=== PATIENT | male | born 1940 | race Caucasian/White ===

== ENCOUNTER 2021-02-26 | Outpatient (REF) | payer MEDICARE, SELFPAY ==
[2021-02-28 14:41] LABS: OBS Int Ctl Valid YES; OBS1 NEGATIVE (NEGATIVE); OBS2 NEGATIVE (NEGATIVE); OBS3 NEGATIVE (NEGATIVE)
== END 2021-02-26 00:01 | disposition home or self-care (01) ==
LOC: HO.LNP
PROVIDERS: Visit Provider Internal Medicine
DX: R19.4 Change in bowel habit (principal)
CPT/HCPCS: 82270

== ENCOUNTER 2022-08-16 12:11 | Outpatient (REF) | payer MEDICARE, SELFPAY ==
[2022-08-16 12:48] LABS: Leukocytes Stool Qualitative NEGATIVE (NEGATIVE)
[2022-08-16 13:18] LABS: CDiff Gene PCR NEGATIVE (Negative)
[2022-08-16 15:18] LABS: Campylobacter Not Detected (Not Detect.); Cryptosporidium Not Detected (Not Detect.); Cyclospora cayetanensis Not Detected (Not Detect.); E. coli EAEC Not Detected (Not Detect.); E. coli EPEC Not Detected (Not Detect.); E. coli ETEC Not Detected (Not Detect.); E. coli STEC Not Detected (Not Detect.); Plesiomonas shigelloides Not Detected (Not Detect.); Salmonella Not Detected (Not Detect.); Shigella sp./EIEC Not Detected (Not Detect.); Vibrio Not Detected (Not Detect.); Vibrio Cholerae Not Detected (Not Detect.); Yersinia enterocolitica Not Detected (Not Detect.)
[2022-08-16 15:19] LABS: Adenovirus F 40/41 Not Detected (Not Detect.); Astrovirus Not Detected (Not Detect.); Entamoeba histolytica Not Detected (Not Detect.); Giardia lamblia Not Detected (Not Detect.); Norovirus GI/GII Not Detected (Not Detect.); Rotavirus A Not Detected (Not Detect.); Sapovirus Not Detected (Not Detect.)
== END 2022-08-16 12:12 | disposition home or self-care (01) ==
LOC: HO.LNP 12:11
PROVIDERS: Visit Provider Internal Medicine
DX: R19.8 Other specified symptoms and signs involving the digestive system and abdomen (principal)
CPT/HCPCS: 87493; 87507; 89055

== ENCOUNTER 2023-12-02 07:50 | Inpatient (IN) | payer MEDICARE, SELFPAY ==
[2023-12-02] VITALS (9 sets, daily range): BP systolic 135–172; BP diastolic 63–104; PULSE 85–116; RESP 15–21; TEMP 36.2–37.1; O2SAT 94–100; BMI 26.2; BMI 24.7
--- NOTE | ~2023-12-02 | XR_ITS ---
EXAMINATION: XR chest 1V CLINICAL INFORMATION: Reason for Exam sob COMPARISON: No priors available TECHNIQUE: Single portable frontal view. Tubes and lines: None Lungs and pleura: There are bilateral patchy opacities projecting over the right and left upper lobe, right and left lower lobes, may represent patchy areas of infiltrates, could be infection versus lung masses. Heart and mediastinum: The mediastinum is within normal limits.. Bones/soft tissue: Skeletal structures included are normal for patient's age. XR/XR chest 1V IMPRESSION: Bilateral patchy opacities projecting over the right and left upper lobe, right and left lower lobes, could represent patchy areas of infiltrate/infection, versus lung masses. Please correlate with patient's clinical presentation, consider follow-up low-dose chest CT. if not performed would recommend follow-up chest x-ray in one month to ensure complete clearance..
--- NOTE | ~2023-12-02 | CT_ITS ---
EXAMINATION: CT CHEST WITHOUT CONTRAST CLINICAL INFORMATION: Cough, shortness of breath, wheezing. COMPARISON: X-ray chest 12/02/2023. TECHNIQUE: Multidetector volumetric CT imaging of the chest was done. Axial MIP volume rendering provided. Sagittal and coronal reformatted images were obtained. This CT examination was performed using dose optimization techniques as appropriate, variously including the following: *Automated exposure control *Adjustment of mA and/or kV according to patient size (this includes techniques or standardized protocols for targeted exams where dose is matched to indication/reason for exam; i.e. extremities or head) *Use of iterative reconstruction technique DLP: 195 mGy-cm FINDINGS: LUNGS: There are multiple foci of airspace opacities in bilateral lungs. This includes a prominent focus of airspace and ground-glass opacities in the left upper lobe, extending to the hilar region. Patchy airspace and ground-glass opacity in the peripheral aspect of the right upper lobe. Airspace and ground-glass opacities in the posterior aspect of bilateral lower lobes. Multiple nodular opacities in the left lower lobe, and in the right middle lobe. MEDIASTINUM: No suspicious findings in the visualized thyroid gland. No pathologically enlarged lymph nodes in the mediastinum or sergey. Normal heart size. No pericardial effusion. Normal caliber aorta. Aortic atherosclerotic vascular calcification. CORONARY ARTERY CALCIFICATION: Coronary artery calcification present. PLEURA: Moderate right pleural effusion. Small-moderate left pleural effusion. AXILLA: No lymphadenopathy. UPPER ABDOMEN: There are simple cysts in the partially visualized bilateral kidneys, for which no follow up is indicated. OSSEOUS STRUCTURES: Multilevel disc degenerative changes in the visualized spine. There are a few foci of subtle lucencies in bilateral ribs. For example lucency in the right 10th rib (5:535), right 8th rib (5:435), left 10th rib (5:473). CT/CT chest wo IV con IMPRESSION: 1. Multifocal airspace, ground-glass opacities and nodular opacities in bilateral lungs, including prominently involving bilateral upper lobes, as detailed above. Differential considerations include infectious, inflammatory etiology. Neoplastic process cannot be excluded. Recommend short-term followup CT posttreatment to ensure complete resolution of the findings, and exclude other possibilities such as neoplastic etiologies. 2. Moderate right pleural effusion. Small-moderate left pleural effusion. 3. There are subtle lucent foci in bilateral ribs, as detailed above. These are of indeterminate etiology. This could reflect bone demineralization. Bony lesions related to sequela of metastatic disease cannot be excluded. Correlate with patient's clinical history and risk factors. Bone scan evaluation may be helpful. Fleischner guidelines were followed.
--- NOTE | 2023-12-02 07:56 | ECG_ITS ---
Test Reason : SOB Blood Pressure : / mmHG Vent. Rate : 079 BPM Atrial Rate : 000 BPM P-R Int : 000 ms QRS Dur : 082 ms QT Int : 366 ms P-R-T Axes : 000 086 062 degrees QTc Int : 419 ms Atrial fibrillation with a competing junctional pacemaker Abnormal ECG When compared with ECG of 28-OCT-2005 00:21, Atrial fibrillation has replaced Sinus rhythm Questionable change in QRS axis Referred By: Umair Patton Electronically Signed By:Carlos Baldwin
--- NOTE | 2023-12-02 08:00 | PC.NURSE ---
a&ox4. vss and up to date. pt presents to the ED w/ sob/wheezing x a few days. pt states that he has had minimal to no relief while using inhaler at home. hx of asthma and he thinks that he has COPD. pt satting on 97% on RA without difficulty. slight sob/wob noted when conversating w/ patient. pt positioned upright to promote airway. ED provider assessing pt at this time. plan of care ongoing.
--- NOTE | 2023-12-02 08:01 | ED_ITS ---
HPI - General Adult General Chief complaint: Dyspnea Stated complaint: SOB SINCE LAST NIGHT Time Seen by Provider: 12/02/23 09:34 Source: patient Mode of arrival: ambulatory Limitations: no limitations History of Present Illness HPI narrative: 82-year-old male history of asthma, afib on eliquis, former smoker presenting to the emergency department for evaluation of shortness of breath ongoing for 3 days progressively worsening at time coughs. Patient reports worsening wheezing and dyspnea on exertion particularly with long distance. Has been taking home inhalers with little to no relief. He denies associated fevers, chills, chest pain, nausea, vomiting, abdominal pain, diarrhea. No recent sick contacts Related Data Allergies Allergy/AdvReac Type Severity Reaction Status Date / Time No Known Allergies Allergy Verified 12/02/23 08:00 Review of Systems 2 Review of Systems: Yes all other systems are reviewed and are negative PMFSH Past Medical History Attestation statement: The following information was validated with the patient. Source: old records reviewed and nursing notes reviewed Social History Social History Smoked in Last 30 Days: No Use of substances other than those prescribed or required for medical reasons: No Advance Directives: No Advance Directives Information Provided: Yes Physical Exam ED Vital Signs: Vital Signs - 24 hr 12/02/23 08:00 12/02/23 08:44 12/02/23 09:02 Temperature 97.8 F Pulse Rate 89 85 91 Respiratory Rate 18 21 H Blood Pressure 172/73 H Pulse Oximetry 99 Oxygen Delivery Method Room Air 12/02/23 10:39 Temperature 98.1 F Pulse Rate 100 Respiratory Rate 18 Blood Pressure 151/63 H Pulse Oximetry 97 Oxygen Delivery Method Room Air BMI result Body Mass Index 26.2 vss Appearance: Alert.? Oriented X3.? No acute distress.? Head: Normocephalic, atraumatic, no step-offs or deformities Eyes: Pupils equal, round and reactive to light.? Neck: Normal inspection.? Neck supple.? CVS: Normal heart rate and rhythm.? Pulses normal.? Respiratory: No respiratory distress.? Breath sounds normal.? Abdomen: Soft and nontender.? Skin: Skin warm and dry.? Normal skin color.? Normal skin turgor.? Extremities: No lower extremity edema.? No calf ttp. 5/5 strength to bilateral upper and lower extremities Neuro: Oriented X 3.? No motor deficit.? No sensory deficit. CN 2-12 intact Course Reevaluation(s) Reevaluation #1: CBC with no acute findings requiring intervention. No leukocytosis. Slight normocytic anemia this is likely patient's baseline no reports of bleeding. Chemistry with no acute findings requiring intervention. Patient's D-dimer 274, age adjusted D-dimer making VTE unlikely. Troponin, BNP, chest x-ray, viral test pending. Time: 08:29 Reevaluation #2: Troponin negative, EKG nonischemic. Chest x-ray showing bilateral patchy opacities projecting over the right and left upper lobe right and left lower lobes that represent patchy areas of infiltrate/infection versus lung masses. BNP and viral testing pending Time: 09:39 Reevaluation #3: BNP 330. No baseline to compare with. Normal lactic acid. CT of the chest showing multifocal airspace ground-glass opacities and nodular opacities in bilateral lungs. Likely infectious in origin as this was not acute onset. Moderate pleural effusion on the right. There also subtle lucencies and bilateral ribs this could be demineralization versus metastasis unclear. No history of malignancy. When patient was ambulated he was saturating 93% became short of breath and heart rate jumped to 150s 160s. Atrial fibrillation. Time: 12:37 Medications Administered Discontinued Medications Generic Name Dose Route Start Last Admin Trade Name Freq PRN Reason Stop Dose Admin Albuterol Sulfate 2.5 mg/ 5 mg 12/02/23 08:58 12/02/23 09:01 Albuterol Sulfate 2.5 mg INHALE 12/02/23 08:59 5 mg ONCE ONE Administration Albuterol Sulfate 2.5 mg/ 0 mg 12/02/23 08:36 12/02/23 08:39 Albuterol/Ipratropium 3 ml INHALE 12/02/23 08:37 5 dose ONCE ONE Administration Magnesium Sulfate 2 gm in 50 mls @ 25 mls/hr 12/02/23 08:03 12/02/23 10:09 Magnesium Sulfate/H2o IV 12/02/23 10:02 Infused ONCE ONE Infusion Ceftriaxone Sodium 1 gm/ 50 mls @ 100 mls/hr 12/02/23 12:32 12/02/23 12:44 Sodium Chloride IV 12/02/23 13:01 100 mls/hr ONCE ONE Administration Methylprednisolone Sodium Succinate 125 mg 12/02/23 08:03 12/02/23 08:09 Methylprednisolone Sod Succ 125 Mg/2 Ml Vial IVPUSH 12/02/23 08:04 125 mg ONCE ONE Administration Medical Decision Making Medical Decision Making [facility] Narrative: 0802 82-year-old male presents with worsening shortness of breath and wheezing for the past 3 days. Home inhalers not helping. Physical exam diminished breath sounds bilaterally with wheezes on expiration and intercostal muscle use for breathing. Moderate respiratory distress. Patient is saturating 95% on room air. History and physical exam concerning for viral illness versus asthma with moderate respiratory distress. Unlikely ACS, pulmonary embolism, dissection. Plan labs, imaging. Differential Diagnosis Differential Diagnoses: The differential diagnosis associated with the presentation includes History and physical exam concerning for viral illness versus asthma with moderate respiratory distress. Unlikely ACS, pulmonary embolism, dissection. Admission/Observation Consideration of admission/observation: Escalation of care including admission/observation considered possible Lab Data [facility] Lab Attestation statement: I reviewed the patient's lab results. 12/02/23 08:06 12/02/23 08:06 Labs: Lab Results 12/02/23 12/02/23 12/02/23 Range/Units 08:06 08:49 10:29 WBC 10.3 (4.8-10.8) X10*3/uL RBC 3.80 L (4.60-5.80) X10*6/uL Hgb 12.0 L (14.0-18.0) g/dl Hct 35.9 L (42.0-52.0) % MCV 94.5 (80.0-98.0) fL MCH 31.6 (27.0-33.0) pg MCHC 33.4 (31.0-36.0) g/dl RDW 13.8 (11.0-16.0) % Plt Count 321 (160-400) X10*3/uL MPV 9.3 L (9.4-12.4) fL Immature Gran % (Auto) 0.7 H (0.0-0.4) % Neut % (Auto) 83.0 H (45-73) % Lymph % (Auto) 5.1 L (20-40) % [place] % (Auto) 9.3 (2-11) % Eos % (Auto) 1.2 (0-4) % Baso % (Auto) 0.7 (0-2) % Lymph # (Auto) 0.5 L (1.2-4.9) X10*3/uL [place] # (Auto) 1.0 (0.1-1.2) X10*3/uL Eos # (Auto) 0.1 (0.0-0.4) X10*3/uL Baso # (Auto) 0.1 (0.0-0.2) X10*3/uL Abs Immat Gran (auto) 0.07 H (0.00-0.03) X10*3/uL Absolute Neuts (auto) 8.5 H (2.0-8.3) x10*3/uL Absolute Nucleated RBC 0.000 (0.0-0.012) X10*3/uL Nucleated RBC % (auto) 0.0 (0.0-0.2) /100WBC PT 15.2 H (11.1-13.3) SEC INR 1.3 H (0.9-1.1) D-Dimer High Sensitivty 274 NG/ML Sodium 141 (135-145) mmol/L Potassium 4.2 (3.3-5.1) mmol/L Chloride 107 (96-108) mmol/L Carbon Dioxide 27 (22-29) mmol/L Anion Gap 11 L (12-20) BUN 18 H (9-16) mg/dL Creatinine 0.99 (0.5-1.4) mg/dL Estim Creat Clear Calc 56.5 Estimated GFR > 60 Random Glucose 141 H (60-115) mg/dL Lactic Acid 1.7 (0.5-2.0) mmol/L Calcium 8.8 (8.4-10.2) mg/dL Magnesium 2.1 (1.6-2.6) mg/dL Total Bilirubin 0.5 (0.0-1.0) mg/dL AST 22 (5-37) U/L ALT 18 (0-40) U/L Alkaline Phosphatase 93 (39-117) U/L Troponin I High Sens 3.6 (<3.5-35.0) ng/L B-Natriuretic Peptide 330 H (<100) pg/mL Total Protein 7.1 (6.5-8.0) g/dL Albumin 3.7 (3.5-5.0) g/dL Urine Color Yellow Urine Appearance Clear Urine pH 6.0 (5.0-9.0) Ur Specific [place] 1.010 (1.005-1.025) Urine Protein 30 (1+) H (Neg-Trace) mg/dL Urine Glucose (UA) Negative (Negative) mg/dL Urine Ketones Negative (Negative) mg/dL Urine Blood Negative (Negative) Urine Nitrite Negative (Negative) Ur Leukocyte Esterase Negative (Negative) Urine RBC 0-2 (0-2) /HPF Urine WBC 0-5 (0-5) /HPF Ur Squamous Epith Cells 0-2 (0-2) /HPF Urine Bacteria None Seen (None Seen) Hyaline Casts 0-2 (0-2) /LPF Influenza Type A (PCR) NEGATIVE (Negative) Influenza Type B (PCR) NEGATIVE (Negative) RSV RNA Qual (PCR) NEGATIVE (Negative) SARS-CoV-2 RNA (RT-PCR) NEGATIVE (Negative) Independent Interpretation I performed an independent interpretation of an: EKG (Atrial fibrillation with a competing junctional pacemaker Abnormal ECG When compared with ECG of 28-OCT-2005 00:21, Atrial fibrillation has replaced Sinus rhythm Questionable change in QRS axis ), Plain X-Ray (XR/XR chest 1V IMPRESSION: Bilateral patchy opacities projecting over the right and left upper lobe, right and left lower lobes, could represent patchy areas of infiltrate/infection, versus lung masses. Please correlate with patient's clinical presentation, consider follow-up low-dose chest CT. ) and CT Scan Radiology Impression Discussion of test interpretation with radiology: I have reviewed the radiologist's reading. Critical Care Time Critical Care Time Critical Care Time: Yes Total Critical Care Time: 45 Attestation: I attest to this time spent taking care of the patient, obtaining history, physical, reviewing labs, imaging. And administering/ordering IV meds Discharge Plan Discharge Clinical Impression: Asthma with exacerbation, Pneumonia, Dyspnea on exertion Patient Disposition: Admitted As Inpatient
[2023-12-02] MEDS: Magnesium Sulfate/H2O 2 GM/50 ML PIGGYBACK IV (08:09)
[2023-12-02] MEDS: methylPREDNISolone Sod Succ 125 MG/2 ML VIAL IVPUSH (08:09)
[2023-12-02 08:10] LABS: MANUAL DIFF FLAG NO
[2023-12-02 08:12] LABS: Basophils Absolute Auto 0.1 X10*3/uL (0.0-0.2); Basophils Percent Auto 0.7 % (0-2); Eosinophils Absolute Auto 0.1 X10*3/uL (0.0-0.4); Eosinophils Percent Auto 1.2 % (0-4); Hematocrit 35.9 % (42.0-52.0); Imm Gran Abs Auto 0.07 X10*3/uL (0.00-0.03); Imm Gran Pct Auto 0.7 % (0.0-0.4); Lymphocytes Absolute Auto 0.5 X10*3/uL (1.2-4.9); Lymphocytes Percent Auto 5.1 % (20-40); Mean Corpuscular HGB Conc 33.4 g/dl (31.0-36.0); Mean Corpuscular Hemoglobin 31.6 pg (27.0-33.0); Mean Corpuscular Volume 94.5 fL (80.0-98.0); Mean Platelet Volume 9.3 fL (9.4-12.4); Monocytes Percent Auto 9.3 % (2-11); Neutrophils Absolute Auto 8.5 x10*3/uL (2.0-8.3); Platelet Count 321 X10*3/uL (160-400); Red Cell Distribution Width 13.8 % (11.0-16.0); White Blood Count 10.3 X10*3/uL (4.8-10.8)
[2023-12-02 08:19] LABS: INTERNATIONAL NORM RATIO 1.3 (0.9-1.1); Prothrombin Time 15.2 SEC (11.1-13.3)
[2023-12-02 08:21] LABS: D Dimer High Sensitivity 274 NG/ML
[2023-12-02 08:27] LABS: Alanine Aminotransferase 18 U/L (0-40); Albumin Level 3.7 g/dL (3.5-5.0); Alkaline Phosphatase 93 U/L (39-117); Anion Gap 11 (12-20); Aspartate Amino Transferase 22 U/L (5-37); Bilirubin Total 0.5 mg/dL (0.0-1.0); Blood Urea Nitrogen 18 mg/dL (9-16); Calcium 8.8 mg/dL (8.4-10.2); Carbon Dioxide 27 mmol/L (22-29); Chloride 107 mmol/L (96-108); Creatinine Clr Calc Pharmacy 56.5; Estimated Glomerular Filt Rate > 60; Glucose Random 141 mg/dL (60-115); Magnesium 2.1 mg/dL (1.6-2.6); Potassium 4.2 mmol/L (3.3-5.1); Sodium 141 mmol/L (135-145); Total Protein 7.1 g/dL (6.5-8.0)
[2023-12-02 08:35] LABS: Troponin-I High Sensitivity 3.6 ng/L (<3.5-35.0)
[2023-12-02] MEDS: Albuterol Sulfate 2.5 MG, Albuterol/Iprat 2.5/0.5MG 3 ML 3 ML INHALE (08:39)
--- NOTE | 2023-12-02 08:39 | PC.NURSE ---
medication administered per provider order.
--- NOTE | 2023-12-02 08:48 | PC.NURSE ---
pt receiving breathing treatment via RT at this time. effectiveness pending.
[2023-12-02] MEDS: Albuterol Sulfate 2.5 MG, Albuterol Sulfate (0.083%) 2.5 MG 5 MG INHALE (09:01)
--- NOTE | 2023-12-02 09:18 | PC.NURSE ---
slight wheezing still noted throughout upon auscultation. pt verbalizing he feels much better post interventions. pt remains sitting upright. pt able to conversate/complete full sentences w/o difficulty. no sob/wob noted. respirations even and unlabored. family bedside. call franco placed within reach.
[2023-12-02 09:46] LABS: Influenza A PCR NEGATIVE (Negative); Influenza B PCR NEGATIVE (Negative); Resp Syncy Virus RNA Qual PCR NEGATIVE (Negative); SARS COV2 PCR INHOUSE NEGATIVE (Negative)
[2023-12-02 10:36] LABS: Appearance Urine Clear; Color Urine Yellow; Glucose Urine UA Negative (Negative); Leukocyte Esterase Urine Negative (Negative); Nitrite Urine Negative (Negative); UMIC TRIGGER UACC YES; Urine Blood Negative (Negative); Urine Ketones Negative (Negative); Urine Protein 30 (1+) mg/dL (Neg-Trace)
[2023-12-02 10:38] LABS: Bacteria Urine None Seen (None Seen); Hyaline Casts Urine 0-2 /LPF (0-2); RBC Urine 0-2 /HPF (0-2); Squamous Epithelial Cell Urine 0-2 /HPF (0-2); WBC Urine 0-5 /HPF (0-5)
[2023-12-02 10:49] LABS: Lactic Acid 1.7 mmol/L (0.5-2.0)
[2023-12-02 11:03] LABS: B Type Natriuretic Peptide 330 pg/mL (<100)
--- NOTE | 2023-12-02 11:06 | PC.NURSE ---
vss and up to date aside from pt being sinus tachy on the groundwater monitoring technician. pt denies pain. pt ambulates to the restroom independently w/ strong/steady gait. no use of assistive devices needed. pt verbalizes increase in sob when ambulating. no sob/wob noted at rest. ED provider notified/aware.
[2023-12-02] MEDS: cefTRIAXone sodium 1 GM in 0.9 % Sodium Chloride 50 ML IV (12:44)
--- NOTE | 2023-12-02 12:46 | PC.NURSE ---
pt did ambulation trial w/ tech. pt ambulates w/ strong steady gait verbalizes feeling sob upon exertion. labored breathing noted throughout trial. pt rested around 95% on RA while ambulating but pt became tachycardic with a HR between 130s-160s. ED provider/notified aware. abx administered per provider order. plan of care ongoing.
[2023-12-02] MEDS: Azithromycin 500 MG in 0.9 % Sodium Chloride 250 ML 125 MG IV (13:14)
--- NOTE | 2023-12-02 13:15 | PC.NURSE ---
vss and up to date aside from sinus tachy on the rotary soil stabilizer. medication administered per provider order. pt speaking w/ hospitalist at this time/aware of plan of care in regards to being admitted. call franco placed within reach.
--- NOTE | 2023-12-02 14:23 | PM.IMHP ---
History of Present Illness Date of Service: 12/02/23 Attending physician on admission: Bryn Pruett Chief Complaint: sob, cough 82-year-old male with history of paroxysmal atrial fibrillation anticoagulated with Eliquis, asthma/COPD overlap, hypertension, BPH, macular degeneration, mitral valve insufficiency, cutaneous squamous cell carcinoma presented to the ED earlier today for evaluation of dyspnea and productive cough ongoing for about 3 days. He reports primarily exertional dyspnea but also experiences some shortness of breath at rest with associated wheezing. Cough has been associated with green sputum production. Denies any fevers or chills. No congestion, abdominal pain, nausea, vomiting, diarrhea, palpitations, lightheadedness, orthopnea, PND, chest pain. No sick contacts. He has a former smoker with 40 pack-year history. Denies any regular alcohol use or illicit drug use. Since arrival has been mildly hypertensive to 159/67 and intermittently tachycardic 100-110 but transiently increasing to 140s with speaking and ambulation. He has not taken his coreg this morning. No leukocytosis. Renal function baseline, electrolyte levels normal. Troponin 3.6. BNP 330. Urinalysis unremarkable. Negative for COVID-19, RSV, influenza. Chest CT shows multifocal airspace, ground-glass opacities and nodular opacities in the bilateral lungs including prominently involving bilateral upper lobes. Neoplastic process can not be excluded. There is also moderate right pleural effusion and small moderate left pleural effusion. In the ED, given 1 g ceftriaxone, 500 mg azithromycin, DuoNeb, IV magnesium, 125 mg IV methylprednisolone. Review of Systems Review of Systems: General: No fevers, malaise, unintentional weight loss HEENT: No blurred vision, diplopia. No sore throat, nasal congestion, rhinorrhea, sinus pain, ear pain Cardiovascular: No chest pain, palpitations, or leg edema Respiratory: +shortness of breath, +cough, +wheezing GI: No abdominal pain, nausea, vomiting, diarrhea, constipation, melena, hematochezia : No dysuria, hematuria, increased urinary frequency, decreased urinary output MSK: No myalgia, back pain Neuro: No headaches, weakness, paresthesias Skin: No rashes or lesions [facility] Medical History (Updated 12/02/23 @ 14:44 by DIAMOND Syed) Asthma Mitral valve insufficiency Macular degeneration Former smoker HFrEF (heart failure with reduced ejection fraction) Atrial fibrillation HTN (hypertension) Social History Patient Tobacco Use Status: Former Tobacco user Smoked in Last 30 Days: No Use of substances other than those prescribed or required for medical reasons: No Advance Directives: No Advance Directives Information Provided: Yes Nutrition Risks: No Nutritional Risk Meds Allergies Allergy/AdvReac Type Severity Reaction Status Date / Time No Known Allergies Allergy Verified 12/02/23 08:00 Active Medications: Current Medications Acetaminophen (Acetaminophen 325 Mg Tablet) 650 mg PO Q6H PRN PRN Reason: Pain, Mild (Pain Scale 1-3) Azithromycin 500 mg/ Sodium (Chloride) 250 mls @ 125 mls/hr IV ONCE ONE Stop: 12/02/23 14:31 Last Admin: 12/02/23 13:14 Dose: 125 mls/hr Ondansetron HCl (Ondansetron Hcl 4 Mg/2 Ml Vial) 4 mg IVPUSH Q8H PRN PRN Reason: Nausea and Vomiting Senna (Sennosides 8.6 Mg Tablet) 17.2 mg PO BEDTIME PRN PRN Reason: Constipation Home Medications Medication Instructions Recorded Confirmed Last Taken Type amlodipine 10 mg tablet 10 mg PO DAILY 12/02/23 12/02/23 Unknown History apixaban 5 mg tablet (Eliquis) 5 mg PO BID 12/02/23 12/02/23 12/02/23 History brimonidine 0.2 % eye drops 1 drp ophthalmic (eye) BID 12/02/23 12/02/23 Unknown History budesonide-formoterol HFA 160 2 puff inhalation BID 12/02/23 12/02/23 Unknown History mcg-4.5 mcg/actuation aerosol inhaler (Symbicort) carvedilol 6.25 mg tablet 6.25 mg PO BID 12/02/23 12/02/23 Unknown History cholecalciferol (vitamin D3) 50 50 mcg PO DAILY 12/02/23 12/02/23 Unknown History mcg (2,000 unit) tablet (Vitamin D3) finasteride 5 mg tablet 5 mg PO DAILY 12/02/23 12/02/23 Unknown History lifitegrast 5 % eye drops in a 1 drp ophthalmic (eye) BID 12/02/23 12/02/23 Unknown History dropperette (Xiidra) losartan 100 mg tablet 100 mg PO DAILY 12/02/23 12/02/23 Unknown History multivitamin 1 tab PO DAILY 12/02/23 12/02/23 Unknown History timolol maleate 0.5 % eye drops 1 drp ophthalmic (eye) BID 12/02/23 12/02/23 Unknown History vit C 250 mg-vit E 90 mg-zinc 40 1 tab PO BID 12/02/23 12/02/23 12/02/23 History mg-copper 1 [id number] capsule (PreserVision AREDS-2) Physical Exam Vital Signs and Narrative: Vital Signs: Last Vital Signs Temp 98.0 F 12/02/23 13:14 Pulse 116 H 12/02/23 13:14 Resp 18 12/02/23 13:14 BP 159/67 H 12/02/23 13:14 Pulse Ox 97 12/02/23 13:14 O2 Del Method Room Air 12/02/23 13:14 BMI result Body Mass Index 26.2 Constitutional - Awake and Alert, No apparent distress Eyes - PERRLA, EOMI Cardiovascular - S1S2, RRR, No edema Respiratory - Normal lung expansion, Normal respiratory effort, No respiratory distress, crackles bilaterally, diminished Gastrointestinal - NT / ND; +BS; No rebound or guarding Extremities - no calf tenderness bilaterally, no swelling Skin - Warm/Dry Neurological - Alert & oriented x3 Psychological - Appropriate affect Results Labs 12/02/23 08:06 12/02/23 08:06 Labs: Laboratory Results - last 24 hr 12/02/23 12/02/23 12/02/23 08:06 08:49 10:29 MCV 94.5 MCH 31.6 MCHC 33.4 RDW 13.8 Plt Count 321 MPV 9.3 L Immature Gran % (Auto) 0.7 H Neut % (Auto) 83.0 H Lymph % (Auto) 5.1 L [place] % (Auto) 9.3 Eos % (Auto) 1.2 Baso % (Auto) 0.7 Lymph # (Auto) 0.5 L [place] # (Auto) 1.0 Eos # (Auto) 0.1 Baso # (Auto) 0.1 Abs Immat Gran (auto) 0.07 H Absolute Neuts (auto) 8.5 H Absolute Nucleated RBC 0.000 Nucleated RBC % (auto) 0.0 PT 15.2 H INR 1.3 H D-Dimer High Sensitivty 274 Anion Gap 11 L Estim Creat Clear Calc 56.5 Estimated GFR > 60 Random Glucose 141 H Lactic Acid 1.7 Calcium 8.8 Magnesium 2.1 Total Bilirubin 0.5 AST 22 ALT 18 Alkaline Phosphatase 93 Troponin I High Sens 3.6 B-Natriuretic Peptide 330 H Total Protein 7.1 Albumin 3.7 Urine Color Yellow Urine Appearance Clear Urine pH 6.0 Ur Specific [place] 1.010 Urine Protein 30 (1+) H Urine Glucose (UA) Negative Urine Ketones Negative Urine Blood Negative Urine Nitrite Negative Ur Leukocyte Esterase Negative Urine RBC 0-2 Urine WBC 0-5 Ur Squamous Epith Cells 0-2 Urine Bacteria None Seen Hyaline Casts 0-2 Influenza Type A (PCR) NEGATIVE Influenza Type B (PCR) NEGATIVE RSV RNA Qual (PCR) NEGATIVE SARS-CoV-2 RNA (RT-PCR) NEGATIVE Imaging Radiologist's Impressions: Impressions Chest X-Ray 12/02/23 08:22 IMPRESSION: Bilateral patchy opacities projecting over the right and left upper lobe, right and left lower lobes, could represent patchy areas of infiltrate/infection, versus lung masses. Please correlate with patient's clinical presentation, consider follow-up low-dose chest CT. if not performed would recommend follow-up chest x-ray in one month to ensure complete clearance.. Chest CT 12/02/23 10:10 IMPRESSION: 1. Multifocal airspace, ground-glass opacities and nodular opacities in bilateral lungs, including prominently involving bilateral upper lobes, as detailed above. Differential considerations include infectious, inflammatory etiology. Neoplastic process cannot be excluded. Recommend short-term followup CT posttreatment to ensure complete resolution of the findings, and exclude other possibilities such as neoplastic etiologies. 2. Moderate right pleural effusion. Small-moderate left pleural effusion. 3. There are subtle lucent foci in bilateral ribs, as detailed above. These are of indeterminate etiology. This could reflect bone demineralization. Bony lesions related to sequela of metastatic disease cannot be excluded. Correlate with patient's clinical history and risk factors. Bone scan evaluation may be helpful. Fleischner guidelines were followed. Assessment and Plan (1) Dyspnea on exertion: Status: Acute (2) Pneumonia: Status: Acute (3) Asthma with exacerbation: Status: Acute (4) Atrial fibrillation with RVR: Status: Acute Plan 82-year-old male with history of paroxysmal atrial fibrillation anticoagulated with Eliquis, asthma/COPD overlap, hypertension, BPH, macular degeneration, mitral valve insufficiency, cutaneous squamous cell carcinoma admitted for further management of pneumonia with asthma exacerbation, afib with rvr and chf exacerbation. #Multifocal pneumonia -Chest CT shows multifocal airspace, ground-glass opacities and nodular opacities in the bilateral lungs including prominently involving bilateral upper lobes. Neoplastic process can not be excluded. There is also moderate right pleural effusion and small moderate left pleural effusion. -IV ceftriaxone and doxy (initiated 12/02) -sputum culture, strep pneumo antigen, Legionella antigen, and MRSA nasal screen pending -symptomatic management -no sepsis. Follow CBC, cultures # acute asthma exacerbation -secondary to above -40 mg IV methylprednisolone b.i.d. -DuoNebs q.4h while awake p.r.n. -albuterol p.r.n. # paroxysmal atrial fibrillation with RVR -missed dose of Coreg this morning. Give single dose Lopressor 5 mg x 1 -resume Coreg 6.25 mg b.i.d. -Eliquis for anticoagulation -cardiac diet -monitor on telemetry -echocardiogram -cardiology consult # acute CHF exacerbation -BNP 330, bilateral pleural effusions, symptomatic with CAVAZOS -40mg IV lasix daily -echo -cardiac diet -strict I&O -daily weights -cardiology consult # hypertension -continue amlodipine, losartan, coreg DVT prophyalxis- eliquis Full code Patient requires inpatient stay for management of atrial fibrillation with RVR and acute CHF exacerbation as well as pneumonia with asthma exacerbation requiring IV diuresis, IV rate control medications, cardiac monitoring and IV antibiotics. Quality Stroke Does the patient have a stroke diagnosis?: No VTE Prior VTE?: No VTE Risk Level:: Medical - moderate - high VTE Device Contraindication: Treatment Not Indicated VTE Drug Contraindication: N/A - Med Ordered
[2023-12-02] MEDS: Doxycycline Hyclate 100 MG in 0.9 % Sodium Chloride 250 ML 166.67 MG IV (14:40)
[2023-12-02] MEDS: Metoprolol Tartrate 5 MG/5 ML VIAL IVPUSH (14:43)
[2023-12-02] MEDS: Furosemide 40 MG/4 ML VIAL IVPUSH (14:55)
[2023-12-02] MEDS: carvediloL 6.25 MG TABLET PO ×2 (14:56→21:57)
--- NOTE | 2023-12-02 14:57 | PC.NURSE ---
20gIV placed in the right forearm - medication administered per provider order. pt remains afib on the conveyor monitor - HR between 90s-110s at this time.
--- NOTE | 2023-12-02 15:01 | PHA.MEDREC ---
Pharmacy Consult ? Medication Reconciliation Pharmacy has completed the medication reconciliation. spoke with patient to confirm medications. Him and his family member report that he also takes fiber and a probiotic. He reports that the brimonidine replaced the latanoprost. He also mentioned that his insurance is no longer covering his symbicort and is going to switch to Breo but he did not start that yet and is finishing his last canister of symbicort. He reports using a spacer with his inhaler as well.
--- NOTE | 2023-12-02 16:10 | PC.NURSE ---
pt remains afib on the moitor between 90s-110s despite medication administration. otherwise vss and up to date. no sob/wob noted at rest. pt still verbalizing feeling sob on exertion. resting comfortably in no apparent distress waiting for admission bed assignment at this time. family bedside. call franco placed within reach.
--- NOTE | 2023-12-02 16:45 | PC.NURSE ---
admission worksheet complete. transport notified at this time.
--- NOTE | 2023-12-02 16:54 | PC.NURSE ---
pt being transported upstairs at this time.
[2023-12-02] MEDS: timoloL maleate 0.5 % Oph Sol 5 ML DRBTL 1 DROP EYE-BOTH (21:57)
[2023-12-02] MEDS: methylPREDNISolone Sod Succ 40 MG/ML VIAL IVPUSH (21:57)
[2023-12-02] MEDS: Apixaban 5 MG TABLET PO (21:57)
[2023-12-02] MEDS: Brimonidine Tartrate 0.2% Oph 5 ML BOTTLE 1 DROP EYE-BOTH (21:57)
[2023-12-03] VITALS (8 sets, daily range): BP systolic 123–155; BP diastolic 61–86; PULSE 65–91; RESP 16–20; TEMP 36.6–36.9; O2SAT 95–98
[2023-12-03] MEDS: Doxycycline Hyclate 100 MG in 0.9 % Sodium Chloride 250 ML 166.67 MG IV ×2 (04:15→14:51)
--- NOTE | 2023-12-03 07:00 | CA_ITS ---
Transthoracic Echocardiogram Patient (Last, First, Middle): Junior Marin R Gender: Male Date of : 1940 Age: 82 Procedure Date: 12/03/2023 Procedure Type: Transthoracic Echocardiogram Location: [facility] [place] Height: 175.26 cm Weight: 75.75 kg BSA: 1.91 m2 Heart Rate: bpm BP: 155 / 86 mmHg Alterations Tailor: SB Referring MD: Mel FIELDS [employer]eral Service Apprentice: Blas Reveles MD Symptoms: chf, afib rvr Study Quality: Adequate ECG Rhythm: Atrial Fibrillation Conclusions: - 1. Normal LV systolic function with LVEF of 60-65% 2. Biatrial enlargement, right greater than left 3. Mild aortic regurgitation 4. Moderately elevated right ventricular systolic pressure mildly elevated right atrial pressures 5. Mildly dilated ascending aorta at 3.7 cm 6. Small pericardial effusion Findings Left Ventricle Normal left ventricular size, thickness, and systolic function. The visually estimated ejection fraction is between 60-65%. Diastolic function is indeterminate on the basis of available data. Right Ventricle Mildly increased right ventricular cavity size. There is normal right ventricular systolic function. Atria The left atrium is moderately dilated. Interatrial shunt cannot be excluded. The right atrium is severely dilated. Aortic Valve The aortic valve structure and function is likely normal. There is no aortic valve stenosis. There is mild aortic valve regurgitation. Mitral Valve There is mild anterior and posterior mitral leaflet thickening. There is mild mitral annular calcification. There is trace mitral valve regurgitation. There is no mitral valve stenosis. Pulmonic Valve The pulmonic valve is likely normal. Tricuspid Valve Normal tricuspid valve structure. There is mild tricuspid valve regurgitation. Mildly elevated right atrial pressure. Moderate pulmonary hypertension is present. Great Vessels The pulmonary artery was not well visualized. There is mild dilatation of the ascending aorta measuring 3.70 cm. Venous The inferior vena cava is moderately dilated and collapses less than 50% with inspiration. Pericardium/Pleural There is a small circumferential pericardial effusion. Prior Study Comparison No prior study available for comparison. Measurements 2D Linear Measurements IVSd: 0.88 0.6-0.9/0.6-1.0 cm LVIDd: 5.24 3.9-5.3/4.2-5.9 cm LVIDd Index: 2.74 2.4-3.2/2.2-3.1 cm/m2 LVIDs: 3.06 2.0-3.6 cm LVPWd: 1.19 0.7-1.1 cm LA Diam: 4.90 2.7-3.8/3.0-4.0 cm LAIDs Index: 2.57 1.5-2.3 cm/m2 LV Mass: 256.44 67-162/88-224 g LV Mass Index: 134.26 43-95/49-115 g/m2 LVOT Diam: 2.20 3.0+(-)1.3 cm 2D Systolic Function EF 4C: 62.10 >55% EF 2C: 66.50 >55% EF BiP: 65.40 >55% Mitral Valve MV Pk E: 1.31 E'Medial: 7.72 E/E' Med: 17.00 Aortic Valve AoV Pk Ty: 0.98 AoV Pk Grad: 4.00 JOSE: 3.72 AI Pk Ty: 3.92 AI [place]: 3.09 LVOT LVOT Pk Ty: 0.96 LVOT Mn Ty: 0.75 LVOT VTI: 0.20 LVOT Pk Grad: 4.00 LVOT Mn Grad: 3.00 LVOT Diam: 2.20 LVOT Area: 3.80 Diastolic Function MV Pk E: 1.31 E'Medial: 7.72 E/E' Med: 17.00 Right Ventricle TAPSE (mm): 21.90 TVS' Ty: 13.20 Tricuspid Valve TR Pk Ty: 3.27 TR Pk Grad: 43.00 RA Press: 8.00 RVSP: 51.00 Great Vessels Aorta Sinus of Valsalva: 3.80 2.0-3.5 cm Ao Asc: 3.70 2.1-3.4 cm Pulmonary Valve PV Pk Ty: 0.95 Peak PV Grad: 4.00 Updated in Other Vendor System with Status of Final Blas Reveles MD electronically signed on 12/03/2023 12:36:35 PM with status of Final
[2023-12-03 07:22] LABS: Hemoglobin 11.9 g/dl (14.0-18.0); Mean Corpuscular Hemoglobin 31.2 pg (27.0-33.0); Mean Corpuscular Volume 91.6 fL (80.0-98.0); Mean Platelet Volume 9.4 fL (9.4-12.4); Platelet Count 359 X10*3/uL (160-400); Red Blood Count 3.82 X10*6/uL (4.60-5.80); Red Cell Distribution Width 13.8 % (11.0-16.0); White Blood Count 12.1 X10*3/uL (4.8-10.8)
[2023-12-03 07:31] LABS: Anion Gap 12 (12-20); Blood Urea Nitrogen 23 mg/dL (9-16); Calcium 9.1 mg/dL (8.4-10.2); Carbon Dioxide 28 mmol/L (22-29); Chloride 106 mmol/L (96-108); Creatinine Clr Calc Pharmacy 60.1; Estimated Glomerular Filt Rate > 60; Glucose Random 142 mg/dL (60-115); Potassium 4.5 mmol/L (3.3-5.1); Sodium 141 mmol/L (135-145)
--- NOTE | 2023-12-03 07:53 | P.PNIM_ITS ---
Subjective Subjective Date of Service: 12/03/23 Interval History: Seen in follow up for pneumonia, COPD, CHF exacberation, Afib rvr Interval history: No complaints. No sob, chest pain. Afebrile, no hypoxia Review of Systems Review of Systems: Yes all other systems are reviewed and are negative Physical Exam 2 Vital Signs: Vital Signs: Last Vital Signs Temp 98.5 F 12/03/23 03:40 Pulse 75 12/03/23 03:40 Resp 20 12/03/23 03:40 BP 155/86 H 12/03/23 03:40 Pulse Ox 97 12/03/23 03:40 O2 Del Method Room Air 12/03/23 03:40 BMI result Body Mass Index 24.7 Constitutional - Awake and Alert, No apparent distress Eyes - PERRLA, EOMI Cardiovascular - S1S2, RRR, No edema Respiratory - Normal lung expansion, Normal respiratory effort, No respiratory distress, CTA bilaterally Extremities - no calf tenderness bilaterally, no swelling Skin - Warm/Dry Neurological - Alert & oriented x3 Psychological - Appropriate affect Objective Data Active Medications Acetaminophen (Acetaminophen 325 Mg Tablet) 650 mg PO Q6H PRN PRN Reason: Pain, Mild (Pain Scale 1-3) Albuterol/Ipratropium (Albuterol/Iprat 2.5/0.5mg 3 Ml Ampul.Neb) 3 ml INHALE RQ4H WHILE AWAKE PRN PRN Reason: shortness of breath/wheezing Amlodipine Besylate (Amlodipine Besylate 10 Mg Tablet) 10 mg PO DAILY [facility]; Protocol Apixaban (Apixaban 5 Mg Tablet) 5 mg PO BID [facility] Last Admin: 12/02/23 21:57 Dose: 5 mg Documented By: LITO Brimonidine Tartrate (Brimonidine Tartrate 0.2% Oph 5 Ml Bottle) 1 drop EYE- BOTH BID [facility] Last Admin: 12/02/23 21:57 Dose: 1 drop Documented By: LITO Carvedilol (Carvedilol 6.25 Mg Tablet) 6.25 mg PO BID [facility]; Protocol Last Admin: 12/02/23 21:57 Dose: 6.25 mg Documented By: LITO Finasteride (Finasteride 5 Mg Tablet) 5 mg PO DAILY [facility] Fluticasone/Vilanterol (Fluticasone/Vilanterol 200/25 Blst.W.Dev) 1 puff INHALE RDAILY [facility] Furosemide (Furosemide 40 Mg/4 Ml Vial) 40 mg IVPUSH DAILY [facility]; Protocol Last Admin: 12/02/23 14:55 Dose: 40 mg Documented By: FRAN Ceftriaxone Sodium 1 gm/ (Sodium Chloride) 50 mls @ 100 mls/hr IV Q24H [facility] Doxycycline Hyclate 100 mg/ (Sodium Chloride) 250 mls @ 166.67 mls/hr IV Q12H [facility] Last Infusion: 12/03/23 05:45 Dose: Infused Documented By: LITO Losartan Potassium (Losartan Potassium 50 Mg Tablet) 100 mg PO DAILY [facility]; Protocol Methylprednisolone Sodium Succinate (Methylprednisolone Sod Succ 40 Mg/Ml Vial) 40 mg IVPUSH Q12H [facility] Last Admin: 12/02/23 21:57 Dose: 40 mg Documented By: LITO Multivitamins/Vitamin C (Multivitamin Tablet) 1 tab PO DAILY [facility] Non-Formulary Medication (Lifitegrast [Xiidra]) 1 drop EYE-BOTH BID [facility] Ondansetron HCl (Ondansetron Hcl 4 Mg/2 Ml Vial) 4 mg IVPUSH Q8H PRN PRN Reason: Nausea and Vomiting Senna (Sennosides 8.6 Mg Tablet) 17.2 mg PO BEDTIME PRN PRN Reason: Constipation Timolol Maleate (Timolol Maleate 0.5 % Oph [place] 5 Ml Drbtl) 1 drop EYE-BOTH BID [facility] Last Admin: 12/02/23 21:57 Dose: 1 drop Documented By: LITO Vitamin D (Cholecalciferol (Vitamin D3) 25 Mcg Tablet) 50 mcg PO DAILY [facility] Labs 12/03/23 06:58 12/03/23 06:58 Labs: Laboratory Results - last 24 hr 12/02/23 12/02/23 12/02/23 08:06 08:49 10:29 MCV 94.5 MCH 31.6 MCHC 33.4 RDW 13.8 Plt Count 321 MPV 9.3 L Immature Gran % (Auto) 0.7 H Neut % (Auto) 83.0 H Lymph % (Auto) 5.1 L [place] % (Auto) 9.3 Eos % (Auto) 1.2 Baso % (Auto) 0.7 Lymph # (Auto) 0.5 L [place] # (Auto) 1.0 Eos # (Auto) 0.1 Baso # (Auto) 0.1 Abs Immat Gran (auto) 0.07 H Absolute Neuts (auto) 8.5 H Absolute Nucleated RBC 0.000 Nucleated RBC % (auto) 0.0 PT 15.2 H INR 1.3 H D-Dimer High Sensitivty 274 Anion Gap 11 L Estim Creat Clear Calc 56.5 Estimated GFR > 60 Random Glucose 141 H Lactic Acid 1.7 Calcium 8.8 Magnesium 2.1 Total Bilirubin 0.5 AST 22 ALT 18 Alkaline Phosphatase 93 Troponin I High Sens 3.6 B-Natriuretic Peptide 330 H Total Protein 7.1 Albumin 3.7 Urine Color Yellow Urine Appearance Clear Urine pH 6.0 Ur Specific [place] 1.010 Urine Protein 30 (1+) H Urine Glucose (UA) Negative Urine Ketones Negative Urine Blood Negative Urine Nitrite Negative Ur Leukocyte Esterase Negative Urine RBC 0-2 Urine WBC 0-5 Ur Squamous Epith Cells 0-2 Urine Bacteria None Seen Hyaline Casts 0-2 Influenza Type A (PCR) NEGATIVE Influenza Type B (PCR) NEGATIVE RSV RNA Qual (PCR) NEGATIVE SARS-CoV-2 RNA (RT-PCR) NEGATIVE 12/03/23 06:58 MCV 91.6 MCH 31.2 MCHC 34.0 RDW 13.8 Plt Count 359 MPV 9.4 Immature Gran % (Auto) Neut % (Auto) Lymph % (Auto) [place] % (Auto) Eos % (Auto) Baso % (Auto) Lymph # (Auto) [place] # (Auto) Eos # (Auto) Baso # (Auto) Abs Immat Gran (auto) Absolute Neuts (auto) Absolute Nucleated RBC 0.000 Nucleated RBC % (auto) 0.0 PT INR D-Dimer High Sensitivty Anion Gap 12 Estim Creat Clear Calc 60.1 Estimated GFR > 60 Random Glucose 142 H Lactic Acid Calcium 9.1 Magnesium Total Bilirubin AST ALT Alkaline Phosphatase Troponin I High Sens B-Natriuretic Peptide Total Protein Albumin Urine Color Urine Appearance Urine pH Ur Specific [place] Urine Protein Urine Glucose (UA) Urine Ketones Urine Blood Urine Nitrite Ur Leukocyte Esterase Urine RBC Urine WBC Ur Squamous Epith Cells Urine Bacteria Hyaline Casts Influenza Type A (PCR) Influenza Type B (PCR) RSV RNA Qual (PCR) SARS-CoV-2 RNA (RT-PCR) Assessment and Plan (1) CHF exacerbation: Status: Acute (2) Atrial fibrillation with RVR: Status: Acute (3) Pneumonia: Status: Acute (4) Asthma with exacerbation: Status: Acute Plan 82-year-old male with history of chronic atrial fibrillation anticoagulated with Eliquis, asthma/COPD overlap, hypertension, BPH, macular degeneration, mitral valve insufficiency, cutaneous squamous cell carcinoma admitted for further management of pneumonia with asthma exacerbation, afib with rvr and chf exacerbation. #Multifocal pneumonia -Chest CT shows multifocal airspace, ground-glass opacities and nodular opacities in the bilateral lungs including prominently involving bilateral upper lobes. Neoplastic process can not be excluded. There is also moderate right pleural effusion and small moderate left pleural effusion. -IV ceftriaxone and doxy (initiated 12/02) -sputum culture, strep pneumo antigen, Legionella antigen, and MRSA nasal screen pending -symptomatic management -no sepsis. Follow CBC, cultures # acute asthma/COPD exacerbation -secondary to above -40 mg IV methylprednisolone b.i.d., consider change to prednisone am if continued improvement -DuoNebs q.4h while awake p.r.n. -albuterol p.r.n. # chronic atrial fibrillation with RVR- rate now controlled -RVR likely due to above -continue Coreg 6.25 mg b.i.d. -Eliquis for anticoagulation -cardiac diet -monitor on telemetry -echocardiogram -cardiology consult # acute CHF exacerbation- due to afib rvr -clinically euvolemic , change to PO lasix 40mg daily -echo shows normal LV systolic function with EF 60-65%, moderately elevated right ventricular systolic pressure with mildly elevated right atrial pressures, mild dilatation of the ascending aorta at 3.7 cm, and mild aortic regurgitation. Diastolic function indeterminate -cardiac diet -strict I&O -daily weights -cardiology input appreciated. outpt follow up with pt's perfumer # hypertension -continue amlodipine, losartan, coreg DVT prophyalxis- eliquis Full code Patient requires ongoing inpt stay due to asthma/copd exacerbation/multifocal pneumonia requiring IV steroids, IV antibiotics Quality Stroke Does the patient have a stroke diagnosis?: No VTE Prior VTE?: No VTE Risk Level:: Medical - moderate - high VTE Device Contraindication: Treatment Not Indicated VTE Drug Contraindication: N/A - Med Ordered
[2023-12-03] MEDS: Fluticasone/Vilanterol 200/25 BLST.W.DEV 1 PUFF INHALE (08:28)
[2023-12-03] MEDS: Multivitamin TABLET 1 TAB PO (09:21)
[2023-12-03] MEDS: methylPREDNISolone Sod Succ 40 MG/ML VIAL IVPUSH ×2 (09:21→20:09)
[2023-12-03] MEDS: Furosemide 40 MG/4 ML VIAL IVPUSH (09:21)
[2023-12-03] MEDS: carvediloL 6.25 MG TABLET PO ×2 (09:22→20:09)
[2023-12-03] MEDS: Losartan Potassium 50 MG TABLET 100 MG PO (09:22)
[2023-12-03] MEDS: Cholecalciferol (Vitamin D3) 25 MCG TABLET 50 MCG PO (09:22)
[2023-12-03] MEDS: Apixaban 5 MG TABLET PO ×2 (09:22→20:09)
[2023-12-03] MEDS: amLODIPine Besylate 10 MG TABLET PO (09:22)
[2023-12-03] MEDS: Brimonidine Tartrate 0.2% Oph 5 ML BOTTLE 1 DROP EYE-BOTH ×2 (09:34→20:10)
[2023-12-03] MEDS: timoloL maleate 0.5 % Oph Sol 5 ML DRBTL 1 DROP EYE-BOTH ×2 (09:34→20:10)
[2023-12-03] MEDS: cefTRIAXone sodium 1 GM in 0.9 % Sodium Chloride 50 ML IV (12:13)
--- NOTE | 2023-12-03 13:57 | P.CONCA_ITS ---
History of Present Illness History of Present Illness Date of Service: 12/03/23 Requesting physician: Mel Goldman Consult reason: atrial fibrillation and congestive heart failure Chief complaint: Afib RVR Pneumonia Narrative: I was consulted to see Junior in cardiology consultation today for atrial fibrillation rapid ventricular response. Patient 82-year-old male with prior history of chronic persistent atrial fibrillation being managed with rate control as well as oral anticoagulation with Eliquis. Also has history of COPD/asthma. Present hospital with progressive shortness of breath with wheezing and phlegm productive of greenish sputum. He also notice that his heart rate was rapid and was having lot of trouble breathing. He came to the hospital was noted to have bilateral multifocal pneumonia along with respiratory failure and with atrial fibrillation rapid ventricular response and congestive heart failure with BNP in the mid 300 range. Patient is noted to be fluid overloaded yesterday by the hospitalist team. Has been diuresed and today feels a lot better. His breathing is improved. His heart rate is better controlled. Denies any cardiac symptoms except for that he is still wheezing a low bit. He is currently receiving treatment for acute COPD/asthma exacerbation and as well as treatment for pneumonia. Review of Systems 2 Constitutional: Constitutional: Denies chills, Denies fever(s) and Reports weakness Eyes: Eyes: Reports no additional eye complaints Cardiovascular: Cardiovascular: Denies chest pain, Reports rapid heart rate, Reports leg edema, Denies lightheadedness, Denies Loss of Consciousness and Reports dyspnea on exertion Respiratory: Respiratory: Reports excessive phlegm production, Reports dyspnea on exertion and Reports wheezing Gastrointestinal: Gastrointestinal: Reports no additional gastrointestinal complaints Musculoskeletal: Musculoskeletal: Reports no additional musculoskeletal complaints Integumentary/Breasts: Skin/Breast: Reports system reviewed and no additional complaints, except as docu Neurologic: Reports system reviewed and no additional complaints, except as documented and Reports weakness Psychiatric: Psychiatric: Reports no additional psychiatric complaints Allergic/Immunologic: Allergic/Immunologic: Reports wheezing PMFSH Past Medical History Medical History Asthma Mitral valve insufficiency Macular degeneration Former smoker HFrEF (heart failure with reduced ejection fraction) Atrial fibrillation HTN (hypertension) Social History Social History Household Members: Spouse Housing: House Do you presently have visiting nurse or other home services: Yes Patient Tobacco Use Status: Former Tobacco user Smoked in Last 30 Days: No Use of substances other than those prescribed or required for medical reasons: No Currently Displaying Signs/Symptoms of Drug Intoxication Withdrawal: No Have you been hit, kicked, punched, or otherwise hurt by someone within the past year? If so, by whom?: No Do you feel safe in your current relationship?: Yes Is there a partner from a previous relationship who is making you feel unsafe now?: No Are you made to feel afraid or neglected: No Advance Directives: No Advance Directives Information Provided: Yes Do you have thoughts of harming others: None Do you have a plan to hurt others: No Plan Recently lost weight without trying: No How much weight loss: Not applicable Eating poorly because of decreased appetite: No Nutrition screen score: 0 Nutrition Risks: No Nutritional Risk Poor oral hygiene: No Meds Allergies Allergy/AdvReac Type Severity Reaction Status Date / Time No Known Allergies Allergy Verified 12/02/23 08:00 Active Medications: Current Medications Acetaminophen (Acetaminophen 325 Mg Tablet) 650 mg PO Q6H PRN PRN Reason: Pain, Mild (Pain Scale 1-3) Albuterol/Ipratropium (Albuterol/Iprat 2.5/0.5mg 3 Ml Ampul.Neb) 3 ml INHALE RQ4H WHILE AWAKE PRN PRN Reason: shortness of breath/wheezing Amlodipine Besylate (Amlodipine Besylate 10 Mg Tablet) 10 mg PO DAILY [facility]; Protocol Last Admin: 12/03/23 09:22 Dose: 10 mg Apixaban (Apixaban 5 Mg Tablet) 5 mg PO BID [facility] Last Admin: 12/03/23 09:22 Dose: 5 mg Brimonidine Tartrate (Brimonidine Tartrate 0.2% Oph 5 Ml Bottle) 1 drop EYE- BOTH BID [facility] Last Admin: 12/03/23 09:34 Dose: 1 drop Carvedilol (Carvedilol 6.25 Mg Tablet) 6.25 mg PO BID [facility]; Protocol Last Admin: 12/03/23 09:22 Dose: 6.25 mg Finasteride (Finasteride 5 Mg Tablet) 5 mg PO BEDTIME [facility] Fluticasone/Vilanterol (Fluticasone/Vilanterol 200/25 Blst.W.Dev) 1 puff INHALE RDAILY [facility] Last Admin: 12/03/23 08:28 Dose: 1 puff Furosemide (Furosemide 40 Mg Tablet) 40 mg PO DAILY [facility]; Protocol Ceftriaxone Sodium 1 gm/ (Sodium Chloride) 50 mls @ 100 mls/hr IV Q24H [facility] Last Infusion: 12/03/23 12:51 Dose: Infused Doxycycline Hyclate 100 mg/ (Sodium Chloride) 250 mls @ 166.67 mls/hr IV Q12H [facility] Last Infusion: 12/03/23 05:45 Dose: Infused Losartan Potassium (Losartan Potassium 50 Mg Tablet) 100 mg PO DAILY [facility]; Protocol Last Admin: 12/03/23 09:22 Dose: 100 mg Methylprednisolone Sodium Succinate (Methylprednisolone Sod Succ 40 Mg/Ml Vial) 40 mg IVPUSH Q12H [facility] Last Admin: 12/03/23 09:21 Dose: 40 mg Multivitamins/Vitamin C (Multivitamin Tablet) 1 tab PO DAILY [facility] Last Admin: 12/03/23 09:21 Dose: 1 tab Non-Formulary Medication ( Lifitegrast [Xiidra] 5 % Dropperette) ( Patient Own Medication) 1 drop EYE-BOTH BID [facility] Ondansetron HCl (Ondansetron Hcl 4 Mg/2 Ml Vial) 4 mg IVPUSH Q8H PRN PRN Reason: Nausea and Vomiting Senna (Sennosides 8.6 Mg Tablet) 17.2 mg PO BEDTIME PRN PRN Reason: Constipation Timolol Maleate (Timolol Maleate 0.5 % Oph Katie 5 Ml Drbtl) 1 drop EYE-BOTH BID [facility] Last Admin: 12/03/23 09:34 Dose: 1 drop Vitamin D (Cholecalciferol (Vitamin D3) 25 Mcg Tablet) 50 mcg PO DAILY [facility] Last Admin: 12/03/23 09:22 Dose: 50 mcg Home Medications Medication Instructions Recorded Confirmed Last Taken Type amlodipine 10 mg tablet 10 mg PO DAILY 12/02/23 12/02/23 Unknown History apixaban 5 mg tablet (Eliquis) 5 mg PO BID 12/02/23 12/02/23 12/02/23 History brimonidine 0.2 % eye drops 1 drp ophthalmic (eye) BID 12/02/23 12/02/23 Unknown History budesonide-formoterol HFA 160 2 puff inhalation BID PRN 12/02/23 12/02/23 Unknown History mcg-4.5 mcg/actuation aerosol Shortness Of Breath Or Wheezing inhaler (Symbicort) carvedilol 6.25 mg tablet 6.25 mg PO BID 12/02/23 12/02/23 Unknown History cholecalciferol (vitamin D3) 50 50 mcg PO DAILY 12/02/23 12/02/23 Unknown History mcg (2,000 unit) tablet (Vitamin D3) finasteride 5 mg tablet 5 mg PO DAILY 12/02/23 12/02/23 Unknown History lifitegrast 5 % eye drops in a 1 drp ophthalmic (eye) BID 12/02/23 12/02/23 Unknown History dropperette (Xiidra) losartan 100 mg tablet 100 mg PO DAILY 12/02/23 12/02/23 Unknown History multivitamin 1 tab PO DAILY 12/02/23 12/02/23 Unknown History timolol maleate 0.5 % eye drops 1 drp ophthalmic (eye) BID 12/02/23 12/02/23 Unknown History vit C 250 mg-vit E 90 mg-zinc 40 1 tab PO BID 12/02/23 12/02/23 12/02/23 History mg-copper 1 [id number] capsule (PreserVision AREDS-2) Physical Exam 2 Vital Signs: Vital Signs: Last Vital Signs Temp 98 F 12/03/23 11:53 Pulse 89 12/03/23 11:53 Resp 20 12/03/23 11:53 BP 123/66 12/03/23 11:53 Pulse Ox 96 12/03/23 08:00 O2 Del Method Room Air 12/03/23 11:53 BMI result Body Mass Index 24.7 Const: General: cooperative, comfortable, no acute distress, well developed, alert, awake and Physically active Nutritional Appearance: well nourished Orientation/consciousness: patient oriented x3 HEENT: Head: Yes normocephalic and Yes atraumatic Neck: Neck: Yes trachea midline, Yes supple and Yes no JVD Resp: Effort & Inspection: normal respiratory effort Auscultation: wheezes and diminished lung sounds Cardio: Jugular venous distension: no JVD Rhythm: abnormal rhythm irregularly irregular Heart sounds: S1 normal heart sound present, S2 normal heart sound present, no click, no gallops, no murmurs and no rubs GI: Auscultation: normal bowel sounds Skin: General skin exam: no rashes or lesions noted Neuro: General: patient oriented x3 and no focal motor deficits Extrem: General: Yes no clubbing, cyanosis or edema Objective Labs and Meds 12/03/23 06:58 12/03/23 06:58 Lab results: Laboratory Results - last 24 hr 12/02/23 12/03/23 Unknown 06:58 WBC 12.1 H RBC 3.82 L Hgb 11.9 L Hct 35.0 L MCV 91.6 MCH 31.2 MCHC 34.0 RDW 13.8 Plt Count 359 MPV 9.4 Absolute Nucleated RBC 0.000 Nucleated RBC % (auto) 0.0 Sodium 141 Potassium 4.5 Chloride 106 Carbon Dioxide 28 Anion Gap 12 BUN 23 H Creatinine 0.93 Estim Creat Clear Calc 60.1 Estimated GFR > 60 Random Glucose 142 H Calcium 9.1 Nasal Screen MRSA (PCR) Cancelled Nasal S. aureus Screen Cancelled Nasal MRSA/S.aureus Interp Cancelled Assessment and Plan (1) Atrial fibrillation with RVR: Status: Acute Atrial fibrillation rapid ventricular response most likely due to acute pulmonary issues and exacerbation. Since treatment of his underlying hypoxemia as well as respiratory distress his AFib rate has been well control at this point time. Continue current rate control with carvedilol. Continue full oral anticoagulation Eliquis. No further change in therapy is recommended. Advised to follow with his primary special needs teacher. (2) CHF exacerbation: Status: Acute CHF exacerbation also cause by atrial fibrillation rapid ventricular response as well as significant COPD exacerbation as well as hypoxemia. Clinically appears to be euvolemic and well compensated. Switch to oral diuretic regimen. Continue aggressive blood pressure control. From cardiac perspective can be discharged when ready from medical perspective. Will sign of the case. Thank you for allowing me to partake in his care Procedures Date of Service Date of Service: 12/03/23
--- NOTE | 2023-12-03 15:13 | MHC.CM.PN ---
Addendum entered by Jayla Butler 12/03/23 15:32: HCP COMPLETED AND SCANNED INTO [facility]AREPORT THREE COPIES GIVEN TO PT , ONE IN CHART Original Note: CM MET WITH PT AND FAMILY AT BEDSIDE PT LIVES WITH HIS AND IS INDEPENDENT WITH CARE HE HAS NO DME AND NO SERVICES HE WILL COMPLETE A HCP TODAY NAMING HIS AND DAUGHTER HIS AGENTS PCP: ADRIA ALCOCER IMM DELIVERED DCP: HOME NO SERVICES VIA PRIVATE TRANSPORT
[2023-12-03] MEDS: Finasteride 5 MG TABLET PO (20:09)
[2023-12-04] MEDS: Doxycycline Hyclate 100 MG in 0.9 % Sodium Chloride 250 ML 166.67 MG IV (02:23)
[2023-12-04 03:37] VITALS: BP 157/76; PULSE 80; RESP 18; TEMP 36.2; O2SAT 96
[2023-12-04 06:58] LABS: Anion Gap 14 (12-20); Blood Urea Nitrogen 37 mg/dL (9-16); Calcium 8.8 mg/dL (8.4-10.2); Carbon Dioxide 25 mmol/L (22-29); Chloride 107 mmol/L (96-108); Creatinine Clr Calc Pharmacy 58.3; Estimated Glomerular Filt Rate > 60; Glucose Random 129 mg/dL (60-115); Potassium 4.3 mmol/L (3.3-5.1); Sodium 142 mmol/L (135-145)
[2023-12-04 07:37] VITALS: BP 158/79; PULSE 86; RESP 20; TEMP 36.6; O2SAT 98
[2023-12-04] MEDS: Fluticasone/Vilanterol 200/25 BLST.W.DEV 1 PUFF INHALE (07:59)
[2023-12-04 08:01] VITALS: PULSE 72; RESP 18; O2SAT 98
[2023-12-04] MEDS: methylPREDNISolone Sod Succ 40 MG/ML VIAL IVPUSH (08:34)
[2023-12-04] MEDS: carvediloL 6.25 MG TABLET PO (08:35)
[2023-12-04] MEDS: Multivitamin TABLET 1 TAB PO (08:35)
[2023-12-04] MEDS: Losartan Potassium 50 MG TABLET 100 MG PO (08:35)
[2023-12-04] MEDS: Apixaban 5 MG TABLET PO (08:35)
[2023-12-04] MEDS: amLODIPine Besylate 10 MG TABLET PO (08:35)
[2023-12-04] MEDS: Cholecalciferol (Vitamin D3) 25 MCG TABLET 50 MCG PO (08:35)
[2023-12-04] MEDS: Furosemide 40 MG TABLET PO (08:36)
[2023-12-04] MEDS: timoloL maleate 0.5 % Oph Sol 5 ML DRBTL 1 DROP EYE-BOTH (08:36)
[2023-12-04] MEDS: Brimonidine Tartrate 0.2% Oph 5 ML BOTTLE 1 DROP EYE-BOTH (08:36)
--- NOTE | 2023-12-04 10:42 | MHC.CM.PN ---
Pt is medically cleared for D/C home self-care, pts family will transport him home.
[2023-12-04] MEDS: cefuroxime axetiL 500 MG TABLET PO (10:59)
[2023-12-04] MEDS: Doxycycline Monohydrate 100 MG CAPSULE PO (10:59)
--- NOTE | 2023-12-04 11:24 | PM.DS ---
DS: Providers Provider Date of Service: 12/04/23 Date of admission: 12/02/23 14:14 Date of discharge: 12/04/23 Primary care physician: Yonis Pierre MD Consults: 12/02/23 14:44 Consult to Cardiology Routine Consulting Provider: [facility] [place] Reason for consultation: afib rvr, chf Attending physician on discharge: Padmini Mcpherson Discharging clinician: Padmini Mcpherson DS: Diagnosis Discharge Diagnosis (1) CHF exacerbation: Status: Acute (2) Atrial fibrillation with RVR: Status: Acute (3) Pneumonia: Status: Acute (4) Asthma with exacerbation: Status: Acute DS: Summary Hospital Course Hospital Course: 82-year-old male with history of paroxysmal atrial fibrillation anticoagulated with Eliquis, asthma/COPD overlap, hypertension, BPH, macular degeneration, mitral valve insufficiency, cutaneous squamous cell carcinoma presented to the ED earlier today for evaluation of dyspnea and productive cough ongoing for about 3 days. He reports primarily exertional dyspnea but also experiences some shortness of breath at rest with associated wheezing. Cough has been associated with green sputum production. Denies any fevers or chills. No congestion, abdominal pain, nausea, vomiting, diarrhea, palpitations, lightheadedness, orthopnea, PND, chest pain. No sick contacts. He has a former smoker with 40 pack-year history. Denies any regular alcohol use or illicit drug use. Since arrival has been mildly hypertensive to 159/67 and intermittently tachycardic 100-110 but transiently increasing to 140s with speaking and ambulation. He has not taken his coreg this morning. No leukocytosis. Renal function baseline, electrolyte levels normal. Troponin 3.6. BNP 330. Urinalysis unremarkable. Negative for COVID-19, RSV, influenza. Chest CT shows multifocal airspace, ground-glass opacities and nodular opacities in the bilateral lungs including prominently involving bilateral upper lobes. Neoplastic process can not be excluded. There is also moderate right pleural effusion and small moderate left pleural effusion. In the ED, given 1 g ceftriaxone, 500 mg azithromycin, DuoNeb, IV magnesium, 125 mg IV methylprednisolone. Hospital course: Patient admitted for possible multifocal pneumonia, asthma/COPD exacerbation, also CHF exacerbation: Patient was treated with IV antibiotics, blood cultures sent, in addition also received diuretics for CHF as well as nebs and steroids for CHF/asthma exacerbation: Patient is subsequently seems to be improved significantly now off oxygen, blood culture negative at 24 hours, fever. Patient will be going home with p.o. cefuroxime 500 mg p.o. b.i.d. as well as doxycycline 100 mg p.o. b.i.d. for 7 days. CHF education given, patient will be going home with Lasix 40 mg daily. In addition patient was advised to use weight daily-if weight gain 2 lb or more in a week may need outpatient adjustment of Lasix. Also given 40 mg prednisone for 4 more days-for asthma and COPD. Continue home medications also. CT chest: Shows possible multifocal pneumonia, pleural effusion,few foci of subtle lucencies in bilateral ribs, This could reflect bone demineralization. Bony lesions related to sequela of metastatic disease cannot be excluded-patient will need repeat chest imaging and possibly also bone scan in 3-4 weeks for further evaluation with pcp.consider outpatient oncology eval as per pcp( d/w oncology Dr Connelly ). Above management discussed with the patient in detail length he understand and in agreement with the above plan, time spent 50min. Time Attestation Discharge coordination time: Greater than 30 minutes Quality: Safe Use of Opioids Does Pt have an Active Cancer Diagnosis on the Problem List?: No Quality: Stroke Does the patient have a stroke diagnosis?: No Physical Exam Vital Signs: Vital Signs: Last Vital Signs Temp 97.9 F 12/04/23 07:37 Pulse 72 12/04/23 08:01 Resp 18 12/04/23 08:01 BP 158/79 H 12/04/23 07:37 Pulse Ox 98 12/04/23 07:37 O2 Del Method Room Air 12/04/23 07:37 BMI result Body Mass Index 24.7 Appearance: Alert.? Oriented X3.? cvs: rrr, [id number] . res: air entry fair ,no rales or wheezing abd: no rebound or guarding ,nt, bs present. ext pulses present , no cyanosis . neuro: axo3 , nonfocal. DS: Data Data Completed and Pending Labs on day of discharge: Laboratory Results - last 24 hr 12/04/23 06:18 Hold Purple Top SEE NOTE Sodium 142 Potassium 4.3 Chloride 107 Carbon Dioxide 25 Anion Gap 14 BUN 37 H Creatinine 0.96 Estim Creat Clear Calc 58.3 Estimated GFR > 60 Random Glucose 129 H Calcium 8.8 Preliminary micro results at discharge 12/02/23 22:15 MRSA Culture - Preliminary Nares Culture in progress. 12/02/23 10:40 Blood Culture - Preliminary Blood - Venous No growth after 24 hours. 12/02/23 10:29 Blood Culture - Preliminary Blood - Venous No growth after 24 hours. Imaging Chest x-ray: Radiologist's impression: ITS Impressions Chest X-Ray 12/02/23 08:22 IMPRESSION: Bilateral patchy opacities projecting over the right and left upper lobe, right and left lower lobes, could represent patchy areas of infiltrate/infection, versus lung masses. Please correlate with patient's clinical presentation, consider follow-up low-dose chest CT. if not performed would recommend follow-up chest x-ray in one month to ensure complete clearance.. Chest CT 12/02/23 10:10 IMPRESSION: 1. Multifocal airspace, ground-glass opacities and nodular opacities in bilateral lungs, including prominently involving bilateral upper lobes, as detailed above. Differential considerations include infectious, inflammatory etiology. Neoplastic process cannot be excluded. Recommend short-term followup CT posttreatment to ensure complete resolution of the findings, and exclude other possibilities such as neoplastic etiologies. 2. Moderate right pleural effusion. Small-moderate left pleural effusion. 3. There are subtle lucent foci in bilateral ribs, as detailed above. These are of indeterminate etiology. This could reflect bone demineralization. Bony lesions related to sequela of metastatic disease cannot be excluded. Correlate with patient's clinical history and risk factors. Bone scan evaluation may be helpful. Fleischner guidelines were followed. Discharge Plan Discharge Anticipated Discharge Date/Time: 12/04/23 11:08 Patient Disposition: Home, Self-Care Discharge Diagnosis: pneumonia , abnormal chest ct . Referrals: Yonis Pierre MD [Primary Care Provider] - 1 Week Discharge Medications: New doxycycline monohydrate 100 mg Capsule 100 mg PO Q12H Qty: 14 0RF sennosides [Senna Lax] 8.6 mg Tablet 17.2 mg PO BEDTIME PRN (Reason: Constipation) Qty: 30 0RF furosemide 40 mg Tablet 40 mg PO DAILY Qty: 30 0RF Protocol: Hold for SBP< HOLD for SBP < : 90 cefuroxime axetil 500 mg Tablet 500 mg PO Q12H Qty: 14 0RF prednisone 20 mg Tablet 40 mg PO DAILY Qty: 8 0RF Proair Digihaler 90 mcg/actuation aero powdr breath act w/sensor 1 inh inhalation Q4-6H PRN (Reason: shortness of breath) Qty: 1 0RF Continued multivitamin Tablet 1 tab PO DAILY carvedilol 6.25 mg tablet 6.25 mg PO BID amlodipine 10 mg tablet 10 mg PO DAILY brimonidine 0.2 % drops 1 drp ophthalmic (eye) BID Rx Instructions: both eyes timolol maleate 0.5 % drops 1 drp ophthalmic (eye) BID Rx Instructions: both eyes losartan 100 mg tablet 100 mg PO DAILY finasteride 5 mg tablet 5 mg PO DAILY budesonide-formoterol [Symbicort] 160-4.5 mcg/actuation HFA aerosol inhaler 2 puff INHALATION BID PRN (Reason: Shortness Of Breath Or Wheezing) cholecalciferol (vitamin D3) [Vitamin D3] 50 mcg (2,000 unit) Tablet 50 mcg PO DAILY Eliquis 5 mg tablet 5 mg PO BID PreserVision AREDS-2 250-90-40-1 mg Capsule 1 tab PO BID Xiidra 5 % dropperette 1 drp ophthalmic (eye) BID Rx Instructions: both eyes Discharge Orders: Discharge Order (Routine); Ordered 12/04/23 Ordered By: Padmini Mcpherson Diet: Advance to usual diet Activity on Discharge: As tolerated Stand Alone Forms: Patient Portal Discharge page Care Plan Goals: Patient admitted for possible multifocal pneumonia, asthma/COPD exacerbation, also CHF exacerbation: Patient was treated with IV antibiotics, blood cultures sent, in addition also received diuretics for CHF as well as nebs and steroids for CHF/asthma exacerbation: Patient is subsequently seems to be improved significantly now off oxygen, blood culture negative at 24 hours, fever. Patient will be going home with p.o. cefuroxime 500 mg p.o. b.i.d. as well as doxycycline 100 mg p.o. b.i.d. for 7 days. CHF education given, patient will be going home with Lasix 40 mg daily. In addition patient was advised to use weight daily-if weight gain 2 lb or more in a week may need outpatient adjustment of Lasix. Also given 40 mg prednisone for 4 more days-for asthma and COPD. Continue home medications also. CT chest: Shows possible multifocal pneumonia, pleural effusion,few foci of subtle lucencies in bilateral ribs, This could reflect bone demineralization. Bony lesions related to sequela of metastatic disease cannot be excluded-patient will need repeat chest imaging and possibly also bone scan in 3-4 weeks for further evaluation with pcp.consider outpatient oncology eval as per pcp. Health Concerns: As above. Plan of Treatment: As above. Assessment: As above.
[2023-12-06 04:49] LABS: Strep Pneumo Ag urine Not Detected (Not Detected)
[2023-12-06 06:09] LABS: Legionella Ag Urine Not Detected (Not Detected)
== END 2023-12-04 12:37 | disposition home or self-care (01) | DRG 193 ==
LOC: HO.ED 13:13 → HO.EDOVER 14:18 → HO.IMC 16:26
PROVIDERS: Physician Assistant; Admitting Provider Physician Assistant; Emergency Provider Emergency Medicine; PCP Internal Medicine; Visit Provider Internal Medicine
DX: J18.9 Pneumonia, unspecified organism (principal); I50.23 Acute on chronic systolic (congestive) heart failure; J45.901 Unspecified asthma with (acute) exacerbation; I11.0 Hypertensive heart disease with heart failure; R93.89 Abnormal findings on diagnostic imaging of other specified body structures; I48.0 Paroxysmal atrial fibrillation; Z20.822 Contact with and (suspected) exposure to COVID-19; Z87.891 Personal history of nicotine dependence; Z79.01 Long term (current) use of anticoagulants; Z79.899 Other long term (current) drug therapy
CPT/HCPCS: 0241U; 36415; 71045; 71250; 80048; 80053; 81001; 83605; 83735; 83880; 84484; 85025; 85027; 85379; 85610; 87040; 87081; 87449; 87640; 87641; 87899; 93005; 93306; 94640; 97161; 99285; J0456; J0696; J1940; J2920; J2930; J3475

== ENCOUNTER → 2023-12-02 07:56 | Outpatient (BNV) | payer MEDICARE, SELFPAY | PROVIDERS: Admitting Provider Physician Assistant; Emergency Provider Emergency Medicine; PCP Internal Medicine; Visit Provider Internal Medicine Cardiovascular Disease | DX: R06.02 Shortness of breath (principal) | CPT/HCPCS: 93010 ==

== ENCOUNTER 2023-12-02 14:14 | Outpatient (BNV) | payer MEDICARE, SELFPAY | END 2023-12-03 07:00 | PROVIDERS: Admitting Provider Physician Assistant; Emergency Provider Emergency Medicine; PCP Internal Medicine; Visit Provider Internal Medicine Cardiovascular Disease | DX: I35.1 Nonrheumatic aortic (valve) insufficiency (principal); I34.81 Nonrheumatic mitral (valve) annulus calcification | CPT/HCPCS: 93306 ==

== ENCOUNTER → 2023-12-02 14:14 | Outpatient (BNV) | payer MEDICARE, SELFPAY | PROVIDERS: Admitting Provider Physician Assistant; Emergency Provider Emergency Medicine; PCP Internal Medicine; Visit Provider Physician Assistant | DX: I50.9 Heart failure, unspecified (principal); I48.91 Unspecified atrial fibrillation; J18.9 Pneumonia, unspecified organism; J45.901 Unspecified asthma with (acute) exacerbation | CPT/HCPCS: 99223; 99232; 99239 ==

== ENCOUNTER → 2023-12-02 14:14 | Outpatient (BNV) | payer MEDICARE, SELFPAY | PROVIDERS: Admitting Provider Physician Assistant; Emergency Provider Emergency Medicine; PCP Internal Medicine; Visit Provider Internal Medicine Cardiovascular Disease | DX: I48.91 Unspecified atrial fibrillation (principal); I50.9 Heart failure, unspecified | CPT/HCPCS: 99222 ==

== ENCOUNTER 2023-12-20 17:10 | Inpatient (IN) | payer MEDICARE, SELFPAY ==
--- NOTE | ~2023-12-20 | XR_ITS ---
EXAMINATION: XR CHEST CLINICAL INFORMATION: Dyspnea, recent pneumonia. COMPARISON: CT chest 12/02/2023. TECHNIQUE: 2 views of the chest were obtained. FINDINGS: The lungs are well-expanded with patchy haziness in both lung bases likely resolving pneumonia and/or atelectasis. No pleural effusion is suspected. Heart size and pulmonary vascularity is normal. There is moderate spondylosis dorsal spine. XR/XR chest 2V IMPRESSION: Patchy haziness in both lung bases likely resolving pneumonia and/or atelectasis The pleural effusion has resolved.
[2023-12-20 17:20] VITALS: BP 166/71; PULSE 117; RESP 24; TEMP 37.2; O2SAT 93; BMI 23.8
--- NOTE | 2023-12-20 17:20 | ED_ITS ---
HPI - General Adult General Chief complaint: Dyspnea Stated complaint: sob,high bp Time Seen by Provider: 12/20/23 19:11 Source: patient, family, RN notes reviewed and old records reviewed Mode of arrival: ambulatory Limitations: no limitations History of Present Illness HPI narrative: 82-year-old male past medical history significant for CHF, AFib on Eliquis, asthma, COPD, mitral valve insufficiency, macular degeneration, hypertension presents for evaluation of shortness of breath and cough Patient was admitted to this facility on 12/02/2023 and diagnosed with pneumonia as well as an asthma exacerbation he was treated with ceftriaxone and azithromycin. He was discharged 2 days later and completed an additional week of doxycycline and cefuroxime He reports he felt better up until about a week ago when he started have a cough again worse at night He reports that last week his primary doctor decreased his Lasix from 40 mg daily to 20 mg daily Today the patient reports significant increase in weakness as well as chills and ?shakes. ? He was re-evaluated in the waiting room and found to have a temperature of a 102.4? the patient was brought back to room 1 Related Data Home Medications Medication Instructions Recorded Confirmed amlodipine 10 mg tablet 10 mg PO DAILY 12/02/23 12/02/23 apixaban 5 mg tablet (Eliquis) 5 mg PO BID 12/02/23 12/02/23 brimonidine 0.2 % eye drops 1 drp ophthalmic (eye) BID 12/02/23 12/02/23 budesonide-formoterol HFA 160 2 puff inhalation BID PRN 12/02/23 12/02/23 mcg-4.5 mcg/actuation aerosol Shortness Of Breath Or Wheezing inhaler (Symbicort) carvedilol 6.25 mg tablet 6.25 mg PO BID 12/02/23 12/02/23 cholecalciferol (vitamin D3) 50 50 mcg PO DAILY 12/02/23 12/02/23 mcg (2,000 unit) tablet (Vitamin D3) finasteride 5 mg tablet 5 mg PO DAILY 12/02/23 12/02/23 lifitegrast 5 % eye drops in a 1 drp ophthalmic (eye) BID 12/02/23 12/02/23 dropperette (Xiidra) losartan 100 mg tablet 100 mg PO DAILY 12/02/23 12/02/23 multivitamin 1 tab PO DAILY 12/02/23 12/02/23 timolol maleate 0.5 % eye drops 1 drp ophthalmic (eye) BID 12/02/23 12/02/23 vit C 250 mg-vit E 90 mg-zinc 40 1 tab PO BID 12/02/23 12/02/23 mg-copper 1 [id number] capsule (PreserVision AREDS-2) fluticasone furoate 100 1 ea inhalation DAILY 12/20/23 mcg-vilanterol 25 mcg/dose inhalation powder (Breo Ellipta) latanoprost 0.005 % eye drops 1 drp ophthalmic (eye) BEDTIME 12/20/23 Previous Rx's Medication Instructions Recorded albuterol sulfate 90 mcg/actuation 1 inh inhalation Q4-6H PRN 12/04/23 breath activated powder shortness of breath #1 ea inhaler,sensor (Proair Digihaler) cefuroxime axetil 500 mg tablet 500 mg PO Q12H #14 tabs 12/04/23 doxycycline monohydrate 100 mg 100 mg PO Q12H #14 caps 12/04/23 capsule furosemide 40 mg tablet 40 mg PO DAILY #30 tabs 12/04/23 prednisone 20 mg tablet 40 mg (2 x 20 mg) PO DAILY #8 tabs 12/04/23 sennosides 8.6 mg tablet (Senna 17.2 mg (2 x 8.6 mg) PO BEDTIME 12/04/23 Lax) PRN Constipation #30 tabs Allergies Allergy/AdvReac Type Severity Reaction Status Date / Time latex Allergy Unknown Verified 12/20/23 17:24 Review of Systems 2 Constitutional: Constitutional: Reports body ache(s), Reports chills, Reports fever(s), Reports malaise and Reports weakness Eyes: Eyes: Denies blurry vision ENT: Denies sore throat Cardiovascular: Cardiovascular: Denies chest pain, Reports leg edema and Reports dyspnea Respiratory: Respiratory: Reports cough and Reports dyspnea Gastrointestinal: Gastrointestinal: Denies abdominal pain Musculoskeletal: Musculoskeletal: Denies back pain Integumentary/Breasts: Skin/Breast: Denies rash Neurologic: Reports weakness PMFSH Past Medical History Medical History Asthma Mitral valve insufficiency Macular degeneration Former smoker HFrEF (heart failure with reduced ejection fraction) Atrial fibrillation HTN (hypertension) Social History Social History Household Members: Spouse Housing: House Do you presently have visiting nurse or other home services: Yes Patient Tobacco Use Status: Former Tobacco user Advance Directives: Yes Advance Directives on File: Yes Advance Directives Date on File: 12/05/23 service: Yes Physical Exam ED Vital Signs: Vital Signs - 24 hr 12/20/23 17:20 12/20/23 19:06 12/20/23 20:20 Temperature 99.0 F 102.4 F H 98.5 F Pulse Rate 117 H 117 H 111 H Respiratory Rate 24 H 18 12 Blood Pressure 166/71 H 159/58 H Pulse Oximetry 93 92 96 Oxygen Delivery Method Room Air Room Air Nasal Cannula BMI result Body Mass Index 23.8 Const General: healthy appearing, comfortable, no acute distress, alert and awake Nutritional Appearance: well nourished Orientation/consciousness: patient oriented x3 HENMT Head: Yes normocephalic and Yes atraumatic Eyes Eyelids: Yes eyelids normal Conjunctivae: conjunctivae normal Sclerae: sclerae normal Corneas: corneas normal Pupils: Equal, round and reactive pupils present EOM: EOMs intact bilaterally Neck Neck: Yes full ROM Resp Other: Diffuse mild rhonchi with coarse crackles heard best in the bases Effort & Inspection: normal respiratory effort, able to speak in complete sentences and not labored Cardio Other: 1+ bilateral lower extremity pitting edema Rate: tachycardic GI Inspection: No distended Palpation (GI): Soft to palpation, not firm, nontender, no guarding and not rigid Skin General skin exam: elasticity normal Neuro General: patient oriented x3 Cranial nerves: Yes Equal, round and reactive pupils present and Yes Bilaterally intact EOM present Cognition (Neuro): normal cognition Extrem Other: Moving all extremities well without any obvious deformities Course Course Course Narrative: This is a rapid medical exam: Additional HPI, ROS, PE not included below will be deferred to primary provider. Patient is an 82-year-old male presenting to the ED with complaint of ongoing dyspnea, elevated BP readings. Was recently admitted for pneumonia, was told he may be developing CHF, referred back to the ED. Denies recent fevers. Denies weight gain. Denies chest pain. Tachycardic in triage, oxygen applied. Plan: EKG, labs, CXR Medications Administered Discontinued Medications Generic Name Dose Route Start Last Admin Trade Name Kofi PRN Reason Stop Dose Admin Acetaminophen 650 mg 12/20/23 19:02 12/20/23 19:04 Acetaminophen 325 Mg Tablet PO 12/20/23 19:03 650 mg ONCE ONE Administration Furosemide 40 mg 12/20/23 19:28 12/20/23 19:39 Furosemide 40 Mg/4 Ml Vial IVPUSH 12/20/23 19:29 40 mg STAT STA Administration Protocol Sodium Chloride 500 mls @ 500 mls/hr 12/20/23 19:30 12/20/23 20:08 Ns IV 12/20/23 20:29 500 mls/hr .Q1H REX Administration Piperacillin Sod/Tazobactam 50 mls @ 100 mls/hr 12/20/23 19:28 12/20/23 20:22 Sod 3.375 gm/ Sodium Chloride IV 12/20/23 19:57 Infused ONCE ONE Infusion Vancomycin HCl 1,500 mg/ 500 mls @ 333.333 mls/hr 12/20/23 19:28 12/20/23 19:55 Sodium Chloride IV 12/20/23 20:57 333.33 mls/hr ONCE ONE Administration Medical Decision Making Medical Decision Making MDM Narrative: 82-year-old male with medical history as documented above presents for evaluation of cough, shortness of breath, he was found to be febrile, not tachypneic, tachycardic with a white count 18.6 K. He already had an x-ray ordered in triage which shows recurrence/persistence of his right lower lobe infiltrate. Given that he was recently admitted and treated with ceftriaxone and azithromycin while inpatient as well as doxycycline and cefuroxime as an outpatient we will treat with vancomycin and Zosyn. A sepsis alert was called. As the patient meets SIRS criteria with a documented source of infection. He will only be given 500 cc of IV fluids as he also appears to be in mild fluid overload with an elevated BNP and 1+ pitting edema to lower extremities. His lactate is normal in his blood pressures are adequate, there is no evidence of severe sepsis. Differential Diagnosis Differential Diagnoses: The differential diagnosis associated with the presentation includes Pneumonia Sepsis CHF Influenza COVID-19 Admission/Observation Consideration of admission/observation: Escalation of care including admission/observation considered Patient will require admission for persistent pneumonia as well as sepsis Consult Healthcare Provider Management of the patient was discussed with: Hospitalist (Dr Alvarez) Lab Data MDM Lab Attestation statement: I reviewed the patient's lab results. Leukocytosis to 18.6 K with a left shift. The patient has a mild anemia with a hemoglobin of 12.9 hematocrit 38.4. This is consistent with his baseline. Normal platelet count. No significant electrolyte abnormalities. Patient's BNP is elevated to 463 which is slightly worse than his BNP from last week which was 330. 12/20/23 17:54 12/20/23 17:54 Labs: Lab Results 12/20/23 Range/Units 17:54 WBC 18.6 H (4.8-10.8) X10*3/uL RBC 4.07 L (4.60-5.80) X10*6/uL Hgb 12.9 L (14.0-18.0) g/dl Hct 38.4 L (42.0-52.0) % MCV 94.3 (80.0-98.0) fL MCH 31.7 (27.0-33.0) pg MCHC 33.6 (31.0-36.0) g/dl RDW 14.2 (11.0-16.0) % Plt Count 261 D (160-400) X10*3/uL MPV 10.1 (9.4-12.4) fL Immature Gran % (Auto) 0.5 H (0.0-0.4) % Neut % (Auto) 89.5 H (45-73) % Lymph % (Auto) 2.8 L (20-40) % [place] % (Auto) 6.4 (2-11) % Eos % (Auto) 0.4 (0-4) % Baso % (Auto) 0.4 (0-2) % Lymph # (Auto) 0.5 L (1.2-4.9) X10*3/uL [place] # (Auto) 1.2 (0.1-1.2) X10*3/uL Eos # (Auto) 0.1 (0.0-0.4) X10*3/uL Baso # (Auto) 0.1 (0.0-0.2) X10*3/uL Abs Immat Gran (auto) 0.10 H (0.00-0.03) X10*3/uL Absolute Neuts (auto) 16.6 H (2.0-8.3) x10*3/uL Absolute Nucleated RBC 0.000 (0.0-0.012) X10*3/uL Nucleated RBC % (auto) 0.0 (0.0-0.2) /100WBC PT 15.4 H (11.1-13.3) SEC INR 1.3 H (0.9-1.1) Sodium 142 (135-145) mmol/L Potassium 4.2 (3.3-5.1) mmol/L Chloride 105 (96-108) mmol/L Carbon Dioxide 26 (22-29) mmol/L Anion Gap 15 (12-20) BUN 38 H (9-16) mg/dL Creatinine 1.16 (0.5-1.4) mg/dL Estim Creat Clear Calc 48.2 Estimated GFR > 60 Random Glucose 145 H (60-115) mg/dL Lactic Acid 1.8 (0.5-2.0) mmol/L Calcium 9.4 D (8.4-10.2) mg/dL Total Bilirubin 0.5 (0.0-1.0) mg/dL AST 25 (5-37) U/L ALT 31 (0-40) U/L Alkaline Phosphatase 100 (39-117) U/L Troponin I High Sens 5.2 (<3.5-35.0) ng/L B-Natriuretic Peptide 463 H (<100) pg/mL Total Protein 8.0 (6.5-8.0) g/dL Albumin 4.2 (3.5-5.0) g/dL Influenza Type A (PCR) NEGATIVE (Negative) Influenza Type B (PCR) NEGATIVE (Negative) RSV RNA Qual (PCR) NEGATIVE (Negative) SARS-CoV-2 RNA (RT-PCR) NEGATIVE (Negative) Independent Interpretation I performed an independent interpretation of an: Plain X-Ray (Right lower lung field infiltrate ) Radiology Impression Discussion of test interpretation with radiology: I have reviewed the radiologist's reading. (Patchy haziness in both lung bases likely resolving pneumonia and/or atelectasis. The pleural effusions have resolved) Discharge Plan Discharge Clinical Impression: Pneumonia, Sepsis Patient Disposition: Admitted As Inpatient
--- NOTE | 2023-12-20 17:22 | ECG_ITS ---
Test Reason : SOB Blood Pressure : / mmHG Vent. Rate : 111 BPM Atrial Rate : 000 BPM P-R Int : 000 ms QRS Dur : 072 ms QT Int : 292 ms P-R-T Axes : 000 089 075 degrees QTc Int : 397 ms Atrial fibrillation with rapid ventricular response Nonspecific ST abnormality Abnormal ECG When compared with ECG of 02-DEC-2023 08:41, No significant change was found Referred By: Kim Shin Electronically Signed By:Carlos Baldwin
[2023-12-20 18:01] LABS: MANUAL DIFF FLAG NO
[2023-12-20 18:03] LABS: Basophils Absolute Auto 0.1 X10*3/uL (0.0-0.2); Basophils Percent Auto 0.4 % (0-2); Eosinophils Absolute Auto 0.1 X10*3/uL (0.0-0.4); Eosinophils Percent Auto 0.4 % (0-4); Hematocrit 38.4 % (42.0-52.0); Hemoglobin 12.9 g/dl (14.0-18.0); Imm Gran Pct Auto 0.5 % (0.0-0.4); Lymphocytes Absolute Auto 0.5 X10*3/uL (1.2-4.9); Lymphocytes Percent Auto 2.8 % (20-40); Mean Corpuscular HGB Conc 33.6 g/dl (31.0-36.0); Mean Corpuscular Hemoglobin 31.7 pg (27.0-33.0); Mean Corpuscular Volume 94.3 fL (80.0-98.0); Mean Platelet Volume 10.1 fL (9.4-12.4); Monocytes Absolute Auto 1.2 X10*3/uL (0.1-1.2); Monocytes Percent Auto 6.4 % (2-11); Neutrophils Absolute Auto 16.6 x10*3/uL (2.0-8.3); Neutrophils Percent Auto 89.5 % (45-73); Platelet Count 261 X10*3/uL (160-400); Red Blood Count 4.07 X10*6/uL (4.60-5.80); Red Cell Distribution Width 14.2 % (11.0-16.0); White Blood Count 18.6 X10*3/uL (4.8-10.8)
[2023-12-20 18:08] LABS: INTERNATIONAL NORM RATIO 1.3 (0.9-1.1); Prothrombin Time 15.4 SEC (11.1-13.3)
[2023-12-20 18:14] LABS: Lactic Acid 1.8 mmol/L (0.5-2.0)
[2023-12-20 18:18] LABS: Alanine Aminotransferase 31 U/L (0-40); Albumin Level 4.2 g/dL (3.5-5.0); Alkaline Phosphatase 100 U/L (39-117); Anion Gap 15 (12-20); Aspartate Amino Transferase 25 U/L (5-37); Bilirubin Total 0.5 mg/dL (0.0-1.0); Blood Urea Nitrogen 38 mg/dL (9-16); Calcium 9.4 mg/dL (8.4-10.2); Carbon Dioxide 26 mmol/L (22-29); Chloride 105 mmol/L (96-108); Creatinine Clr Calc Pharmacy 48.2; Estimated Glomerular Filt Rate > 60; Glucose Random 145 mg/dL (60-115); Potassium 4.2 mmol/L (3.3-5.1); Sodium 142 mmol/L (135-145)
[2023-12-20 18:23] LABS: B Type Natriuretic Peptide 463 pg/mL (<100)
[2023-12-20 18:25] LABS: Troponin-I High Sensitivity 5.2 ng/L (<3.5-35.0)
[2023-12-20 18:44] LABS: Influenza A PCR NEGATIVE (Negative); Influenza B PCR NEGATIVE (Negative); Resp Syncy Virus RNA Qual PCR NEGATIVE (Negative); SARS COV2 PCR INHOUSE NEGATIVE (Negative)
[2023-12-20] MEDS: Acetaminophen 325 MG TABLET 650 MG PO (19:04)
[2023-12-20 19:06] VITALS: PULSE 117; RESP 18; TEMP 39.1; O2SAT 92
[2023-12-20] MEDS: Furosemide 40 MG/4 ML VIAL IVPUSH (19:39)
--- NOTE | 2023-12-20 19:51 | PC.NURSE ---
2nd set of cultures drawn and sent.
[2023-12-20] MEDS: Piperacillin Sodium/Tazobactam 3.375 GM in 0.9 % Sodium Chloride 50 ML IV (19:53)
[2023-12-20] MEDS: vancomycin HCL 1,500 MG in 0.9 % Sodium Chloride 500 ML 333.33 MG IV (19:55)
[2023-12-20] MEDS: 0.9 % Sodium Chloride 500 ML IV (20:08)
[2023-12-20 20:20] VITALS: BP 159/58; PULSE 111; RESP 12; TEMP 36.9; O2SAT 96
[2023-12-20 20:56] LABS: Appearance Urine Clear; Color Urine Yellow; Glucose Urine UA Negative (Negative); Leukocyte Esterase Urine Negative (Negative); Nitrite Urine Negative (Negative); UMIC TRIGGER UACC YES; Urine Blood Negative (Negative); Urine Ketones Negative (Negative); Urine Protein 100 (2+) mg/dL (Neg-Trace)
--- NOTE | 2023-12-20 21:00 | PHA.MEDREC ---
Pharmacy Consult ? Medication Reconciliation Pharmacy has completed the medication reconciliation. Patient and confirmed medications. Report Lasix dose was decreased to 40 mg to 20 mg. Patient's will bring in Ziidra eye drops. Debbie Pretty, PharmD
[2023-12-20 21:01] LABS: Bacteria Urine None Seen (None Seen); Hyaline Casts Urine 0-2 /LPF (0-2); RBC Urine 0-2 /HPF (0-2); Squamous Epithelial Cell Urine 0-2 /HPF (0-2); WBC Urine 0-5 /HPF (0-5)
[2023-12-20 21:40] VITALS: BP 105/55; PULSE 101; RESP 16; TEMP 36.9; O2SAT 99
--- NOTE | 2023-12-20 21:41 | PHA.PROG ---
Admission Date/Time: December 20, 2023 21:04 Indication: Resp Infection Weight in k.028 kg Adjusted body weight in K kg [place] body weight in K.7 kg Obesity Dosing Indication % IBW: 103% Serum Creatinine - Last 168 Hours 12/20/23 17:54 Creatinine 1.16 Estimated CrCl and GFR - Last 168 Hours 12/20/23 17:54 Estim Creat Clear Calc 48.2 Estimated GFR > 60 Vancomycin Loading Dose: 1500 mg (20 mg/kg) Current Vancomycin Dosing Regimen: 125 mg Q12H Date and Time for next Vancomycin Level to be drawn: 12/22 @ 1800 Pharmacist Comments on Vancomycin Plan: Patient received load dose vancomycin 1500 mg in the ER 12/19 @ 1954 Maintenance dose vancomycin 1250 mg Q24H is scheduled to start 12/20 @ 1999. Predicted AUC 552 with a trough of 17 Level is scheduled from prior to the 4th dose Pharmacy will monitor renal function daily Debbie Pretty, Scotty Vancomycin dosing will take advantage of [employer] as a clinical decision support tool that uses Bayesian modeling to calculate individual patient's pharmacokinetic parameters and forecast the patient's drug concentration time course with the target goal AUC 24 range of 400 - 600 mg/L/hr.
[2023-12-20 22:02] VITALS: BP 119/50; PULSE 93; RESP 20; O2SAT 93
--- NOTE | 2023-12-20 22:15 | PM.IMHP ---
History of Present Illness Date of Service: 12/20/23 Attending physician on admission: Mathew Kraft Chief Complaint: SOB, F/C Pt is an 82-year-old male with a PMH significant for?paroxysmal AFib on Eliquis, asthma/COPD overlap syndrome, HFpEF, HTN, BPH, cutaneous squamous cell carcinoma, mitral valve insufficiency, and macular degeneration who presents to the ED with?increasing shortness of breath, productive cough, and dyspnea on exertion. Patient was recently admitted to the hospital here on 12/02-12/04 and treated for multifocal pneumonia, asthma/COPD exacerbation, and CHF exacerbation. Patient was discharged on cefuroxime 500 mg p.o. b.i.d. and doxycycline 100 mg p.o. b.i.d. x7 days, which he states he completed. Her CHF was discharged on Lasix 40 mg daily. Last week on patient saw PCP who reduced Lasix from 40 mg to 20 mg daily. Patient reports overall he felt much better after discharge, until earlier today when he returned from taking the dog out for a walk and suddenly became short of breath to the point that he could not breathe and had sit down. Also began feeling feverish and ?shaking?. Reports has had increased productive cough for the past week or so. Denies orthopnea. Reports possible increase in lower leg edema, though has been taking daily weights with only minor fluctuation of a few ounces. In the ED pt was febrile up to 102.4, tachycardic up to 117, tachypneic up to 24, hypertensive up to 166/71, and desatting as low as 88% on RA. Labs were significant for leukocytosis of 18.6, H&H 12.9/38.4, and BNP 463. UA negative for UTI. Tested negative for influenza type a and B, RSV, COVID. CXR showed patchy haziness in both lung bases likely resolving pneumonia and/or atelectasis. Also noted pleural effusion has resolved. EKG demonstrated AFib with RVR of [address] elevations or depressions, similar to previous. Pt was treated with furosemide 40 mg IV, vanc and Zosyn, IVF, and acetaminophen. Pt will be admitted to the hospital for treatment and further evaluation of acute hypoxic respiratory failure in the setting of multifocal pneumonia with sepsis. Review of Systems Review of Systems: Increasing SOB, CAVAZOS Fever, chills/rigors Productive cough Denies recent weight gain No chest pain/pressure, palpitations [facility] Medical History (Updated 12/20/23 @ 22:40 by DIAMOND Og) (HFpEF) heart failure with preserved ejection fraction Asthma Mitral valve insufficiency Macular degeneration Former smoker Atrial fibrillation HTN (hypertension) Social History Household Members: Spouse Housing: House Do you presently have visiting nurse or other home services: Yes Patient Tobacco Use Status: Former Tobacco user Smoked in Last 30 Days: No Use of substances other than those prescribed or required for medical reasons: No Advance Directives: Yes Advance Directives on File: Yes Advance Directives Date on File: 12/05/23 service: Yes Meds Allergies Allergy/AdvReac Type Severity Reaction Status Date / Time latex Allergy Unknown Verified 12/20/23 17:24 Active Medications: Current Medications Acetaminophen (Acetaminophen 325 Mg Tablet) 650 mg PO Q6H PRN PRN Reason: Pain, Mild (Pain Scale 1-3) Albuterol/Ipratropium (Albuterol/Iprat 2.5/0.5mg 3 Ml Ampul.Neb) 3 ml INHALE RQ4H WHILE AWAKE PRN PRN Reason: Shortness of Breath/Wheezing Amlodipine Besylate (Amlodipine Besylate 10 Mg Tablet) 10 mg PO DAILY REX; Protocol Apixaban (Apixaban 5 Mg Tablet) 5 mg PO BID REX Brimonidine Tartrate (Brimonidine Tartrate 0.2% Oph 5 Ml Bottle) 1 drop EYE-BOTH BID REX Carvedilol (Carvedilol 6.25 Mg Tablet) 6.25 mg PO BID REX; Protocol Finasteride (Finasteride 5 Mg Tablet) 5 mg PO DAILY REX Fluticasone/Vilanterol (Fluticasone/Vilanterol 100/25 Blst.W.Dev) 1 puff INHALE RDAILY [facility] Furosemide (Furosemide 20 Mg Tablet) 20 mg PO DAILY REX; Protocol Piperacillin Sod/Tazobactam (Sod 3.375 gm/ Sodium Chloride) 50 mls @ 100 mls/hr IV Q6H REX Vancomycin HCl 1,250 mg/ (Sodium Chloride) 250 mls @ 166.667 mls/hr IV Q24H REX Losartan Potassium (Losartan Potassium 50 Mg Tablet) 100 mg PO DAILY [facility]; Protocol Multivitamins/Vitamin C (Multivitamin Tablet) 1 tab PO DAILY [facility] Non-Formulary Medication (Lifitegrast [Xiidra]) 1 drop EYE-BOTH BID [facility] Pharmacy Consult (Consult Rx Vancomycin Dosing) 1 each MISCELLANE DAILY PRN PRN Reason: Consult order Senna (Sennosides 8.6 Mg Tablet) 17.2 mg PO BEDTIME PRN PRN Reason: Constipation Sodium Chloride (0.9 % Sodium Chloride Flush 3 Ml Syringe) 3 ml IVFLUSH QSHIFT [facility] Timolol Maleate (Timolol Maleate 0.5 % Oph Katie 5 Ml Drbtl) 1 drop EYE-BOTH BID [facility] Home Medications Medication Instructions Recorded Confirmed Last Taken Type amlodipine 10 mg tablet 10 mg PO DAILY 12/02/23 12/20/23 12/20/23 09:00 History apixaban 5 mg tablet (Eliquis) 5 mg PO BID 12/02/23 12/20/23 12/20/23 09:00 History brimonidine 0.2 % eye drops 1 drp ophthalmic (eye) BID 12/02/23 12/20/23 12/20/23 09:00 History carvedilol 6.25 mg tablet 6.25 mg PO BID 12/02/23 12/20/23 12/20/23 09:00 History finasteride 5 mg tablet 5 mg PO DAILY 12/02/23 12/20/23 12/20/23 09:00 History lifitegrast 5 % eye drops in a 1 drp ophthalmic (eye) BID 12/02/23 12/20/23 12/20/23 09:00 History dropperette (Xiidra) losartan 100 mg tablet 100 mg PO DAILY 12/02/23 12/20/23 12/20/23 09:00 History timolol maleate 0.5 % eye drops 1 drp ophthalmic (eye) BID 12/02/23 12/20/23 12/20/23 09:00 History vit C 250 mg-vit E 90 mg-zinc 40 1 tab PO BID 12/02/23 12/20/23 12/20/23 09:00 History mg-copper 1 ke-ndpxgp-oxveel capsule (PreserVision AREDS-2) fluticasone furoate 100 1 ea inhalation DAILY 12/20/23 12/20/23 12/20/23 09:00 History mcg-vilanterol 25 mcg/dose inhalation powder (Breo Ellipta) furosemide 20 mg tablet 20 mg PO DAILY 12/20/23 12/20/23 12/20/23 09:00 History Physical Exam Vital Signs and Narrative: Vital Signs: Last Vital Signs Temp 98.4 F 12/20/23 21:40 Pulse 93 12/20/23 22:02 Resp 20 12/20/23 22:02 BP 119/50 L 12/20/23 22:02 Pulse Ox 93 12/20/23 22:02 O2 Del Method Nasal Cannula 12/20/23 22:02 BMI result Body Mass Index 23.8 Constitutional: Alert, in no acute distress. Mental Status: Oriented to person, place and time. Eyes: Pupils are equal, round, and reactive to light. Ear, Nose, and Throat: Oropharynx clear, mucous membranes moist. Ears and nose without deformities. Trachea midline. Respiratory: Diminished bilaterally. Diffuse rhonchi. Cardiovascular: Irregularly irregular rhythm. Gastrointestinal: Abdomen soft, non-tender, non-distended. Normal bowel sounds. Neurologic: Cranial nerves II-XII are grossly intact bilaterally. No focal neurological deficits. Moves all extremities spontaneously. Skin: Warm, dry. Musculoskeletal: No cyanosis or clubbing. Extremities: No edema. Psychiatric: Normal mood and affect. Results Labs 12/20/23 17:54 12/20/23 17:54 Labs: Laboratory Results - last 24 hr 12/20/23 12/20/23 17:54 20:50 MCV 94.3 MCH 31.7 MCHC 33.6 RDW 14.2 Plt Count 261 D MPV 10.1 Immature Gran % (Auto) 0.5 H Neut % (Auto) 89.5 H Lymph % (Auto) 2.8 L [place] % (Auto) 6.4 Eos % (Auto) 0.4 Baso % (Auto) 0.4 Lymph # (Auto) 0.5 L [place] # (Auto) 1.2 Eos # (Auto) 0.1 Baso # (Auto) 0.1 Abs Immat Gran (auto) 0.10 H Absolute Neuts (auto) 16.6 H Absolute Nucleated RBC 0.000 Nucleated RBC % (auto) 0.0 PT 15.4 H INR 1.3 H Anion Gap 15 Estim Creat Clear Calc 48.2 Estimated GFR > 60 Random Glucose 145 H Lactic Acid 1.8 Calcium 9.4 D Total Bilirubin 0.5 AST 25 ALT 31 Alkaline Phosphatase 100 Troponin I High Sens 5.2 B-Natriuretic Peptide 463 H Total Protein 8.0 Albumin 4.2 Urine Color Yellow Urine Appearance Clear Urine pH 5.0 Ur Specific [place] 1.020 Urine Protein 100 (2+) H Urine Glucose (UA) Negative Urine Ketones Negative Urine Blood Negative Urine Nitrite Negative Ur Leukocyte Esterase Negative Urine RBC 0-2 Urine WBC 0-5 Ur Squamous Epith Cells 0-2 Urine Bacteria None Seen Hyaline Casts 0-2 Influenza Type A (PCR) NEGATIVE Influenza Type B (PCR) NEGATIVE RSV RNA Qual (PCR) NEGATIVE SARS-CoV-2 RNA (RT-PCR) NEGATIVE Imaging Radiologist's Impressions: Impressions Chest X-Ray 12/20/23 18:21 IMPRESSION: Patchy haziness in both lung bases likely resolving pneumonia and/or atelectasis The pleural effusion has resolved. Assessment and Plan (1) Pneumonia: Status: Acute Plan Pt is an 82-year-old male with a PMH significant for?paroxysmal AFib on Eliquis, asthma/COPD overlap syndrome, HFpEF, HTN, BPH, cutaneous squamous cell carcinoma, mitral valve insufficiency, and macular degeneration who presents to the ED with?increasing shortness of breath, productive cough, and dyspnea on exertion. Pt will be admitted to the hospital for treatment and further evaluation of acute hypoxic respiratory failure in the setting of multifocal pneumonia with sepsis. Acute hypoxic respiratory failure in setting of multifocal pneumonia with sepsis In the setting of failed outpatient therapy Initially admitted to hospital on 12/02-12/04, treated with IV ceftriaxone and azithromycin, discharged on cefuroxime and doxy x7 days Has been experiencing increased SOB, CAVAZOS, fever, chills, productive cough, desatting as low at 88% during exam; CXR with patchy haziness in both lung bases Patient meets sepsis criteria: Tachycardia, tachypnea, fever, leukocytosis; lactic acid WNL at 1.8 Patient treated with IVF and started on broad-spectrum antibiotics in the ED Treat with vanc and Zosyn for now, started 12/20/2023 Guaifenesin for cough Titrate supplemental O2 >92, wean as tolerated Acute asthma/COPD exacerbation In the setting of above DuoNebs, Solu-Medrol 40 mg IV daily Continue home inhalers HFrEF Does not appear clinically fluid overloaded BNP elevated, but no lower leg edema, CXR negative for pleural effusions Was given Lasix 40mg IV in ED Home Lasix recently decreased to 20mg daily Will increase home Lasix back to 40mg daily Monitor volume status Paroxysmal AFib Continue carvedilol, Eliquis HTN Continue amlodipine, carvedilol, losartan Full Code Attending:?Dr. Alvarez DVT Prophylaxis: On Eliquis Pt will require a hospitalization of at least two nights for treatment of?acute hypoxic respiratory failure in setting of multifocal pneumonia with sepsis and acute COPD exacerbation. Given that patient failed outpatient therapy, will require hospitalization for administration of IV antibiotics, breathing treatments, IV steroids, oxygen supplementation, and close monitoring of respiratory status. Quality Stroke Does the patient have a stroke diagnosis?: No VTE Prior VTE?: No VTE Risk Level:: Medical - moderate - high VTE Device Contraindication: Treatment Not Indicated VTE Drug Contraindication: N/A - Med Ordered
[2023-12-20] MEDS: Apixaban 5 MG TABLET PO (22:31)
[2023-12-20] MEDS: carvediloL 6.25 MG TABLET PO (22:31)
[2023-12-20] MEDS: methylPREDNISolone Sod Succ 40 MG/ML VIAL IVPUSH (23:53)
[2023-12-20] MEDS: 0.9 % Sodium Chloride Flush 3 ML SYRINGE IVFLUSH (23:55)
[2023-12-21] VITALS (8 sets, daily range): BP systolic 124–156; BP diastolic 55–71; PULSE 78–96; RESP 16–19; TEMP 35.9–36.7; O2SAT 94–97; BMI 23.8
[2023-12-21] MEDS: Piperacillin Sodium/Tazobactam 3.375 GM in 0.9 % Sodium Chloride 50 ML IV ×4 (02:54→20:24)
--- NOTE | 2023-12-21 04:35 | PC.NURSE ---
PT slept on and off throughout evening. Currently on 3 lpm, sat's are in the high 90's, remains on site monitor. Offers no complaints at this time. Plan of care ongoing.
[2023-12-21 05:55] LABS: Hematocrit 32.4 % (42.0-52.0); Mean Corpuscular Hemoglobin 31.6 pg (27.0-33.0); Mean Corpuscular Volume 93.1 fL (80.0-98.0); Mean Platelet Volume 10.6 fL (9.4-12.4); Platelet Count 208 X10*3/uL (160-400); Red Blood Count 3.48 X10*6/uL (4.60-5.80); Red Cell Distribution Width 14.2 % (11.0-16.0); White Blood Count 20.7 X10*3/uL (4.8-10.8)
[2023-12-21 06:26] LABS: Alanine Aminotransferase 23 U/L (0-40); Albumin Level 3.4 g/dL (3.5-5.0); Alkaline Phosphatase 71 U/L (39-117); Anion Gap 14 (12-20); Aspartate Amino Transferase 20 U/L (5-37); Bilirubin Total 0.7 mg/dL (0.0-1.0); Blood Urea Nitrogen 38 mg/dL (9-16); Calcium 8.6 mg/dL (8.4-10.2); Carbon Dioxide 23 mmol/L (22-29); Chloride 109 mmol/L (96-108); Creatinine Clr Calc Pharmacy 50.4; Estimated Glomerular Filt Rate > 60; Glucose Random 181 mg/dL (60-115); Potassium 3.9 mmol/L (3.3-5.1); Sodium 142 mmol/L (135-145); Total Protein 6.4 g/dL (6.5-8.0)
[2023-12-21 06:28] LABS: Band Neutrophils Percent 21 % (3-5); Neutrophils Absolute Manual 20.7 X10*3/uL (2.0-8.3); Neutrophils Percent Manual 79 % (45-73)
[2023-12-21 06:30] LABS: Acanthocytes 1+ (0-2) /OIF; Ovalocytes 1+ (5-14) /OIF; Platelet Estimate NORMAL (NORMAL); Platelet Morphology Comment NORMAL; RBC Morphology NOTED; Schistocytes 1+ (0-2) /OIF; Toxic Vacuolation PRESENT
[2023-12-21] MEDS: carvediloL 6.25 MG TABLET PO ×2 (07:37→20:22)
[2023-12-21] MEDS: Losartan Potassium 50 MG TABLET 100 MG PO (07:38)
[2023-12-21] MEDS: Multivitamin TABLET 1 TAB PO (07:40)
[2023-12-21] MEDS: amLODIPine Besylate 10 MG TABLET PO (07:40)
[2023-12-21] MEDS: Apixaban 5 MG TABLET PO ×2 (07:40→20:22)
--- NOTE | 2023-12-21 07:49 | PC.NURSE ---
pt is awake and eating breakfast . he states he is feeling better. medicated as charted , urinary out put at the bedside is 300ml he has a 20g lac
[2023-12-21] MEDS: Fluticasone/Vilanterol 100/25 BLST.W.DEV 1 PUFF INHALE (07:58)
[2023-12-21] MEDS: Furosemide 40 MG/4 ML VIAL IVPUSH (10:29)
[2023-12-21] MEDS: Finasteride 5 MG TABLET PO (10:29)
--- NOTE | 2023-12-21 10:57 | MHC.CM.PN ---
IMM 12/20. Pt self-care, lives at home with his who will transport. HCP on file and verified. PCP: Dr. Yonis Pierre
--- NOTE | 2023-12-21 11:35 | P.PNIM_ITS ---
Subjective Subjective Date of Service: 12/21/23 Interval History: Seen and evaluated this morning Feels better already weaning down O2 Review of Systems Review of Systems: Yes all other systems are reviewed and are negative Physical Exam 2 Vital Signs: Vital Signs: Last Vital Signs Temp 96.6 F L 12/21/23 09:45 Pulse 87 12/21/23 09:45 Resp 16 12/21/23 08:00 BP 156/71 H 12/21/23 09:45 Pulse Ox 96 12/21/23 09:45 O2 Del Method Room Air 12/21/23 09:45 O2 Flow Rate 2 12/21/23 07:47 BMI result Body Mass Index 23.8 Const: Other: Constitutional : Awake, interactive, not in distress Neck : Normal inspection, Supple Cardiovascular : RRR, no JVP, no lower extremity edema Respiratory : fair bilateral air entry, basal fine crackles, no wheezes Gastrointestinal: soft, lax, Normal bowel sounds, Non tender Skin : Warm, Dry Neurological : Alert & oriented x3, No focal deficit Objective Data Active Medications Acetaminophen (Acetaminophen 325 Mg Tablet) 650 mg PO Q6H PRN PRN Reason: Pain, Mild (Pain Scale 1-3) Albuterol/Ipratropium (Albuterol/Iprat 2.5/0.5mg 3 Ml Ampul.Neb) 3 ml INHALE RQ4H WHILE AWAKE PRN PRN Reason: Shortness of Breath/Wheezing Amlodipine Besylate (Amlodipine Besylate 10 Mg Tablet) 10 mg PO DAILY [facility]; Protocol Last Admin: 12/21/23 07:40 Dose: 10 mg Documented By: KATHLEEN Apixaban (Apixaban 5 Mg Tablet) 5 mg PO BID [facility] Last Admin: 12/21/23 07:40 Dose: 5 mg Documented By: KATHLEEN Brimonidine Tartrate (Brimonidine Tartrate 0.2% Oph 5 Ml Bottle) 1 drop EYE- BOTH BID [facility] Carvedilol (Carvedilol 6.25 Mg Tablet) 6.25 mg PO BID [facility]; Protocol Last Admin: 12/21/23 07:37 Dose: 6.25 mg Documented By: KATHLEEN Finasteride (Finasteride 5 Mg Tablet) 5 mg PO DAILY [facility] Last Admin: 12/21/23 10:29 Dose: 5 mg Documented By: GENETEKAngela Fluticasone/Vilanterol (Fluticasone/Vilanterol 100/25 Blst.W.Dev) 1 puff INHALE RDAILY [facility] Last Admin: 12/21/23 07:58 Dose: 1 puff Documented By: SWAPNA Furosemide (Furosemide 40 Mg/4 Ml Vial) 40 mg IVPUSH DAILY [facility]; Protocol Last Admin: 12/21/23 10:29 Dose: 40 mg Documented By: GENETEKAngela Guaifenesin/Dextromethorphan (Guaifenesin Dm 200/20/10 Ml 10 Ml Syrup) 10 ml PO Q4H PRN PRN Reason: Cough Piperacillin Sod/Tazobactam (Sod 3.375 gm/ Sodium Chloride) 50 mls @ 100 mls/hr IV Q6H [facility] Last Infusion: 12/21/23 08:05 Dose: Infused Documented By: KATHLEEN Vancomycin HCl 1,250 mg/ (Sodium Chloride) 250 mls @ 166.667 mls/hr IV Q24H [facility] Losartan Potassium (Losartan Potassium 50 Mg Tablet) 100 mg PO DAILY [facility]; Protocol Last Admin: 12/21/23 07:38 Dose: 100 mg Documented By: KATHLEEN Methylprednisolone Sodium Succinate (Methylprednisolone Sod Succ 40 Mg/Ml Vial) 40 mg IVPUSH Q24H [facility] Last Admin: 12/20/23 23:53 Dose: 40 mg Documented By: LUISA Multivitamins/Vitamin C (Multivitamin Tablet) 1 tab PO DAILY [facility] Last Admin: 12/21/23 07:40 Dose: 1 tab Documented By: KATHLEEN Non-Formulary Medication (Lifitegrast [Xiidra]) 1 drop EYE-BOTH BID [facility] Pharmacy Consult (Consult Rx Vancomycin Dosing) 1 each MISCELLANE DAILY PRN PRN Reason: Consult order Senna (Sennosides 8.6 Mg Tablet) 17.2 mg PO BEDTIME PRN PRN Reason: Constipation Sodium Chloride (0.9 % Sodium Chloride Flush 3 Ml Syringe) 3 ml IVFLUSH QSHIFT [facility] Last Admin: 12/21/23 08:49 Dose: Not Given Documented By: KATHLEEN Non-Admin Reason: IV Running Timolol Maleate (Timolol Maleate 0.5 % Oph Ktaie 5 Ml Drbtl) 1 drop EYE-BOTH BID [facility] Labs 12/21/23 04:56 12/21/23 04:56 Labs: Laboratory Results - last 24 hr 12/20/23 12/20/23 12/21/23 17:54 20:50 04:56 MCV 94.3 93.1 MCH 31.7 31.6 MCHC 33.6 34.0 RDW 14.2 14.2 Plt Count 261 D 208 MPV 10.1 10.6 Immature Gran % (Auto) 0.5 H Cancelled Neut % (Auto) 89.5 H Cancelled Lymph % (Auto) 2.8 L Cancelled [place] % (Auto) 6.4 Cancelled Eos % (Auto) 0.4 Cancelled Baso % (Auto) 0.4 Cancelled Lymph # (Auto) 0.5 L Cancelled [place] # (Auto) 1.2 Cancelled Eos # (Auto) 0.1 Cancelled Baso # (Auto) 0.1 Cancelled Abs Immat Gran (auto) 0.10 H Cancelled Absolute Neuts (auto) 16.6 H Cancelled Absolute Nucleated RBC 0.000 0.000 Nucleated RBC % (auto) 0.0 0.0 Neutrophils % (Manual) 79 H Band Neutrophils % 21 H Abs Neuts (Manual) 20.7 H Toxic Vacuolation PRESENT Platelet Estimate NORMAL Plt Morphology Comment NORMAL RBC Morphology NOTED Ovalocytes 1+ (5-14) Acanthocytes (Spur) 1+ (0-2) Schistocytes 1+ (0-2) PT 15.4 H INR 1.3 H Anion Gap 15 14 Estim Creat Clear Calc 48.2 50.4 Estimated GFR > 60 > 60 Random Glucose 145 H 181 H Lactic Acid 1.8 Calcium 9.4 D 8.6 D Total Bilirubin 0.5 0.7 AST 25 20 ALT 31 23 Alkaline Phosphatase 100 71 Troponin I High Sens 5.2 B-Natriuretic Peptide 463 H Total Protein 8.0 6.4 L Albumin 4.2 3.4 L Urine Color Yellow Urine Appearance Clear Urine pH 5.0 Ur Specific [place] 1.020 Urine Protein 100 (2+) H Urine Glucose (UA) Negative Urine Ketones Negative Urine Blood Negative Urine Nitrite Negative Ur Leukocyte Esterase Negative Urine RBC 0-2 Urine WBC 0-5 Ur Squamous Epith Cells 0-2 Urine Bacteria None Seen Hyaline Casts 0-2 Influenza Type A (PCR) NEGATIVE Influenza Type B (PCR) NEGATIVE RSV RNA Qual (PCR) NEGATIVE SARS-CoV-2 RNA (RT-PCR) NEGATIVE Assessment and Plan (1) Sepsis: Status: Acute (2) Pneumonia: Status: Acute (3) Acute respiratory failure with hypoxia: Status: Acute Plan Pt is an 82-year-old male with a PMH significant for?paroxysmal AFib on Eliquis, asthma/COPD overlap syndrome, HFpEF, HTN, BPH, cutaneous squamous cell carcinoma, mitral valve insufficiency, and macular degeneration who presents to the ED with?increasing shortness of breath, productive cough, and dyspnea on exertion. Pt will be admitted to the hospital for treatment and further evaluation of acute hypoxic respiratory failure in the setting of multifocal pneumonia with sepsis. Acute hypoxic respiratory failure in setting of multifocal pneumonia with sepsis failed outpatient therapy CXR with patchy haziness in both lung bases pending cultures Continue vanc and Zosyn for now, started 12/20/2023 Guaifenesin for cough Titrate supplemental O2 >92, wean as tolerated Acute asthma/COPD exacerbation DuoNebs, Solu-Medrol 40 mg IV daily Continue home inhalers HFrEF Does not appear clinically fluid overloaded increase home Lasix back to 40mg daily Monitor volume status Paroxysmal AFib Continue carvedilol, Eliquis HTN Continue amlodipine, carvedilol, losartan Full Code DVT Prophylaxis: On Eliquis Pt will require a hospitalization overnight for treatment of?acute hypoxic respiratory failure in setting of multifocal pneumonia with sepsis and acute COPD exacerbation. Given that patient failed outpatient therapy, will require hospitalization for administration of IV antibiotics, breathing treatments, IV steroids, oxygen supplementation, and close monitoring of respiratory status. Quality Stroke Does the patient have a stroke diagnosis?: No VTE Prior VTE?: No VTE Risk Level:: Medical - moderate - high VTE Device Contraindication: Treatment Not Indicated VTE Drug Contraindication: N/A - Med Ordered
[2023-12-21] MEDS: 0.9 % Sodium Chloride Flush 3 ML SYRINGE IVFLUSH (20:24)
[2023-12-21] MEDS: LIFITEGRAST 5% 1 EACH EYE-BOTH (20:25)
[2023-12-21] MEDS: vancomycin HCL 1,250 MG in 0.9 % Sodium Chloride 250 ML 166.67 MG IV (21:01)
[2023-12-21] MEDS: methylPREDNISolone Sod Succ 40 MG/ML VIAL IVPUSH (22:39)
[2023-12-21] MEDS: Melatonin 3 MG TABLET 6 MG PO (23:34)
[2023-12-22] VITALS (8 sets, daily range): BP systolic 96–157; BP diastolic 50–80; PULSE 76–93; RESP 16–18; TEMP 36.2–37; O2SAT 95–98
[2023-12-22] MEDS: Piperacillin Sodium/Tazobactam 3.375 GM in 0.9 % Sodium Chloride 50 ML IV ×2 (01:23→08:31)
[2023-12-22 06:41] LABS: Anion Gap 11 (12-20); Blood Urea Nitrogen 36 mg/dL (9-16); Calcium 8.9 mg/dL (8.4-10.2); Carbon Dioxide 27 mmol/L (22-29); Chloride 109 mmol/L (96-108); Creatinine Clr Calc Pharmacy 47.8; Creatinine Clr Calc Pharmacy 48.2; Estimated Glomerular Filt Rate 60; Estimated Glomerular Filt Rate > 60; Glucose Random 146 mg/dL (60-115); Potassium 4.3 mmol/L (3.3-5.1); Sodium 143 mmol/L (135-145)
[2023-12-22 06:47] LABS: Hematocrit 32.4 % (42.0-52.0); Hemoglobin 11.1 g/dl (14.0-18.0); Mean Corpuscular HGB Conc 34.3 g/dl (31.0-36.0); Mean Corpuscular Hemoglobin 31.8 pg (27.0-33.0); Mean Corpuscular Volume 92.8 fL (80.0-98.0); Mean Platelet Volume 10.7 fL (9.4-12.4); Platelet Count 194 X10*3/uL (160-400); Red Blood Count 3.49 X10*6/uL (4.60-5.80); Red Cell Distribution Width 14.4 % (11.0-16.0); White Blood Count 16.2 X10*3/uL (4.8-10.8)
[2023-12-22] MEDS: Apixaban 5 MG TABLET PO (08:29)
[2023-12-22] MEDS: amLODIPine Besylate 10 MG TABLET PO (08:29)
[2023-12-22] MEDS: Multivitamin TABLET 1 TAB PO (08:29)
[2023-12-22] MEDS: carvediloL 6.25 MG TABLET PO (08:31)
[2023-12-22] MEDS: Losartan Potassium 50 MG TABLET 100 MG PO (08:31)
[2023-12-22] MEDS: Furosemide 40 MG/4 ML VIAL IVPUSH (08:31)
[2023-12-22] MEDS: Finasteride 5 MG TABLET PO (08:31)
[2023-12-22] MEDS: LIFITEGRAST 5% 1 EACH EYE-BOTH (08:35)
[2023-12-22] MEDS: Fluticasone/Vilanterol 100/25 BLST.W.DEV 1 PUFF INHALE (09:10)
--- NOTE | 2023-12-22 10:10 | MHC.CM.PN ---
REFERRAL PLACED TO [facility] PER P.T. RECOMMENDATIONS
[2023-12-22] MEDS: Brimonidine Tartrate 0.2% Oph 5 ML BOTTLE 1 DROP EYE-BOTH (10:41)
[2023-12-22] MEDS: timoloL maleate 0.5 % Oph Sol 5 ML DRBTL 1 DROP EYE-BOTH (10:41)
--- NOTE | 2023-12-22 11:10 | MHC.CM.PN ---
Addendum entered by Marla Huynh RN 12/22/23 11:20: RN AND UNIT AWARE OF DC TODAY TO TRANSPORT PATIENT HOME MOEMariana THOMAS START OF CARE Sunday12/24/23. Original Note: [facility] IS WILLING TO OFFER SERVICES. MD AND PATIENT AWARE. PLAN IS FOR DC TODAY
--- NOTE | 2023-12-22 11:13 | P.F2F_ITS ---
Service Date Service Date: 12/22/23 Encounter Date of encounter: 12/22/23 Reasons for Services Signs and symptoms assessed: Physical deconditioning Reason for physical therapy: home safety and mobility and therapeutic exercises Homebound: Leaving the home is medically contraindicated at this time without the asist of a device and/or another person due th the listed conditions above and below. Reason homebound: unsteady gait / fall risk Certification: Based on the above findings, I certify that this patient is confined to the home and needs intermittent [facility] care, physical therapy and/or speech therapy, or continues to need occupational therapy. The patient is under my care, and I have initiated the establishment of the plan of care. The patient will be followed by a physician who will periodically review the plan of care. Time Spent With Patient Time: Total time managing care of this patient today ____ minutes.
--- NOTE | 2023-12-22 11:15 | PM.DS ---
DS: Providers Provider Date of Service: 12/22/23 Date of admission: 12/20/23 21:04 Primary care physician: Yonis Pierre MD DS: Diagnosis Discharge Diagnosis (1) Sepsis: Status: Acute (2) Pneumonia: Status: Acute (3) Acute respiratory failure with hypoxia: Status: Acute (4) Physical deconditioning: Status: Acute DS: Summary Hospital Course Hospital Course: Admission note HPI Pt is an 82-year-old male with a PMH significant for?paroxysmal AFib on Eliquis, asthma/COPD overlap syndrome, HFpEF, HTN, BPH, cutaneous squamous cell carcinoma, mitral valve insufficiency, and macular degeneration who presents to the ED with?increasing shortness of breath, productive cough, and dyspnea on exertion. Patient was recently admitted to the hospital here on 12/02-12/04 and treated for multifocal pneumonia, asthma/COPD exacerbation, and CHF exacerbation. Patient was discharged on cefuroxime 500 mg p.o. b.i.d. and doxycycline 100 mg p.o. b.i.d. x7 days, which he states he completed. Her CHF was discharged on Lasix 40 mg daily. Last week on patient saw PCP who reduced Lasix from 40 mg to 20 mg daily. Patient reports overall he felt much better after discharge, until earlier today when he returned from taking the dog out for a walk and suddenly became short of breath to the point that he could not breathe and had sit down. Also began feeling feverish and ?shaking?. Reports has had increased productive cough for the past week or so. Denies orthopnea. Reports possible increase in lower leg edema, though has been taking daily weights with only minor fluctuation of a few ounces. In the ED pt was febrile up to 102.4, tachycardic up to 117, tachypneic up to 24, hypertensive up to 166/71, and desatting as low as 88% on RA. Labs were significant for leukocytosis of 18.6, H&H 12.9/38.4, and BNP 463. UA negative for UTI. Tested negative for influenza type a and B, RSV, COVID. CXR showed patchy haziness in both lung bases likely resolving pneumonia and/or atelectasis. Also noted pleural effusion has resolved. EKG demonstrated AFib with RVR of [address] elevations or depressions, similar to previous. Pt was treated with furosemide 40 mg IV, vanc and Zosyn, IVF, and acetaminophen. Pt will be admitted to the hospital for treatment and further evaluation of acute hypoxic respiratory failure in the setting of multifocal pneumonia with sepsis. Hospital course The patient was admitted for tretnet of acute hypoxic respiratory failure in setting of multifocal pneumonia with sepsis as he failed outpatient therapy and CXR showed patchy haziness in both lung bases. blood cultures remains negative at time of discharge. He was treated with vancomycin and Zosyn for now with good response as he was weaned off O2 supplement and became able to ambulate on room air. He was evaluated by physical therapist who recommended home PT and usage of Walker with ambulation. a script was sent to his pharmacy. Continue Doxycycline and Ceftin as prescribed Incentive spirometry Physical therapy at home Use Walker with ambulation Time Attestation Discharge Coordination Time (in mins): 45 Quality: Safe Use of Opioids Does Pt have an Active Cancer Diagnosis on the Problem List?: No Quality: Stroke Does the patient have a stroke diagnosis?: No Physical Exam Vital Signs: Vital Signs: Last Vital Signs Temp 98.6 F 12/22/23 10:25 Pulse 76 12/22/23 10:25 Resp 16 12/22/23 10:25 BP 157/80 H 12/22/23 10:25 Pulse Ox 98 12/22/23 10:25 O2 Del Method Room Air 12/22/23 10:25 O2 Flow Rate 2 12/21/23 07:47 BMI result Body Mass Index 23.8 Const: Other: Constitutional : Awake, interactive, not in distress Neck : Normal inspection, Supple Cardiovascular : RRR, no JVP, no lower extremity edema Respiratory : fair bilateral air entry, basal fine crackles more on left, no wheezes Gastrointestinal: soft, lax, Normal bowel sounds, Non tender Skin : Warm, Dry Neurological : Alert & oriented x3, No focal deficit DS: Data Data Completed and Pending Labs on day of discharge: Laboratory Results - last 24 hr 12/22/23 12/22/23 12/22/23 06:00 06:00 06:00 WBC 16.2 H RBC 3.49 L Hgb 11.1 L Hct 32.4 L MCV 92.8 MCH 31.8 MCHC 34.3 RDW 14.4 Plt Count 194 MPV 10.7 Absolute Nucleated RBC 0.000 Nucleated RBC % (auto) 0.0 Sodium 143 Potassium 4.3 Chloride 109 H Carbon Dioxide 27 Anion Gap 11 L BUN 36 H Creatinine 1.16 1.17 Estim Creat Clear Calc 48.2 47.8 Estimated GFR > 60 Random Glucose Calcium 12/22/23 06:00 WBC RBC Hgb Hct MCV MCH MCHC RDW Plt Count MPV Absolute Nucleated RBC Nucleated RBC % (auto) Sodium Potassium Chloride Carbon Dioxide Anion Gap BUN Creatinine Estim Creat Clear Calc Estimated GFR 60 Random Glucose 146 H Calcium 8.9 Preliminary micro results at discharge 12/20/23 19:52 Blood Culture - Preliminary Blood - Venous No growth after 24 hours. 12/20/23 17:54 Blood Culture - Preliminary Blood - Venous No growth after 24 hours. Imaging Chest x-ray: Radiologist's impression: ITS Impressions Chest X-Ray 12/20/23 18:21 IMPRESSION: Patchy haziness in both lung bases likely resolving pneumonia and/or atelectasis The pleural effusion has resolved. Discharge Plan Discharge Anticipated Discharge Date/Time: 12/22/23 10:51 Patient Disposition: Home Health Service Discharge Diagnosis: Pneumonia Referrals: [facility] [Outside] - 1 Week Yonis Pierre MD [Primary Care Provider] - 1 Week Discharge Medications: New dextromethorphan-guaifenesin 10-100 mg/5 mL Syrup 10 ml PO Q4H PRN (Reason: Cough) Qty: 237 1RF doxycycline monohydrate 100 mg capsule 100 mg PO BID Qty: 10 0RF cefuroxime axetil 500 mg tablet 500 mg PO BID Qty: 10 0RF (DME) Ultra-Light Rollator Misc See Rx Instructions .Route Qty: 1 0RF Rx Instructions: As directed Continued carvedilol 6.25 mg tablet 6.25 mg PO BID amlodipine 10 mg tablet 10 mg PO DAILY brimonidine 0.2 % drops 1 drp ophthalmic (eye) BID Rx Instructions: both eyes timolol maleate 0.5 % drops 1 drp ophthalmic (eye) BID Rx Instructions: both eyes losartan 100 mg tablet 100 mg PO DAILY finasteride 5 mg tablet 5 mg PO DAILY Eliquis 5 mg tablet 5 mg PO BID PreserVision AREDS-2 250-90-40-1 mg Capsule 1 tab PO BID Xiidra 5 % dropperette 1 drp ophthalmic (eye) BID Rx Instructions: both eyes sennosides [Senna Lax] 8.6 mg Tablet 17.2 mg PO BEDTIME PRN (Reason: Constipation) Qty: 30 0RF fluticasone furoate-vilanterol [Breo Ellipta] 100-25 mcg/dose blister with device 1 ea INHALATION DAILY furosemide 20 mg tablet 20 mg PO DAILY Discharge Orders: Discharge Order (Routine); Ordered 12/22/23 Ordered By: Heather Branham Diet: Advance to usual diet Activity on Discharge: As tolerated Stand Alone Forms: Patient Portal Discharge page Care Plan Goals: Read below Health Concerns: Read below Plan of Treatment: Read below Assessment: You were treated for pneumonia with IV antibiotics with good response over the course of hospital stay. Continue Doxycycline and Ceftin as prescribed Incentive spirometry Physical therapy at home Discharge Date/Time: 12/22/23 15:23
--- NOTE | 2023-12-22 13:38 | MHC.CM.PN ---
PATIENT BECAME HYPOTENSIVE. PLAN IS TO REASSESS VITALS AND DETERMINE IF HE WILL REMAIN THE NIGHT AND DC TOMORROW, OR DC TODAY
== END 2023-12-22 15:23 | disposition home or self-care (01) | DRG 871 ==
LOC: HO.ED 20:33 → HO.EDOVER 21:10 → HO.IMC 12-21 07:54
PROVIDERS: Registered Nurse Emergency; Admitting Provider Internal Medicine; Emergency Provider Emergency Medicine; PCP Internal Medicine; Visit Provider Student in an Organized Health Care Education/Training Program
DX: A41.9 Sepsis, unspecified organism (principal); J18.9 Pneumonia, unspecified organism; J96.01 Acute respiratory failure with hypoxia; J44.0 Chronic obstructive pulmonary disease with (acute) lower respiratory infection; J44.1 Chronic obstructive pulmonary disease with (acute) exacerbation; I50.22 Chronic systolic (congestive) heart failure; J45.901 Unspecified asthma with (acute) exacerbation; I48.0 Paroxysmal atrial fibrillation; Z87.891 Personal history of nicotine dependence; Z20.822 Contact with and (suspected) exposure to COVID-19; Z91.040 Latex allergy status; Z79.01 Long term (current) use of anticoagulants; Z79.51 Long term (current) use of inhaled steroids; Z79.899 Other long term (current) drug therapy
CPT/HCPCS: 0241U; 36415; 71046; 80048; 80053; 81001; 82565; 83605; 83880; 84484; 85007; 85025; 85027; 85610; 87040; 93005; 94640; 94664; 97161; 99285; J1940; J2543; J2920; J3371

== ENCOUNTER → 2023-12-20 17:22 | Outpatient (BNV) | payer MEDICARE, SELFPAY | PROVIDERS: Admitting Provider Internal Medicine; Emergency Provider Emergency Medicine; PCP Internal Medicine; Visit Provider Internal Medicine Cardiovascular Disease | DX: R06.02 Shortness of breath (principal) | CPT/HCPCS: 93010 ==

== ENCOUNTER → 2023-12-20 21:04 | Outpatient (BNV) | payer MEDICARE, SELFPAY | PROVIDERS: Admitting Provider Internal Medicine; Emergency Provider Emergency Medicine; PCP Internal Medicine; Visit Provider Student in an Organized Health Care Education/Training Program | DX: A41.9 Sepsis, unspecified organism (principal); J96.01 Acute respiratory failure with hypoxia; J18.9 Pneumonia, unspecified organism; R53.81 Other malaise | CPT/HCPCS: 99223; 99233; 99239; G0180 ==

== ENCOUNTER 2024-01-11 08:16 | Outpatient (AMB) | payer MEDICARE, SELFPAY ==
[2024-01-11 08:31] VITALS: BP 130/76; PULSE 81; BMI 25.1
--- NOTE | 2024-01-11 08:31 | MHC.OFFVIS ---
Intake Vital Signs 01/11/24 08:31 Height 5 ft 9 in Weight 169 lb 12.095 oz BMI 25.1 BP 130/76 Blood Pressure Location Lt brachial Position Sitting Pulse 81 Intake Visit Reasons: [facility]/2-18/Afib RVR Pneumonia Intake Note: [facility] [place] [employer] Required: No Accompanied by: Spouse Allergies latex Allergy (Verified 01/11/24 08:31) Unknown Medication List - Last Reconciled 01/11/24 by Blas Reveles MD amlodipine 10 mg PO DAILY apixaban (Eliquis) 5 mg PO BID brimonidine 0.2% 1 drp ophthalmic (eye) BID carvedilol 6.25 mg PO BID dextromethorphan-guaifenesin 10-100 mg/5 mL 10 mL PO Q4H PRN doxycycline monohydrate 100 mg PO BID finasteride 5 mg PO DAILY fluticasone furoate-vilanterol 100-25 mcg/dose (Breo Ellipta) 1 ea inhalation DAILY furosemide 20 mg PO DAILY lifitegrast 5% (Xiidra) 1 drp ophthalmic (eye) BID losartan 100 mg PO DAILY sennosides (Senna Lax) 17.2 mg (2 x 8.6 mg) PO BEDTIME PRN timolol maleate 0.5% 1 drp ophthalmic (eye) BID vit C,F-De-zklnk-lutein-zeaxan 250-90-40-1 mg (PreserVision AREDS-2) 1 tab PO BID walker (Ultra-Light Rollator misc) As directed HPI HPI Comments History of Present Illness Details Junior comes for follow-up. He was recently hospitalized twice to [facility] with acute respiratory failure with hypoxemia related to multifocal pneumonia accompanied by acute heart failure exacerbation. He said finally now he is recuperating. He had lot of muscle weakness and fatigue and tiredness after the hospitalization. Now has improving and over the last week he said he finding his strength back. He has no worsening symptoms of shortness of breath, orthopnea, PND, leg edema. Her weight has remained stable. He still has some cough and is slowly clearing it. No palpitations lightheadedness. Reviewed the old notes and it seems like he had permanent atrial fibrillation in the past. He has been on oral anticoagulation therapy. [facility] Medical History Chronic atrial fibrillation Acute respiratory failure with hypoxia CHF exacerbation Atrial fibrillation with RVR (HFpEF) heart failure with preserved ejection fraction Asthma Mitral valve insufficiency Macular degeneration Former smoker HTN (hypertension) Social History Household Members: Spouse Housing: House Do you presently have visiting nurse or other home services: Yes Patient Tobacco Use Status: Former Tobacco user Advance Directives Date on File: 12/05/23 service: No Review of Systems Const Denies weakness ENT Denies dizziness Card Denies chest pain, Denies chest pain with activity, Denies syncope, Denies rapid heart rate, Denies pedal edema, Denies edema, Denies leg edema, Denies lightheadedness, Denies palpitations, Denies dyspnea, Denies dyspnea on exertion and Denies orthopnea Resp Denies cough, Denies dyspnea and Denies dyspnea on exertion GI Denies hematochezia and Denies change in stool character Musc Denies abnormal gait, Denies muscle cramps, Denies muscle weakness, Denies numbness, Denies radiating pain into limb and Denies tingling Neuro Denies abnormal gait, Denies dizziness, Denies syncope, Denies numbness, Denies tingling and Denies weakness Endo Denies palpitations Physical Exam Vital Signs: Last Vital Signs Pulse 81 01/11/24 08:31 BP 130/76 01/11/24 08:31 BMI result Body Mass Index 25.1 Const General: cooperative, comfortable, no acute distress, alert and awake Nutritional Appearance: thin Orientation/consciousness: patient oriented x3 Neck Neck: Yes trachea midline, Yes supple and Yes no JVD Resp Effort & Inspection: normal respiratory effort Auscultation: no rales, no wheezes and diminished lung sounds Cardio Jugular venous distension: no JVD Rate: regular rate Rhythm: abnormal rhythm irregularly irregular Heart sounds: S1 normal heart sound present, S2 normal heart sound present, no click, no gallops, no murmurs and no rubs GI Auscultation: normal bowel sounds Skin General skin exam: no rashes or lesions noted Neuro General: patient oriented x3 and no focal motor deficits Extrem General: Yes no clubbing, cyanosis or edema Office Procedures EKG Details: EKG shows atrial fibrillation with PVCs 85121-[id number], Complete Assessment & Plan Assessment & Plan (1) Chronic atrial fibrillation: Code(s): I48.20 - Chronic atrial fibrillation, unspecified Plan: Seems like from prior history patient was managed with rate control and has been in permanent/chronic atrial fibrillation for the last few years. Given his echo findings of significant left atrial enlargement and given lack of symptoms at current time of progressive heart failure syndrome will continue pursue rate control. We discussed rhythm control would be difficult given his [place] of atrial fibrillation biatrial enlargement. He understands agrees. Continue current rate control with carvedilol which she is tolerating well. Continue full oral anticoagulation with Eliquis. Quarterly renal function test should be pursued. Management of atrial fibrillation was discussed in details. (2) (HFpEF) heart failure with preserved ejection fraction: Code(s): I50.30 - Unspecified diastolic (congestive) heart failure Plan: Prior history of heart failure with preserved ejection fraction, currently on low-dose furosemide and clinically appears to be euvolemic and well compensated. His weight is remained stable. He had exacerbation in the setting of acute medical illness with respiratory failure with hypoxemia along with rapid atrial fibrillation. Since hospital discharge he is doing well. We discussed management of heart failure. Will reduce Lasix to 20 mg every other day and follow-up for 2 weeks. If he has no worsening signs or symptoms of heart failure of fluid overload will use Lasix as need be. This was discussed with him clearly. Continue aggressive rate control. Continue aggressive blood pressure control which is currently well optimized advised to monitor weight on a daily basis avoidance of salt loading was discussed he understands management well. Will follow up in the clinic in 1 year's time after an echocardiogram. Thank you for allowing me to partake in his care Medications: Changed From doxycycline monohydrate 100 mg PO BID 10 caps 0RF To doxycycline monohydrate 100 mg PO BID From furosemide 20 mg PO DAILY To furosemide 20 mg PO Q OTHER DAY Coding Level of Care Code Est Pt Level 4 (98572) Diagnoses Chronic atrial fibrillation I48.20 (HFpEF) heart failure with preserved ejection fraction I50.30 CPT Codes EKG - CPT: 84302-[id number], Complete ([id number])
== END 2024-01-11 08:54 | disposition home or self-care (01) ==
PROVIDERS: PCP Internal Medicine; Visit Provider Internal Medicine Cardiovascular Disease
DX: I48.20 Chronic atrial fibrillation, unspecified (principal); I50.30 Unspecified diastolic (congestive) heart failure
CPT/HCPCS: 93010; 99214

== ENCOUNTER → 2024-01-11 08:16 | Outpatient (BNVA) | payer MEDICARE, SELFPAY | PROVIDERS: PCP Internal Medicine; Visit Provider Internal Medicine Cardiovascular Disease | DX: I48.20 Chronic atrial fibrillation, unspecified (principal); I50.30 Unspecified diastolic (congestive) heart failure; Z79.01 Long term (current) use of anticoagulants | CPT/HCPCS: 93005; 99212 ==

== ENCOUNTER 2024-03-04 13:33 | Outpatient (AMB) | payer MEDICARE, SELFPAY ==
[2024-03-04 13:42] VITALS: BP 142/77; PULSE 81; O2SAT 99; BMI 25.0
--- NOTE | 2024-03-04 13:42 | A.OFFVIS_ITS ---
Vital Signs 03/04/24 13:42 Height 5 ft 9 in Weight 169 lb BMI 25.0 BP 142/77 H Blood Pressure Location Lt brachial Position Sitting Pulse 81 Pulse Source Doppler Pulse Oximetry (%) 99 Oxygen Delivery Method Room Air Intake Visit Reasons: acute hypoxic respiratory failure Allergies latex Allergy (Verified 03/04/24 13:45) Unknown HPI HPI acute hypoxic respiratory failure: Details: 83-year-old gentleman, former 40 pack-year smoker, quit over 20 years prior with underlying AFib on anticoagulation and rate control, with recent admissions to [facility] for decompensated heart failure and 2nd 1 for pneumonia referred for pulmonary evaluation. Patient had repeat chest imaging appr oximately 1 months after his hospitalization for pneumonia that showed evolving pulmonary infiltrates, and then another more recent chest x-ray that only showed left-sided infiltrate. Patient denies any pulmonary related concerns or complaints at this time. He does have mild lower extremity edema. He is weighing himself every day and his weight has been stable. He is followed by Cardiology service. Patient does complain of multiple environmental allergies. He denies having recent pulmonary function testing. Patient states that he has been using previously Symbicort, and more recently Breo to control his underlying asthma. 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 He does have history of COPD in his sister. Patient does have a dog as a pet. [facility] Medical History (Updated 03/04/24 @ 16:10 by Garry Hernández MD) Chronic atrial fibrillation Acute respiratory failure with hypoxia CHF exacerbation Atrial fibrillation with RVR (HFpEF) heart failure with preserved ejection fraction Asthma Mitral valve insufficiency Macular degeneration Former smoker HTN (hypertension) Social History Household Members: Spouse Housing: House Do you presently have visiting nurse or other home services: Yes Patient Tobacco Use Status: Former Tobacco user Advance Directives Date on File: 12/05/23 service: No Review of Systems Const Denies daytime sleepiness, Denies excessive sweating, Denies fatigue, Denies fever(s), Denies lethargy, Denies malaise, Denies night sweats, Denies snoring and Denies weight loss Eyes Denies blurry vision and Denies itchy eyes ENT Denies nasal congestion, Denies post nasal drip, Denies sinus pain, Denies sinus pressure and Denies other ( Thrush) Card Denies chest pain, Denies pedal edema, Denies dyspnea, Denies orthopnea and Denies paroxysmal nocturnal dyspnea Resp Denies cough, Denies hemoptysis, Denies excessive phlegm production, Denies dyspnea, Denies snoring and Denies wheezing GI Denies abdominal pain and Denies heartburn Musc Denies myalgias, Denies arthralgias and Denies joint swelling Skin/Breast Denies rash Neuro Denies memory loss and Denies seizure-like activity Psych Denies abnormal sleep pattern, Denies anxiety and Denies memory loss Endo Denies excessive sweating, Denies fatigue and Denies heat intolerance Salvatore/Lymph Denies easy bruising Aller/Immun Denies itchy eyes, Denies seasonal rhinorrhea and Denies wheezing Physical Exam Vital Signs: Last Vital Signs Pulse 81 03/04/24 13:42 BP 142/77 H 03/04/24 13:42 Pulse Ox 99 03/04/24 13:42 Oxygen Delivery Method Room Air 03/04/24 13:42 BMI result Body Mass Index 25.0 Const General: no acute distress and alert Nutritional Appearance: not obese Orientation/consciousness: Other orientation findings ( oriented) HEENT Head: Yes atraumatic Eyes General: appearance normal, both eyes and all related structures Sclerae: sclerae normal EOM: EOMs intact bilaterally Neck Neck: Yes supple Lymphatic: no lymphadenopathy noted Resp Effort & Inspection: normal respiratory effort and no use of accessory muscles Auscultation: clear to auscultation bilaterally Cardio Rate: regular rate Rhythm: regular rhythm Heart sounds: no gallops, no murmurs and no rubs Skin General skin exam: other ( warm) Extrem General: No clubbing, No cyanosis and No edema Assessment & Plan Assessment & Plan (1) Asthma: Code(s): J45.909 - Unspecified asthma, uncomplicated Category: Medical Plan: Underlying asthma of unclear severity, at least moderate persistent, now appears to be reasonably controlled on Breo. Will obtain full PFT. (2) Abnormal chest x-ray: Code(s): R93.89 - Abnormal findings on diagnostic imaging of other specified body structures Category: Medical Plan: Results of chest imaging reviewed, appears to be evolving infiltrates after hospitalization for pneumonia in December of 2023, will repeat CT chest in March of 2024. (3) Environmental allergies: Code(s): Z91.09 - Other allergy status, other than to drugs and biological substances Category: Medical Plan: Will obtain IgE level and RAST panel for further evaluation. Orders: Orders Resp Allergy Profile Region I Today J45.901 - Unspecified asthma with (acute) exacerbation PFT pulmonary function test Today J45.901 - Unspecified asthma with (acute) exacerbation CT chest wo IV con 04/08/24 R06.09 - Other forms of dyspnea, R93.89 - Abnormal findings on diagnostic imaging of other specified body structures Coding Level of Care Code New Pt Level 4 (18997) Diagnoses Asthma J45.909 Abnormal chest x-ray R93.89 Environmental allergies Z91.09
== END 2024-03-04 14:31 | disposition home or self-care (01) ==
PROVIDERS: PCP Internal Medicine; Visit Provider Internal Medicine Pulmonary Disease
DX: J45.909 Unspecified asthma, uncomplicated (principal); R93.89 Abnormal findings on diagnostic imaging of other specified body structures; Z91.09 Other allergy status, other than to drugs and biological substances
CPT/HCPCS: 99204

== ENCOUNTER 2024-03-04 13:33 | Outpatient (REF) | payer MEDICARE, SELFPAY ==
[2024-03-07 08:18] LABS: Class Alternaria alternata 0; Class Aspergillus fumigatus 0; Class Bermuda Grass 0; Class Birch 0; Class Cat Dander 0; Class Cladosporium herbarum 0; Class Cockroach 0; Class Common Ragweed 0; Class Cottonwood 0; Class Derm. pterony 0; Class Dermatophagoides farinae 0; Class Dog Dander 0; Class Elm 0; Class Maple Box Elder 0/1; Class Mountain Cedar 0; Class Mouse Urine Protein 0; Class Mugwort 0; Class Oak 0; Class Penicillium crysogenum 0; Class Rough Pigweed 0; Class Sheep Sorrel 0; Class Sycamore 0; Class Timothy Grass 0; Class Walnut Tree 0; Class White Ash 0; Class White Mulberry 0; D001 IgE D pteronyssinus <0.10 kU/L; D002 - IgE D farinae <0.10 kU/L; E001 - IgE Cat Dander <0.10 kU/L; E005 - IgE Dog Dander <0.10 kU/L; E072-IgE Mouse Urine <0.10 kU/L; G002 IgE Bermuda Grass <0.10 kU/L; G006 - IgE Timothy Grass <0.10 kU/L; I006-IgE Cockroach, German <0.10 kU/L; Immunoglobulin E 349 kU/L (<OR=114); M001 IgE Penicillium chrysogen <0.10 kU/L; M002 - IgE Cladosporium herbar <0.10 kU/L; M003 - IgE Aspergillus fumigat <0.10 kU/L; M006 - IgE Alternaria alternat <0.10 kU/L; T001 IgE Maple/Box Elder 0.12 kU/L; T003 IgE Common Silver Birch <0.10 kU/L; T006 - IgE Cedar, Mountain <0.10 kU/L; T007 - IgE Oak, White <0.10 kU/L; T008 IgE Elm, American <0.10 kU/L; T010 - IgE Walnut <0.10 kU/L; T011 - IgE Maple Leaf Sycamore <0.10 kU/L; T014 - IgE Cottonwood <0.10 kU/L; T015 - IgE Ash, White <0.10 kU/L; T070 - IgE White Mulberry <0.10 kU/L; W001 - IgE Ragweed, Short <0.10 kU/L; W006 - IgE Mugwort <0.10 kU/L; W014 IgE Pigweed, Common <0.10 kU/L; W018 IgE Sheep Sorrel <0.10 kU/L
== END 2024-03-04 13:34 | disposition home or self-care (01) ==
LOC: HO.LAB 13:33
PROVIDERS: PCP Internal Medicine; Visit Provider Internal Medicine Pulmonary Disease
DX: J45.901 Unspecified asthma with (acute) exacerbation (principal); J96.01 Acute respiratory failure with hypoxia; R93.89 Abnormal findings on diagnostic imaging of other specified body structures; Z91.09 Other allergy status, other than to drugs and biological substances; Z87.891 Personal history of nicotine dependence
CPT/HCPCS: 36415; 82785; 86003; 99202

== ENCOUNTER 2024-03-21 09:44 | Outpatient (REF) | payer MEDICARE, SELFPAY ==
[2024-03-21 09:59] LABS: MANUAL DIFF FLAG NO
[2024-03-21 11:17] LABS: Basophils Absolute Auto 0.1 X10*3/uL (0.0-0.2); Basophils Percent Auto 1.4 % (0-2); Eosinophils Absolute Auto 0.2 X10*3/uL (0.0-0.4); Eosinophils Percent Auto 2.3 % (0-4); Hematocrit 38.1 % (42.0-52.0); Hemoglobin 12.8 g/dl (14.0-18.0); Imm Gran Abs Auto 0.02 X10*3/uL (0.00-0.03); Imm Gran Pct Auto 0.3 % (0.0-0.4); Lymphocytes Absolute Auto 0.7 X10*3/uL (1.2-4.9); Mean Corpuscular HGB Conc 33.6 g/dl (31.0-36.0); Mean Corpuscular Hemoglobin 31.8 pg (27.0-33.0); Mean Corpuscular Volume 94.8 fL (80.0-98.0); Mean Platelet Volume 10.1 fL (9.4-12.4); Monocytes Absolute Auto 0.6 X10*3/uL (0.1-1.2); Monocytes Percent Auto 8.7 % (2-11); Neutrophils Percent Auto 76.3 % (45-73); Platelet Count 287 X10*3/uL (160-400); Red Blood Count 4.02 X10*6/uL (4.60-5.80); Red Cell Distribution Width 14.5 % (11.0-16.0); White Blood Count 6.5 X10*3/uL (4.8-10.8)
== END 2024-03-21 09:45 | disposition home or self-care (01) ==
LOC: HO.LAB 09:44
PROVIDERS: PCP Internal Medicine; Visit Provider Internal Medicine
DX: R19.4 Change in bowel habit (principal)
CPT/HCPCS: 36415; 85025

== ENCOUNTER 2024-03-23 13:25 | Outpatient (REF) | payer MEDICARE, SELFPAY ==
[2024-03-24 13:53] LABS: OBS Int Ctl Valid YES; OBS Lot 50422; OBS1 NEGATIVE (NEGATIVE); OBS2 NEGATIVE (NEGATIVE); OBS3 NEGATIVE (NEGATIVE)
== END 2024-03-23 13:26 | disposition home or self-care (01) ==
LOC: HO.LNP 13:25
PROVIDERS: Visit Provider Internal Medicine
DX: R19.4 Change in bowel habit (principal)
CPT/HCPCS: 82270

== ENCOUNTER 2024-04-11 13:10 | Outpatient (REF) | payer MEDICARE, SELFPAY ==
--- NOTE | ~2024-04-11 | CT_ITS ---
EXAMINATION: CT CHEST WITHOUT CONTRAST CLINICAL INFORMATION: Dyspnea on exertion COMPARISON: CT scan of chest on 12/02/2023 TECHNIQUE: Multidetector volumetric CT imaging of the chest was done. Axial MIP volume rendering provided. Sagittal and coronal reformatted images were obtained. This CT examination was performed using dose optimization techniques as appropriate, variously including the following: *Automated exposure control *Adjustment of mA and/or kV according to patient size (this includes techniques or standardized protocols for targeted exams where dose is matched to indication/reason for exam; i.e. extremities or head) *Use of iterative reconstruction technique DLP: 146 mGy-cm FINDINGS: LUNGS: Branching reticular densities are seen in bilateral lower lobes, more extensive along the lateral and posterior border of left lower lobe. -Nodule #1 (Series 5, image 305): 3.3 mm solid nodule, right upper lobe anterior segment, previously 3 mm. -Nodule #2 (Series 5, image 327): 2.7 mm solid nodule, right upper lobe anterior segment, previously 2.5 mm. -Nodule #3 (Series 5, image 329): 1.2 mm solid nodule, right upper lobe anterior segment, previously 1 mm. Additional similar micronodules less than 2 mm in size are seen in right middle lobe and left lingular lobe. -Nodule #4 (Series 5, image 446): 4.8 mm solid nodule, right middle lobe lateral segment, previously 4.9 mm. PLEURA: Bilateral small pleural effusions are present, larger in the right lung. No pneumothorax is seen. PERICARDIUM: There is mild mostly left side and posterior pericardial effusion measuring up to 1.4 cm in AP thickness, mean attenuation of 13 Hounsfield units. MEDIASTINUM AND INÉS: No abnormally enlarged mediastinal or hilar lymph nodes are seen. TRACHEOBRONCHIAL TREE: Trachea and bilateral mainstem bronchi are patent. THORACIC AORTA: Ascending thoracic aortic fusiform ectasia is seen measuring 3.7 cm in AP and transverse diameter. CORONARY ARTERY CALCIFICATIONS: Present PULMONARY ARTERIES: The main pulmonary arteries show normal enhancement. CHEST WALL AND LOWER NECK: The subcutaneous and muscular chest wall are intact with no focal lesion. No abnormal mass lesion could be seen in the visualized lower neck. BONES: Multilevel contiguous sharp anterior and lateral syndesmophytes are present, producing flow ossification, compatible with diffuse idiopathic skeletal hyperostosis. No fracture or dislocation. No focal bone lesion diagnostic of metastatic disease could be seen in the thorax. VISUALIZED UPPER ABDOMEN: Bilateral adrenal glands are not enlarged. CT/CT chest wo IV con IMPRESSION: 1. Interval resolution of bilateral upper lobes, marked resolution of bilateral lower lobe airspace disease, significant decrease in bilateral pleural effusions, compatible with resolving pneumonia. 2. Unchanged Mild pericardial effusion. 3. Branching reticular densities remaining in bilateral lower lobes, more extensive along the lateral and posterior border of left lower lobe. 4. Multiple stable bilateral pulmonary nodules, largest in the right middle lobe lateral segment measuring 4.8 mm in size. 5. Unchanged Ascending thoracic aortic fusiform ectasia measuring 3.7 cm in AP and transverse diameter. 6. Unchanged Diffuse idiopathic skeletal hyperostosis. According to the UPDATED 2017 Fleischner Society recommendations, the advised follow-up imaging for solid nodules <6 mm in the middle/lower lobes is no routine follow up. Fleischner guidelines were followed.
== END 2024-04-11 13:11 | disposition home or self-care (01) ==
LOC: HO.CT 13:10
PROVIDERS: PCP Internal Medicine; Visit Provider Internal Medicine Pulmonary Disease
DX: R93.89 Abnormal findings on diagnostic imaging of other specified body structures (principal); R06.09 Other forms of dyspnea
CPT/HCPCS: 71250

== ENCOUNTER 2024-04-18 09:30 | Outpatient (REF) | payer MEDICARE, SELFPAY ==
[2024-04-18 08:07] VITALS: PULSE 67; RESP 16; O2SAT 100
--- NOTE | 2024-04-18 10:00 | PFT_ITS ---
Flows: FEV1: 64 % of predicted at 1.70 L FVC: 84 % of predicted at 3.05 L FEV1/FVC: 56 % Bronchodilator response: Absent Volumes: Total lung capacity: 89 % of predicted at 6.07 L Residual volume: 116 % of predicted at 3.14 L Slow vital capacity: 76 % of predicted at 2.94 L Expiratory reserve volume: 82 % of predicted at 0.96 L Diffusion capacity: Mildly decreased Impression: Moderate obstructive ventilatory defect with no bronchodilator response. Decreased diffusion capacity suggests emphysema. MTDD
== END 2024-04-18 09:31 | disposition home or self-care (01) ==
LOC: HO.RESP 09:30
PROVIDERS: PCP Internal Medicine; Visit Provider Internal Medicine Pulmonary Disease
DX: J45.901 Unspecified asthma with (acute) exacerbation (principal)
CPT/HCPCS: 94010; 94640; 94727; 94729

== ENCOUNTER 2024-04-22 13:16 | Outpatient (AMB) | payer MEDICARE, SELFPAY ==
--- NOTE | 2024-04-22 13:18 | A.OFFVIS_ITS ---
Vital Signs 04/22/24 13:19 Height 5 ft 9 in Weight 167 lb BMI 24.7 BP 124/62 Blood Pressure Location Rt brachial Position Sitting Pulse 82 Pulse Source Doppler Pulse Oximetry (%) 98 Oxygen Delivery Method Room Air Intake Visit Reasons: Asthma/PFT Follow Up Allergies latex Allergy (Verified 04/22/24 13:24) Unknown HPI HPI Asthma/PFT Follow Up: Details: 83-year-old gentleman, former 40 pack-year smoker, quit over 20 years prior with underlying AFib on anticoagulation and rate control, with recent admissions to [facility] for decompensated heart failure and 2nd 1 for pneumonia referred for pulmonary evaluation. Patient had repeat chest imaging approximately 1 months after his hospitalization for pneumonia that showed evolving pulmonary infiltrates, and then another more recent chest x-ray that only showed left-sided infiltrate. Patient denies any pulmonary related concer ns or complaints at this time. He does have mild lower extremity edema. He is weighing himself every day and his weight has been stable. He is followed by Cardiology service. Patient does complain of multiple environmental allergies. He denies having recent pulmonary function testing. Patient states that he has been using previously Symbicort, and more recently Breo to control his underlying asthma. 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 He does have history of COPD in his sister. Patient does have a dog as a pet. After the last office visit patient has completed his pulmonary function test that shows underlying moderate asthma/COPD overlap syndrome, now well controlled on Breo and albuterol MDI. His follow-up CT chest showed resolution of previously noted infiltrates in multiple bilateral 5 mm and under pulmonary nodules. His immunologic workup is positive for allergies to alexander. [facility] Medical History (Updated 04/22/24 @ 13:33 by Garry Hernández MD) Chronic atrial fibrillation Acute respiratory failure with hypoxia CHF exacerbation Atrial fibrillation with RVR (HFpEF) heart failure with preserved ejection fraction Asthma Mitral valve insufficiency Macular degeneration Former smoker HTN (hypertension) Social History Household Members: Spouse Housing: House Do you presently have visiting nurse or other home services: Yes Patient Tobacco Use Status: Former Tobacco user Advance Directives Date on File: 12/05/23 service: No Review of Systems Const Denies daytime sleepiness, Denies excessive sweating, Denies fatigue, Denies fever(s), Denies lethargy, Denies malaise, Denies night sweats, Denies snoring and Denies weight loss Eyes Denies blurry vision and Denies itchy eyes ENT Denies nasal congestion, Denies post nasal drip, Denies sinus pain, Denies sinus pressure and Denies other ( Thrush) Card Denies chest pain, Denies pedal edema, Denies dyspnea, Denies orthopnea and Denies paroxysmal nocturnal dyspnea Resp Denies cough, Denies hemoptysis, Denies excessive phlegm production, Denies dyspnea, Denies snoring and Denies wheezing GI Denies abdominal pain and Denies heartburn Musc Denies myalgias, Denies arthralgias and Denies joint swelling Skin/Breast Denies rash Neuro Denies memory loss and Denies seizure-like activity Psych Denies abnormal sleep pattern, Denies anxiety and Denies memory loss Endo Denies excessive sweating, Denies fatigue and Denies heat intolerance Salvatore/Lymph Denies easy bruising Aller/Immun Denies itchy eyes, Denies seasonal rhinorrhea and Denies wheezing Physical Exam Vital Signs: Last Vital Signs Pulse 82 04/22/24 13:19 BP 124/62 04/22/24 13:19 Pulse Ox 98 04/22/24 13:19 Oxygen Delivery Method Room Air 04/22/24 13:19 BMI result Body Mass Index 24.7 Const General: no acute distress and alert Nutritional Appearance: not obese Orientation/consciousness: Other orientation findings ( oriented) HEENT Head: Yes atraumatic Eyes General: appearance normal, both eyes and all related structures Sclerae: sclerae normal EOM: EOMs intact bilaterally Neck Neck: Yes supple Lymphatic: no lymphadenopathy noted Resp Effort & Inspection: normal respiratory effort and no use of accessory muscles Auscultation: clear to auscultation bilaterally Cardio Rate: regular rate Rhythm: regular rhythm Heart sounds: no gallops, no murmurs and no rubs Skin General skin exam: other ( warm) Extrem General: No clubbing, No cyanosis and No edema Assessment & Plan Assessment & Plan (1) Asthma-COPD overlap syndrome: Code(s): J44.89 - Other specified chronic obstructive pulmonary disease Category: Medical Plan: Results of pulmonary function test reviewed, underlying moderate asthma/COPD overlap syndrome now well controlled on Breo and albuterol MDI. Continue current regimen. (2) Pulmonary nodules: Code(s): R91.8 - Other nonspecific abnormal finding of lung field Category: Medical Plan: Results of CT chest reviewed, improvement in bilateral infiltrates noted. Underlying multiple bilateral 5 mm and under pulmonary nodules. Will repeat CT chest in 12 months. (3) Environmental allergies: Code(s): Z91.09 - Other allergy status, other than to drugs and biological substances Category: Medical Plan: Results of RAST testing reviewed, underlying music leader to maple trees. At this time well controlled on inhaled corticosteroid. Orders: Orders CT chest wo IV con 10/12/24 R91.8 - Other nonspecific abnormal finding of lung field Coding Level of Care Code Est Pt Level 4 (84216) Diagnoses Asthma-COPD overlap syndrome J44.89 Pulmonary nodules R91.8 Environmental allergies Z91.09
[2024-04-22 13:19] VITALS: BP 124/62; PULSE 82; O2SAT 98; BMI 24.7
== END 2024-04-22 13:34 | disposition home or self-care (01) ==
PROVIDERS: PCP Internal Medicine; Visit Provider Internal Medicine Pulmonary Disease
DX: J44.89 Other specified chronic obstructive pulmonary disease (principal); R91.8 Other nonspecific abnormal finding of lung field; Z91.09 Other allergy status, other than to drugs and biological substances
CPT/HCPCS: 99214

== ENCOUNTER → 2024-04-22 13:16 | Outpatient (BNVA) | payer MEDICARE, SELFPAY | PROVIDERS: PCP Internal Medicine; Visit Provider Internal Medicine Pulmonary Disease | DX: J44.89 Other specified chronic obstructive pulmonary disease (principal); R91.8 Other nonspecific abnormal finding of lung field; Z91.09 Other allergy status, other than to drugs and biological substances | CPT/HCPCS: 99212 ==

== ENCOUNTER 2024-09-15 12:45 | Outpatient (AMB) | payer MEDICARE, SELFPAY ==
--- NOTE | 2024-09-15 12:49 | MHC.OFFVIS ---
Vital Signs 09/15/24 13:02 Height 5 ft 9 in Weight 173 lb 1.006 oz BMI 25.6 BP 130/72 Blood Pressure Location Rt brachial Position Sitting Pulse 89 Pulse Source Pulse Oximeter Pulse Oximetry (%) 99 Oxygen Delivery Method Room Air Intake Visit Reasons: Congested cough, wheezing >1 week Allergies latex Allergy (Verified 09/15/24 13:05) Unknown maple Allergy (Mild, Uncoded 09/15/24 13:06) Unknown HPI HPI Congested cough, wheezing >1 week: Details: Junior is a pleasant 83-year-old male, former 40 pack-year smoker, quit over 20 years prior with underlying asthma COPD overlap syndrome, AFib on anticoagulation and rate control, HTN and h/o acute respiratory failure. At baseline, he has been well controlled on Breo and albuterol MDI. He is under the care of Dr. Hernández and presents today for an acute visit. He reports symptoms of productive cough with whitish green sputum, wheezing, dyspnea and chest congestion that started 3-4 weeks ago. He was treated by PCP with azithromycin and amoxicillin, completing today, and symptoms are minimally changed. CXR revealed trace bilateral effusions as well as bibasilar atelectasis. He denies fevers or chills. He denies symptoms suggestive of fluid overload, has been weighing self daily and denies orthopnea/BLE edema. He was previously taking lasix however discontinued and has a follow up with cardiology in December. [facility] Medical History (Updated 04/22/24 @ 13:33 by Garyr Hernández MD) Chronic atrial fibrillation Acute respiratory failure with hypoxia CHF exacerbation Atrial fibrillation with RVR (HFpEF) heart failure with preserved ejection fraction Asthma Mitral valve insufficiency Macular degeneration Former smoker HTN (hypertension) Social History Household Members: Spouse Housing: House Do you presently have visiting nurse or other home services: Yes Patient Tobacco Use Status: Former Tobacco user Advance Directives Date on File: 12/05/23 service: No Review of Systems Const Denies chills, Denies excessive sweating, Denies fever(s), Denies headache(s) and Denies night sweats Eyes Denies dry eyes, Denies irritation and Denies itchy eyes ENT Reports Normal hearing present, Denies headache(s), Denies nasal congestion, Denies nasal discharge, Denies post nasal drip and Denies sore throat Card Denies chest pain, Denies chest pain at rest, Denies chest pain with activity, Denies claudication, Denies leg edema, Denies orthopnea and Denies paroxysmal nocturnal dyspnea Resp Denies excessive phlegm production, Denies pain on inspiration, Denies pain with cough and Denies stridor Musc Denies myalgias Neuro Reports Normal hearing present and Denies headache(s) Endo Denies excessive sweating Salvatore/Lymph Denies lymphadenopathy Aller/Immun Denies itchy eyes and Denies seasonal rhinorrhea Physical Exam Vital Signs: Last Vital Signs Pulse 89 09/15/24 13:02 BP 130/72 09/15/24 13:02 Pulse Ox 99 09/15/24 13:02 Oxygen Delivery Method Room Air 09/15/24 13:02 BMI result Body Mass Index 25.6 Const General: cooperative, healthy appearing, comfortable, no acute distress, well developed and alert Orientation/consciousness: patient oriented x3 Limitations: no limitations HEENT Head: Yes normal to inspection, Yes normocephalic and Yes atraumatic Ears: hearing grossly normal bilaterally and external ears normal Eyes General: appearance normal, both eyes and all related structures Eyelids: Yes eyelids normal Sclerae: sclerae normal EOM: EOMs intact bilaterally Neck Neck: Yes normal visual inspection and Yes no lymphadenopathy Lymphatic: no lymphadenopathy noted Chest Chest palpation & inspection: normal inspection of the chest Resp Effort & Inspection: normal respiratory effort, able to speak in complete sentences, no audible wheezes, no cough, no stridor, not tachypneic, no tripod positioning and no use of accessory muscles Auscultation: diminished lung sounds Cardio Jugular venous distension: no JVD Rate: regular rate Rhythm: regular rhythm Skin Other: warm, dry General skin exam: no rashes or lesions noted Neuro General: patient oriented x3 Cranial nerves: Yes Normal hearing present Cognition (Neuro): normal cognition Gait exam (Neuro): Normal gait present Extrem Other: 1+ pitting edema Psych Appearance: grossly normal and well kempt Speech and movement: Normal speech and movement present and Clear speech present Affect: normal affect Attitude: cooperative Thought process: Normal thought process present Thought content: Normal thought content present Insight: Good insight present (Psych) Judgement: Good judgement present (Psych) Assessment & Plan Assessment & Plan (1) Asthma-COPD overlap syndrome: Code(s): J44.89 - Other specified chronic obstructive pulmonary disease Category: Medical (2) Environmental allergies: Code(s): Z91.09 - Other allergy status, other than to drugs and biological substances Category: Medical Plan Will treat bronchitic symptoms with Vantin as suboptimal effect with amoxicillin and zpak. He is aware to call if symptoms do not improve and will send for CXR as well as sputum cx. Dyspnea may be multifactorial as he did have 1+ pitting edema BLE. If minimal improvement in dyspnea with abx, advised to reach out to cardiology. All questions were answered and patient is in agreement of plan. Will follow up for regularly scheduled appointment with Dr. Hernández or sooner if needed. Medications: New fluticasone furoate-vilanterol 100-25 mcg/dose (Breo Ellipta) 1 ea inhalation DAILY 60 ea 6RF cefpodoxime must administer with a meal/food 200 mg PO BID 20 tabs 0RF albuterol sulfate 90 mcg/actuation 2 puffs inhalation Q4-6H PRN 1 ea 0RF shortness of breath or wheezing Coding Level of Care Code Est Pt Level 4 (36548) Diagnoses Asthma-COPD overlap syndrome J44.89 Environmental allergies Z91.09
[2024-09-15 13:02] VITALS: BP 130/72; PULSE 89; O2SAT 99; BMI 25.6
== END 2024-09-15 13:48 | disposition home or self-care (01) ==
PROVIDERS: PCP Internal Medicine; Visit Provider Nurse Practitioner Family
DX: J44.89 Other specified chronic obstructive pulmonary disease (principal); Z91.09 Other allergy status, other than to drugs and biological substances
CPT/HCPCS: 99214

== ENCOUNTER → 2024-09-15 12:45 | Outpatient (BNVA) | payer MEDICARE, SELFPAY | PROVIDERS: PCP Internal Medicine; Visit Provider Nurse Practitioner Family | DX: J44.89 Other specified chronic obstructive pulmonary disease (principal); J96.01 Acute respiratory failure with hypoxia; Z91.09 Other allergy status, other than to drugs and biological substances; Z87.891 Personal history of nicotine dependence | CPT/HCPCS: 99212 ==

== ENCOUNTER 2024-09-29 11:15 | Outpatient (REF) | payer MEDICARE, SELFPAY ==
--- OUTSIDE RECORDS SUMMARY | 2024-09-29 11:17 | XMS_ITS ---
[facility] [place] Address [address] [place] [address] Care Team Providers Care Cigarette Tipper Name Role Phone Yonis Pierre Primary Care Provider UnavailBhanu Falkmie Unavailable [phone] Allergies Allergen (clinical drug ingredient) Drug/Non Drug Allergy documented on EMR Reaction Allergy Type Onset Date Status Latex Latex Unknown Allergy Active REASON FOR VISIT Painful nail(s) aggrevated by shoes and causing difficulty standing/walking., Painful Toe(s) Medications Medication SIG (Take, Route, Frequency, Duration) Notes Start Date End Date Status Ciclopirox Olamine 0.77 % 1 application to affected area Externally Twice a day for 30 days 09/03/2017 Not-Taki ng Ciclopirox Olamine 0.77% external Apply to effected areas twice a day for 30 days 07/20/2016 Not-Taking Ciclopirox Olamine 0.77% external apply to feet twice a day for 30 days 07/08/2014 Not-Taki ng Vigraplex as directed Orally N ot-Taking Ciclopirox Olamine 0.77 % 1 application to affected area Externally Twice a day for 30 days 01/01/2012 Not-Taki ng Losartan Potassium A ctive Loprox Active Eliquis 5 MG as directed Orally T wice a day Active cloNIDine HCl Active Timolol Hemihydrate 0.25 % 1 drop into affected eye Ophthalmic Once a day Active Carvedilol Active amLODIPine Besylate Active Finasteride Active Social History Tobacco Use: Social History Observation Description Date Details (start date - stop date) Former Smoker NA - NA Tobacco Use/Smoking Question Answer Notes Are you a: former smoker Additional Findings: Tobacco Non-User Current no n-smoker Tobacco use other than smoking: Question Answer Notes Are you an other tobacco user? No Problems Problem Type SNOMED Code ICD Code Onset Dates Problem Status W/U Status Risk Notes Problem Acquired hammer toe of left foot (3829866710345773) Other hammer toe(s) (acquired), left foot (M20.42) Active confirmed Chronic problem, Worse (4) Problem Localized, primary osteoarthritis of the ankle and/or foot ([id number]) Arthritis of joint of lesser toe, left (M19.072) Active confirmed Vital Signs Height 5 ft 9 in in 05/19/2024 Weight 162 lbs 05/19/2024 BMI 23.92 kg/m2 05/19/2024 Blood pressure systolic 135 mm Hg 05/19/20 24 Blood pressure diastolic 77 mm Hg 024 Heart Rate 85 /min 05/19/2024 Procedures Procedure Date Ordered Date Performed Result Body Sit e 54731-SMJZCFN NAIL, 6 OR MORE 05/19/2024 N/A Encounters Encounter Location Date Provider Diagnosis [facility] [address] [address] 05/19/2024 Jennifer Black Pain in left toe(s) M79.675 ; Other hammer toe(s) (acquired), left foot M20.42 ; Tinea unguium B35.1 ; Pain in right toe(s) M79.674 ; Pain in left toe(s) M79.675 and Arthritis of joint of lesser toe, left M19.072 Assessments Encounter Date Diagnosis (ICD Code) Assessment Notes Treatment Notes Treatment Clinical Notes Section Notes 05/19/2024 Pain in left toe(s) (ICD-10 - M79.675) 05/19/2024 Other hammer toe(s) (acquired), left foot (ICD-10 - M20.42) Chronic problem, Worse (4) 05/19/2024 Tinea unguium (ICD-10 - B35.1) 05/19/2024 Pain in right toe(s) (ICD-10 - M79.674) 05/19/2024 Pain in left toe(s) (ICD-10 - M79.675) 05/19/2024 Arthritis of joint of lesser toe, left (ICD-10 - M19.072) Plan Of Treatment Pending Test Test Name Order Date [id number] NAIL, 6 OR MORE 05/19/2024 Next Appt Details Follow Up: prn, Reason: Provider Name:Jennifer Marks , 12/08/2024 03:30:00 PM, [address] [facility], [place], [address], Procedure Notes * Category Sub-Category Detail Notes Debride Nail 6-10 Nail debridement Nail debridem ent performed extensively to reduce/remove overall nail length and girth, subungual debris, and necrotic tissue, by manual and electrical means with use of a nail nipper and/or dremel, to more viable healthy nail plate or bed tissue 6-10. Silver nitrate used for any petechial bleeding as necessary. Patient chooses, no pharmaceutical tx (23697) Progress Notes * Junior MARIN RDOB:[birth year] (83 yo M)Acc No.[id number]:05/19/2024 Progress Note Patient:?Tania Junior Miller Provider:?Jennifer Marks DPM :1940???Age:83 Y???Sex:Male Jonathan e:05/19/2024 Address: [address] [place], [id number] Pcp:Yonis Pierre Subjective: * Chief Complaints: * ??? Painful nail(s) aggrevat ed by shoes and causing difficulty standing/walking.Painful Toe(s) * HPI: ???Painful Nails:?Pt States Last PCP Visit:?Date:?03/05/2024 ?Treatments:?Topical Antifungal.?Toe pain:?Nature:?tenderness.?Location:?Left foot.?Duration:?several weeks.?Course:?worse.?Aggravated by:?any pressure, shoes.?Treatments:?rest/alter normal daily activity,.? * ROS:?General/Constitutional:?Nausea?denies.?Vomiting?denies.?Hunger Thirst?denies.?Loss appetite?denies.?Chills?denies.?Fatigue?denies.?Fever?denies.?Night Sweats?denies.?Unexplained weight loss?denies.?Unexplained weight gain?denies.?HEENTM:?Dentures?denies.?Dizziness?denies.?Glasses/contacts?admits.?Retinopathy?de nies.?Blurred/double vision?denies.?TMJ?denies.?Discharge/drainage?denies.?Implants?denies.?Sore throat?denies.?Dental implants?denies.?Hard of hearing ?denies.?Difficulty chewing/swallowing/speaking?denies.?Nose bleeds?denies.?Sore mouth?denies.?Respiratory:?On Oxygen?denies.?Pneumonia/pleurisy?denies.?Bronchitis?denies.?Emphysema?denies.?C oughing?denies.?Cough blood?denies.?Shortness of breath?denies.?Wheezing?denies.?Cardiovascular:?Pacemaker?denies.?MVP?denies.?WPW?denies.?CHF?denies.?Heart attack?denies.?Septal defect?denies.?Rapid beat?denies.?Chest pain ?denies.?Atrial Fib.?denies.?Murmur/Palpitations?denies.?Gastrointestinal:?Hemorrhoids?denies.?Stomach/Abdominal pain?denies.?Dark blood stool?denies.?Irritable bowel ?denies.?Constipation?denies.?Diarrhea?denies.?Hematology:?Swelling?denies.?Clots?denies.?Varicose Veins?denies.?Bruising?denies.?Bleeding problem?denies.?Genitourinary:?Blood urine?denies.?Frequent/Painfu/urination/bladder control?denies.?Kidney stones?denies.?Infection (UTI)?denies.?Nephropathy?denies.?sex trans dis (STD)?denies.?Prostate?denies.?Musculoskeletal:?Hammertoes?admits.?Bunions?denies.?Back Pain?denies.?Muscle Cramps/ Resting?denies.?Muscle cramps / walking?denies.?Generalized aches and pains?denies.?Weakness?denies.?Integ.:?Shipman?denies.?Scars?denies.?Corns/calluses?admits.?Ingrown nails?denies.?Painful nails?admits.?Open Sores?denies.?Rashes?denies.?Neurologic:?Difficulty sleeping?denies.?Brain disorder?denies.?Numbness?denies.?Balance trouble?denies.?Confusion?denies.?Fainting/blackouts?denies.?Tingling?denies.?Tr emors?denies.? * Medical History:? 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 .? * Social History:?Tobacco Use:?Tobacco Use/Smoking?Are you a:?former smoker ?Additional Findings: Tobacco Non-User?Current non-smoker ?Tobacco use other than smoking?Are you an other tobacco user??No ???Miscellaneous:?no Caffeine, 3 cups decaff per day. ?Children: yes, 3. ?Exercise: yes, golf, bowling. ?Marital status: . ?Occupation: retired teacher. * Medications:?TakingFinasteri de amLODIPine Besylate Carvedilol cloNIDine HCl Eliquis 5 MG Tablet as directed Orally Twice a dayLoprox Losartan Potassium Timolol Hemihydrate 0.25 % Solution 1 drop into affected eye Ophthalmic Once a dayTaking Finasteride Taking amLODIPine Besylate Taking Carvedilol Taking cloNIDine HCl Taking Eliquis 5 MG Tablet as directed Orally Twice a dayTaking Loprox Taking Losartan Potassium Taking Timolol Hemihydrate 0.25 % Solution 1 drop into affected eye Ophthalmic Once a dayNot-Taking/PRNCiclopirox Olamine 0.77 % Cream 1 application to affected area Externally Twice a dayVigraplex Tablet as directed Orally Ciclopirox Olamine 0.77% Cream external apply to feet twice a dayCiclopirox Olamine 0.77% Cream external Apply to effected areas twice a dayCiclopirox Olamine 0.77 % Cream 1 application to affected area Externally Twice a dayMedication List reviewed and reconciled with the patientNot-Taking/PRN Ciclopirox Olamine 0.77 % Cream 1 application to affected area Externally Twice a dayNot-Taking/PRN Vigraplex Tablet as directed Orally Not-Taking/PRN Ciclopirox Olamine 0.77% Cream external apply to feet twice a dayNot-Taking/PRN Ciclopirox Olamine 0.77% Cream external Apply to effected areas twice a dayNot-Taking/PRN Ciclopirox Olamine 0.77 % Cream 1 application to affected area Externally Twice a dayMedication List reviewed and reconciled with the patient * Allergies:?Latexyes[Allergie s Verified] Objective: * Vitals:?Ht: 5 ft 9 in, Wt: 1 62, BMI: 23.92, Shoe size: 9.5, BP: 135/77 mm Hg, HR: 85 /min, Wt-k.48 kg. * Examination: ???General Examination: ?GENERAL APPEARANCE:?Reveals a pleasant, alert, well nourished, well- developed, well hydrated individual, who demonstrates proper attention to hygiene/body habitus, and is in no acute distress, Pt serves as own historian for office visit today , Reveals a pleasant, alert, well nourished, well-developed, well hydrated individual, who demonstrates proper attention to hygiene/body habitus, and is in no acute distress.?ORIENTED:?person, place, and time , person, place, and time.?Nails: ?NAILS are:?elongated,overgrown,dystrophic,greater than 3mm thick,discolored and friable with crumbly malodorous subungual debris, with pain on palpation , 1-5 B/L.?Orthopedic: ?DIGITAL DEFORMITIES:?Digital contracture, PIPJ, 2-5 B/L, incompl-reducible with WB, or to push-up test, no over, nor underlapping , Reveals pain/swelling/redness/enlargement of DIPJ T4, , Reveals pain/swelling/redness/enlargement of PIPJ , T3.?FOOTWEAR:? shoe gear properties exacerbate patients foot/toe deformity.?Neurological: ?TINEL'S COMPRESSION:? Negative tarsal tunnel, alyson pedis, and medial calcaneal nerves.?Dermatologic: ?SKIN FINDINGS:?Skin exam reveals Keratotic lesion(s) located at , Medial , DIPJ , T4 , Lateral , T3.? Assessment: * Assessment: 1.?Pain in left toe(s) - M79 .675?2.?Other hammer toe(s) (acquired), left foot - M20.42 (Primary), Chronic problem, Worse (4)?3.?Tinea unguium - B35.1?4.?Pain in right toe(s) - M79.674?5.?Pain in left toe(s) - M79.675?6.?Arthritis of joint of lesser toe, left - M19.072? Plan: * Treatment: * Procedures:?Debride Nail 6-10:?Nail debridement?Nail debridement performed extensively to reduce/remove overall nail length and girth, subungual debris, and necrotic tissue, by manual and electrical means with use of a nail nipper and/or dremel, to more viable healthy nail plate or bed tissue 6-10. Silver nitrate used for any petechial bleeding as necessary. Patient chooses, no pharmaceutical tx (14704).? * Procedure Codes:?32539 DEBRI DE NAIL, 6 OR MORE * Preventive Medicine:? ??Counseling:?Discussion:?-14: Office or other outpatient visit for the evaluation and management of an established patient, which required a medically appropriate history and/or examination and MODERATE level of DECISION MAKING for: 1 OR MORE CHRONIC PROBLEM(S) THATS WORSENING, 2 STABLE CHRONIC PROBLEMS, A NEWLY DIAGNOSED PROBLEM WITH UNCERTAIN PROGNOSIS, AN ACUTE COMPLICATED INJURY WITH MULTIPLE TREATMENT OPTIONS, OR AN ACUTE PROBLEM WITH ACCOMPANYING SYSTEMIC SYMPTOMS, THAT POSE(S) A MODERATE RISK OF MORBIDITY. THIS CONDITION MAY ALSO INCLUDE RX DRUG MANAGEMENT, OR A DECISON FOR MINOR SURGERY. The visit on the day of the encounter encompassed interpreting the data and educating the patient as to the nature of their condition, treatment options available according to their individual PMH, meds, allergies, and overall health/living conditions, as well as any potential risks or complications that may occur from a failure to adhere to, and participate in, the recommended course of therapy. The discussion included a complete verbal, and/or written explanation of the examination results, any x-rays taken, the proposed diagnosis, and outline of the treatment plan. A schedule for future care needs was also explained. The patient verbalized an understanding of the instructions at this time and agreed to be an active participant in their treatment. If the patient should think of any questions or concerns after the visit, I have encouraged the patient to call the office.?Digital Surgery:?Digital surgery was discussed with the patient, including the risks of surgery(below), vs not having surgery (persistent pain, deformity, risk for skin ulceration/infection, loss of toe), the potential surg complications, the anesthesia, and the usual post-op course. No guarentees were given. We discussed the potential procedure complications including, but not limited to: pain, swelling, bleeding, scarring, numbness, infection, delayed/non healing, floppy/unstable/shorthened toe, recurrence, failure of the procedure, overcorrection leading to plantarflexed/downward positioned toe, recurrence, need for further surgery, as well as the possibility for loss of the toe itself. We discussed the use of local anesthesia, and the usual post-op course for healing. No guarentees were given. The patient verbally indicated a full understanding of the above conversation, and any other of their questions were answered to their satisfaction. Alternatives to the procedure were also discussed, including conservative care. I also discussed the usual post-operative course and gave no guarantees regarding outcome, I discussed surgery for a hammertoe by digital arthroplasty, The patient will consider surgical treatment.?Digital Treatment:?HT- I explained to the patient the possible etiologies of Hammertoes, including genetics/foot type/shoegear/activity level/exercise routine and the risks/benefits of all the different treatment options for their pain including: No treatment at all, Rest, Ice, New/supportive/wider/deeper Shoegear, Digital Padding/Strapping/Taping/Bracing/Gel protective sleeves, Foot/Ankle AFO Bracing, Stretching exercises, Deep Tissue Massage, Arch support/shoe inserts with splay metatarsal padding, and Custom orthoses. I insisted that any digital devices be removed daily and not worn overnight for safety. The patient is to carefully examine the toes daily for any skin irritation while using any splinting or padding device. The advantages and disadvantages of each option were discussed and the patients questions re: shoegear, padding, custom vs prefabricated inserts, activity level, and consistency in home treatment regimens for optimal success were answered to their verbally confirmed satisfaction, Recomm, rest, ice, proper shoegear, padding, orthotics, anti-inflammatories or tylenol as tolerated, topical analgesics, cortisone injections.?Shoe Gear Counseling:?The patient and I reviewed the types of shoes they should be wearing. My recommendation included obtaining a well-fitted shoe with a good supportive, non-foldable nor twistable sole, plenty of toe/room for the forefoot, and proper arch support. Based on todays examination, I recommended the patient look for new shoes, by having their feet professionally measured. We discussed that generally the best time of the day for a shoe fitting is the afternoon. Different shoes types and brands to best match the patients occupation and vocation were discussed. Specific brand selection will be up to the patient, their individual foot condition/deformities, and fit. The patient and I reviewed the standard new shoe break in period by wearing them for a few hours a day while checking for redness or sores as wear time is increased. The patient verbally confirmed to understanding the information discussed.? * Follow Up:?prn * Images: * Sign off status: Completed true * Provider:?Jennifer Marks DPM Date:?2023 Generated for Viraj stone/Arthur/Jeannine on:?09/29/2024 11:17 AM EST History and Physical Notes * HPI (History of Present Illness) Category Sub-Category Detail Notes Category Not es Toe pain Nature: tenderness Location: Left foot Duration: several weeks Course: worse Aggravated by: any pressure, shoes Treatments: rest/alter normal da ahmet activity, Painful Nails Treatments: Topical Antifungal Pt States Last PCP Visit: Date:: 03/05/2024 Examination Category Sub-Category Detail Notes Category Not es Neurological TINEL'S COMPRESSION: Negative ta rsal tunnel, alyson pedis, and medial calcaneal nerves Dermatologic SKIN FINDINGS: Skin exam reveal s Keratotic lesion(s) located at , Medial , DIPJ , T4 , Lateral , T3 Orthopedic FOOTWEAR: shoe gear proper ties exacerbate patients foot/toe deformity DIGITAL DEFORMITIES: Digital contracture , PIPJ, 2-5 B/L, incompl-reducible with WB, or to push-up test, no over, nor underlapping , Reveals pain/swelling/redness/enlargement of DIPJ T4, , Reveals pain/swelling/redness/enlargement of PIPJ , T3 General Examination GENERAL APPEARANCE: Reveals a pleasant, alert, well nourished, well-developed, well hydrated individual, who demonstrates proper attention to hygiene/body habitus, and is in no acute distress, Pt serves as own historian for office visit today , Reveals a pleasant, alert, well nourished, well-developed, well hydrated individual, who demonstrates proper attention to hygiene/body habitus, and is in no acute distress ORIENTED: person, place, and t bo , person, place, and time Nails NAILS are: elongated,overgr own,dystrophic,greater than 3mm thick,discolored and friable with crumbly malodorous subungual debris, with pain on palpation , 1-5 B/L
--- OUTSIDE RECORDS SUMMARY | 2024-09-29 11:17 | XMS_ITS ---
[facility] [place] Address [address] [place] [address] Care Team Providers Care Production Line Mechanic Name Role Phone Yonis Pierre Primary Care Provider UnavailJennifer Falk Unavailable [phone] Allergies Allergen (clinical drug ingredient) Drug/Non Drug Allergy documented on EMR Reaction Allergy Type Onset Date Status Latex Latex Unknown Allergy Active REASON FOR VISIT Painful nail(s) aggrevated by shoes and causing difficulty standing/walking., Ingrown Nail Medications Medication SIG (Take, Route, Frequency, Duration) Notes Start Date End Date Status Ciclopirox Olamine 0.77 % 1 application to affected area Externally Twice a day for 30 days 01/01/2012 Not-Taki ng Vigraplex as directed Orally N ot-Taking Ciclopirox Olamine 0.77% external apply to feet twice a day for 30 days 07/08/2014 Not-Taki ng Ciclopirox Olamine 0.77% external Apply to effected areas twice a day for 30 days 07/20/2016 Not-Taking Ciclopirox Olamine 0.77 % 1 application to affected area Externally Twice a day for 30 days 09/03/2017 Not-Taki ng cloNIDine HCl Active Eliquis 5 MG as directed Orally T wice a day Active Loprox Active Losartan Potassium A ctive Timolol Hemihydrate 0.25 % 1 drop into affected eye Ophthalmic Once a day Active Finasteride Active amLODIPine Besylate Active Carvedilol Active Social History Tobacco Use: Social History Observation Description Date Details (start date - stop date) Former Smoker NA - NA Tobacco use other than smoking: Question Answer Notes Are you an other tobacco user? No Tobacco Control (Standard) Question Answer Notes Tobacco use: Former smoker Additional Findings: Tobacco non-user Ex-cigaret te smoker AUDIT-C (Standard) Question Answer Notes Did you have a drink containing alcohol in the p ast year? No Points 0 Interpretation Negative Vital Signs Height 5 ft 9 in in 09/04/2024 Weight 165 lbs 09/04/2024 BMI 24.36 kg/m2 09/04/2024 Blood pressure systolic 137 mm Hg 09/04/20 24 Blood pressure diastolic 70 mm Hg 024 Heart Rate 65 /min 09/04/2024 Procedures Procedure Date Ordered Date Performed Result Body Sit e 52912-PECLBVH NAIL, 6 OR MORE 09/04/2024 N/A 07891-Oncpeshp Plate 09/04/2024 N/A Encounters Encounter Location Date Provider Diagnosis [facility] [address] [address] 09/04/2024 Jennifer Marks Tinea unguium B35.1 ; Ingrown nail L60.0 ; Pain in right toe(s) M79.674 and Pain in left toe(s) M79.675 Assessments Encounter Date Diagnosis (ICD Code) Assessment Notes Treatment Notes Treatment Clinical Notes Section Notes 09/04/2024 Tinea unguium (ICD-10 - B35.1) 09/04/2024 Ingrown nail (ICD-10 - L60.0) 09/04/2024 Pain in right toe(s) (ICD-10 - M79.674) 09/04/2024 Pain in left toe(s) (ICD-10 - M79.675) Plan Of Treatment Pending Test Test Name Order Date 33078-KNVAAON NAIL, 6 OR MORE 09/04/2024 77314-Omupihgh Plate 09/04/2024 Next Appt Details Follow Up: 2 Weeks, Reason: Provider Name:Jennifer Villeda Kendrick , 12/08/2024 03:30:00 PM, [address] [place] [address], [id number], Procedure Notes * Category Sub-Category Detail Notes Nail Avulsion Procedure A fine sterile e levator was placed between the eponychium, nail fold, and nail plate to separate the structures. A sterile nail splitter, and/or sterile 316 blade, was then used to longitudinally section the nail along its entire length through the eponychium to the area under the nail fold. The offending portion of nail was from the nail bed with a rolling action and then removed with a hemostat. No underlying bone was identified. There was minimal bleeding as hemostasis was achieved through the temporary use of either a digital tourniquet or the aforementioned local with epinephrine. A bacitracin sterile dressing was applied. Local wound aftercare instructions were discussed and dispensed. The patient was informed of both conservative and future surgical procedures to prevent recurrence. Tylenol or Motrin was recommended for pain or discomfort (40291), Pt DEFERS matricectomy Anesthesia , was accomplished T OPICALLY with Lidocaine Hydrochloride Jelly 2 percent Location , Lateral nail borde r, TA Debride Nail 6-10 Nail debridement Performance o f this nail treatment by a nonprofessional would put this patients foot and overall health at risk. Therefore, debridement to affected nail(s), as described in exam, was performed extensively to reduce/remove overall nail length, girth, thickness, subungual debris, and necrotic tissue, by manual and/or electrical means through the use of a nail nipper and/or dremel-type glass grinder, to a more viable healthy nail plate or bed tissue 6-10. Silver nitrate used for any petechial bleeding as necessary. Definitive antifungal treatment options have been reviewed and discussed with the patient. The patient chooses, no pharmaceutical tx - 96792 Progress Notes * Junior MARIN RDOB:[birth year] (83 yo M)Acc No.[id number]:09/04/2024 Progress Note Patient:?Junior MARIN Angela Provider:?Jennifer Marks DPM :1940???Age:83 Y???Sex:Male Jonathan e:09/04/2024 Address:[address] [id number] Pcp:Yonis Pierre Subjective: * Chief Complaints: * ??? Painful nail(s) aggrevat ed by shoes and causing difficulty standing/walking.Ingrown Nail * HPI: ???Painful Nails:?Pt States Last PCP Visit:?Date:?05/01/2024 ?Treatments:?Topical Antifungal.? * ROS:?General/Constitutional:?Nausea?denies.?Vomiting?denies.?Hunger Thirst?denies.?Loss appetite?denies.?Chills?denies.?Fatigue?denies.?Fever?denies.?Night Sweats?denies.?Unexplained weight loss?denies.?Unexplained [...] daughter(s) . .? * Social History:?Tobacco Use:?Tobacco use other than smoking?Are you an other tobacco user??No ?Tobacco Control (Standard)?Tobacco use:?Former smoker ?Additional Findings: Tobacco non-user?Ex-cigarette smoker ???Drugs/Alcohol:?Drugs?Have you used drugs other than those for medical reasons in the past 12 months??No ???Miscellaneous:?Caffeine: no, 3 cups decaff per day. ?Children: yes, 3. ?Exercise: no, golf, bowling. ?Marital status: . ?Occupation: retired teacher. ???Drug/Alcohol:?AUDIT-C (Standard)?Did you have a drink containing alcohol in the past year??No ?Points?0 ?Interpretation?Negative * Medications:?TakingFinasteri de amLODIPine Besylate Carvedilol cloNIDine HCl Eliquis 5 MG Tablet as directed Orally Twice a day Loprox Losartan Potassium Timolol Hemihydrate 0.25 % Solution 1 drop into affected eye Ophthalmic Once a day Taking Finasteride Taking amLODIPine Besylate Taking Carvedilol Taking cloNIDine HCl Taking Eliquis 5 MG Tablet as directed Orally Twice a day Taking Loprox Taking Losartan Potassium Taking Timolol Hemihydrate 0.25 % Solution 1 drop into affected eye Ophthalmic Once a day Not-Taking/PRNCiclopirox Olamine 0.77 % Cream 1 application to affected area Externally Twice a day Vigraplex Tablet as directed Orally Ciclopirox Olamine 0.77% Cream external apply to feet twice a day Ciclopirox Olamine 0.77% Cream external Apply to effected areas twice a day Ciclopirox Olamine 0.77 % Cream 1 application to affected area Externally Twice a day Medication List reviewed and reconciled with the patientNot-Taking/PRN Ciclopirox Olamine 0.77 % Cream 1 application to affected area Externally Twice a day Not-Taking/PRN Vigraplex Tablet as directed Orally Not-Taking/PRN Ciclopirox Olamine 0.77% Cream external apply to feet twice a day Not-Taking/PRN Ciclopirox Olamine 0.77% Cream external Apply to effected areas twice a day Not-Taking/PRN Ciclopirox Olamine 0.77 % Cream 1 application to affected area Externally Twice a day Medication List reviewed and reconciled with the patient * Allergies:?Latexyes[Allergie s Verified] Objective: * Vitals:?Ht: 5 ft 9 in, Wt: 1 65, BMI: 24.36, Shoe size: 9.5, BP: 137/70 mm Hg, HR: 65 /min, Wt-k.84 kg. * Examination: ???General Examination: ?GENERAL APPEARANCE:?Reveals a pleasant, alert, well nourished, well- developed, well hydrated individual, who demonstrates proper attention to hygiene/body habitus, and is in no acute distress, Pt serves as own historian for office visit today , Reveals a pleasant, alert, well nourished, well-developed, well hydrated individual, who demonstrates proper attention to hygiene/body habitus, and is in no acute distress.?Nails: ?NAILS are:?elongated,overgrown,dystrophic,greater than 3mm thick,discolored and friable with crumbly malodorous subungual debris, with pain on palpation ,, 2-5 Left foot, 1-5 Right foot.?Neurological: ?SENSORY:?Neurological exam reveals intact sensorium, pain sensation normal, vibration sensation intact, pinprick sensation is normal in the lower extremities, Pt denies, anesthesia, burning, paresthesia, tingling, B/L.?Dermatologic: ?SKIN FINDINGS:?Skin exam reveals Keratotic lesion(s) located at , Medial , DIPJ , T4 , Lateral , T3.?Ingrown Nail: ?INSPECTION:?Reveals nail incurvation, pain on palpation, groove hypertrophy, groove ischemia, Lateral nail border, TA.? Assessment: * Assessment: 1.?Tinea unguium - B35.1???2 .?Ingrown nail - L60.0 (Primary)???3.?Pain in right toe(s) - M79.674???4.?Pain in left toe(s) - M79.675??? Plan: * Treatment: 2.?Tinea unguium?Procedure: 15926-BQJULYR NAIL, 6 OR MORE * Procedures:?Debride Nail 6-10:?Nail debridement?Performance of this nail treatment by a nonprofessional would put this patients foot and overall health at risk. Therefore, debridement to affected nail(s), as described in exam, was performed extensively to reduce/remove overall nail length, girth, thickness, subungual debris, and necrotic tissue, by manual and/or electrical means through the use of a nail nipper and/or dremel-type glass grinder, to a more viable healthy nail plate or bed tissue 6-10. Silver nitrate used for any petechial bleeding as necessary. Definitive antifungal treatment options have been reviewed and discussed with the patient. The patient chooses, no pharmaceutical tx - 63184.?Nail Avulsion:?Location?, Lateral nail border, TA.?Anesthesia?, was accomplished TOPICALLY with Lidocaine Hydrochloride Jelly 2 percent.?Procedure?A fine sterile elevator was placed between the eponychium, nail fold, and nail plate to separate the structures. A sterile nail splitter, and/or sterile 316 blade, was then used to longitudinally section the nail along its entire length through the eponychium to the area under the nail fold. The offending portion of nail was from the nail bed with a rolling action and then removed with a hemostat. No underlying bone was identified. There was minimal bleeding as hemostasis was achieved through the temporary use of either a digital tourniquet or the aforementioned local with epinephrine. A bacitracin sterile dressing was applied. Local wound aftercare instructions were discussed and dispensed. The patient was informed of both conservative and future surgical procedures to prevent recurrence. Tylenol or Motrin was recommended for pain or discomfort (57650), Pt DEFERS matricectomy.? * Procedure Codes:?66382 DEBRI DE NAIL, 6 OR MORE, Modifiers: XS 37027 Avulsion Plate, Modifiers: TA * Follow Up:?2 Weeks * Images: * Sign off status: Completed true * Provider:?Jennifer Marks DPM Date:?2023 Generated for Viraj stone/Arthur/Jeannine on:?09/29/2024 11:17 AM EST History and Physical Notes * HPI (History of Present Illness) Category Sub-Category Detail Notes Category Not es Painful Nails Treatments: Topical Antifungal Pt States Last PCP Visit: Date:: 05/01/2024 Examination Category Sub-Category Detail Notes Category Not es Ingrown Nail INSPECTION: Reveals nail inc urvation, pain on palpation, groove hypertrophy, groove ischemia, Lateral nail border, TA Neurological SENSORY: Neurological exa m reveals intact sensorium, pain sensation normal, vibration sensation intact, pinprick sensation is normal in the lower extremities, Pt denies, anesthesia, burning, paresthesia, tingling, B/L Dermatologic SKIN FINDINGS: Skin exam reveal s Keratotic lesion(s) located at , Medial , DIPJ , T4 , Lateral , T3 General Examination GENERAL APPEARANCE: Reveals a pleasant, alert, well nourished, well-developed, well hydrated individual, who demonstrates proper attention to hygiene/body habitus, and is in no acute distress, Pt serves as own historian for office visit today , Reveals a pleasant, alert, well nourished, well-developed, well hydrated individual, who demonstrates proper attention to hygiene/body habitus, and is in no acute distress ORIENTED: Nails NAILS are: elongated,overgr own,dystrophic,greater than 3mm thick,discolored and friable with crumbly malodorous subungual debris, with pain on palpation ,, 2-5 Left foot, 1-5 Right foot
--- OUTSIDE RECORDS SUMMARY | 2024-09-29 11:17 | XMS_ITS | Continuity of Care Document ---
Author Organization [facility] [place] Address [address] [facility] [place] [address]- Care Team Providers Care Insurance Claims Specialist Name Role Phone Yonis Pierre MD Primary Care Physician [phone] Encounter 09/08/24 - 09/15/24 [facility] [address], [address] [place] [address]- Attending Physician: Yonis Pierre MD Admitting Physician: Yonis Pierre MD Referring Physician: Yonis Pierre MD Encounter Type: OutPatient One Time Allergies, Adverse Reactions, Alerts Substance Criticality Severity Reaction Reaction Severity Status tamsulosin 1 Active angiotensin converting enzym e inhibitors cough Active Adhesive Bandage Act eric Latex Active Ragweed Active 1dizzy Immunizations Given and Recorded Vaccine Date Status Refusal Reason RSV vaccine, preF A-preF B, recombinant 08/13/24 R ecorded influenza virus vaccine, inactivated 07/07/24 Xavier rded influenza virus vaccine, inactivated 07/12/23 Xavier rded influenza virus vaccine, inactivated 07/11/22 Xavier rded influenza virus vaccine, inactivated 1 07/04/18 Re corded influenza virus vaccine, inactivated 2 07/03/17 Re corded influenza virus vaccine, inactivated 3 07/20/16 Re corded influenza virus vaccine, inactivated 06/28/15 Xavier rded influenza virus vaccine, inactivated 07/23/14 Xavier rded influenza virus vaccine, inactivated 4 08/21/13 Gi patrick influenza virus vaccine, inactivated 08/17/13 Xavier rded influenza virus vaccine, inactivated 08/12/12 Give n influenza virus vaccine, inactivated 5 07/18/11 Gi patrick SARS-CoV-2(COVID-19)mRNA-LNP vac([id number]) 07/07/24 Recorded SARS-CoV-2(COVID-19)mRNA-LNP vac([id number]) 07/12/23 Recorded pneumococcal 20-valent conjugate vaccine 12/13/23 Given [id number] 12y+ bivalent booster vax 07/11/22 Recorded tetanus/diphtheria/pertussis, acel(Tdap) 02/16/22 Given SARS-CoV-2 mRNA ([id number]-[id number]-myvic) vax 01/12/22 Recorded SARS-CoV-2 (COVID-19) mRNA BNT-162b2 vac 08/10/21 Recorded SARS-CoV-2 (COVID-19) mRNA BNT-162b2 vac 12/15/20 Given SARS-CoV-2 (COVID-19) mRNA BNT-162b2 vac 11/24/20 Given Influenza Virus Vaccine (oldterm) 07/11/21 Recorde d Influenza Virus Vaccine (oldterm) 06/15/20 Recorde d Influenza Virus Vaccine (oldterm) 07/08/19 Recorde d Influenza Virus Vaccine (oldterm) 6 07/20/09 Given Influenza Virus Vaccine (oldterm) 08/05/08 Given zoster vaccine, inactivated 12/29/18 Recorded zoster vaccine, inactivated 7 08/08/18 Recorded pneumococcal 13-valent vaccine 12/14/14 Given Zoster Vaccine Live 05/20/13 Recorded Zoster Vaccine Live 05/20/13 Recorded tetanus-diphtheria toxoids (Td) 01/25/12 Given tetanus-diphtheria toxoids (Td) 8 11/05/01 Given FluLaval (oldterm) 07/20/10 Given influ virus vac, H1N1, inactive(oldterm) 9 07/20/09 Given Pneumococcal Vaccine (oldterm) 10/23/07 Given Influenza Inactive (IM) (oldterm) 08/16/07 Given 1Location History: [facility] 2Result Comment: [08/09/2017] [facility] 3Result Comment: [07/24/2016] RECEIVED AT [facility] HIGH DOSE 4Admin Note: given at [facility] on 08/17/13 5Admin Note: [facility] 6Admin Note: per pt rcvd eklsewhere 7Location History: [facility] 8Admin Note: PER CHART HISTORICAL 9Admin Note: per pt rcvd elsewhere Medications Aerochamber See Instructions, # 1 units, Maintenance, use w/ albuterol MDI, 12/13/15 5:06:18 PM EST, Compound Start Date: 12/13/15 Status: Ordered Quantity: 1.0 Unit: Units Repeat number: 1 amLODIPine 10 mg oral tablet 1 tablet, By Mouth, Daily, # 90 tablet, 1 Refills, Maintenance, 03/25/24 12:26:00 AM EDT, [facility]/pharmacy #[id number], 172.1, cm, 01/30/24 11:24:00 EDT, Height Start Date: 03/25/24 Status: Ordered Quantity: 90.0 Unit: tablet Repeat number: 2 Azithromycin 5 Day Dose Pack 250 mg oral tablet 1 pack/packet, By Mouth, Once, # 6 tablet, 0 Refills, Soft Stop, 09/08/24 6:12:00 PM EST, Tablet, [facility]/pharmacy #[id number], Partial fill upon patient request if the prescription is for a schedule II opioiddrug., 172.1, cm, 09/08/24 14:54:00 EST, Height Start Date: 09/08/24 Status: Ordered Quantity: 6.0 Unit: tablet Repeat number: 1 Breo Ellipta 100 mcg-25 mcg/inh inhalation powder 1 puffs, Inhalation, Daily, # 1 each, 11 Refills, Maintenance, 11/06/23 1:34:00 PM EST, [facility]/pharmacy#[id number], Partial fill upon patient request if the prescription is for a schedule II opioid drug., 1 puffs Inhalation Daily, 172.1, cm, 10/11/23 9:07:00 EST, Height Start Date: 11/06/23 Status: Ordered Quantity: 1.0 Unit: each Repeat number: 12 carvedilol 6.25 mg oral tablet 1, tablet, By Mouth, 2 times a day, # 180 tablet, Refills 3, Maintenance, 12/24/23 12:23:00 PM EDT, Route to Pharmacy Electronically, [id number], 172.1, cm, 12/13/23 10:21:00 EST, Height Start Date: 12/24/23 Status: Ordered Quantity: 180.0 Unit: tablet Repeat number: 1 Eliquis 5 mg oral tablet 1 tablet, By Mouth, 2 times a day, # 180 tablet, 3 Refills, Maintenance, 09/28/23 5:42:00 PM EST, [facility]/pharmacy #[id number], 172.1, cm, 04/06/23 10:47:00 EDT, Height Start Date: 09/28/23 Status: Ordered Quantity: 180.0 Unit: tablet Repeat number: 4 finasteride 5 mg oral tablet 1 tablet = 5 mg, By Mouth, Daily, # 30 tablet, 0 Refills, Maintenance, 10/11/23 9:15:00 AM EST, Tablet, Partial fill upon patient request if the prescription is for a schedule II opioid drug. Start Date: 10/11/23 Status: Ordered Quantity: 30.0 Unit: tablet Repeat number: 1 latanoprost 0.005% ophthalmic solution 1 drops, Eyes, Both, Daily at bedtime, # 3 mL, 0 Refills, Maintenance, 10/11/23 9:15:00 AM EST, Ophth Solution, Partial fill upon patient request if the prescription is for a schedule II opioid drug. Start Date: 10/11/23 Status: Ordered Quantity: 3.0 Unit: mL Repeat number: 1 losartan 100 mg oral tablet 1 tablet, By Mouth, Daily, # 90 tablet, 3 Refills, Maintenance, 12/24/23 12:23:00 PM EDT, [facility] [id number], 172.1, cm, 12/13/23 10:21:00 EST, Height Start Date: 12/24/23 Status: Ordered Quantity: 90.0 Unit: tablet Repeat number: 1 Metamucil 3.4 gm/5.2 gm oral powder for reconstitution = 3.4 Gm, By Mouth, Daily, 0 Refills, Maintenance, 04/06/23 11:05:00 AM EDT, Partial fill upon patient request if the prescription is for a schedule II opioid drug. Start Date: 04/06/23 Status: Ordered Repeat number: 1 MiraLax oral powder for reconstitution = 17 Gm, By Mouth, Daily, dissolve in water before taking, # 255 Gm, 0 Refills, Maintenance, 04/06/23 11:05:00 AM EDT, REC Powder, Partial fill upon patient request if the prescription is for a schedule II opioid drug. Start Date: 04/06/23 Status: Ordered Quantity: 255.0 Unit: g Repeat number: 1 PreserVision AREDS 2 2 times a day, 0 Refills, Maintenance, 04/06/23 11:06:00 AM EDT, Partial fill upon patient request if the prescription is for a schedule II opioid drug. Start Date: 04/06/23 Status: Ordered Repeat number: 1 Probiotic Formula By Mouth, Daily, 0 Refills, Maintenance, 10/11/23 9:16:00 AM EST, Partial fill upon patient requestif the prescription is for a schedule II opioid drug. Start Date: 10/11/23 Status: Ordered Repeat number: 1 Timolol 0.5% Ophth 2 times a day, Refills 0, Maintenance, 10/11/23 9:15:00 AM EST, Partial fill upon patient request if the prescription is for a schedule II opioid drug. Start Date: 10/11/23 Status: Ordered Repeat number: 1 Vitamin D 85286 iu oral capsule 50,000 International_Units, By Mouth, Daily, Refills 0, Maintenance, 10/11/23 9:16:00 AM EST, Partial fill upon patient request if the prescription is for a schedule II opioid drug. Start Date: 10/11/23 Status: Ordered Repeat number: 1 Wixela Inhub 100 mcg-50 mcg inhalation powder 1 inhalation, Inhalation, 2 times a day, rinse mouth and throat after use, # 1 each, 5 Refills, Maintenance, 10/11/23 9:23:00 AM EST, Powder, [facility]/pharmacy #[id number], Partial fill upon patient request if the prescription is for a schedule II opioid drug., 1 inhalation Inhalation 2 times a day,Instr:rinse mouth and throat after use, 172.1, cm, 10/11/23 9:07:00 EST, Height Start Date: 10/11/23 Status: Ordered Quantity: 1.0 Unit: each Repeat number: 6 Problem List Condition Confirmation Course Effective Dates Status H ealth Status Informant Adenomatous polyp of colon colonoscopy [address] yang no f/u 1 Confirmed Active Back pain 2 Confirmed Active Benign Essential Hypertension Confirmed Active BPH without urinary obstruction aua score 16 Confirmed 3/20/20 Active Cataract, bilateral Confirmed Active Cataract of right eye Confirmed Active Cervical disc Confirmed Active Macular degeneration, left eye Confirmed Active Macular degeneration, bilateral Confirmed Active Foot pain Confirmed Active Left hip pain Confirmed Active History of skin cancer bcc/scc ;dermatology Confirmed Active History of COVID-01 February 2020 Confirmed Active Impaired fasting glucose 3 Confirmed Active Impotence of Organic Origin Confirmed Active Anticoagulant long-term use Confirmed Active Low back strain Confirmed Active Microscopic hematuria 4 Confirmed Active Asthma, mild persistent Confirmed Active Mitral insufficiency Confirmed Active Actinic keratoses Confirmed Active Pulmonary nodule Confirmed Active Macular degeneration, dry Confirmed Active AF (paroxysmal atrial fibrillation) [id number] 3 Confirmed 07/05/20 Active Peripheral sensory neuropathy 5 Confirmed Active SCC (squamous cell carcinoma) Confirmed Active 1tubularv adenoma 01-20-1915 2multilevel DJD 3advised pre diabetic 4refer 5normal B12, A1c spep Results Radiology Reports * Exam Date Time Procedure Performing Provider Status 09/08/24 3:26 PM Chest 2 Views Frontal and Lat Lian Mendez; Auth (Verified) Notes: (Chest 2 Views Frontal and Lat) Reason For Exam: Cough RESULT: Chest 2 Views Frontal and Lat Examination: Chest performed on 09/08/24. History: Cough. Findings: Frontal and lateral views of the chest are compared to a prior study dated 02/20/2024. The cardiac silhouette is at the upper limits of normal for size. Trace pleural effusions and bibasilar atelectasis are seen. Osteophyte formation within the thoracic spine is noted. IMPRESSION: Bibasilar atelectasis and trace pleural effusions. WSN: [id number] Ordering Physician: Yonis Pierre Dictated By: Suly Mercado MD Dictated Date/Time: 09/08/24 4:37 pm Reviewed By: Suly Mercado MD Signed By: Suly Mercado MD Signed Date/Time: 09/08/24 4:37 pm Transcribed By: LYRIC Transcribed Date/Time: 09/08/24 4:37 pm Social History Social History Type Response Smoking Status Former smoker; Type: Cigarettes; Number of years: 51; Total pack years: 51; Started at age: 12; Stopped at age: 63; entered on: 02/11/14 Sex Sex Representation Male (finding) Patient Care team information Care Team Personnel Name: Mary Villavicencio NP Position: [facility] PCO Associate Professional Member Role: [employer] Consult[employer] Provider Address: [address] [place] [id number]- Telecom: Name: Yonis Pierre MD Position: [facility] Physician - Primary Care Member Role: PCP Address: [address] [place] [address]- Telecom: Care Team Related Persons Name: JADE NIEVES Name: LANEY NIEVES Insurance Providers Guarantor name: SHERLY NIEVES Health Plan Information #: 2 Payer: MEDEX Member Number: [id number] Policy Number: NA Group Number: NA Health Plan Information #: 1 Payer: MEDICARE PART B OUTPT Member Number: [id number] Policy Number: NA Group Number: NA
--- OUTSIDE RECORDS SUMMARY | 2024-09-29 11:17 | XMS_ITS | Continuity of Care Document ---
Author Organization [facility] Aza[facility] lt Address [address] [place] [address]- Care Team Providers Care Rubber Washer Name Role Phone Yonis Pierre MD Primary Care Physician [phone] Encounter [facility] Date(s): 09/08/24 - 09/15/24 [facility] Jorge Guzm[facility]ley Adult [address] [place] [address]- Encounter Diagnosis SOB (shortness of breath)(Discharge Diagnosis) - 09/08/24 Attending Physician: Yonis Pierre MD Encounter Type: Office Visit Allergies, Adverse Reactions, Alerts Substance Criticality Severity Reaction Reaction Severity Status tamsulosin 1 Active angiotensin converting enzym e inhibitors cough Active Ragweed Active Adhesive Bandage Act eric Latex Active 1dizzy Immunizations Given and Recorded Vaccine [...] Re corded influenza virus vaccine, inactivated 06/28/15 Xavire rded influenza virus vaccine, inactivated 07/23/14 Xavier rded influenza virus vaccine, inactivated 4 08/21/13 Gi patrick influenza virus vaccine, inactivated 08/17/13 Xavier rded influenza virus vaccine, inactivated 08/12/12 Give n influenza virus vaccine, inactivated 5 07/18/11 Gi patrick SARS-CoV-2(COVID-19)mRNA-LNP vac([id number]) 07/07/24 Recorded SARS-CoV-2(COVID-19)mRNA-LNP vac([id number]) 07/12/23 Recorded pneumococcal 20-valent conjugate vaccine 12/13/23 Given [id number] 12y+ bivalent booster vax 07/11/22 Recorded tetanus/diphtheria/pertussis, acel(Tdap) 02/16/22 Given SARS-CoV-2 mRNA ([id number]) vax 01/12/22 Recorded SARS-CoV-2 (COVID-19) mRNA BNT-162b2 [...] Inactive (IM) (oldterm) 08/16/07 Given 1Location History: [facility] 2Result Comment: [08/09/2017] [facility] 3Result Comment: [07/24/2016] RECEIVED AT [facility] HIGH DOSE 4[facility] 5[facility]: [facility] 6Admin Note: per pt rcvd eklsewhere 7Location History: [facility] 8Admin Note: PER CHART HISTORICAL 9Admin Note: per pt rcvd elsewhere Medications Aerochamber See Instructions, # 1 units, Maintenance, use w/ albuterol MDI, 12/13/15 5:06:18 PM EST, Compound Start Date: 12/13/15 Status: Ordered Quantity: 1.0 Unit: Units Repeat number: 1 amLODIPine 10 mg oral tablet 1 tablet, By Mouth, Daily, # 90 tablet, 1 Refills, Maintenance, 03/25/24 12:26:00 AM EDT, [facility]/pharmacy #[id number], 172.1, cm, 01/30/24 11:24:00 EDT, Height Start Date: 03/25/24 Status: Ordered Quantity: 90.0 Unit: tablet Repeat number: 2 Azithromycin 5 Day Dose Pack 250 mg oral tablet 1 pack/packet, By Mouth, Once, # 6 tablet, 0 Refills, Soft Stop, 09/08/24 6:12:00 PM EST, Tablet, [facility]/pharmacy #[id number], Partial fill upon patient request if the prescription is for a schedule II opioiddrug., 172.1, cm, 09/08/24 14:54:00 EST, Height Start Date: 09/08/24 Status: Ordered Quantity: 6.0 Unit: tablet Repeat number: 1 Breo Ellipta 100 mcg-25 mcg/inh inhalation powder 1 puffs, Inhalation, Daily, # 1 each, 11 Refills, Maintenance, 11/06/23 1:34:00 PM EST, [facility]/pharmacy#[id number], Partial fill upon patient request if the [...] 12:23:00 PM EDT, Route to Pharmacy Electronically, [id number], 172.1, cm, 12/13/23 10:21:00 EST, Height Start Date: 12/24/23 Status: Ordered Quantity: 180.0 Unit: tablet Repeat number: 1 Eliquis 5 mg oral tablet 1 tablet, By Mouth, 2 times a day, # 180 tablet, 3 Refills, Maintenance, 09/28/23 5:42:00 PM EST, [facility]/pharmacy #[id number], 172.1, cm, 04/06/23 10:47:00 EDT, Height [...] 3 Refills, Maintenance, 12/24/23 12:23:00 PM EDT, [facility] 6[facility], 172.1, cm, 12/13/23 10:21:00 EST, Height Start [...] Status: Ordered Repeat number: 1 Vitamin D 55533 iu oral capsule 50,000 International_Units, By Mouth, [...] Refills, Maintenance, 10/11/23 9:23:00 AM EST, Powder, [facility]/pharmacy [facility][id number], Partial fill upon patient request if [...] dry Confirmed Active AF (paroxysmal atrial fibrillation) [id number] 3 Confirmed 07/05/20 Active Peripheral sensory neuropathy 5 Confirmed Active SCC (squamous cell carcinoma) Confirmed Active 1tubularv adenoma 01-20-1915 2multilevel DJD 3advised pre diabetic 4refer 5normal B12, A1c spep Diagnosis Diagnosis Type Effective Dates Health Status Cl inical Service Informant SOB (shortness of breath) Discharge Diagnosis 09/08/24 Vital Signs Most recent to oldest [Reference Range]: 1 Height 172.1 cm (09/08/24 2:54 PM) Weight 78.8 kg (09/08/24 2:54 PM) Oxygen Saturation [94-100 %] 100 % (09/08/24 2:54 PM) Pulse Rate [55-90 bpm] 68 bpm (09/08/24 2:54 PM) Body Mass Index [18.5-24.99 kg/m2] 26.61 kg/m2 *H* (09/08/24 2:54 PM) Blood Pressure [90-138/55-84 mm Hg] 127/ 58mm Hg (09/08/24 2:54 PM) Temperature [96.8-100.4 DegF] 98.1 DegF (09/08/24 2:54 PM) Blood pressure sites Arm, right (09/08/24 2:54 PM) Temperature Route Oral (09/08/24 2:54 PM) Weight Obtained Via Standing scale (09/08/24 2:54 PM) Social History Social History Type Response Smoking Status Former smoker; Type: Cigarettes; Number of years: 51; Total pack years: 51; Started at age: 12; Stopped at age: 63; entered on: 02/11/14 Sex Sex Representation Male (finding) Patient Care team information Care Team Personnel Name: Mary Villavicencio NP Position: [facility] PCO Associate Professional Member Role: [employer] Consult[employer] Provider Address: [address] [place] [address]- Telecom: Name: Yonis Pierre MD Position: [facility] Physician - Primary Care Member Role: PCP Address: [address] [place] [address]- Telecom: Care Team Related Persons Name: AJDE NIEVES Name: LANEY NIEVES Insurance Providers Guarantor name: SHERLY NIEVES Health Plan Information #: 1 Payer: MEDICARE PART B OUTPT Member Number: [id number] Policy Number: NA Group Number: NA Health Plan Information #: 2 Payer: MEDEX Member Number: [id number] Policy Number: NA Group Number: NA
--- OUTSIDE RECORDS SUMMARY | 2024-09-29 11:18 | XMS_ITS | Patient Health Record ---
Author Organization [facility] Address [address] [place] [address] Care Team Providers Care Inside Sales Assistant Name Role Phone Yonis Pierre Primary Care Provider Jennifer Thurman Unavailable [phone] Allergies Allergen (clinical drug ingredient) Drug/Non Drug Allergy documented on EMR Reaction Allergy Type Onset Date Status Latex Latex Unknown Allergy Active Reason For Referral No Information Medications Medication SIG (Take, Route, Frequency, Duration) Notes Start Date End Date Status Ciclopirox Olamine 0.77 % 1 application to affected area Externally Twice a day for 30 days 01/01/2012 Not-Taki ng Vigraplex as directed Orally N ot-Taking Ciclopirox Olamine 0.77% external apply to feet twice a day for 30 days 07/08/2014 Not-Taki ng Finasteride Active Ciclopirox Olamine 0.77% external Apply to effected areas twice a day for 30 days 07/20/2016 Not-Taking amLODIPine Besylate Active Ciclopirox Olamine 0.77 % 1 application to affected area Externally Twice a day for 30 days 09/03/2017 Not-Taki ng Carvedilol Active cloNIDine HCl Active Eliquis 5 MG as directed Orally T wice a day Active Loprox Active Losartan Potassium A ctive Timolol Hemihydrate 0.25 % 1 drop into affected eye Ophthalmic Once a day Active Immunizations Vaccine Route Administration Date Status Comme nts Influenza Unknown 10/18/2015 Administered Influenza Unknown 11/02/2015 Administered Influenza Unknown 07/22/2021 Administered Pneumococcal Unknown 10/18/2015 Administered Social History Tobacco Use: Social History Observation [...] ast year? No Points 0 Interpretation Negative Problems Problem Type SNOMED Code ICD Code Onset Dates Problem Status W/U Status Risk Notes Problem Acquired hammer toe of right foot (2077231565541992 ) Other hammer toe(s) (acquired), right foot (M20.41) Active confirmed Problem Acquired hammer toe of left foot (9285370165117134 ) Other hammer toe(s) (acquired), left foot (M20.42) Active confirmed Problem Non-pressure ulcer lower limb (918357562) Non-pressure chronic ulcer of other part of right foot limited to breakdown of skin (L97.511) Active confirmed Problem Acquired hammer toe of left foot (9876382301365294 ) Other hammer toe(s) (acquired), left foot (M20.42) Active confirmed Chronic problem, Worse (4) Problem Acquired hammer toe of right foot (8671864295210277 ) Other hammer toe(s) (acquired), right foot (M20.41) Active confirmed Problem Acquired hammer toe of left foot (2877855363377791 ) Other hammer toe(s) (acquired), left foot (M20.42) Active confirmed Problem 12278577 Gout (M10.9) Active confirmed Problem 105644821 Hammer toe of left foot (M20.42) Active confirmed Problem 744018601 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 Problem Localized, primary osteoarthritis of the ankle and/or foot (295950239) Arthritis of joint of lesser toe, left (M19.072) Active confirmed Vital Signs Heart Rate 65 /min 09/04/2024 Blood pressure diastolic 70 mm Hg 09/04/2024 Height 5 ft 9 in in 09/04/2024 Blood pressure systolic 137 mm Hg 09/04/2024 Weight 165 lbs 09/04/2024 BMI 24.36 kg/m2 09/04/2024 Procedures Procedure Date Ordered Date Performed Result Body Sit e 46982-OATRWTC NAIL, 6 OR MORE 11/01/2023 N/A 09710-PGAXYDV NAIL, 6 OR MORE 01/31/2024 N/A 99408-XOMANQD NAIL, 6 OR MORE 05/19/2024 N/A 94171-UWEVEBZ NAIL, 6 OR MORE 09/04/2024 N/A 39925-Asgqmqjn Plate 09/04/2024 N/A Encounters Encounter Location Date Provider Diagnosis [address] [address] 11/01/2023 Jennifer Black Tinea unguium B35.1 ; Pain in right toe(s) M79.674 and Pain in left toe(s) M79.[address] [address] 01/31/2024 Jennifer Black Tinea unguium B35.1 ; Pain in right toe(s) M79.674 and Pain in left toe(s) M79.[address] [address] 05/19/2024 Jennifer Black Pain in left toe(s) M79.675 ; Other hammer toe(s) (acquired), left foot M20.42 ; Tinea unguium B35.1 ; Pain in right toe(s) M79.674 ; Pain in left toe(s) M79.675 and Arthritis of joint of lesser toe, left M19.[address] [address] 09/04/2024 Jennifer Black Tinea unguium B35.1 ; Ingrown nail L60.0 ; Pain in right toe(s) M79.674 and Pain in left toe(s) M79.[address] [address] 05/19/2024 Jennifer Black Assessments Encounter Date Diagnosis (ICD Code) Assessment Notes Treatment Notes Treatment Clinical Notes Section Notes 11/01/2023 Tinea unguium (ICD-10 - B35.1) 11/01/2023 Pain in right toe(s) (ICD-10 - M79.674) 01/31/2024 Tinea unguium (ICD-10 - B35.1) 01/31/2024 Pain in right toe(s) (ICD-10 - M79.674) 05/19/2024 Pain in left toe(s) (ICD-10 - M79.675) 05/19/2024 Other hammer toe(s) (acquired), left foot (ICD-10 - M20.42) Chronic problem, Worse (4) 09/04/2024 Tinea unguium (ICD-10 - B35.1) 09/04/2024 Ingrown nail (ICD-10 - L60.0) 09/04/2024 Pain in right toe(s) (ICD-10 - M79.674) 01/31/2024 Pain in left toe(s) (ICD-10 - M79.675) 05/19/2024 Tinea unguium (ICD-10 - B35.1) 11/01/2023 Pain in left toe(s) (ICD-10 - M79.675) 05/19/2024 Pain in right toe(s) (ICD-10 - M79.674) 09/04/2024 Pain in left toe(s) (ICD-10 - M79.675) 05/19/2024 Pain in left toe(s) (ICD-10 - M79.675) 05/19/2024 Arthritis of joint of lesser toe, left (ICD-10 - M19.072) Plan Of Treatment Pending Test Test Name Order Date 51950-IADGDUG NAIL, 6 OR MORE 09/13/2011 89264-VLKWLRJ NAIL, 6 OR MORE 01/01/2012 24671-LUNUPRL NAIL, 6 OR MORE 04/03/2012 54853-WSDPAPU NAIL, 6 OR MORE 07/11/2012 86364-BOIRKEG NAIL, 6 OR MORE 10/21/2012 48283-MEMQFUC NAIL, 6 OR MORE 03/27/2013 83605-BRIGIEA NAIL, 6 OR MORE 09/22/2013 02429-HJAGZDE NAIL, 6 OR MORE 07/08/2014 80173-DQKWYKX NAIL, 6 OR MORE 01/13/2015 26079-DTTQRJL NAIL, 6 OR MORE 01/26/2016 87333-MIZDBDG NAIL, 6 OR MORE 07/20/2016 66805-MOCFVMG NAIL, 6 OR MORE 01/18/2017 84590-WZXIUBE NAIL, 6 OR MORE 09/03/2017 40127-NWGJWBY NAIL, 6 OR MORE 12/13/2017 34958-WURIRPY NAIL, 6 OR MORE 03/14/2018 04784-DJECIRA NAIL, 6 OR MORE 05/23/2018 40382-NBAZNSP NAIL, 6 OR MORE 09/19/2018 62448-KMJXSFM NAIL, 6 OR MORE 01/16/2019 84539-DPWRKRK NAIL, 6 OR MORE 04/24/2019 76063-GVSDBRJ NAIL, 6 OR MORE 07/24/2019 01569-CFHAJZN NAIL, 6 OR MORE 10/23/2019 18659-JESYTIC NAIL, 6 OR MORE 03/04/2020 30360-BLDKVNV NAIL, 6 OR MORE 06/10/2020 81936-WNUWAVZ NAIL, 6 OR MORE 09/16/2020 98608-ZCRORCY NAIL, 6 OR MORE 01/13/2021 64263-UAOJHOE NAIL, 6 OR MORE 04/28/2021 70706-QXXLMIM NAIL, 6 OR MORE 08/11/2021 70493-YMNBQBI NAIL, 6 OR MORE 11/21/2021 65830-CTAGJXO NAIL, 6 OR MORE 02/23/2022 91561-THQPIMG NAIL, 6 OR MORE 06/01/2022 80715-GWMBADL NAIL, 6 OR MORE 09/11/2022 11897-POXEGIM NAIL, 6 OR MORE 12/11/2022 98840-XHQZYKQ NAIL, 6 OR MORE 04/12/2023 92530-UGIXJQC NAIL, 6 OR MORE 07/16/2023 65203-PGPCYCH NAIL, 6 OR MORE 11/01/2023 81439-HANQEQF NAIL, 6 OR MORE 01/31/2024 27053-YUGLJLX NAIL, 6 OR MORE 05/19/2024 14271-SMIEYWD NAIL, 6 OR MORE 09/04/2024 43700-RADCGVB NAIL, 1-5 07/21/2015 82752-Cagbwjxr Plate 09/20/2021 33538-Hyhmxwhc Plate 08/11/2021 94879-Mbbvinvy Plate 03/04/2020 11900-Kozkgcic Plate 02/01/2018 59631-Hptbjora Plate 01/13/2015 24832-Ryakedlz Plate 09/04/2024 36385- Debride <25 sq cm 06/19/2019 52482- Debride <25 sq cm 09/20/2021 31796- Debride <25 sq cm 02/23/2022 70976- Debride <25 sq cm 09/11/2022 63175- Debride <25 sq cm 06/01/2022 Next Appt Details Provider Name:Jennifer Marks , 12/08/2024 03:30:00 PM, [address] [place], [address], Insurance Providers Payer Name Payer Address Payer Phone Subscriber Number Group Number Insured Name Patient Relationship to Insured Coverage Start Date Coverage End Date Medicare National Govt [facility] [address] [place] [address] [id number] Junior Marin Self - patient is the insured [employer] [address] [place] [address] [id number] Junior Marin Self - patient is the insured Medical (General) History Medical History History ICD Code measles hypertension asthma Surgical History Surgery Date(Month/Year) eye surgery 2010 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
--- OUTSIDE RECORDS SUMMARY | 2024-09-29 11:18 | XMS_ITS | Patient Health Record ---
Author Organization [facility] Address [address] [place] [address] Care Team Providers Care Co Founder And Ceo Name Role Phone Yonis Pierre MD Primary Care Provider UnavailChris Coffman Unavailable [phone] ALLERGIES No Known Allergies RESULTS Component Value Reference Range Notes Complete Blood Count Auto Di ff Reviewed date:03/24/2024 11:38:35 PM Interpretation: Performing Lab:[facility], [address] [place] [phone] Notes/Report: White Blood Count 6.5 4.8-10.8 X10*3/uL Red Blood Count 4.02 4.60-5.80 X10*6/uL Hemoglobin 12.8 14.0-18.0 g/dl Hematocrit 38.1 42.0-52.0 % Mean Corpuscular Volume 94.8 80.0-98.0 fL Mean Corpuscular Hemoglobin 31.8 27.0-33.0 pg Mean Corpuscular HGB Conc 33.6 31.0-36.0 g/dl Red Cell Distribution Width 14.5 11.0-16.0 % Platelet Count 287 160-400 X10*3/uL Mean Platelet Volume 10.1 9.4-12.4 fL Neutrophils Percent Auto 76.3 45-73 % Imm Gran Pct Auto 0.3 0.0-0.4 % Lymphocytes Percent Auto 11.0 20-40 % Monocytes Percent Auto 8.7 2-11 % Eosinophils Percent Auto 2.3 0-4 % Basophils Percent Auto 1.4 0-2 % NRBC Pct Auto 0.0 0.0-0.2 /100WBC Neutrophils Absolute Auto 5.0 2.0-8.3 x10*3/u L Imm Gran Abs Auto 0.02 0.00-0.03 X10*3/uL Lymphocytes Absolute Auto 0.7 1.2-4.9 X10*3/u L Monocytes Absolute Auto 0.6 0.1-1.2 X10*3/uL Eosinophils Absolute Auto 0.2 0.0-0.4 X10*3/u L Basophils Absolute Auto 0.1 0.0-0.2 X10*3/uL NRBC Abs Auto 0.000 0.0-0.012 X10*3/uL OBSX3 (Not yet reviewed by [facility]) Interpretation: Performing Lab:[facility], [address] [place] [phone] Notes/Report: OBS1 NEGATIVE NEGATIVE OBS Date 1 03/21/24 OBS2 NEGATIVE NEGATIVE OBS Date 2 03/22/24 OBS3 NEGATIVE NEGATIVE OBS Date 3 03/23/24 REASON FOR REFERRAL No Information MEDICATIONS Medication SIG (Take, Route, Frequency, Duration) Notes Start Date End Date Status Finasteride 5 MG TAKE 1 TABLET BY FERNANDO TH EVERY DAY Oral for 90 Active Probiotic Active Apixaban 5 MG Orally Active Losartan Potassium 100 MG TAKE 1 TABLET EVERY DAY Oral for 90 Active Brimonidine Tartrate 0.2 % INSTILL 1 JENI P INTO BOTH EYES TWICE A DAY Ophthalmic for 25 Active Carvedilol 6.25 MG TAKE 1 TABLET BY FERNANDO TH TWICE A DAY Orally Active Xiidra 5 % Ophthalmic for 90 A ctive Albuterol Sulfate HFA 108 (90 Base) MCG/ACT Inhalation Active Tylenol PRN Active Budesonide-Formoterol Fumarate 160-4.5 MCG/ACT Inhalation Act eric MiraLax 17 GM Orally PRN Active amLODIPine Besylate 10 MG TAKE 1 TABLET BY MOUTH EVERY DAY Oral for 90 Active Eliquis 5 MG TAKE 1 TABLET BY FERNANDO TH TWICE A DAY Oral for 90 Active Fiber Choice 1.5 GM as directed Orally t wice a day Active Breo Ellipta 100-25 MCG/ACT Inhalation for 30 Active IMMUNIZATIONS Vaccine Route Administration Date Status Comme nts Influenza Unknown 08/04/2020 Administered SOCIAL HISTORY Sex Assigned At : Social History Observation Description Sex Assigned At Unknown PROBLEMS Problem Type ICD Code Onset Dates Problem Status W/U Status Risk SNOMED Code Notes Problem History of adenomatous polyp of colon (Z86.010) Active confirmed 289168632 Problem Change in bowel habits (R19.4) Active confirmed 909746311 Problem Rectal discharge (R19.8) Active confirmed Rectal discharge (220584453) VITAL SIGNS Blood pressure diastolic 00 mm Hg 04/29/2024 Height 68 in 04/29/2024 Blood pressure systolic 00 mm Hg 04/29/2024 Weight 168 lbs 04/29/2024 BMI 25.54 kg/m2 04/29/2024 Encounters Encounter Location Date Provider Diagnosis [facility] [address] [place] [address] 04/29/2024 Chris Tomlin Change in bowel habits R19.4 [facility] [address] [place] [address] 03/17/2024 Chris Tomlin Change in bowel habits R19.4 ASSESSMENTS Encounter Date Diagnosis Assessment Notes Treatment Notes Treatment Clinical Notes 04/29/2024 Change in bowel habits (ICD-10 - R19.4) Continue the fiber pills, stool softeners, and probiotics. Call me if things worsen with the BM's 03/17/2024 Change in bowel habits (ICD-10 - R19.4) PLAN OF TREATMENT Pending Test Test Name Order Date Hemoccult Cards (Non-Screening) 02/16/20 21 Hemoccult Cards (Non-Screening) 03/17/20 24 CBC w DIFF 03/17/2024 STOOL WBC 08/11/2022 C DIFFICILE RFLX PCR 08/11/2022 OBSX3 03/23/2024 Future Test Test Name Order Date COLONOSCOPY 11/19/2014 Insurance Providers Payer Name Payer Address Payer Phone Subscriber Number Group Number Insured Name Patient Relationship to Insured Coverage Start Date Coverage End Date MEDICARE OF [place] [address] [place] [address] [id number] SHERLY MARIN Self - patient is the insured [employer] CLAIMS [address] [place] [address] [id number] SHERLY MARIN Self - patient is the insured MEDICAL (GENERAL) HISTORY Medical History History ICD Code Screening Colonoscopy 04-30-2009--1 small tubular adenoma removed Reports neg. CT and MRI of abdomen in Hypertension Denies NE,DM,CVA,renal disease Peripheral neuropathy in feet Atrial fibrillation Asthma Colonoscopy in 01/2015-2 small tubular ad enomas removed 11/2023 and 12/2023 with hospitalizations for CHF--Dr. Reveles Some emphysema/asthma-Dr. Hernández Surgical History Surgery Date(Month/Year) Eye lid surgery Cataract-lens implants-left
--- OUTSIDE RECORDS SUMMARY | 2024-09-29 11:18 | XMS_ITS ---
Author Organization [facility] Address [address] [place] [address] Care Team Providers Care Glass Maker Name Role Phone Ignacio LOZOYA, Yonis Primary Care Provider Chris French Unavailable [phone] ALLERGIES No Known Allergies REASON FOR VISIT patient presents today for change in bowels MEDICATIONS Medication SIG (Take, Route, Frequency, Duration) Notes Start Date End Date Status Tylenol PRN Active Eliquis 5 MG TAKE 1 TABLET BY FERNANDO TH TWICE A DAY Oral for 90 Active Breo Ellipta 100-25 MCG/ACT Inhalation for 30 Active Finasteride 5 MG TAKE 1 TABLET BY FERNANDO TH EVERY DAY Oral for 90 Active Brimonidine Tartrate 0.2 % INSTILL 1 JENI P INTO BOTH EYES TWICE A DAY Ophthalmic for 25 Active Albuterol Sulfate HFA 108 (90 Base) MCG/ACT Inhalation Active Budesonide-Formoterol Fumarate 160-4.5 MCG/ACT Inhalation Act eric MiraLax 17 GM Orally PRN Active Probiotic Active Apixaban 5 MG Orally Active amLODIPine Besylate 10 MG TAKE 1 TABLET BY MOUTH EVERY DAY Oral for 90 Active Fiber Choice 1.5 GM as directed Orally t wice a day Active Losartan Potassium 100 MG TAKE 1 TABLET EVERY DAY Oral for 90 Active Carvedilol 6.25 MG TAKE 1 TABLET BY FERNANDO TH TWICE A DAY Orally Active Xiidra 5 % Ophthalmic for 90 A ctive VITAL SIGNS BMI 25.54 kg/m2 04/29/2024 Blood pressure systolic 00 mm Hg 04/29/20 24 Blood pressure diastolic 00 mm Hg 024 Height 68 in 04/29/2024 Weight 168 lbs 04/29/2024 Encounters Encounter Location Date Provider Diagnosis [facility] [address] [place] [address] 04/29/2024 Chris Tomlin Change in bowel habits R19.4 ASSESSMENTS Encounter Date Diagnosis Assessment Notes Treatment Notes Treatment Clinical Notes 04/29/2024 Change in bowel habits (ICD-10 - R19.4) Continue the fiber pills, stool softeners, and probiotics. Call me if things worsen with the BM's PLAN OF TREATMENT Treatment Notes Assessment Notes Change in bowel habits Continue the fibe r pills, stool softeners, and probiotics. Call me if things worsen with the BM's Next Appt Details Follow Up: prn, Reason: Progress Notes * Examination Category Sub-Category Detail Notes General Examination GENERAL APPEARANCE: pleasant , well nourished, well developed, in no acute distress HEAD: EYES: sclera non-icteric EARS: NOSE: THROAT: NECK/THYROID: no cervical lymphade nopathy, neck supple HEART: S1, S2 normal CHEST: LUNGS: clear to auscultatio n bilaterally ABDOMEN: normal bowel sounds, no guarding or rigidity, no guarding or rigidity, no masses palpable, soft, nontender, nondistended NEUROLOGIC: alert and oriented SKIN: nonjaundiced, no spi ambika angiomata EXTREMITIES: no edema PERIPHERAL PULSES: BACK: BREASTS: MUSCULOSKELETAL: MALE GENITOURINARY: LYMPH NODES: RECTAL EXAM: FEMALE GENITOURINARY: ORAL CAVITY: mucosa moist
--- OUTSIDE RECORDS SUMMARY | 2024-09-29 11:18 | XMS_ITS ---
Author Organization [facility] Address [address] [place] [address] Care Team Providers Care Animal Husbandman Name Role Phone Yonis Pierre MD Primary Care Provider Unavailab Chris Paris [phone] REASON FOR VISIT change in bowels Encounters Encounter Location Date Provider Diagnosis [facility] [address] [place] [address] 03/17/2024 Chris Tomlin Change in bowel habits R19.4 ASSESSMENTS Encounter Date Diagnosis Assessment Notes Treatment Notes Treatment Clinical Notes 03/17/2024 Change in bowel habits (ICD-10 - R19.4) PLAN OF TREATMENT Pending Test Test Name Order Date Hemoccult Cards (Non-Screening) 03/17/20 24 CBC w DIFF 03/17/2024
--- OUTSIDE RECORDS SUMMARY | 2024-09-29 11:18 | XMS_ITS ---
Author Organization [facility] Address [address] [facility] [place] [address] Care Team Providers Care Public Health Technician Name Role Phone Yonis Pierre Primary Care Provider Jennifer Thurman [phone] REASON FOR VISIT Purchased Riverside Pad 1/4 size Encounters Encounter Location Date Provider Diagnosis [facility] [address] [place] [address] 05/19/2024 Jennifer Marks Plan Of Treatment Next Appt Details Provider Name:Jennifer Marks , 12/08/2024 03:30:00 PM, [address] [place], [address], Progress Notes * Junior MARIN RDOB:[birth year] (83 yo M)Acc No.[id number]:05/19/2024 Patient:?Junior Marin :1940???Age:83 Y???Sex:Male Address:[address] [place] [address] * true * Date:? Generated for Printi ng/Arthur/eTransmitting on:?09/29/2024 11:17 AM EST
== END 2024-09-29 11:16 | disposition home or self-care (01) ==
LOC: HO.CT 11:15
PROVIDERS: PCP Internal Medicine; Visit Provider Internal Medicine Pulmonary Disease
DX: R91.8 Other nonspecific abnormal finding of lung field (principal)
CPT/HCPCS: 71250

== ENCOUNTER 2024-11-12 13:42 | Outpatient (AMB) | payer MEDICARE, SELFPAY ==
--- NOTE | 2024-11-12 13:43 | A.OFFVIS_ITS ---
Vital Signs 11/12/24 13:45 Height 5 ft 9 in Weight 174 lb BMI 25.7 BP 150/72 H Blood Pressure Location Lt brachial Position Sitting Respiration 16 Pulse 78 Pulse Source Pulse Oximeter Pulse Oximetry (%) 97 Oxygen Delivery Method Room Air Intake Visit Reasons: Asthma Tender Coordinator Required: No Allergies latex Allergy (Verified 11/12/24 13:47) Unknown maple Allergy (Mild, Uncoded 11/12/24 13:47) Unknown Medication List - Last Reconciled 11/12/24 by Sylvie Taylor LPN albuterol sulfate 90 mcg/actuation 2 puffs inhalation Q4-6H PRN amlodipine 10 mg PO DAILY apixaban (Eliquis) 5 mg PO BID carvedilol 6.25 mg PO BID finasteride 5 mg PO DAILY fluticasone furoate-vilanterol 100-25 mcg/dose (Breo Ellipta) 1 ea inhalation DAILY lifitegrast 5% (Xiidra) 1 drp ophthalmic (eye) BID losartan 100 mg PO DAILY timolol maleate 0.5% 1 drp ophthalmic (eye) BID vit C,P-Yb-bhdja-lutein-zeaxan 250-90-40-1 mg (PreserVision AREDS-2) 1 tab PO BID walker (Ultra-Light Rollator misc) As directed HPI HPI Asthma: Details: 83-year-old gentleman, former 40 pack-year smoker, quit over 20 years prior with underlying AFib on anticoagulation and rate control followed for moderate asthma/COPD overlap syndrome. Patient has been using Breo and albuterol MDI with reasonable control of his symptoms. He does complain today of slowly worsening cough productive of greenish sputum. Patient is also complain of worsening lower extremity edema in his CT chest demonstrated slowly worsening bilateral pleural effusions right greater than left. [facility] Medical History (Updated 04/22/24 @ 13:33 by Garry Hernández MD) Chronic atrial fibrillation Acute respiratory failure with hypoxia CHF exacerbation Atrial fibrillation with RVR (HFpEF) heart failure with preserved ejection fraction Asthma Mitral valve insufficiency Macular degeneration Former smoker HTN (hypertension) Social History Household Members: Spouse Housing: House Do you presently have visiting nurse or other home services: Yes Patient Tobacco Use Status: Former Tobacco user Advance Directives Date on File: 12/05/23 service: No Review of Systems Const Denies daytime sleepiness, Denies excessive sweating, Denies fatigue, Denies fever(s), Denies lethargy, Denies malaise, Denies night sweats, Denies snoring and Denies weight loss Eyes Denies blurry vision and Denies itchy eyes ENT Denies nasal congestion, Denies post nasal drip, Denies sinus pain, Denies sinus pressure and Denies other ( Thrush) Card Denies chest pain, Reports pedal edema, Denies dyspnea, Denies orthopnea and Denies paroxysmal nocturnal dyspnea Resp Reports cough, Denies hemoptysis, Reports excessive phlegm production, Denies dyspnea, Denies snoring and Denies wheezing GI Denies abdominal pain and Denies heartburn Musc Denies myalgias, Denies arthralgias and Denies joint swelling Skin/Breast Denies rash Neuro Denies memory loss and Denies seizure-like activity Psych Denies abnormal sleep pattern, Denies anxiety and Denies memory loss Endo Denies excessive sweating, Denies fatigue and Denies heat intolerance Salvatore/Lymph Denies easy bruising Aller/Immun Denies itchy eyes, Denies seasonal rhinorrhea and Denies wheezing Physical Exam Vital Signs: Last Vital Signs Pulse 78 11/12/24 13:45 Resp 16 11/12/24 13:45 BP 150/72 H 11/12/24 13:45 Pulse Ox 97 11/12/24 13:45 Oxygen Delivery Method Room Air 11/12/24 13:45 BMI result Body Mass Index 25.7 Const General: no acute distress and alert Nutritional Appearance: not obese Orientation/consciousness: Other orientation findings ( oriented) HEENT Head: Yes atraumatic Eyes General: appearance normal, both eyes and all related structures Sclerae: sclerae normal EOM: EOMs intact bilaterally Neck Neck: Yes supple Lymphatic: no lymphadenopathy noted Resp Effort & Inspection: normal respiratory effort and no use of accessory muscles Auscultation: clear to auscultation bilaterally Cardio Rate: regular rate Rhythm: regular rhythm Heart sounds: no gallops, no murmurs and no rubs Skin General skin exam: other ( warm) Extrem General: No clubbing, No cyanosis and No edema Assessment & Plan Assessment & Plan (1) Asthma-COPD overlap syndrome: Code(s): J44.89 - Other specified chronic obstructive pulmonary disease Category: Medical Plan: Baseline controlled on Breo and albuterol MDI. Now with slowly worsening productive cough, will treat with a course of Levaquin. (2) Pulmonary nodules: Code(s): R91.8 - Other nonspecific abnormal finding of lung field Category: Medical Plan: Results of follow-up CT chest not available for this visit, on my review slowly worsening bilateral pulmonary effusions with no significant changes in underlying nodules. Medications: New levofloxacin 500 mg PO DAILY 7 tabs 0RF Coding Level of Care Code Est Pt Level 4 (74324) Diagnoses Asthma-COPD overlap syndrome J44.89 Pulmonary nodules R91.8
[2024-11-12 13:45] VITALS: BP 150/72; PULSE 78; RESP 16; O2SAT 97; BMI 25.7
--- OUTSIDE RECORDS SUMMARY | 2024-11-12 15:56 | XMS_ITS | Continuity of Care Document ---
Author Organization [facility] Address [address] [place] [address]- Care Team Providers Care Nurse Outreach Case Manager Name Role Phone Yonis Pierre MD Primary Care Physician Encounter 10/13/24 - 10/20/24 [facility] [address], [address] [place] [address]- Attending Physician: Yonis Pierre MD Admitting Physician: Yonis Pierre MD Referring Physician: Yonis Pierre MD Encounter Type: OutPatient One Time Allergies, Adverse Reactions, Alerts Substance Criticality Severity Reaction Reaction Severity Status tamsulosin 1 Active angiotensin converting enzym e inhibitors cough Active Ragweed Active Latex Active Adhesive Bandage Act eric 1dizzy Immunizations Given and Recorded Vaccine Date Status Refusal Reason RSV vaccine, preF A-preF B, recombinant 08/13/24 R ecorded influenza virus vaccine, inactivated 07/07/24 Xavier rded influenza virus vaccine, inactivated 07/12/23 Xavier rded influenza virus vaccine, inactivated 07/11/22 Xvaier rded influenza virus vaccine, inactivated 1 07/04/18 [...] vaccine, inactivated 5 07/18/11 Gi patrick SARS-CoV-2(COVID-19)mRNA-LNP vac([id number]) 07/07/24 Recorded SARS-CoV-2(COVID-19)mRNA-LNP vac([id number]) 07/12/23 Recorded pneumococcal 20-valent conjugate vaccine 12/13/23 Given [id number] 12y+ bivalent booster vax 07/11/22 Recorded tetanus/diphtheria/pertussis, acel(Tdap) 02/16/22 Given SARS-CoV-2 mRNA (memrnge-xdim-wmuqg) vax 01/12/22 Recorded SARS-CoV-2 (COVID-19) mRNA BNT-162b2 [...] Inactive (IM) (oldterm) 08/16/07 Given 1Location History: [facility] 2Result Comment: [08/09/2017] [facility] 3Result Comment: [07/24/2016] RECEIVED AT [facility] HIGH DOSE 4Admin Note: given at [facility] on 08/17/13 5Admin Note: [facility] 6Admin Note: per pt rcvd eklsewhere 7Location History: [facility] 8Admin Note: PER CHART HISTORICAL 9Admin Note: per pt rcvd elsewhere Medications Aerochamber See Instructions, # 1 units, Maintenance, use w/ albuterol MDI, 12/13/15 5:06:18 PM EST, Compound Start Date: 12/13/15 Status: Ordered Quantity: 1.0 Unit: Units Repeat number: 1 amLODIPine 10 mg oral tablet 1 tablet, By Mouth, Daily, # 90 tablet, 1 Refills, Maintenance, 09/28/24 8:58:00 AM EST, [facility], 172.1, cm, 09/08/24 14:54:00 EST, Height Start Date: 09/28/24 Status: Ordered Quantity: 90.0 Unit: tablet Repeat number: 1 Azithromycin 5 Day Dose Pack 250 mg oral tablet 1 pack/packet, By Mouth, Once, # 6 tablet, 0 Refills, Soft Stop, 09/08/24 6:12:00 PM EST, Tablet, [facility]/pharmacy #[id number], Partial fill upon patient request if the prescription is for a schedule II opioiddrug., 172.1, cm, 09/08/24 14:54:00 EST, Height Start Date: 09/08/24 Status: Ordered Quantity: 6.0 Unit: tablet Repeat number: 1 Breo Ellipta 100 mcg-25 mcg/inh inhalation powder 1 puffs, Inhalation, Daily, # 1 each, 11 Refills, Maintenance, 11/06/23 1:34:00 PM EST, [id number], Partial fill upon patient request if the [...] 12:23:00 PM EDT, Route to Pharmacy Electronically, [facility], 172.1, cm, 12/13/23 10:21:00 EST, Height Start Date: 12/24/23 Status: Ordered Quantity: 180.0 Unit: tablet Repeat number: 1 Eliquis 5 mg oral tablet 1 tablet, By Mouth, 2 times a day, # 180 tablet, 3 Refills, Maintenance, 10/01/24 5:05:00 PM EST, [facility] 33996, 172.1, cm, 09/08/24 14:54:00 EST, Height Start Date: 10/01/24 Status: Ordered Quantity: 180.0 Unit: tablet Repeat number: 1 finasteride 5 mg oral tablet 1 tablet [...] 3 Refills, Maintenance, 12/24/23 12:23:00 PM EDT, [facility] 47557, 172.1, cm, 12/13/23 10:21:00 EST, Height Start [...] Status: Ordered Repeat number: 1 Vitamin D 46803 iu oral capsule 50,000 International_Units, By Mouth, [...] without urinary obstruction aua score 16 Confirmed 01/02/20 Active Cataract, bilateral Confirmed Active Cataract of [...] dry Confirmed Active AF (paroxysmal atrial fibrillation) [id number] 3 Confirmed 07/05/20 Active Peripheral sensory neuropathy 5 Confirmed Active SCC (squamous cell carcinoma) Confirmed Active 1tubularv adenoma 01-20-1915 2multilevel DJD 3advised pre diabetic 4refer 5normal B12, A1c spep Results Radiology Reports * Exam Date Time Procedure Performing Provider Status 10/13/24 11:37 AM Chest 2 Views Frontal and Lat Bryda , Светлана; Auth (Verified) Notes: (Chest 2 Views Frontal and Lat) Reason For Exam: Cough RESULT: Chest 2 Views Frontal and Lat Chest 2 Views Frontal and Lat Reason: Cough COMPARISON: 09/08/2024 FINDINGS: LINES AND TUBES: None. LUNGS AND PLEURA: Clear lungs. Normal pulmonary vascularity. Trace to small volume pleural effusions, right greater than left, with small subpulmonic component on the right persists. No pneumothorax. HEART, MEDIASTINUM AND INÉS: Similar mild cardiomegaly. Aortic atherosclerosis. BONES AND SOFT TISSUES: No acute abnormality. IMPRESSION: No radiographic change compared to 09/08/2024. Trace to small pleural effusions. WSN: [id number] Ordering Physician: Yonis Pierre Dictated By: Deanna Wick MD Dictated Date/Time: 10/13/24 12:47 p Reviewed By: Deanna Wick MD Signed By: Deanna Wick MD Signed Date/Time: 10/13/24 12:47 pm Transcribed By: LYRIC Transcribed Date/Time: 10/13/24 12:46 pm Social History Social History Type Response Smoking Status Former smoker; Type: Cigarettes; Number of years: 51; Total pack years: 51; Started at age: 12; Stopped at age: 63; entered on: 02/11/14 Sex Sex Representation Male (finding) Patient Care team information Care Team Personnel Name: Mary Villavicencio NP Position: [facility] Associate Professional Member Role: Lifetime Consulting Provider Address: [address] [place] [address]- Telecom: Name: Yonis Pierre MD Position: [facility] Physician - Primary Care Member Role: PCP Address: [address] [place] [address]- Telecom: Care Team Related Persons Name: JADE NIEVES Name: LANEY NIEVES Insurance Providers Guarantor name: SHERLY NIEVES Health Plan Information #: 1 Payer: MEDICARE PART B OUTPT Member Number: [id number] Policy Number: NA Group Number: NA Health Plan Information #: 2 Payer: MEDEX Member Number: [id number] Policy Number: NA Group Number: NA
--- OUTSIDE RECORDS SUMMARY | 2024-11-12 15:56 | XMS_ITS | Continuity of Care Document ---
Author Organization [facility] Jorge Shook Azael lt Address [address] [place] [address]- Care Team Providers Care General Superintendent Name Role Phone Yonis Pierre MD Primary Care Physician [phone] Encounter [facility] Date(s): 10/28/24 - 11/04/24 [facility] Jorge Shook Adult [address] [place] [address]- Attending Physician: Yonis Pierre MD Encounter Type: Office Visit Allergies, Adverse Reactions, Alerts Substance Criticality Severity Reaction Reaction Severity Status tamsulosin 1 Active angiotensin converting enzym e inhibitors cough Active Adhesive Bandage Act eric Ragweed Active Latex Active 1dizzy Immunizations Given and Recorded [...] vaccine, inactivated 5 07/18/11 Gi patrick SARS-CoV-2(COVID-19)mRNA-LNP vac(lkw305) 07/07/24 Recorded SARS-CoV-2(COVID-19)mRNA-LNP vac(qwl827) 07/12/23 Recorded pneumococcal 20-valent conjugate vaccine 12/13/23 Given YOHZ-ArS-0zZCM 12y+ bivalent booster vax 07/11/22 Recorded tetanus/diphtheria/pertussis, acel(Tdap) 02/16/22 Given SARS-CoV-2 mRNA (tertpfr-xbnx-xwaxb) vax 01/12/22 Recorded SARS-CoV-2 (COVID-19) mRNA BNT-162b2 [...] Inactive (IM) (oldterm) 08/16/07 Given 1Location History: [facility] 2Result Comment: [08/09/2017] [facility] 3Result Comment: [07/24/2016] RECEIVED AT [facility] 4Admin Note: given at [facility] on 08/17/13 5Admin Note: [facility] 6Admin Note: per pt rcvd eklsewhere 7Location History: [facility] 8Admin Note: PER CHART HISTORICAL 9Admin Note: per pt rcvd elsewhere Medications Aerochamber See Instructions, # 1 units, Maintenance, use w/ albuterol MDI, 2/29/16 5:06:18 PM EST, Compound Start Date: 12/13/15 Status: Ordered Quantity: 1.0 Unit: Units Repeat number: 1 amLODIPine 10 mg oral tablet 1 tablet, By Mouth, Daily, # 90 tablet, 1 Refills, Maintenance, 09/28/24 8:58:00 AM EST, [facility], 172.1, cm, 09/08/24 14:54:00 EST, Height Start Date: 09/28/24 Status: Ordered Quantity: 90.0 Unit: tablet Repeat number: 1 Breo Ellipta 100 mcg-25 mcg/inh inhalation powder 1 puffs, Inhalation, Daily, # 1 each, 11 Refills, Maintenance, 11/06/23 1:34:00 PM EST, [facility]#[id number], Partial fill upon patient request if the [...] 12:23:00 PM EDT, Route to Pharmacy Electronically, [facility] 55430, 172.1, cm, 12/13/23 10:21:00 EST, Height Start Date: 12/24/23 Status: Ordered Quantity: 180.0 Unit: tablet Repeat number: 1 Eliquis 5 mg oral tablet 1 tablet, By Mouth, 2 times a day, # 180 tablet, 3 Refills, Maintenance, 10/01/24 5:05:00 PM EST, [facility] 06207, 172.1, cm, 09/08/24 14:54:00 EST, Height Start [...] 12/24/23 12:23:00 PM EDT, [facility] 8[facility]60, 172.1, cm, 12/13/23 10:21:00 EST, Height Start [...] Status: Ordered Repeat number: 1 Vitamin D 77015 iu oral capsule 50,000 International_Units, By Mouth, [...] dry Confirmed Active AF (paroxysmal atrial fibrillation) [id number] 3 Confirmed 07/05/20 Active Peripheral sensory neuropathy 5 Confirmed Active SCC (squamous cell carcinoma) Confirmed Active 1tubularv adenoma 01-20-1915 2multilevel DJD 3advised pre diabetic 4refer 5normal B12, A1c spep Vital Signs Most recent to oldest [Reference Range]: 1 Height 172.1 cm (10/28/24 2:39 PM) Weight 78.2 kg (10/28/24 2:39 PM) Oxygen Saturation [94-100 %] 100 % (10/28/24 2:39 PM) Pulse Rate [55-90 bpm] 70 bpm (10/28/24 2:39 PM) Body Mass Index [18.5-24.99 kg/m2] 26.4 kg/m2 *H* (10/28/24 2:39 PM) Blood Pressure [90-138/55-84 mm Hg] 119/ 58mm Hg (10/28/24 2:39 PM) Temperature [96.8-100.4 DegF] 98.0 DegF (10/28/24 2:39 PM) Blood pressure sites Arm, left (10/28/24 2:39 PM) Temperature Route Oral (10/28/24 2:39 PM) Weight Obtained Via Standing scale (10/28/24 2:39 PM) Social History Social History Type Response Smoking Status Former smoker; Type: Cigarettes; Number of years: 51; Total pack years: 51; Started at age: 12; Stopped at age: 63; entered on: 02/11/14 Sex Sex Representation Male (finding) Patient Care team information Care Team Personnel Name: Saud PROGRAM PROJECT ANALYST, Mary Vázquez Position: [facility] Associate Professional Member Role: Lifetime Consulting Provider Address: [address] [place] [id number] Telecom: Name: Yonis Pierre MD Position: [facility] Physician - Primary Care Member Role: PCP Address: [address] [place] [id number] Telecom: Care Team Related Persons Name: JADE NIEVES Name: LANEY NIEVES Insurance Providers Guarantor name: SHERLY NIEVES Health Plan Information #: 1 Payer: MEDICARE PART B OUTPT Member Number: [id number] Policy Number: NA Group Number: NA Health Plan Information #: 2 Payer: MEDEX Member Number: [id number] Policy Number: NA Group Number: NA
--- OUTSIDE RECORDS SUMMARY | 2024-11-12 15:56 | XMS_ITS | Continuity of Care Document ---
Author Organization [facility] Azael lt Address [address] [place] [address]- Care Team Providers Care Jewelry Dipper Name Role Phone Ignacio LOZOYA, Yonis Crews Primary Care Physician Encounter [facility] Date(s): 09/12/24 - 10/12/24 [facility] Jorge Shook Adult [address] [place] [address]- Encounter Type: Triage Allergies, Adverse Reactions, Alerts Substance Criticality Severity [...] vaccine, inactivated 5 07/18/11 Gi patrick SARS-CoV-2(COVID-19)mRNA-LNP vac(ods454) 07/07/24 Recorded SARS-CoV-2(COVID-19)mRNA-LNP vac(gtb832) 07/12/23 Recorded pneumococcal 20-valent conjugate vaccine 12/13/23 Given RPFS-TyO-3bDZN 12y+ bivalent booster vax 07/11/22 Recorded tetanus/diphtheria/pertussis, acel(Tdap) 02/16/22 Given SARS-CoV-2 mRNA (vhykwzu-jjun-nudut) vax 01/12/22 Recorded SARS-CoV-2 (COVID-19) mRNA BNT-162b2 [...] [facility] 2Result Comment: [08/09/2017] [facility] 3Result Comment: [07/24/2016] RECEIVED AT [facility] HIGH DOSE 4Admin Note: given at [facility] on 08/17/13 5Admin Note: [facility] 6Admin Note: per pt rcvd eklsewhere 7Location History: [facility] 8Admin Note: PER CHART HISTORICAL 9Admin Note: per pt rcvd elsewhere Medications Aerochamber See Instructions, # 1 units, Maintenance, use w/ albuterol MDI, 12/13/15 5:06:18 PM EST, Compound Start Date: 12/13/15 Status: Ordered Quantity: 1.0 Unit: Units Repeat number: 1 amLODIPine 10 mg oral tablet 1 tablet, By Mouth, Daily, # 90 tablet, 1 Refills, Maintenance, 09/28/24 8:58:00 AM EST, [facility], 172.1, cm, 09/08/24 14:54:00 EST, Height Start Date: 09/28/24 Status: Ordered Quantity: 90.0 Unit: tablet Repeat number: 1 Azithromycin 5 Day Dose Pack 250 mg oral tablet 1 pack/packet, By Mouth, Once, # 6 tablet, 0 Refills, Soft Stop, 09/08/24 6:12:00 PM EST, Tablet, [facility]/pharmacy #[id number], Partial fill upon patient request [...] 12:23:00 PM EDT, Route to Pharmacy Electronically, [facility] 32715, 172.1, cm, 12/13/23 10:21:00 EST, Height Start Date: 12/24/23 Status: Ordered Quantity: 180.0 Unit: tablet Repeat number: 1 Eliquis 5 mg oral tablet 1 tablet, By Mouth, 2 times a day, # 180 tablet, 3 Refills, Maintenance, 10/01/24 5:05:00 PM EST, [facility], 172.1, cm, 09/08/24 14:54:00 EST, Height Start [...] 3 Refills, Maintenance, 12/24/23 12:23:00 PM EDT, [facility] 93536, 172.1, cm, 12/13/23 10:21:00 EST, Height Start [...] Status: Ordered Repeat number: 1 Vitamin D 84650 iu oral capsule 50,000 International_Units, By Mouth, [...] without urinary obstruction aua score 16 Confirmed 320/20 Active Cataract, bilateral Confirmed Active Cataract of [...] dry Confirmed Active AF (paroxysmal atrial fibrillation) [id number] 3 Confirmed 07/05/20 Active Peripheral sensory neuropathy 5 Confirmed Active SCC (squamous cell carcinoma) Confirmed Active 1tubularv adenoma 01-20-1915 2multilevel DJD 3advised pre diabetic 4refer 5normal B12, A1c spep Social History Social History Type Response Smoking Status Former smoker; Type: Cigarettes; Number of years: 51; Total pack years: 51; Started at age: 12; Stopped at age: 63; entered on: 02/11/14 Sex Sex Representation Male (finding) Patient Care team information Care Team Personnel Name: Saud CONTINUOUS IMPROVEMENT COACH, Mary Vázquez Position: [facility] Associate Professional Member Role: Lifetime Consulting Provider Address: [address] [place] [id number] Telecom: Name: Yonis Pierre MD Position: [facility] Physician - Primary Care Member Role: PCP Address: [address] [place] [id number] Telecom: Care Team Related Persons Name: JADE NIEVES Name: LANEY NIEVES Insurance Providers Guarantor name: SHERLY NIEVES Health Plan Information #: 1 Payer: MEDICARE PART B OUTPT Member Number: NA Policy Number: NA Group Number: NA Health Plan Information #: 2 Payer: MEDEX Member Number: NA Policy Number: NA Group Number: NA
--- OUTSIDE RECORDS SUMMARY | 2024-11-12 15:56 | XMS_ITS | Continuity of Care Document ---
Author Organization [facility] Jorge Shook Azael lt Address [address] [place] [address]- Care Team Providers Care Nut Blanker Operator Name Role Phone Ignacio LOZOYA, Yonis Crews Primary Care Physician [phone] Encounter [facility] Date(s): 09/15/24 - 10/15/24 [facility] Jorge Shook Adult [address] [place] [address]- Encounter Type: Triage Allergies, Adverse Reactions, Alerts [...] vaccine, inactivated 5 07/18/11 Gi patrick SARS-CoV-2(COVID-19)mRNA-LNP vac(xes277) 07/07/24 Recorded SARS-CoV-2(COVID-19)mRNA-LNP vac(gyv064) 07/12/23 Recorded pneumococcal 20-valent conjugate vaccine 12/13/23 Given [id number]-7yUSI 12y+ bivalent booster vax 07/11/22 Recorded tetanus/diphtheria/pertussis, acel(Tdap) 02/16/22 Given SARS-CoV-2 mRNA (noyviby-jwrj-bzqfb) vax 01/12/22 Recorded SARS-CoV-2 (COVID-19) mRNA BNT-162b2 [...] Inactive (IM) (oldterm) 08/16/07 Given 1Location History: [facility] 2Result Comment: [08/09/2017] [facility] 3Result Comment: [07/24/2016] RECEIVED AT [facility] HIGH DOSE 4Admin Note: given at [facility] on 08/17/13 5Admin Note: [facility] 6Admin Note: per pt rcvd eklsewhere 7Location History: [facility] 8Admin Note: PER CHART HISTORICAL 9Admin Note: per pt rcvd elsewhere Medications Aerochamber See Instructions, # 1 units, Maintenance, use w/ albuterol MDI, 12/13/15 5:06:18 PM EST, Compound Start Date: 12/13/15 Status: Ordered Quantity: 1.0 Unit: Units Repeat number: 1 amLODIPine 10 mg oral tablet 1 tablet, By Mouth, Daily, # 90 tablet, 1 Refills, Maintenance, 09/28/24 8:58:00 AM EST, [facility], 172.1, cm, 09/08/24 14:54:00 EST, Height Start Date: 09/28/24 Status: Ordered Quantity: 90.0 Unit: tablet Repeat number: 1 Azithromycin 5 Day Dose Pack 250 mg oral tablet 1 pack/packet, By Mouth, Once, # 6 tablet, 0 Refills, Soft Stop, 09/08/24 6:12:00 PM EST, Tablet, [facility]/pharmacy #[id number], Partial fill upon patient request [...] 12:23:00 PM EDT, Route to Pharmacy Electronically, [facility]1824, 172.1, cm, 12/13/23 10:21:00 EST, Height Start Date: 12/24/23 Status: Ordered Quantity: 180.0 Unit: tablet Repeat number: 1 Eliquis 5 mg oral tablet 1 tablet, By Mouth, 2 times a day, # 180 tablet, 3 Refills, Maintenance, 10/01/24 5:05:00 PM EST, [facility] 92292, 172.1, cm, 09/08/24 14:54:00 EST, Height Start [...] 3 Refills, Maintenance, 12/24/23 12:23:00 PM EDT, [facility] 80906, 172.1, cm, 12/13/23 10:21:00 EST, Height Start [...] Status: Ordered Repeat number: 1 Vitamin D 25745 iu oral capsule 50,000 International_Units, By Mouth, [...] dry Confirmed Active AF (paroxysmal atrial fibrillation) [id number] 3 Confirmed 07/05/20 Active Peripheral sensory neuropathy [...] team information Care Team Personnel Name: Saud MANPOWER DEVELOPMENT MANAGER, Mary Vázquez Position: [facility] Associate Professional Member Role: Lifetime Consulting Provider Address: [address] [place] [id number] Telecom: Name: Yonis Pierre MD Position: [facility] Physician - Primary Care Member Role: PCP Address: [address] [place] [id number] Telecom: Care Team Related Persons Name: JADE NIEVES Name: LANEY NIEVES Insurance Providers Guarantor name: SHERLY NIEVES Health Plan Information #: 1 Payer: MEDICARE PART B OUTPT Member Number: NA Policy Number: NA Group Number: NA Health Plan Information #: 2 Payer: MEDEX Member Number: NA Policy Number: NA Group Number: NA
== END 2024-11-12 14:08 | disposition home or self-care (01) ==
PROVIDERS: PCP Internal Medicine; Visit Provider Internal Medicine Pulmonary Disease
DX: J44.89 Other specified chronic obstructive pulmonary disease (principal); R91.8 Other nonspecific abnormal finding of lung field
CPT/HCPCS: 99214

== ENCOUNTER → 2024-11-12 13:42 | Outpatient (BNVA) | payer MEDICARE, SELFPAY | PROVIDERS: PCP Internal Medicine; Visit Provider Internal Medicine Pulmonary Disease | DX: J44.89 Other specified chronic obstructive pulmonary disease (principal); R91.8 Other nonspecific abnormal finding of lung field; I48.91 Unspecified atrial fibrillation; Z79.01 Long term (current) use of anticoagulants; Z87.891 Personal history of nicotine dependence | CPT/HCPCS: 99212 ==

== ENCOUNTER 2024-11-15 14:13 | Emergency (ER) | payer MEDICARE, SELFPAY ==
--- NOTE | ~2024-11-15 | XR_ITS ---
CLINICAL HISTORY: sob, hx chf 1 view chest x-ray Comparison: CR/SR - XR CHEST 2V - 12/20/23 18:22 EST Findings: Moderate right and mild left bibasilar patchy airspace opacity. Normal size heart. No acute fracture. IMPRESSION: Htpth-zvodlxz-ywhw-left bibasilar pneumonia. Continued plain film follow-up is recommended to ensure resolution, and to exclude underlying neoplasm. This document has been electronically signed by: Devon Cho MD on 11/15/2024 16:20:30
[2024-11-15 14:24] VITALS: BP 187/78; PULSE 80; O2SAT 97
[2024-11-15 14:28] VITALS: BP 165/77; PULSE 85; RESP 14; TEMP 37.1; O2SAT 96; BMI 25.2
[2024-11-15 14:45] LABS: MANUAL DIFF FLAG NO
[2024-11-15 14:47] LABS: Basophils Absolute Auto 0.1 X10*3/uL (0.0-0.2); Basophils Percent Auto 0.7 % (0-2); Eosinophils Absolute Auto 0.1 X10*3/uL (0.0-0.4); Eosinophils Percent Auto 1.1 % (0-4); Hematocrit 37.5 % (42.0-52.0); Hemoglobin 12.7 g/dl (14.0-18.0); Imm Gran Abs Auto 0.04 X10*3/uL (0.00-0.03); Imm Gran Pct Auto 0.5 % (0.0-0.4); Lymphocytes Absolute Auto 0.7 X10*3/uL (1.2-4.9); Lymphocytes Percent Auto 8.3 % (20-40); Mean Corpuscular HGB Conc 33.9 g/dl (31.0-36.0); Mean Corpuscular Hemoglobin 31.7 pg (27.0-33.0); Mean Corpuscular Volume 93.5 fL (80.0-98.0); Mean Platelet Volume 9.5 fL (9.4-12.4); Monocytes Absolute Auto 0.8 X10*3/uL (0.1-1.2); Monocytes Percent Auto 9.1 % (2-11); Neutrophils Absolute Auto 6.7 x10*3/uL (2.0-8.3); Neutrophils Percent Auto 80.3 % (45-73); Platelet Count 264 X10*3/uL (160-400); Red Blood Count 4.01 X10*6/uL (4.60-5.80); Red Cell Distribution Width 14.6 % (11.0-16.0); White Blood Count 8.3 X10*3/uL (4.8-10.8)
[2024-11-15 14:48] LABS: Appearance Urine Clear; Color Urine Yellow; Glucose Urine UA Negative (Negative); Leukocyte Esterase Urine Negative (Negative); Nitrite Urine Negative (Negative); PH 7.5 (5.0-9.0); UMIC TRIGGER UACC YES; Urine Blood Negative (Negative); Urine Ketones Negative (Negative); Urine Protein 30 (1+) mg/dL (Neg-Trace)
[2024-11-15 14:53] LABS: Bacteria Urine None Seen (None Seen); Hyaline Casts Urine 0-2 /LPF (0-2); RBC Urine 0-2 /HPF (0-2); Squamous Epithelial Cell Urine 0-2 /HPF (0-2); WBC Urine 0-5 /HPF (0-5)
[2024-11-15 15:01] LABS: Alanine Aminotransferase 24 U/L (0-40); Albumin Level 4.1 g/dL (3.5-5.0); Alkaline Phosphatase 106 U/L (39-117); Anion Gap 13 (12-20); Aspartate Amino Transferase 28 U/L (5-37); Bilirubin Total 0.6 mg/dL (0.0-1.0); Blood Urea Nitrogen 29 mg/dL (9-16); Calcium 9.1 mg/dL (8.4-10.2); Carbon Dioxide 23 mmol/L (22-29); Chloride 112 mmol/L (96-108); Creatinine Clr Calc Pharmacy 56.6; Estimated Glomerular Filt Rate > 60; Glucose Random 100 mg/dL (60-115); Potassium 5.3 mmol/L (3.3-5.1); Sodium 143 mmol/L (135-145); Total Protein 7.8 g/dL (6.5-8.0)
[2024-11-15 15:07] LABS: B Type Natriuretic Peptide 425 pg/mL (<100)
[2024-11-15 15:08] LABS: Troponin-I High Sensitivity 2.8 ng/L (<3.5-35.0)
[2024-11-15 15:27] LABS: Influenza A PCR NEGATIVE (Negative); Influenza B PCR NEGATIVE (Negative); Resp Syncy Virus RNA Qual PCR NEGATIVE (Negative); SARS COV2 PCR INHOUSE NEGATIVE (Negative)
--- NOTE | 2024-11-15 16:06 | ED_ITS ---
HPI - SOB/Dyspnea General Chief Complaint: Dyspnea Stated Complaint: SOB Time Seen by Provider: 11/15/24 16:05 Source: patient Mode of arrival: ambulatory Limitations: no limitations History of Present Illness ED Provider: Donis Reyes DO HPI Narrative: 83-year-old male with past medical history of asthma and COPD, heart failure with preserved ejection fraction, mitral valve insufficiency, hypertension, chronic atrial fibrillation on apixaban presents to the ED for progressively worsening shortness of breath. Pulmonology office visit from 11/12/2024 reviewed. Patient was not on diuretic therapy at that time. At that time he was noted to be on a controller inhaler of Breo and albuterol MDI with a productive cough treated with a 7 day course of levofloxacin. Patient has had 3 days of this antibiotic and has had no cough, fevers or chills. He does note that he had a 2 lb increase in weight today and was significantly short of breath shortly after waking when he stood and ambulated. This improved with rest. He has had no chest discomfort otherwise and denies nausea, vomiting or diarrhea. He does note some increased swelling in the bilateral lower extremities. He states in discussion with his hydroelectric plant mechanical engineer, he was advised to start on a diuretic therapy if his symptoms only worsened despite the levofloxacin. Patient and state they were quite concerned due to his severe illness last year with sepsis and wanted to be evaluated before his symptoms worsened. Patient also reports some urinary frequency compared to baseline today but otherwise denies dysuria, urgency, hematuria or low volume voids. Related Data Home Medications ?Medication ?Instructions ?Recorded ?Confirmed amlodipine 10 mg tablet 10 mg PO DAILY 12/02/23 11/12/24 apixaban 5 mg tablet (Eliquis) 5 mg PO BID 12/02/23 11/12/24 carvedilol 6.25 mg tablet 6.25 mg PO BID 12/02/23 11/12/24 finasteride 5 mg tablet 5 mg PO DAILY 12/02/23 11/12/24 lifitegrast 5 % eye drops in a 1 drp ophthalmic (eye) BID 12/02/23 11/12/24 dropperette (Xiidra) losartan 100 mg tablet 100 mg PO DAILY 12/02/23 11/12/24 timolol maleate 0.5 % eye drops 1 drp ophthalmic (eye) BID 12/02/23 11/12/24 vit C 250 mg-vit E 90 mg-zinc 40 1 tab PO BID 12/02/23 11/12/24 mg-copper 1 zg-btjggz-nvtisy capsule (PreserVision AREDS-2) Previous Rx's ?Medication ?Instructions ?Recorded walker (Ultra-Light Rollator misc) #1 ea 12/22/23 fluticasone furoate 100 1 ea inhalation DAILY #60 ea 09/15/24 mcg-vilanterol 25 mcg/dose inhalation powder (Breo Ellipta) albuterol sulfate 90 mcg/actuation 2 puff inhalation Q4-6H PRN for 10/01/24 aerosol inhaler wheezing #18 ea levofloxacin 500 mg tablet 500 mg PO DAILY #7 tabs 11/12/24 furosemide 20 mg tablet (Lasix) 20 mg PO DAILY 30 days #30 tabs 11/15/24 Allergies Allergy/AdvReac Type Severity Reaction Status Date / Time latex Allergy Unknown Verified 11/15/24 14:34 maple Allergy Mild Unknown Uncoded 11/12/24 13:47 Review of Systems 2 Review of Systems: Yes all other systems are reviewed and are negative [facility] Past Medical History Medical History (Updated 11/15/24 @ 18:50 by Donis Reyes DO) Chronic atrial fibrillation Acute respiratory failure with hypoxia CHF exacerbation Atrial fibrillation with RVR (HFpEF) heart failure with preserved ejection fraction Asthma Mitral valve insufficiency Macular degeneration Former smoker HTN (hypertension) Social History Social History Household Members: Spouse Housing: House Do you presently have visiting nurse or other home services: Yes Patient Tobacco Use Status: Former Tobacco user Advance Directives: Yes Advance Directives on File: Yes Advance Directives Date on File: 12/05/23 Do you have a plan to hurt others: No Plan service: No Physical Exam 2 Vital Signs: Vital Signs: Last Vital Signs Temp 97.4 F 11/15/24 18:29 Pulse 85 11/15/24 18:29 Resp 13 11/15/24 18:29 BP 133/59 L 11/15/24 18:29 Pulse Ox 98 11/15/24 18:29 O2 Del Method Room Air 11/15/24 18:29 BMI result Body Mass Index 25.2 Constitutional: ?Alert, oriented, speaking in full sentences HEENT: ?Normocephalic, atraumatic. ?Moist mucous membranes Eyes: ?PERRL, EOMI Neck: ?Supple, nontender, JVD noted Chest: ?No chest wall tenderness Respiratory: ?Faint bibasilar inspiratory crackles, no increased work of breathing Cardio: ?Regular rate and rhythm, no murmur, 2+ radial and DP pulses symmetrically, 1+ pitting edema of the bilateral lower extremities below the knees GI: ?Soft, nondistended, nontender Back: ?Normal range of motion, nontender Skin: ?No rash, no lesions Neuro: ?Alert and oriented to person, place and time, moves all 4 extremities, no focal deficits Extremities: ?No erythema or tenderness, full range of motion Psych: ?Calm, alert and cooperative, appropriate behavior Medications Administered Discontinued Medications Generic Name Dose Route Start Last Admin Trade Name Freq PRN Reason Stop Dose Admin Furosemide 20 mg 11/15/24 16:40 11/15/24 16:48 Furosemide 20 Mg/2 Ml Vial IVPUSH 11/15/24 16:41 20 mg ONCE ONE Administration Protocol Medical Decision Making Medical Decision Making [facility] Narrative: Patient presents with worsening dyspnea and lower extremity edema. There is no unilateral edema concerning for DVT or PE. Patient's vitals are stable with the exception of mild hypertension. Urinalysis is unremarkable for cystitis. Given his physical exam and bedside ultrasound showing bilateral pleural effusions and greater than 3 B lines it in the lower monahan, the patient will be treated with 20 mg IV furosemide. We will monitor for improvement to determine disposition with inpatient versus outpatient follow-up. Chest x-ray per Radiology interpretation shows bilateral pneumonia. The patient should complete his course of levofloxacin. Patient had significant urine output over 1 L after furosemide administration. He has had no recurrent dyspnea on exertion. At this time the working diagnosis is mild CHF exacerbation and the patient will be continued on 20 mg of furosemide at home starting tomorrow and follow up with his hydroelectric plant mechanical engineer and wood mechanist for further management. Patient has no further concerns and agrees with plan. Admission/Observation Consideration of admission/observation: Escalation of care including admission/observation considered Lab Data [facility] Lab Attestation statement: I reviewed the patient's lab results. Labs show baseline mild anemia, no leukocytosis, no thrombocytopenia, mild hyperkalemia at 5.3, hyperchloremia at 112, no renal impairment, unremarkable troponin at 2.8, elevated BNP 2 425, unremarkable urinalysis and negative respiratory swab. 11/15/24 14:41 11/15/24 14:41 Labs: Lab Results 11/15/24 Range/Units 14:41 WBC 8.3 (4.8-10.8) X10*3/uL RBC 4.01 L (4.60-5.80) X10*6/uL Hgb 12.7 L (14.0-18.0) g/dl Hct 37.5 L (42.0-52.0) % MCV 93.5 (80.0-98.0) fL MCH 31.7 (27.0-33.0) pg MCHC 33.9 (31.0-36.0) g/dl RDW 14.6 (11.0-16.0) % Plt Count 264 (160-400) X10*3/uL MPV 9.5 (9.4-12.4) fL Immature Gran % (Auto) 0.5 H (0.0-0.4) % Neut % (Auto) 80.3 H (45-73) % Lymph % (Auto) 8.3 L (20-40) % [place] % (Auto) 9.1 (2-11) % Eos % (Auto) 1.1 (0-4) % Baso % (Auto) 0.7 (0-2) % Lymph # (Auto) 0.7 L (1.2-4.9) X10*3/uL [place] # (Auto) 0.8 (0.1-1.2) X10*3/uL Eos # (Auto) 0.1 (0.0-0.4) X10*3/uL Baso # (Auto) 0.1 (0.0-0.2) X10*3/uL Abs Immat Gran (auto) 0.04 H (0.00-0.03) X10*3/uL Absolute Neuts (auto) 6.7 (2.0-8.3) x10*3/uL Absolute Nucleated RBC 0.000 (0.0-0.012) X10*3/uL Nucleated RBC % (auto) 0.0 (0.0-0.2) /100WBC Sodium 143 (135-145) mmol/L Potassium 5.3 H D (3.3-5.1) mmol/L Chloride 112 H (96-108) mmol/L Carbon Dioxide 23 (22-29) mmol/L Anion Gap 13 (12-20) BUN 29 H (9-16) mg/dL Creatinine 0.97 (0.5-1.4) mg/dL Estim Creat Clear Calc 56.6 Estimated GFR > 60 Random Glucose 100 (60-115) mg/dL Calcium 9.1 (8.4-10.2) mg/dL Total Bilirubin 0.6 (0.0-1.0) mg/dL AST 28 (5-37) U/L ALT 24 (0-40) U/L Alkaline Phosphatase 106 (39-117) U/L Troponin I High Sens 2.8 (<3.5-35.0) ng/L B-Natriuretic Peptide 425 H (<100) pg/mL Total Protein 7.8 (6.5-8.0) g/dL Albumin 4.1 (3.5-5.0) g/dL Urine Color Yellow Urine Appearance Clear Urine pH 7.5 (5.0-9.0) Ur Specific [place] 1.010 (1.005-1.025) Urine Protein 30 (1+) H (Neg-Trace) mg/dL Urine Glucose (UA) Negative (Negative) mg/dL Urine Ketones Negative (Negative) mg/dL Urine Blood Negative (Negative) Urine Nitrite Negative (Negative) Ur Leukocyte Esterase Negative (Negative) Urine RBC 0-2 (0-2) /HPF Urine WBC 0-5 (0-5) /HPF Ur Squamous Epith Cells 0-2 (0-2) /HPF Urine Bacteria None Seen (None Seen) Hyaline Casts 0-2 (0-2) /LPF Influenza Type A (PCR) NEGATIVE (Negative) Influenza Type B (PCR) NEGATIVE (Negative) RSV RNA Qual (PCR) NEGATIVE (Negative) SARS-CoV-2 RNA (RT-PCR) NEGATIVE (Negative) Independent Interpretation I performed an independent interpretation of an: EKG and Plain X-Ray (Chest x- ray per my independent interpretation shows diffuse pulmonary edema without pleural effusions.) Interpretation: Normal sinus rhythm at 97 beats per minute, right axis deviation, unremarkable intervals, no diagnostic ST or T-wave abnormalities, compared to prior dated 12/20/2023 there are no significant changes. Discharge Plan Discharge Clinical Impression: CHF exacerbation Patient Disposition: Still a Patient Instructions: Heart Healthy Diet (ED), Heart Failure (ED) Additional Instructions: You were evaluated for difficulty breathing. We found fluid in your lungs and around your lungs on our ultrasound. We also found your jugular vein to be distended as well as pitting edema in her legs. Your BNP was elevated over 400. These are all signs and symptoms of congestive heart failure exacerbation. You improved significantly after 20 mg of IV Lasix (furosemide). We started a prescription to take every morning, 20 mg (1 tablet). Please follow-up with your hydroelectric plant mechanical engineer and wood mechanist for further management of this and return with any worsening shortness of breath or any other acute concerns. Prescriptions: New furosemide [Lasix] 20 mg tablet 20 mg PO DAILY 30 Days Qty: 30 0RF No Action albuterol sulfate 90 mcg/actuation HFA aerosol inhaler 2 puff inhalation Q4-6H PRN (Reason: for wheezing) Qty: 18 0RF carvedilol 6.25 mg tablet 6.25 mg PO BID amlodipine 10 mg tablet 10 mg PO DAILY timolol maleate 0.5 % drops 1 drp ophthalmic (eye) BID Rx Instructions: both eyes losartan 100 mg tablet 100 mg PO DAILY finasteride 5 mg tablet 5 mg PO DAILY Eliquis 5 mg tablet 5 mg PO BID PreserVision AREDS-2 250-90-40-1 mg Capsule 1 tab PO BID Xiidra 5 % dropperette 1 drp ophthalmic (eye) BID Rx Instructions: both eyes (DME) Ultra-Light Rollator Misc See Rx Instructions .Route Qty: 1 0RF Rx Instructions: As directed fluticasone furoate-vilanterol [Breo Ellipta] 100-25 mcg/dose blister with device 1 ea INHALATION DAILY Qty: 60 6RF levofloxacin 500 mg tablet 500 mg PO DAILY Qty: 7 0RF Print Language: Cape Verdean
[2024-11-15 16:31] VITALS: BP 165/77; PULSE 93; RESP 12; O2SAT 97
[2024-11-15 16:34] VITALS: TEMP 36.4
[2024-11-15] MEDS: Furosemide 20 MG/2 ML VIAL IVPUSH (16:48)
--- NOTE | 2024-11-15 16:51 | ECG_ITS ---
Test Reason : sob Blood Pressure : */* mmHG Vent. Rate : 97 BPM Atrial Rate : * BPM P-R Int : * ms QRS Dur : 80 ms QT Int : 354 ms P-R-T Axes : * 93 82 degrees QTcB Int : 449 ms Atrial fibrillation Rightward axis Abnormal ECG When compared with ECG of 20-Dec-2023 17:40, No significant changes seen Referred By: Donis Reyes Electronically Signed By: DARREN CORREA
[2024-11-15 18:29] VITALS: BP 133/59; PULSE 85; RESP 13; TEMP 36.3; O2SAT 98
[2024-11-15 19:01] VITALS: BP 133/59; PULSE 85; RESP 13; TEMP 36.3; O2SAT 98
== END 2024-11-15 19:02 | disposition home or self-care (01) ==
PROVIDERS: Emergency Provider Emergency Medicine; PCP Internal Medicine
DX: I11.0 Hypertensive heart disease with heart failure (principal); I50.9 Heart failure, unspecified; R60.0 Localized edema; R06.02 Shortness of breath; R63.5 Abnormal weight gain; Z68.25 Body mass index [BMI] 25.0-25.9, adult; J45.909 Unspecified asthma, uncomplicated; I48.20 Chronic atrial fibrillation, unspecified; Z87.891 Personal history of nicotine dependence; Z03.818 Encounter for observation for suspected exposure to other biological agents ruled out; Z79.01 Long term (current) use of anticoagulants; Z79.899 Other long term (current) drug therapy
CPT/HCPCS: 0241U; 71045; 80053; 81001; 83880; 84484; 85025; 93005; 96374; 99284; 99285; J1940

== ENCOUNTER → 2024-11-15 14:53 | Outpatient (BNV) | payer MEDICARE, SELFPAY | PROVIDERS: Emergency Provider Emergency Medicine; PCP Internal Medicine; Visit Provider Radiology Diagnostic Radiology | DX: R06.02 Shortness of breath (principal) | CPT/HCPCS: 71045 ==

== ENCOUNTER → 2024-11-15 16:51 | Outpatient (BNV) | payer MEDICARE, SELFPAY | PROVIDERS: Emergency Provider Emergency Medicine; PCP Internal Medicine; Visit Provider Internal Medicine | DX: I48.91 Unspecified atrial fibrillation (principal) | CPT/HCPCS: 93010 ==

== ENCOUNTER 2024-11-28 12:33 | Outpatient (AMB) | payer MEDICARE, SELFPAY ==
--- OUTSIDE RECORDS SUMMARY | 2024-11-28 12:58 | XMS_ITS | Patient Health Record ---
Author Organization [facility] Address [address] [place] [address] Care Team Providers Care Corrections Cadet Name Role Phone Yonis Pierre MD Primary Care Provider UnavailChris Coffman Unavailable [phone] ALLERGIES No Known Allergies RESULTS Component Value Reference Range Notes Complete Blood Count Auto Di ff Reviewed date:03/24/2024 11:38:35 PM Interpretation: Performing Lab:[facility], [address] [place] [id number] Notes/Report: White Blood Count 6.5 4.8-10.8 X10*3/uL [...] yet reviewed by nacho urban) Interpretation: Performing Lab:[facility], [address] [place] [id number] Notes/Report: OBS1 NEGATIVE NEGATIVE OBS Date 1 [...] adenomatous polyp of colon (Z86.010) Active confirmed 131602178 Problem Change in bowel habits (R19.4) Active confirmed 487367171 Problem Rectal discharge (R19.8) Active confirmed Rectal discharge (540581808) VITAL SIGNS Blood pressure diastolic 00 mm Hg 04/29/2024 Height 68 in 04/29/2024 Blood pressure systolic 00 mm Hg 04/29/2024 Weight 168 lbs 04/29/2024 BMI 25.54 kg/m2 04/29/2024 Encounters Encounter Location Date Provider Diagnosis [facility] [address] [place] [address] 04/29/2024 Chris Tomlin Change in bowel habits R19.4 [facility] [address] [place] [address] 03/17/2024 Chris Tomlin Change in bowel habits [...] Order Date Hemoccult Cards (Non-Screening) 03/17/20 24 Hemoccult Cards (Non-Screening) 02/16/20 21 CBC w DIFF 03/17/2024 STOOL WBC 08/11/2022 C DIFFICILE RFLX PCR 08/11/2022 OBSX3 03/23/2024 Future Test Test Name Order Date COLONOSCOPY 11/19/2014 Insurance Providers Payer Name Payer Address Payer Phone Subscriber Number Group Number Insured Name Patient Relationship to Insured Coverage Start Date Coverage End Date MEDICARE OF [place] [address] [facility] [address] [id number] SHERLY MARIN Self - patient is the insured MED[employer] ATTN CLAIMS [address] [place] [address] [id number] SHERLY MARIN Self - patient is the insured MEDICAL (GENERAL) HISTORY Medical History History ICD Code Screening Colonoscopy 04-30-2009--1 small tubular adenoma removed Reports neg. CT and MRI of abdomen in Hypertension Denies DE,DM,CVA,renal disease Peripheral neuropathy in feet Atrial fibrillation Asthma Colonoscopy in 01/2015-2 small tubular ad enomas removed 11/2023 and 12/2023 with hospitalizations for CHF--Dr. Reveles Some emphysema/asthma-Dr. Hernández Surgical History Surgery Date(Month/Year) Eye lid surgery Cataract-lens implants-left
--- OUTSIDE RECORDS SUMMARY | 2024-11-28 12:58 | XMS_ITS | Continuity of Care Document ---
Author Organization [facility] Jorge Shook Azael lt Address [address] [place] [address]- Care Team Providers Care Claim Investigator Name Role Phone Ignacio LOZOYA, Yonis Crews Primary Care Physician Encounter [facility] Date(s): 10/28/24 - 11/27/24 [facility] Jorge Guzmánley Adult [address] [place] [address]- Encounter Type: Triage Allergies, Adverse Reactions, Alerts [...] vaccine, inactivated 5 07/18/11 Gi patrick SARS-CoV-2(COVID-19)mRNA-LNP vac(vjg218) 07/07/24 Recorded SARS-CoV-2(COVID-19)mRNA-LNP vac(hxv587) 07/12/23 Recorded pneumococcal 20-valent conjugate vaccine 12/13/23 Given GJSZ-IjW-5lGII 12y+ bivalent booster vax 07/11/22 Recorded tetanus/diphtheria/pertussis, acel(Tdap) 02/16/22 Given SARS-CoV-2 mRNA (palhwve-asdw-sourw) vax 01/12/22 Recorded SARS-CoV-2 (COVID-19) mRNA BNT-162b2 [...] Inactive (IM) (oldterm) 08/16/07 Given 1Location History: [facility] 2Result Comment: [08/09/2017] [facility] 3Result Comment: [07/24/2016] RECEIVED AT [facility] HIGH DOSE 4Admin Note: given at [facility] on 08/17/13 5Admin Note: [facility] 6Admin Note: per pt rcvd eklsewhere 7Location History: [facility] 8Admin Note: PER CHART HISTORICAL 9Admin Note: per pt rcvd elsewhere Medications Aerochamber See Instructions, # 1 units, Maintenance, use w/ albuterol MDI, 12/13/15 5:06:18 PM EST, Compound Start Date: 12/13/15 Status: Ordered Quantity: 1.0 Unit: Units Repeat number: 1 amLODIPine 10 mg oral tablet 1 tablet, By Mouth, Daily, # 90 tablet, 1 Refills, Maintenance, 09/28/24 8:58:00 AM EST, [facility], 172.1, cm, 09/08/24 14:54:00 EST, Height Start Date: 09/28/24 Status: Ordered Quantity: 90.0 Unit: tablet Repeat number: 1 Breo Ellipta 100 mcg-25 mcg/inh inhalation powder 1 puffs, Inhalation, Daily, # 1 each, 11 Refills, Maintenance, 11/06/23 1:34:00 PM EST, [id number], Partial fill upon patient request if [...] 12:23:00 PM EDT, Route to Pharmacy Electronically, [facility], 172.1, cm, 12/13/23 10:21:00 EST, Height Start Date: 12/24/23 Status: Ordered Quantity: 180.0 Unit: tablet Repeat number: 1 Eliquis 5 mg oral tablet 1 tablet, By Mouth, 2 times a day, # 180 tablet, 3 Refills, Maintenance, 10/01/24 5:05:00 PM EST, [facility], 172.1, cm, 09/08/24 14:54:00 EST, Height Start [...] 3 Refills, Maintenance, 12/24/23 12:23:00 PM EDT, [facility], 172.1, cm, 12/13/23 10:21:00 EST, Height Start Date: 12/24/23 Status: Ordered Quantity: 90.0 Unit: tablet Repeat number: 1 Metamucil 3.4 gm/5.2 gm oral powder for reconstitution = 3.4 Gm, By Mouth, Daily, 0 Refills, Maintenance, 04/06/23 11:05:00 AM EDT, Partial fill upon patient request if the prescription is for a schedule II opioid drug. Start Date: 04/06/23 Status: Ordered Repeat number: 1 PreserVision AREDS 2 2 [...] Status: Ordered Repeat number: 1 Vitamin D 68739 iu oral capsule 50,000 International_Units, By Mouth, [...] Maintenance, 10/11/23 9:23:00 AM EST, Powder, [id number], Partial fill upon patient request if the [...] dry Confirmed Active AF (paroxysmal atrial fibrillation) [id number] Confirmed 07/05/20 Active Peripheral sensory neuropathy [...] Team Personnel Name: Mary Villavicencio NP Position: [facility] PCO Associate Professional Member Role: [employer] Provider Address: [address] [place] [phone]- Telecom: Name: Yonis Pierre MD Position: [facility] Physician - Primary Care Member Role: PCP Address: [address] [place] [phone]- Telecom: Care Team Related Persons Name: JADE NIEVES Name: LANEY NIEVES Insurance Providers Guarantor name: SHERLY LIZBETH Health Plan Information #: 1 Payer: MEDICARE PART B OUTPT Member Number: NA Policy Number: NA Group Number: NA Health Plan Information #: 2 Payer: MEDEX Member Number: NA Policy Number: NA Group Number: NA
--- OUTSIDE RECORDS SUMMARY | 2024-11-28 12:58 | XMS_ITS ---
Author Organization [facility] Address [address] [place] [address] Care Team Providers Care Lard Bleacher Name Role Phone Yonis Pierre MD Primary Care Provider Unavailab Chris Paris [phone] REASON FOR VISIT change in bowels Encounters Encounter Location Date Provider Diagnosis [facility] [address] [place] [address] 03/17/2024 Chris Tomlin Change in bowel habits R19.4 ASSESSMENTS Encounter Date Diagnosis Assessment Notes Treatment Notes Treatment Clinical Notes 03/17/2024 Change in bowel habits (ICD-10 - R19.4) PLAN OF TREATMENT Pending Test Test Name Order Date Hemoccult Cards (Non-Screening) 03/17/20 24 CBC w DIFF 03/17/2024
--- OUTSIDE RECORDS SUMMARY | 2024-11-28 12:58 | XMS_ITS ---
[facility] [place] Address [address] [place] [address] Care Team Providers Care Worsted Winder Name Role Phone Yonis Pierre Primary Care Provider UnavailJennifer Falk Unavailable [phone] Allergies Allergen (clinical drug ingredient) Drug/Non Drug [...] Ordered Date Performed Result Body Sit e 05397-THVYEVW NAIL, 6 OR MORE 09/04/2024 N/A 03914-Sniyszwh Plate 09/04/2024 N/A Encounters Encounter Location Date Provider Diagnosis [facility] [address] [address] 09/04/2024 Jennifer Marks Tinea unguium B35.1 ; [...] Treatment Pending Test Test Name Order Date 43691-KRIXQYV NAIL, 6 OR MORE 09/04/2024 44547-Tzszimxz Plate 09/04/2024 Next Appt Details Follow Up: 2 Weeks, Reason: Provider Name:Jennifer Villeda Kendrick , 12/08/2024 03:30:00 PM, [address] [place] [address], [phone], Procedure Notes * Category Sub-Category Detail Notes [...] Motrin was recommended for pain or discomfort (09682), Pt DEFERS matricectomy Anesthesia , was accomplished [...] use of a nail nipper and/or dremel-type outer diameter grinder, to a more viable healthy nail plate or bed tissue 6-10. Silver nitrate used for any petechial bleeding as necessary. Definitive antifungal treatment options have been reviewed and discussed with the patient. The patient chooses, no pharmaceutical tx - 20835 Progress Notes * Junior MARIN RDOB:[birth year] (83 yo M)Acc No.[id number]:09/04/2024 Progress Note Patient:?Junior MARIN Angela Provider:?Jennifer Marks DPM :1940???Age:83 Y???Sex:Male Jonathan e:09/04/2024 Address:[address] [phone] Pcp:Yonis Pierre Subjective: * Chief Complaints: * [...] - M79.675??? Plan: * Treatment: 2.?Tinea unguium?Procedure: 03405-AROVGYJ NAIL, 6 OR MORE * Procedures:?Debride Nail [...] use of a nail nipper and/or dremel-type outer diameter grinder, to a more viable healthy nail plate or bed tissue 6-10. Silver nitrate used for any petechial bleeding as necessary. Definitive antifungal treatment options have been reviewed and discussed with the patient. The patient chooses, no pharmaceutical tx - 07736.?Nail Avulsion:?Location?, Lateral nail border, TA.?Anesthesia?, was accomplished [...] Motrin was recommended for pain or discomfort (56618), Pt DEFERS matricectomy.? * Procedure Codes:?10099 DEBRI DE NAIL, 6 OR MORE, Modifiers: XS 87381 Avulsion Plate, Modifiers: TA * Follow Up:?2 Weeks * Images: * Sign off status: Completed true * Provider:Laura Marks DPM Date:?2023 Generated for Viraj stone/Arthur/Jeannine on:?11/28/2024 12:58 PM EST History and Physical Notes * HPI [...]
--- OUTSIDE RECORDS SUMMARY | 2024-11-28 12:58 | XMS_ITS ---
Author Organization [facility] Address [address] [place] [address] Care Team Providers Care Talent Acquisition Coordinator Name Role Phone Yonis Pierre Primary Care Provider Jennifer Thurman [phone] REASON FOR VISIT Purchased [place] Pad 1/4 size Encounters Encounter Location Date Provider Diagnosis [facility] [address] [place] [address] 05/19/2024 Jennifer Marks Plan Of Treatment Next Appt Details Provider Name:Jennifer Marks , 12/08/2024 03:30:00 PM, [address] [place], [address], Progress Notes * Junior MARIN RDOB:[birth year] (83 yo M)Acc No.[id number]:05/19/2024 Patient:?Junior Marin :1940???Age:83 Y???Sex:Male Address:[address] [facility] [place] [address] * true * Date:? Generated for Printi ng/Fasergeyg/eTransmitting on:?11/28/2024 12:58 PM EST
--- OUTSIDE RECORDS SUMMARY | 2024-11-28 12:58 | XMS_ITS | Patient Health Record ---
Author Organization [facility] Address [address] [place] [address] Care Team Providers Care Gas Operations Analyst Name Role Phone Yonis Pierre Primary Care Provider Jennifer Thurman Unavailable [phone] Allergies Allergen (clinical drug ingredient) Drug/Non Drug [...] Problem Acquired hammer toe of right foot (3582242763441360 ) Other hammer toe(s) (acquired), right foot (M20.41) Active confirmed Problem Acquired hammer toe of left foot (5012789407352918 ) Other hammer toe(s) (acquired), left foot (M20.42) Active confirmed Problem Non-pressure ulcer lower limb (111461167) Non-pressure chronic ulcer of other part of right foot limited to breakdown of skin (L97.511) Active confirmed Problem Acquired hammer toe of left foot (7783385206262820 ) Other hammer toe(s) (acquired), left foot (M20.42) Active confirmed Chronic problem, Worse (4) Problem Acquired hammer toe of right foot (5685296806468127 ) Other hammer toe(s) (acquired), right foot (M20.41) Active confirmed Problem Acquired hammer toe of left foot (1053567661831662 ) Other hammer toe(s) (acquired), left foot (M20.42) Active confirmed Problem 51973763 Gout (M10.9) Active confirmed Problem 784890450 Hammer toe of left foot (M20.42) Active confirmed Problem 205254578 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 Problem Localized, primary osteoarthritis of the ankle and/or foot (980741653) Arthritis of joint of lesser toe, left (M19.072) Active confirmed Vital Signs Heart Rate 65 /min 09/04/2024 Blood pressure diastolic 70 mm Hg 09/04/2024 Height 5 ft 9 in in 09/04/2024 Blood pressure systolic 137 mm Hg 09/04/2024 Weight 165 lbs 09/04/2024 BMI 24.36 kg/m2 09/04/2024 Procedures Procedure Date Ordered Date Performed Result Body Sit e 15863-BRCJGLO NAIL, 6 OR MORE 01/31/2024 N/A 65079-PZLQIRE NAIL, 6 OR MORE 05/19/2024 N/A 13185-DCYQRGR NAIL, 6 OR MORE 09/04/2024 N/A 30306-Bkbuewby Plate 09/04/2024 N/A Encounters Encounter Location Date Provider Diagnosis [address] [address] 01/31/2024 Jennifer Black Tinea unguium B35.1 ; Pain in right toe(s) M79.674 and Pain in left toe(s) M79.[address] [address] 05/19/2024 Jennifer Black Pain in left toe(s) M79.675 ; Other hammer toe(s) (acquired), left foot M20.42 ; Tinea unguium B35.1 ; Pain in right toe(s) M79.674 ; Pain in left toe(s) M79.675 and Arthritis of joint of lesser toe, left M19.[address] [address] 09/04/2024 Jennifer Black Tinea unguium B35.1 ; Ingrown nail L60.0 ; Pain in right toe(s) M79.674 and Pain in left toe(s) M79.[address] [address] 05/19/2024 Jennifer Black Assessments Encounter Date Diagnosis (ICD Code) Assessment Notes Treatment Notes Treatment Clinical Notes Section Notes 01/31/2024 Tinea unguium (ICD-10 - B35.1) 01/31/2024 [...] M79.675) 05/19/2024 Tinea unguium (ICD-10 - B35.1) 05/19/2024 Pain in right toe(s) (ICD-10 - M79.674) 09/04/2024 Pain in left toe(s) (ICD-10 - M79.675) 05/19/2024 Pain in left toe(s) (ICD-10 - M79.675) 05/19/2024 Arthritis of joint of lesser toe, left (ICD-10 - M19.072) Plan Of Treatment Pending Test Test Name Order Date 62513-WDLVWZH NAIL, 6 OR MORE 09/13/2011 03061-YJHGGBW NAIL, 6 OR MORE 01/01/2012 13949-EGCPKIP NAIL, 6 OR MORE 04/03/2012 04819-BXTSFEY NAIL, 6 OR MORE 07/11/2012 35327-TBTLJXJ NAIL, 6 OR MORE 10/21/2012 32017-EFWJGTR NAIL, 6 OR MORE 03/27/2013 19589-NBMSKQH NAIL, 6 OR MORE 09/22/2013 67758-YZEGEBC NAIL, 6 OR MORE 07/08/2014 70736-AGOFOJD NAIL, 6 OR MORE 01/13/2015 89260-CCAHWHD NAIL, 6 OR MORE 01/26/2016 19698-PYZUZQT NAIL, 6 OR MORE 07/20/2016 63502-PPUFETR NAIL, 6 OR MORE 01/18/2017 88745-MQCIOVL NAIL, 6 OR MORE 09/03/2017 16706-FBMFBOM NAIL, 6 OR MORE 12/13/2017 53771-RRFOPSY NAIL, 6 OR MORE 03/14/2018 77645-XASRRPF NAIL, 6 OR MORE 05/23/2018 31166-YGLZGWY NAIL, 6 OR MORE 09/19/2018 51167-OHGFPGX NAIL, 6 OR MORE 01/16/2019 50951-ZQTGVCJ NAIL, 6 OR MORE 04/24/2019 53051-CQVYSPE NAIL, 6 OR MORE 07/24/2019 10201-AFMSWWD NAIL, 6 OR MORE 10/23/2019 05338-JROECHQ NAIL, 6 OR MORE 03/04/2020 51544-HFZAQUA NAIL, 6 OR MORE 06/10/2020 22179-UMQHATZ NAIL, 6 OR MORE 09/16/2020 89320-AUNLCDB NAIL, 6 OR MORE 01/13/2021 85651-XOJPKNP NAIL, 6 OR MORE 04/28/2021 53959-AETLDCK NAIL, 6 OR MORE 08/11/2021 26961-PNPJAVJ NAIL, 6 OR MORE 11/21/2021 53616-SSZKNNT NAIL, 6 OR MORE 02/23/2022 80277-IJGIMKJ NAIL, 6 OR MORE 06/01/2022 08354-IATSEEL NAIL, 6 OR MORE 09/11/2022 10418-KNLRWAT NAIL, 6 OR MORE 12/11/2022 72735-HNQZYEX NAIL, 6 OR MORE 04/12/2023 25446-ZPCTWJD NAIL, 6 OR MORE 07/16/2023 40762-JPWPDEC NAIL, 6 OR MORE 11/01/2023 61211-FQIFZOS NAIL, 6 OR MORE 01/31/2024 93599-OHGUUVE NAIL, 6 OR MORE 05/19/2024 77233-PDACQVP NAIL, 6 OR MORE 09/04/2024 97588-VLBAANA NAIL, 1-5 07/21/2015 49923-Hnbtfsxd Plate 09/20/2021 52824-Bdaucmrj Plate 08/11/2021 48557-Ksqkweee Plate 03/04/2020 61616-Ouyrbimn Plate 02/01/2018 12967-Uieajdmp Plate 01/13/2015 59094-Isajouhq Plate 09/04/2024 68201- Debride <25 sq cm 06/19/2019 41468- Debride <25 sq cm 09/20/2021 08995- Debride <25 sq cm 02/23/2022 75307- Debride <25 sq cm 09/11/2022 46156- Debride <25 sq cm 06/01/2022 Next Appt Details Provider Name:Jennifer Marks , 12/08/2024 03:30:00 PM, [address] [place], [address], Insurance Providers Payer Name Payer Address Payer Phone Subscriber Number Group Number Insured Name Patient Relationship to Insured Coverage Start Date Coverage End Date Medicare National Govt Sv[employer] [address] [place] [address] [id number] Junior Marin Self - patient is the insured Med[employer] Blue Shield [address] [place] [address] [phone] [id number] Junior Marin Self - patient is the insured Medical (General) History Medical History History ICD Code measles hypertension asthma Surgical History Surgery Date(Month/Year) 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
--- OUTSIDE RECORDS SUMMARY | 2024-11-28 12:58 | XMS_ITS ---
Author Organization [facility] [place] Address [address] [place] [address] Care Team Providers Care Steel Division Supervisor Name Role Phone Yonis Pierre Primary Care Provider UnavailJennifer Falk Unavailable [phone] Allergies Allergen (clinical drug ingredient) Drug/Non Drug [...] Problem Acquired hammer toe of left foot (6703522547925859) Other hammer toe(s) (acquired), left foot (M20.42) Active confirmed Chronic problem, Worse (4) Problem Localized, primary osteoarthritis of the ankle and/or foot (083965053) Arthritis of joint of lesser toe, left (M19.072) Active confirmed Vital Signs Height 5 ft 9 in in 05/19/2024 Weight 162 lbs 05/19/2024 BMI 23.92 kg/m2 05/19/2024 Blood pressure systolic 135 mm Hg 05/19/20 24 Blood pressure diastolic 77 mm Hg 024 Heart Rate 85 /min 05/19/2024 Procedures Procedure Date Ordered Date Performed Result Body Sit e 36104-JYKHVAD NAIL, 6 OR MORE 05/19/2024 N/A Encounters Encounter Location Date Provider Diagnosis [facility] [address] [address] 05/19/2024 Jennifer Black Pain in left toe(s) [...] Treatment Pending Test Test Name Order Date 54054-VLLLUCC NAIL, 6 OR MORE 05/19/2024 Next Appt Details Follow Up: prn, Reason: Provider Name:Jennifer Marks , 12/08/2024 03:30:00 PM, [address] [facility], [place], [address], Procedure Notes * Category Sub-Category Detail Notes [...] as necessary. Patient chooses, no pharmaceutical tx (32559) Progress Notes * Junior MARIN RDOB:[birth year] (83 yo M)Acc No.[id number]:05/19/2024 Progress Note Patient:?Tania Junior Miller Provider:?Jennifer Marks DPM :1940???Age:83 Y???Sex:Male Jonathan e:05/19/2024 Address: [address] [place], [place]-[address] Pcp:Yonis Pierre Subjective: * Chief Complaints: [...] as necessary. Patient chooses, no pharmaceutical tx (61970).? * Procedure Codes:?59860 DEBRI DE NAIL, 6 OR MORE * [...] DPM Date:?2023 Generated for Viraj stone/Arthur/Jeannine on:?11/28/2024 12:57 PM EST History and Physical Notes * [...]
--- OUTSIDE RECORDS SUMMARY | 2024-11-28 12:58 | XMS_ITS ---
Author Organization [facility] Address [address] [place] [address] Care Team Providers Care Boat Canvas Installer Name Role Phone Ignacio LOZOYA, Yonis Primary Care Provider Chris French Unavailable [phone] ALLERGIES No Known Allergies REASON FOR VISIT [...] 04/29/2024 Encounters Encounter Location Date Provider Diagnosis [facility] [address] [place] [address] 04/29/2024 Chris Tomlin Change in bowel habits [...]
[2024-11-28 13:05] VITALS: BP 140/58; PULSE 67; BMI 24.9
--- NOTE | 2024-11-28 13:05 | MHC.OFFVIS ---
Vital Signs 11/28/24 13:05 Height 5 ft 9 in Weight 168 lb 6.931 oz BMI 24.9 BP 140/58 H Blood Pressure Location Lt brachial Position Sitting Pulse 67 Pulse Source Pulse Oximeter Intake Visit Reasons: f/u [facility] CHF Accounts Receivable Specialist Required: No Accompanied by: Spouse Allergies latex Allergy (Verified 11/15/24 14:34) Unknown maple Allergy (Mild, Uncoded 11/12/24 13:47) Unknown Medication List - Last Reconciled 11/28/24 by Uziel Matute NP albuterol sulfate 90 mcg/actuation 2 puffs inhalation Q4-6H PRN amlodipine 10 mg PO DAILY apixaban (Eliquis) 5 mg PO BID carvedilol 6.25 mg PO BID finasteride 5 mg PO DAILY fluticasone furoate-vilanterol 100-25 mcg/dose (Breo Ellipta) 1 ea inhalation DAILY furosemide (Lasix) 20 mg PO DAILY 30 days lifitegrast 5% (Xiidra) 1 drp ophthalmic (eye) BID losartan 100 mg PO DAILY timolol maleate 0.5% 1 drp ophthalmic (eye) BID vit C,E-Ca-tlqdg-lutein-zeaxan 250-90-40-1 mg (PreserVision AREDS-2) 1 tab PO BID walker (Ultra-Light Rollator misc) As directed HPI Comments Details: This is an 83-year-old male patient with a history of chronic AFib, heart failure with preserved ejection fraction, hypertension, and mitral valve insufficiency, presenting for hospital discharge follow-up. The patient was recently evaluated in the ER for worsening shortness of breath, which had become progressively worse. He had a pulmonology visit in late October for a productive cough and was treated with a 7 day course of Levaquin. Since that time, the patient had noticed gradual weight gain as well as the increased shortness of breath with exertion. In the ER his BNP was elevated greater than 400, and was treated with IV Lasix during his visit. He was subsequently discharged on oral Lasix daily. Today, the patient denies any exertional chest pain, palpitations, shortness or breath, dizziness, orthopnea, PND, presyncope, or syncope. Patient does note that his leg swelling is improving, however his who accompanies him to the appointment today notes that he had an increase in weight with 2 lb this morning. [facility] Medical History (Updated 11/28/24 @ 14:05 by Uziel Matute NP) Chronic atrial fibrillation Acute respiratory failure with hypoxia CHF exacerbation Atrial fibrillation with RVR (HFpEF) heart failure with preserved ejection fraction Asthma Mitral valve insufficiency Macular degeneration Former smoker HTN (hypertension) Social History Household Members: Spouse Housing: House Do you presently have visiting nurse or other home services: Yes Alcohol intake: current Alcohol intake frequency: holidays/special occasions only Patient Tobacco Use Status: Former Tobacco user Advance Directives Date on File: 12/05/23 service: No Review of Systems Const Denies chills, Denies fatigue, Denies fever(s), Denies weight gain and Denies weight loss ENT Denies dizziness Card Denies chest pain, Denies leg edema, Denies lightheadedness, Denies palpitations, Denies dyspnea on exertion, Denies orthopnea and Denies other Resp Denies cough and Denies dyspnea on exertion GI Denies hematochezia and Denies change in stool character Musc Denies abnormal gait, Denies muscle weakness, Denies numbness, Denies radiating pain into limb and Denies tingling Neuro Denies abnormal gait, Denies dizziness, Denies numbness and Denies tingling Endo Denies fatigue and Denies palpitations Physical Exam Vital Signs: Last Vital Signs Pulse 67 11/28/24 13:05 BP 140/58 H 11/28/24 13:05 BMI result Body Mass Index 24.9 Const General: cooperative, healthy appearing, comfortable and no acute distress Orientation/consciousness: patient oriented x3 HEENT Head: Yes normal to inspection Neck Neck: Yes normal visual inspection, Yes trachea midline and Yes supple Chest Chest palpation & inspection: normal inspection of the chest Resp Effort & Inspection: normal respiratory effort Auscultation: clear to auscultation bilaterally, no crackles, no rales, no rhonchi and no wheezes Cardio Jugular venous distension: no JVD Palpation: normal PMI Rate: regular rate Rhythm: abnormal rhythm irregularly irregular Heart sounds: S1 normal heart sound present, S2 normal heart sound present, no click, no gallops, no murmurs and no rubs Peripheral pulses: Peripheral pulses 2+ throughout GI Inspection: Yes normal to inspection Palpation (GI): Soft to palpation Auscultation: normal bowel sounds Skin General skin exam: no rashes or lesions noted Neuro General: patient oriented x3 Extrem General: Yes normal to inspection, No calf tenderness and Yes edema (2+ to the RLE, trace to LLE) Psych Appearance: grossly normal Mental Status: mental status grossly normal Speech and movement: Normal speech and movement present Assessment & Plan Assessment & Plan (1) (HFpEF) heart failure with preserved ejection fraction: Code(s): I50.30 - Unspecified diastolic (congestive) heart failure Category: Medical (2) Chronic atrial fibrillation: Code(s): I48.20 - Chronic atrial fibrillation, unspecified Category: Medical (3) HTN (hypertension): Code(s): I10 - Essential (primary) hypertension Category: Medical (4) Hospital discharge follow-up: Code(s): Z09 - Encounter for follow-up examination after completed treatment for conditions other than malignant neoplasm Plan 11/1923- echo showed normal EF of 60-65%, biatrial enlargement right greater than left, mild aortic regurgitation, moderately elevated right ventricular systolic pressur, mild elevated right atrial pressure, mild dilated ascending aorta at 3.7 cm. Patient has a repeat echocardiogram in the near future. Patient continues to have some pitting edema in his legs, though he reports improvement since discharge. Increase Lasix to 40 mg daily for the next 3-4 days to help manage fluid retention. Today's blood pressure elevated at 140/58. Patient reports home readings also in the 140s to low 150s systolically. States he has been compliant with medications. Hopefully blood pressures should improve with increasing the Lasix. Cautious about increasing carvedilol due to patient's pulmonary issues. Ideally blood pressure less than 130/84. Patient's potassium was 5.3 during hospital discharge. We will recheck both kidney function and potassium in 1 week. Continue Eliquis for full anticoagulation therapy and carvedilol for rate control approach. Advised patient to follow a strict low-salt diet, wear compression stockings, and elevate legs when sitting to help with the edema. We will bring the patient back in a week with the nurse for blood pressure check. Advised patient to monitor his blood pressures at home and keep a log. Advised him to bring the log and his blood pressure machine during his nurse visit. Patient has a follow-up in a month with Dr. Jones. In the interim, patient will call with any questions or concerns. This note was generated using voice recognition software. While every effort has been made to ensure accuracy and proper hide and skin colerer, there may be occasional errors that could affect the content or meaning of the described symptoms. Orders: Orders Basic Metabolic Panel 1 Week I50.30 - Unspecified diastolic (congestive) heart failure Medications: Changed From furosemide (Lasix) 20 mg PO DAILY 30 days 30 tabs 0RF To furosemide (Lasix) 20 mg PO DAILY 90 tabs 2RF Coding Level of Care Code Est Pt Level 4 (37495) Diagnoses (HFpEF) heart failure with preserved ejection fraction I50.30 Chronic atrial fibrillation I48.20 HTN (hypertension) I10 Hospital discharge follow-up Z09 Time Spent (min) 33 Comment Time spent in reviewing the chart, test results, assessment, counseling and documentation.
== END 2024-11-28 13:53 | disposition home or self-care (01) ==
PROVIDERS: PCP Internal Medicine
DX: I50.30 Unspecified diastolic (congestive) heart failure (principal); I48.20 Chronic atrial fibrillation, unspecified; I10 Essential (primary) hypertension; Z09 Encounter for follow-up examination after completed treatment for conditions other than malignant neoplasm
CPT/HCPCS: 99214

== ENCOUNTER → 2024-11-28 12:33 | Outpatient (BNVA) | payer MEDICARE, SELFPAY | PROVIDERS: PCP Internal Medicine | DX: I11.0 Hypertensive heart disease with heart failure (principal); I50.30 Unspecified diastolic (congestive) heart failure; I48.20 Chronic atrial fibrillation, unspecified; I34.0 Nonrheumatic mitral (valve) insufficiency; Z09 Encounter for follow-up examination after completed treatment for conditions other than malignant neoplasm | CPT/HCPCS: 99212 ==

== ENCOUNTER → 2024-12-24 13:38 | Outpatient (REF) | payer MEDICARE, SELFPAY ==
--- OUTSIDE RECORDS SUMMARY | 2024-12-24 16:06 | XMS_ITS | Patient Health Record ---
Author Organization [facility] Address [address] [place] [address] Care Team Providers Care Port Patrol Officer Name Role Phone Yonis Pierre Primary Care Provider Jennifer Thurman Unavailable [phone] Allergies Allergen (clinical drug ingredient) Drug/Non Drug Allergy documented on EMR Reaction Allergy Type Onset Date Status Latex Latex Unknown Allergy Active Reason For Referral No Information Medications Medication SIG (Take, Route, Frequency, Duration) Notes Start Date End Date Status amLODIPine Besylate Active Ciclopirox Olamine 0.77 % 1 application to affected area Externally Twice a day for 30 days 09/03/2017 Not-Taki ng Finasteride Active Ciclopirox Olamine 0.77% external Apply to effected areas twice a day for 30 days 07/20/2016 Not-Taking Carvedilol Active Eliquis 5 MG as directed Orally T wice a day Active cloNIDine HCl Active Losartan Potassium A ctive Loprox Active Ciclopirox Olamine 0.77 % 1 application to affected area Externally Twice a day for 30 days 01/01/2012 Not-Taki ng Timolol Hemihydrate 0.25 % 1 drop into affected eye Ophthalmic Once a day Active Ciclopirox Olamine 0.77% external apply to feet twice a day for 30 days 07/08/2014 Not-Brooke ng Vigraplex as directed Orally N ot-Taking Immunizations Vaccine Route Administration Date Status Comme [...] Problem Acquired hammer toe of left foot (3667928001546415) Other hammer toe(s) (acquired), left foot (M20.42) Active confirmed Problem Acquired hammer toe of right foot (4979124269281497) Other hammer toe(s) (acquired), right foot (M20.41) Active confirmed Problem Gout (84474318) Gout (M10.9) Active confirmed Problem Chronic tophaceous gout of right foot (0124094250019483) 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 Problem Localized, primary osteoarthritis of the ankle and/or foot (707890220) Arthritis of joint of lesser toe, left (M19.072) Active confirmed Vital Signs Heart Rate 65 /min 09/04/2024 Blood pressure diastolic 80 mm Hg 12/08/2024 Height 5 ft 9 in in 12/08/2024 Blood pressure systolic 120 mm Hg 12/08/2024 Weight 165 lbs 12/08/2024 BMI 24.36 kg/m2 12/08/2024 Procedures Procedure Date Ordered Date Performed Result Body Sit e 15460-QMOATZC NAIL, 6 OR MORE 01/31/2024 N/A 07686-XRTSIPP NAIL, 6 OR MORE 05/19/2024 N/A 38301-VDHFUDZ NAIL, 6 OR MORE 09/04/2024 N/A 32219-Fwehnieg Plate 09/04/2024 N/A 12482-GRJPJND NAIL, 6 OR MORE 12/08/2024 N/A 67219- Debride <25 sq cm 12/08/2024 N/A Encounters Encounter Location Date Provider Diagnosis [facility] [place] [address] [place] [address] 01/31/2024 Jennifer Black Tinea unguium B35.1 ; Pain in right toe(s) M79.674 and Pain in left toe(s) M79.[address] [address] 05/19/2024 Jennifer Black Pain in left toe(s) M79.675 ; Other hammer toe(s) (acquired), left foot M20.42 ; Tinea unguium B35.1 ; Pain in right toe(s) M79.674 ; Pain in left toe(s) M79.675 and Arthritis of joint of lesser toe, left M19.[address] [address] 09/04/2024 Jennifer Black Tinea unguium B35.1 ; Ingrown nail L60.0 ; Pain in right toe(s) M79.674 and Pain in left toe(s) M79.[address] [address] 12/08/2024 Jennifer Black Tinea unguium B35.1 ; Skin ulcer of toe of left foot, limited to breakdown of skin L97.521 ; Pain in right toe(s) M79.674 and Pain in left toe(s) M79.[address] [address] 05/19/2024 Jennifer Black Assessments Encounter Date Diagnosis [...] B35.1) 09/04/2024 Ingrown nail (ICD-10 - L60.0) 12/08/2024 Tinea unguium (ICD-10 - B35.1) 12/08/2024 Skin ulcer of toe of left foot, limited to breakdown of skin (ICD-10 - L97.521) 12/08/2024 Pain in right toe(s) (ICD-10 - M79.674) 09/04/2024 Pain in right toe(s) (ICD-10 - M79.674) 01/31/2024 Pain in left toe(s) (ICD-10 - M79.675) 05/19/2024 Tinea unguium (ICD-10 - B35.1) 05/19/2024 Pain in right toe(s) (ICD-10 - M79.674) 09/04/2024 Pain in left toe(s) (ICD-10 - M79.675) 12/08/2024 Pain in left toe(s) (ICD-10 - M79.675) 05/19/2024 Pain in left toe(s) (ICD-10 - M79.675) 05/19/2024 Arthritis of joint of lesser toe, left (ICD-10 - M19.072) Plan Of Treatment Pending Test Test Name Order Date 96516-IIIVBXK NAIL, 6 OR MORE 09/13/2011 16186-MTYBMLH NAIL, 6 OR MORE 01/01/2012 84207-MJAPILC NAIL, 6 OR MORE 04/03/2012 21876-FFQKBKJ NAIL, 6 OR MORE 07/11/2012 97958-SRWTGKI NAIL, 6 OR MORE 10/21/2012 73487-TMMLZIO NAIL, 6 OR MORE 03/27/2013 79839-YROAZUA NAIL, 6 OR MORE 09/22/2013 67310-YMADXLB NAIL, 6 OR MORE 07/08/2014 16564-TGMVQLP NAIL, 6 OR MORE 01/13/2015 21339-RCYZQCV NAIL, 6 OR MORE 01/26/2016 20534-EYOQGPO NAIL, 6 OR MORE 07/20/2016 40168-LNKCLYO NAIL, 6 OR MORE 01/18/2017 90875-WXGPCXQ NAIL, 6 OR MORE 09/03/2017 44115-STHVFKW NAIL, 6 OR MORE 12/13/2017 05301-ADXTUEZ NAIL, 6 OR MORE 03/14/2018 58216-AVQZKEJ NAIL, 6 OR MORE 05/23/2018 58091-NACOLFH NAIL, 6 OR MORE 09/19/2018 96394-KVKWAOE NAIL, 6 OR MORE 01/16/2019 38172-EDWQLYS NAIL, 6 OR MORE 04/24/2019 66998-WORVEYR NAIL, 6 OR MORE 07/24/2019 08309-SFRMWXL NAIL, 6 OR MORE 10/23/2019 58746-SWAAFJG NAIL, 6 OR MORE 03/04/2020 77259-ODZUSZQ NAIL, 6 OR MORE 06/10/2020 96598-BCOWWIA NAIL, 6 OR MORE 09/16/2020 14824-TZLMBBK NAIL, 6 OR MORE 01/13/2021 24087-UUFWZGN NAIL, 6 OR MORE 04/28/2021 73651-KOTLGYQ NAIL, 6 OR MORE 08/11/2021 45075-IIOLJES NAIL, 6 OR MORE 11/21/2021 22633-CGCSDWG NAIL, 6 OR MORE 02/23/2022 69403-EAHBHSP NAIL, 6 OR MORE 06/01/2022 65318-SBCPUKJ NAIL, 6 OR MORE 09/11/2022 06483-MYTARRC NAIL, 6 OR MORE 12/11/2022 01852-ONGPOGP NAIL, 6 OR MORE 04/12/2023 24763-YVGFCXW NAIL, 6 OR MORE 07/16/2023 41893-XIVUTMB NAIL, 6 OR MORE 11/01/2023 63608-DJPVIEQ NAIL, 6 OR MORE 01/31/2024 26987-FEVWCQD NAIL, 6 OR MORE 05/19/2024 87019-YGTKNNZ NAIL, 6 OR MORE 09/04/2024 25888-DKVNIGK NAIL, 6 OR MORE 12/08/2024 05618-VJLAXSU NAIL, 1-5 07/21/2015 17842-Qkqbpxzw Plate 09/20/2021 54436-Szibakrx Plate 08/11/2021 02921-Sgrfoaky Plate 03/04/2020 06456-Vmqqnujy Plate 02/01/2018 90174-Hcceaufe Plate 01/13/2015 33383-Ypinixtm Plate 09/04/2024 20169- Debride <25 sq cm 12/08/2024 47880- Debride <25 sq cm 06/19/2019 52300- Debride <25 sq cm 09/20/2021 80579- Debride <25 sq cm 02/23/2022 22013- Debride <25 sq cm 09/11/2022 95247- Debride <25 sq cm 06/01/2022 Next Appt Details Provider Name:Jennifer Marks , 03/23/2025 02:30:00 PM, [address] [place], [address], Insurance Providers Payer Name Payer Address Payer Phone Subscriber Number Group Number Insured Name Patient Relationship to Insured Coverage Start Date Coverage End Date Medicare National [facility] [address] [place] [address] [id number] Junior Marin Self - patient is the insured [employer] [address] [place] [address] [id number] Junior Marin Self - patient is the insured Medical (General) History Medical History History ICD Code measles hypertension asthma Surgical History Surgery Date(Month/Year) 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
--- OUTSIDE RECORDS SUMMARY | 2024-12-24 16:06 | XMS_ITS ---
Author Organization [facility] [place] Address [address] [place] [address] Care Team Providers Care Propagation Worker Name Role Phone Yonis Pierre Primary Care Provider UnavailJennifer Falk Unavailable [phone] Allergies Allergen (clinical drug ingredient) Drug/Non Drug [...] Problem Status W/U Status Risk Notes Problem Localized, primary osteoarthritis of the ankle and/or foot (566369189) Arthritis of joint of lesser toe, left (M19.072) Active confirmed Vital Signs Height 5 ft 9 in in 05/19/2024 Weight 162 lbs 05/19/2024 BMI 23.92 kg/m2 05/19/2024 Blood pressure systolic 135 mm Hg 05/19/20 24 Blood pressure diastolic 77 mm Hg 024 Heart Rate 85 /min 05/19/2024 Procedures Procedure Date Ordered Date Performed Result Body Sit e 00012-WIRDJAF NAIL, 6 OR MORE 05/19/2024 N/A Encounters Encounter Location Date Provider Diagnosis [facility] [address] [place] [address] 05/19/2024 Jennifer Black Pain in left toe(s) [...] Treatment Pending Test Test Name Order Date 87051-MAQERTE NAIL, 6 OR MORE 05/19/2024 Next Appt Details Follow Up: prn, Reason: Provider Name:Jennifer Marks , 03/23/2025 02:30:00 PM, [address] [facility], [place], [address], Procedure Notes * Category Sub-Category Detail Notes [...] as necessary. Patient chooses, no pharmaceutical tx (37088) Progress Notes * Junior MARIN RDOB:[birth year] (83 yo M)Acc No.[id number]:05/19/2024 Progress Note Patient:?Junior Marin Provider:?Jennifer Marks DPM :1940???Age:83 Y???Sex:Male Jonathan e:05/19/2024 Address: [address] [place], [place] Pcp:Yonis Pierre Subjective: * Chief Complaints: [...] 10/17/2019 * Hospitalization/Major Diagno stic Procedure:?heart issues 4pneumonia 12/2023 * Family History:?Mother: dece ased.?Father: .?Daughter(s): [...] as necessary. Patient chooses, no pharmaceutical tx (59691).? * Procedure Codes:?17728 DEBRI DE NAIL, 6 OR MORE * [...] Marks DPM Date:?2023 Generated for Viraj stone/Arthur/Jeannine on:?12/24/2024 04:06 PM EDT History and Physical Notes * HPI (History [...]
--- OUTSIDE RECORDS SUMMARY | 2024-12-24 16:06 | XMS_ITS ---
Author Organization [facility] [place] Address [address] [place] [address] Care Team Providers Care Engineering Patternmaker Name Role Phone Yonis Pierre Primary Care Provider UnavailBhanu Falkmie Unavailable [phone] Allergies Allergen (clinical drug ingredient) Drug/Non Drug Allergy documented on EMR Reaction Allergy Type Onset Date Status Latex Latex Unknown Allergy Active REASON FOR VISIT Painful nail(s) aggrevated by shoes and causing difficulty standing/walking., painful toe Medications Medication SIG (Take, Route, Frequency, Duration) Notes Start Date End Date Status Ciclopirox Olamine 0.77 % 1 application to affected area Externally Twice a day for 30 days 01/01/2012 Not-Taki ng Ciclopirox Olamine 0.77% external apply to feet twice a day for 30 days 07/08/2014 Not-Taki ng Vigraplex as directed Orally N ot-Taking Ciclopirox Olamine 0.77 % 1 application to affected area Externally Twice a day for 30 days 09/03/2017 Not-Taki ng Ciclopirox Olamine 0.77% external Apply to effected areas twice a day for 30 days 07/20/2016 Not-Taking Eliquis 5 MG as directed Orally T wice a day Active cloNIDine HCl Active Losartan Potassium A ctive Loprox Active Timolol Hemihydrate 0.25 % 1 drop into affected eye Ophthalmic Once a day Active amLODIPine Besylate Active Finasteride Active Carvedilol Active Social History Tobacco Use: [...] Signs Height 5 ft 9 in in 12/08/2024 Weight 165 lbs 12/08/2024 BMI 24.36 kg/m2 12/08/2024 Blood pressure systolic 120 mm Hg 12/08/19 25 Blood pressure diastolic 80 mm Hg 025 Procedures Procedure Date Ordered Date Performed Result Body Sit e 61162-TGKIFJC NAIL, 6 OR MORE 12/08/2024 N/A 50593- Debride <25 sq cm 12/08/2024 N/A Encounters Encounter Location Date Provider Diagnosis [facility] [address] [address] 12/08/2024 Jennifer Marks Tinea unguium B35.1 ; Skin ulcer of toe of left foot, limited to breakdown of skin L97.521 ; Pain in right toe(s) M79.674 and Pain in left toe(s) M79.675 Assessments Encounter Date Diagnosis (ICD Code) Assessment Notes Treatment Notes Treatment Clinical Notes Section Notes 12/08/2024 Tinea unguium (ICD-10 - B35.1) 12/08/2024 Skin ulcer of toe of left foot, limited to breakdown of skin (ICD-10 - L97.521) 12/08/2024 Pain in right toe(s) (ICD-10 - M79.674) 12/08/2024 Pain in left toe(s) (ICD-10 - M79.675) Plan Of Treatment Pending Test Test Name Order Date [id number]-[id number] NAIL, 6 OR MORE 12/08/2024 08506- Debride <25 sq cm 12/08/2024 Next Appt Details Follow Up: 3 Months, Reason: Provider Name:Jennifer Marks , 03/23/2025 02:30:00 PM, [address] [place] [address], [id number], Procedure Notes * Category Sub-Category Detail Notes Debride Nail 6-10 Nail debridement Due to the cl inical pathology outlined in the exam findings, performance of this nail treatment is medically necessary as its management by an unskilled/untrained nonprofessional would put this patients foot and overall health at risk. Therefore, debridement to affected nail(s), as described in exam ( TA, T1, T2, T3, T5, T6, T7, T8, T9, ), was performed exclusively by the physician of record to reduce/remove overall nail length, girth, thickness, subungual debris, and necrotic tissue, by manual and/or electrical means through the use of a nail nipper and/or dremel-type gear and spline grinder, to a more viable healthy nail plate or bed tissue 6-10 nails in total. Silver nitrate was used for any petechial bleeding as necessary. Definitive antifungal treatment options, both pharmaceutical and surgical, have been reviewed and discussed with the patient. The patient solely prefers the use of intermittent/as needed professional debridement services for their nail condition and understands the need for additional periodic treatments to maintain effectiveness in symptomatic relief - 55607 Debride skin< 25 sq cm Open wound Physician of record performed open wound selective debridement of first 25 sq cm or less, of devitilized necrotic/nonviable soft tissue, fibrin, and exudate extending from the epidermis through the dermis, utilizing sharp dissection with sterile 15 blade, and/or tissue nippers. Sterile antibiotic dressing applied, ANESTHESIA was accomplished TOPICALLY with Lidocaine Hydrochloride Jelly 2 percent. Hemostasis was achieved through direct pressure. Post debridement measurements: 4 mm x 3 mm x 2 mm. Character of the wound post debridement is stable (33606), The patient is to apply Antibiotic Oint. to the wound and cover with a DSD, The patient is to cont the local wound care as directed till condition is completely healed Progress Notes * Junior MARIN RDOB:[birth year] (83 yo M)Acc No.[id number]:12/08/2024 Progress Note Patient:?Junior MARIN Provider:?Jennifer Marks DPM :1940???Age:83 Y???Sex:Male Jonathan e:12/08/2024 Address: [address] [facility], [place] Pcp:Yonis Pierre Subjective: * Chief Complaints: * ???Painful nail(s) aggrevate d by shoes and causing difficulty standing/walking.Painful toe * HPI: ???Painful Nails:?Pt States Last PCP Visit:?Date:?11/17/2024 ?Treatments:?Topical Antifungal ,?.?Toe pain:?Nature:?tenderness.?Location:?Left foot.?Duration:?, several days.?Course:?worse.?Aggravated by:?any pressure, shoes.?Treatments:?rest/alter normal daily activity,, bracing/splinting/padding.? * ROS:?General/Constitutional:?Nausea?denies.?Vomiting?denies.?Hunger Thirst?denies.?Loss appetite?denies.?Chills?denies.?Fatigue?denies.?Fever?denies.?Night Sweats?denies.?Unexplained weight loss?denies.?Unexplained weight gain?denies.?HEENTM:?Dentures?denies.?Dizziness?denies.?Glasses/contacts?admits.?Retinopathy?de nies.?Blurred/double vision?denies.?TMJ?denies.?Discharge/drainage?denies.?Implants?denies.?Sore throat?denies.?Dental implants?denies.?Hard of hearing ?denies.?Difficulty chewing/swallowing/speaking?denies.?Nose bleeds?denies.?Sore mouth?denies.?Respiratory:?On Oxygen?denies.?Pneumonia/pleurisy?denies.?Bronchitis?denies.?Emphysema?denies.?C oughing?denies.?Cough blood?denies.?Shortness of breath?denies.?Wheezing?denies.?Cardiovascular:?Pacemaker?denies.?MVP?denies.?WPW?denies.?CHF?denies.?Heart attack?denies.?Septal defect?denies.?Rapid beat?denies.?Chest pain ?denies.?Atrial Fib.?denies.?Murmur/Palpitations?denies.?Gastrointestinal:?Hemorrhoids?denies.?Stomach/Abdominal pain?denies.?Dark blood stool?denies.?Irritable bowel ?denies.?Constipation?denies.?Diarrhea?denies.?Hematology:?Swelling?denies.?Clots?denies.?Varicose Veins?denies.?Bruising?denies.?Bleeding problem?denies.?Genitourinary:?Blood urine?denies.?Frequent/Painfu/urination/bladder control?denies.?Kidney stones?denies.?Infection (UTI)?denies.?Nephropathy?denies.?sex trans dis (STD)?denies.?Prostate?denies.?Musculoskeletal:?Hammertoes?admits.?Bunions?denies.?Back Pain?denies.?Muscle Cramps/ Resting?denies.?Muscle cramps / walking?denies.?Generalized aches and pains?denies.?Weakness?denies.?Integ.:?Shipman?denies.?Scars?denies.?Corns/calluses?admits.?Ingrown nails?denies.?Painful nails?admits.?Open Sores?, admits.?Rashes?denies.?Neurologic:?Difficulty sleeping?denies.?Brain disorder?denies.?Numbness?denies.?Balance trouble?denies.?Confusion?denies.?Fainting/blackouts?denies.?Tingling?denies.?Tr emors?denies.? * Medical History:? [...] Objective: * Vitals:?Ht: 5 ft 9 in, Wt:16 5, BMI: 24.36, Shoe size:9.5, BP:120/80mm Hg, Wt-k.84 kg. * Examination: ???General Examination: ?GENERAL [...] subungual debris, with pain on palpation , TA, T1, T2, T3, T5, T6, T7, T8, T9.?Neurological: ?SENSORY:?Neurological exam reveals intact sensorium, pain sensation normal, vibration sensation intact, pinprick sensation is normal in the lower extremities, Pt denies, anesthesia, burning, paresthesia, tingling, B/L.?Dermatologic: ?ULCER:?Medial, T4, LOCATION, SIZE, 6mm X 4mm X 2mm, BASE, granular, RIM, hyperkeratotic, UNDERMINING, absent, TRACKING, Full thickness breakdown of skin, DRAINAGE, serosanguineous, mild, NECROTIC TISSUE, loosely-adherent, yellow slough, MALODOR, absent, CALOR, absent, ERYTHEMA, absent, PAIN ON PALPATION, present.? Assessment: * Assessment: 1.?Tinea unguium - B35.1???2 .?Skin ulcer of toe of left foot, limited to breakdown of skin - L97.521 (Primary)???3.?Pain in right toe(s) - M79.674???4.?Pain in left toe(s) - M79.675??? Plan: * Treatment: 2.?Tinea unguium?Procedure: 93802-IYRMHFL NAIL, 6 OR MORE * Procedures:?Debride Nail 6-10:?Nail debridement?Due to the clinical pathology outlined in the exam findings, performance of this nail treatment is medically necessary as its management by an unskilled/untrained nonprofessional would put this patients foot and overall health at risk. Therefore, debridement to affected nail(s), as described in exam ( TA, T1, T2, T3, T5, T6, T7, T8, T9, ), was performed exclusively by the physician of record to reduce/remove overall nail length, girth, thickness, subungual debris, and necrotic tissue, by manual and/or electrical means through the use of a nail nipper and/or dremel-type gear and spline grinder, to a more viable healthy nail plate or bed tissue 6- 10 nails in total. Silver nitrate was used for any petechial bleeding as necessary. Definitive antifungal treatment options, both pharmaceutical and surgical, have been reviewed and discussed with the patient. The patient solely prefers the use of intermittent/as needed professional debridement services for their nail condition and understands the need for additional periodic treatments to maintain effectiveness in symptomatic relief - 30990.?Debride skin< 25 sq cm:?Open wound?Physician of record performed open wound selective debridement of first 25 sq cm or less, of devitilized necrotic/nonviable soft tissue, fibrin, and exudate extending from the epidermis through the dermis, utilizing sharp dissection with sterile 15 blade, and/or tissue nippers. Sterile antibiotic dressing applied, ANESTHESIA was accomplished TOPICALLY with Lidocaine Hydrochloride Jelly 2 percent. Hemostasis was achieved through direct pressure. Post debridement measurements: 4 mm x 3 mm x 2 mm. Character of the wound post debridement is stable (80065), The patient is to apply Antibiotic Oint. to the wound and cover with a DSD, The patient is to cont the local wound care as directed till condition is completely healed.? * Procedure Codes:?41448 DEBRI DE NAIL, 6 OR MORE, Modifiers: XS 75316 ACTIVE WOUND CARE/20 CM OR <, Modifiers: T4 * Preventive Medicine:? ??Screening/Special Tests:?Fall Risk?Screening:?No falls in the past year ?FALLS: Screening for Future Fall Risk?Have you had any falls with injury in the past year??No * Follow Up:?3 Months * Images: * Sign off status: Completed true * Provider:?Jennifer Marks DPM Date:?2024 Generated for Viraj stone/Arthur/Jeannine on:?12/24/2024 04:06 PM EDT History and Physical Notes * HPI (History of Present Illness) Category Sub-Category Detail Notes Category Not es Toe pain Nature: tenderness Location: Left foot Duration: , several days Course: worse Aggravated by: any pressure, shoes Treatments: rest/alter normal da ahmet activity,, bracing/splinting/padding Painful Nails Treatments: Topical Antifungal , Pt States Last PCP Visit: Date:: 11/17/2024 Examination Category Sub-Category Detail Notes Category Not es Ingrown Nail INSPECTION: Neurological SENSORY: Neurological exa m reveals intact sensorium, pain sensation normal, vibration sensation intact, pinprick sensation is normal in the lower extremities, Pt denies, anesthesia, burning, paresthesia, tingling, B/L Dermatologic SKIN FINDINGS: ULCER: Medial, T4, LOCATION , SIZE, 6mm X 4mm X 2mm, BASE, granular, RIM, hyperkeratotic, UNDERMINING, absent, TRACKING, Full thickness breakdown of skin, DRAINAGE, serosanguineous, mild, NECROTIC TISSUE, loosely-adherent, yellow slough, MALODOR, absent, CALOR, absent, ERYTHEMA, absent, PAIN ON PALPATION, present General Examination GENERAL APPEARANCE: Reveals a pleasant, [...] subungual debris, with pain on palpation , TA, T1, T2, T3, T5, T6, T7, T8, T9
--- OUTSIDE RECORDS SUMMARY | 2024-12-24 16:07 | XMS_ITS | Patient Health Record ---
Author Organization [facility] Address [address] [place] [address] Care Team Providers Care Professor Of Business Name Role Phone Yonis Pierre MD Primary Care Provider UnavailChris Coffman Unavailable [phone] Allergies No Known Allergies Results Component Value Reference Range Notes Complete Blood Count Auto Di ff Reviewed date:03/24/2024 11:38:35 PM Interpretation: Performing Lab:[facility], [address] [place] [id number] Notes/Report: White Blood Count 6.5 4.8-10.8 X10*3/uL [...] yet reviewed by nacho urban) Interpretation: Performing Lab:[facility], [address] [place] [id number] Notes/Report: OBS1 NEGATIVE NEGATIVE OBS Date 1 03/21/24 OBS2 NEGATIVE NEGATIVE OBS Date 2 03/22/24 OBS3 NEGATIVE NEGATIVE OBS Date 3 03/23/24 Reason For Referral No Information Medications Medication [...] Ellipta 100-25 MCG/ACT Inhalation for 30 Active Immunizations Vaccine Route Administration Date Status Comme nts Influenza Unknown 08/04/2020 Administered Problems Problem Type SNOMED Code ICD Code Onset Dates Problem Status W/U Status Risk Notes Problem 891257223 History of adenomatous polyp of colon (Z86.010) Active confirmed Problem 226802522 Change in bowel habits (R19.4) Active confirmed Problem Rectal discharge (280154254) Rectal discharge (R19.8) Active confirmed Vital Signs Blood pressure diastolic 00 mm Hg 04/29/2024 Height 68 in 04/29/2024 Blood pressure systolic 00 mm Hg 04/29/2024 Weight 168 lbs 04/29/2024 BMI 25.54 kg/m2 04/29/2024 Encounters Encounter Location Date Provider Diagnosis [facility] [address] [place] [address] 04/29/2024 Chrsi Tomlin Change in bowel habits R19.4 [facility] [address] [place] [address] 03/17/2024 Chris Tomlin Change in bowel habits R19.4 Assessments Encounter Date Diagnosis (ICD Code) Assessment Notes Treatment Notes Treatment Clinical Notes Section Notes 04/29/2024 Change in bowel habits (ICD-10 - R19.4) Continue the fiber pills, stool softeners, and probiotics. Call me if things worsen with the BM's Overall, Sherly appears well. He is currently doing well on his additional supplemental fiber. He is not having any current or worrisome GI complaints. 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 Given his negative Hemoccult cards, stable and improved CBC, his good clinical response to the fiber, and his good clinical appearance, I advised and I don't think any further workup such as a colonoscopy or other testing is required. Given his age and some associated comorbidities, I think it would be best to avoid any invasive procedures on him unless absolutely necessary. At this point Sherly will continue his current regimen of the fiber, stool softeners, and probiotics. As long as he is doing well he will see me on a p.r.n. basis. I did advise him to certainly call if he has any problems or questions I can be of assistance with. Sherly was comfortable with this plan. Thank you again for allowing me to participate in Sherly's care. I shall continue to keep you advised of his progress. 03/17/2024 Change in bowel habits (ICD-10 - R19.4) Plan Of Treatment Pending Test Test Name Order Date Hemoccult [...] Date MEDICARE OF [place] [address] [place] [address] [id number] LIZBETHSHERLY Self - patient is the insured [employer] ATT[employer] CLAIMS [address] [place] [address] [id number] SHERLY MARIN Self - patient is the insured Medical (General) History Medical History History ICD Code Screening Colonoscopy 04-30-2009--1 small tubular adenoma removed Reports neg. CT and MRI of abdomen in Hypertension Denies MS,DM,CVA,renal disease Peripheral neuropathy in feet Atrial fibrillation Asthma Colonoscopy in 01/2015-2 small tubular ad enomas removed 11/2023 and 12/2023 with hospitalizations for CHF--Dr. Revlees Some emphysema/asthma-Dr. Hernández Surgical History Surgery Date(Month/Year) Eye lid surgery Cataract-lens implants-left
--- OUTSIDE RECORDS SUMMARY | 2024-12-24 16:07 | XMS_ITS ---
Author Organization [facility] Address [address] [place] [address] Care Team Providers Care Machine Lead Burner Name Role Phone Ignacio LOZOYA, Yonis Primary Care Provider Chris French Unavailable [phone] Allergies No Known Allergies REASON FOR VISIT patient presents today for change in bowels Medications Medication SIG (Take, Route, Frequency, Duration) [...] 5 % Ophthalmic for 90 A ctive Vital Signs Blood pressure systolic 00 mm Hg 04/29/20 24 Blood pressure diastolic 00 mm Hg 024 Height 68 in 04/29/2024 Weight 168 lbs 04/29/2024 BMI 25.54 kg/m2 04/29/2024 Encounters Encounter Location Date Provider Diagnosis [facility] [address] [place] [address] 04/29/2024 Chris Tomlin Change in bowel habits [...] to keep you advised of his progress. Plan Of Treatment Treatment Notes Assessment Notes Change in bowel habits Continue the fibe r pills, stool softeners, and probiotics. Call me if things worsen with the BM's Next Appt Details Follow Up: prn, Reason: Progress Notes * SHERLY MARIN RDOB:[birth year] (83 yo M)Acc No.[id number]:04/29/2024 Progress Notes Patient:?SHERLY MARIN Provider:?Chris Tomlin MD :1940???Age:83 Y???Sex:Male Jonathan e:04/29/2024 Address:[address] [place], [place] [address] [id number] Pcp:Yonis Pierre MD Subjective: * Chief Complaints: * ???Patient presents today fo r change in bowels * HPI: ???incontinence:? I saw Sherly in consultation today in regard to further evaluation of his change in bowel habits with some irregularity. ?I last saw Sherly in January of 2021 for some similar issues of irregular bowel movements and bowel movement irregularity. At that time his symptoms improved with the addition of some fiber. He did submit 3 Hemoccult-negative stool specimens at that time. His last colonoscopy had been in 2014 with removal of some small tubular adenomas. ?He had been doing well up until earlier this year when he began having some irregular bowel movements again. He called me in early March about this and I had him increase his fiber supplements at that time. He describes that since having increased his supplemental fiber he has definitely been feeling better in regard to his bowel movements. He describes having a daily formed bowel movement without any signs of bleeding. He enjoys a good appetite, without any significant heartburn or dysphagia. He denies any abdominal pain or jaundice. ?He did turn in 3 Hemoccult cards again this past March and those were also all negative. A CBC revealed a hemoglobin 12.8 with a normal MCV. His hemoglobin was 11.1 back in December. As you know, he was hospitalized earlier this year for congestive heart failure on 2 separate occasions. * ROS:?General/Constitutional:?Change in appetite?denies.?Chills?denies.?Fatigue?denies.?Ophthalmologic:?Comments?all negative.?ENT:?Comments?all negative.?Respiratory:?hemoptysis?denies.?Cough?denies.?Cardiovascular:?Chest pain?denies.?Orthopnea?denies.?Gastrointestinal:?Comments?See HPI for details.?Genitourinary:?Hematuria?denies.?Dysuria?denies.?Musculoskeletal:?Painful joints?denies.?Weakness?denies.?Skin:?Itching?denies.?Rash?denies.?Neurologic:?Comments?He describes a peripheral neuropathy in his feet.?Headache?denies.?Seizures?denies.?Psychiatric:?Comments?all negative.? * Medical History:? * Surgical History:?Eye lid kemp rgery Cataract-lens implants-left * Hospitalization/Major Diagno stic Procedure:? * Family History:?Father: dece ased, diagnosed with Heart disease.?Mother: .? Denies family hx of colon cancer, colon polyps or liver ds. * Social History:?Tobacco Use:?Tobacco Use/Smoking?Are you a: former smoker , How long has it been since you last smoked?: > 10 years.?Nonsmoker >10 yrs; no sig alcohol. * Medications:?TakingFiber Cho ice 1.5 GM Tablet Chewable as directed Orally twice a dayamLODIPine Besylate 10 MG Tablet TAKE 1 TABLET BY MOUTH EVERY DAY Oral Losartan Potassium 100 MG Tablet TAKE 1 TABLET EVERY DAY Oral Carvedilol 6.25 MG Tablet TAKE 1 TABLET BY MOUTH TWICE A DAY Orally Probiotic Apixaban 5 MG Tablet Orally Budesonide-Formoterol Fumarate 160-4.5 MCG/ACT Aerosol Inhalation MiraLax 17 GM Packet Orally , Notes: PRNAlbuterol Sulfate HFA 108 (90 Base) MCG/ACT Aerosol Solution Inhalation Tylenol , Notes: PRNEliquis 5 MG Tablet TAKE 1 TABLET BY MOUTH TWICE A DAY Oral Breo Ellipta 100-25 MCG/ACT Aerosol Powder Breath Activated Inhalation Finasteride 5 MG Tablet TAKE 1 TABLET BY MOUTH EVERY DAY Oral Brimonidine Tartrate 0.2 % Solution INSTILL 1 DROP INTO BOTH EYES TWICE A DAY Ophthalmic Xiidra 5 % Solution Ophthalmic Taking Fiber Choice 1.5 GM Tablet Chewable as directed Orally twice a dayTaking amLODIPine Besylate 10 MG Tablet TAKE 1 TABLET BY MOUTH EVERY DAY Oral Taking Losartan Potassium 100 MG Tablet TAKE 1 TABLET EVERY DAY Oral Taking Carvedilol 6.25 MG Tablet TAKE 1 TABLET BY MOUTH TWICE A DAY Orally Taking Probiotic Taking Apixaban 5 MG Tablet Orally Taking Budesonide-Formoterol Fumarate 160-4.5 MCG/ACT Aerosol Inhalation Taking MiraLax 17 GM Packet Orally , Notes: PRNTaking Albuterol Sulfate HFA 108 (90 Base) MCG/ACT Aerosol Solution Inhalation Taking Tylenol , Notes: PRNTaking Eliquis 5 MG Tablet TAKE 1 TABLET BY MOUTH TWICE A DAY Oral Taking Breo Ellipta 100-25 MCG/ACT Aerosol Powder Breath Activated Inhalation Taking Finasteride 5 MG Tablet TAKE 1 TABLET BY MOUTH EVERY DAY Oral Taking Brimonidine Tartrate 0.2 % Solution INSTILL 1 DROP INTO BOTH EYES TWICE A DAY Ophthalmic Taking Xiidra 5 % Solution Ophthalmic DiscontinuedLatanoprost 0.005 % Solution Ophthalmic Multi Vitamin/Minerals Medication List reviewed and reconciled with the patientDiscontinued Latanoprost 0.005 % Solution Ophthalmic Discontinued Multi Vitamin/Minerals Medication List reviewed and reconciled with the patient * Allergies:?N.K.D.A.yes[Aller gies Verified] Objective: * Vitals:?Wt: 168 lbs, Ht: 68 in, BMI:25.54 Index, BP: 00/00 mm Hg. * Examination: ???General Examination: ?GENERAL APPEARANCE:?pleasant, well nourished, well developed, in no acute distress.?EYES:?sclera non-icteric.?ORAL CAVITY:?mucosa moist.?NECK/THYROID:?no cervical lymphadenopathy, neck supple.?SKIN:?nonjaundiced, no spider angiomata.?HEART:?S1, S2 normal.?LUNGS:?clear to auscultation bilaterally.?ABDOMEN:?normal bowel sounds, no guarding or rigidity, no guarding or rigidity, no masses palpable, soft, nontender, nondistended.?EXTREMITIES:?no edema.?NEUROLOGIC:?alert and oriented.? Assessment: * Assessment: 1.?Change in bowel habits - R19.4 (Primary)? Overall, Sherly aminta richter. He is currently doing well on his [...] to keep you advised of his progress. Plan: * Treatment: * Procedure Codes:?1036F TOBAC CO NON-DHCWC3487 BP SCR NOT PRFRM REC REASON NOS * Follow Up:?prn * * Sign off status: Completed true * Provider:?Chris Tomlin MD Date:? 024 Generated for Viraj stone/Arthur/Alfaitting on:?12/24/2024 04:06 PM EDT History and Physical Notes * HPI (History of Present Illness) Category Sub-Category Detail Notes Category Not es incontinence I saw Sherly in consultation today in regard to further evaluation of his change in bowel habits with some irregularity. I last saw Sherly in January of 2021 for some similar issues of irregular bowel movements and bowel movement irregularity. At that time his symptoms improved with the addition of some fiber. He did submit 3 Hemoccult-negative stool specimens at that time. His last colonoscopy had been in 2014 with removal of some small tubular adenomas. He had been doing well up until earlier this year when he began having some irregular bowel movements again. He called me in early March about this and I had him increase his fiber supplements at that time. He describes that since having increased his supplemental fiber he has definitely been feeling better in regard to his bowel movements. He describes having a daily formed bowel movement without any signs of bleeding. He enjoys a good appetite, without any significant heartburn or dysphagia. He denies any abdominal pain or jaundice. He did turn in 3 Hemoccult cards again this past March and those were also all negative. A CBC revealed a hemoglobin 12.8 with a normal MCV. His hemoglobin was 11.1 back in December. As you know, he was hospitalized earlier this year for congestive heart failure on 2 separate occasions. Examination Category Sub-Category Detail Notes Category Not es General Examination GENERAL APPEARANCE: pleasant , well [...]
--- OUTSIDE RECORDS SUMMARY | 2024-12-24 16:07 | XMS_ITS ---
Author Organization [facility] Address [address] [place] [address] Care Team Providers Care Janitorial Assistant Name Role Phone Yonis Pierre MD Primary Care Provider Chris French [phone] REASON FOR VISIT change in bowels Encounters Encounter Location Date Provider Diagnosis [facility] [address] [place] [address] 03/17/2024 Chris Tomlin Change in bowel habits R19.4 Assessments Encounter Date Diagnosis (ICD Code) Assessment Notes Treatment Notes Treatment Clinical Notes Section Notes 03/17/2024 Change in bowel habits (ICD-10 - R19.4) Plan Of Treatment Pending Test Test Name Order Date Hemoccult Cards (Non-Screening) 03/17/20 24 CBC w DIFF 03/17/2024 Progress Notes * SHERLY MARIN RDOB:[birth year] (83 yo M)Acc No.[id number]:03/17/2024 Patient:?SHERLY MARIN :1940???Age:83 Y???Sex:Male Address:[place] [address] Subjective: * Chief Complaints: * ???Change in bowels * Medical History:? * Surgical History:? * Hospitalization/Major Diagno stic Procedure:? * Medications:? Objective: Assessment: * Assessment: 1.?Change in bowel habits - R19.4 (Primary)? Plan: * Treatment: ?LAB: CBC w DIFF * Procedure Codes:? * true * Date:? Generated for Viraj stone/Arthur/Alfaitting on:?12/24/2024 04:07 PM EDT
--- OUTSIDE RECORDS SUMMARY | 2024-12-24 16:07 | XMS_ITS ---
Author Organization [facility] [place] Address [address] [place] [address] Care Team Providers Care Repairer Welding Systems And Equipment Name Role Phone Yonis Pierre Primary Care Provider UnavailJennifer Falk Unavailable [phone] Allergies Allergen (clinical drug ingredient) Drug/Non Drug [...] Ordered Date Performed Result Body Sit e 45122-FBSYJQB NAIL, 6 OR MORE 09/04/2024 N/A 77250-Hzhowjos Plate 09/04/2024 N/A Encounters Encounter Location Date Provider Diagnosis [facility] [address] [address] 09/04/2024 Jennifer Marks Tinea unguium B35.1 ; [...] Treatment Pending Test Test Name Order Date 38266-BFGQHWB NAIL, 6 OR MORE 09/04/2024 61699-Rcuivijr Plate 09/04/2024 Next Appt Details Follow Up: 2 Weeks, Reason: Provider Name:Jennifer Villeda Kendrick , 03/23/2025 02:30:00 PM, [address] [place] [address], [phone], Procedure Notes * Category Sub-Category Detail Notes [...] Motrin was recommended for pain or discomfort (83565), Pt DEFERS matricectomy Anesthesia , was accomplished [...] use of a nail nipper and/or dremel-type thread grinder tool, to a more viable healthy nail plate or bed tissue 6-10. Silver nitrate used for any petechial bleeding as necessary. Definitive antifungal treatment options have been reviewed and discussed with the patient. The patient chooses, no pharmaceutical tx - 63852 Progress Notes * Junior MARIN RDOB:[birth year] (83 yo M)Acc No.[id number]:09/04/2024 Progress Note Patient:?Junior MRAIN Angela Provider:?Jennifer Marks DPM :1940???Age:83 Y???Sex:Male Jonathan e:09/04/2024 Address[address] [id number] Pcp:Yonis Pierre Subjective: * Chief Complaints: * [...] - M79.675??? Plan: * Treatment: 2.?Tinea unguium?Procedure: 27238-PFNINJF NAIL, 6 OR MORE * Procedures:?Debride Nail [...] use of a nail nipper and/or dremel-type thread grinder tool, to a more viable healthy nail plate or bed tissue 6-10. Silver nitrate used for any petechial bleeding as necessary. Definitive antifungal treatment options have been reviewed and discussed with the patient. The patient chooses, no pharmaceutical tx - 92217.?Nail Avulsion:?Location?, Lateral nail border, TA.?Anesthesia?, was accomplished [...] Motrin was recommended for pain or discomfort (78053), Pt DEFERS matricectomy.? * Procedure Codes:?39875 DEBRI DE NAIL, 6 OR MORE, Modifiers: XS 52039 Avulsion Plate, Modifiers: TA * Follow Up:?2 Weeks * Images: * Sign off status: Completed true * Provider:Laura Marks DPM Date:?2023 Generated for Viraj stone/Arthur/Jeannine on:?12/24/2024 04:07 PM EDT History and Physical Notes * [...]
== END ==
LOC: HO.CARD 13:38
PROVIDERS: PCP Internal Medicine; Visit Provider Internal Medicine Cardiovascular Disease
DX: I50.30 Unspecified diastolic (congestive) heart failure (principal)
CPT/HCPCS: 93306

== ENCOUNTER → 2024-12-24 13:43 | Outpatient (BNV) | payer MEDICARE, SELFPAY | PROVIDERS: PCP Internal Medicine; Visit Provider Internal Medicine | DX: I27.20 Pulmonary hypertension, unspecified (principal); I51.7 Cardiomegaly; I36.1 Nonrheumatic tricuspid (valve) insufficiency; I31.39 Other pericardial effusion (noninflammatory) | CPT/HCPCS: 93306 ==

== ENCOUNTER 2025-01-12 10:43 | Outpatient (AMB) | payer MEDICARE, SELFPAY ==
--- NOTE | 2025-01-12 10:52 | MHC.OFFVIS ---
Vital Signs 01/12/25 10:53 Height 5 ft 9 in Weight 169 lb 12.095 oz BMI 25.1 BP 110/68 Blood Pressure Location Lt brachial Position Sitting Pulse 60 Intake Visit Reasons: 1 year f/u Intake Note: 1 month follow-up after echo feeling ok Thoroughbred Horse Farm Manager Required: No Manager Enrollment: Manager Enrollment Present Accompanied by: Spouse Allergies latex Allergy (Verified 11/15/24 14:34) Unknown maple Allergy (Mild, Uncoded 11/12/24 13:47) Unknown Medication List - Last Reconciled 01/12/25 by Blas Reveles MD albuterol sulfate 90 mcg/actuation 2 puffs inhalation Q4-6H PRN amlodipine 10 mg PO DAILY apixaban (Eliquis) 5 mg PO BID carvedilol 6.25 mg PO BID finasteride 5 mg PO DAILY fluticasone furoate-vilanterol 100-25 mcg/dose (Breo Ellipta) 1 ea inhalation DAILY furosemide (Lasix) 20 mg PO DAILY lifitegrast 5% (Xiidra) 1 drp ophthalmic (eye) BID losartan 100 mg PO DAILY timolol maleate 0.5% 1 drp ophthalmic (eye) BID vit C,O-Ws-oapdo-lutein-zeaxan 250-90-40-1 mg (PreserVision AREDS-2) 1 tab PO BID walker (Ultra-Light Rollator misc) As directed HPI Comments Details: Junior comes for follow-up. He has had no recent hospitalization for congestive heart failure. Overall doing well. Recent echocardiogram shows worsening RV systolic pressure consistent with worsening pulmonary hypertension. He has no significant worsening of his heart failure syndrome. Remains on low-dose diuretic therapy. Denies any palpitations. No bleeding issues or neurologic events. Takes all his medications. [facility] Medical History Chronic atrial fibrillation Acute respiratory failure with hypoxia CHF exacerbation Atrial fibrillation with RVR (HFpEF) heart failure with preserved ejection fraction Asthma Mitral valve insufficiency Macular degeneration Former smoker HTN (hypertension) Social History Household Members: Spouse Housing: House Do you presently have visiting nurse or other home services: Yes Alcohol intake: current Alcohol intake frequency: holidays/special occasions only Patient Tobacco Use Status: Former Tobacco user Advance Directives Date on File: 12/05/23 service: No Review of Systems Const Denies chills, Denies fatigue, Denies fever(s), Denies frequent falls, Denies weakness, Denies weight gain and Denies weight loss ENT Denies dizziness Card Denies chest pain, Denies leg edema, Denies lightheadedness, Denies palpitations, Denies dyspnea, Denies dyspnea on exertion, Denies orthopnea and Denies other (loss of consciousness) Resp Denies cough, Denies dyspnea and Denies dyspnea on exertion GI Denies hematochezia and Denies change in stool character Musc Denies abnormal gait, Denies muscle weakness, Denies numbness, Denies radiating pain into limb and Denies tingling Neuro Denies abnormal gait, Denies dizziness, Denies frequent falls, Denies numbness, Denies tingling and Denies weakness Endo Denies fatigue and Denies palpitations Physical Exam Vital Signs: Last Vital Signs Pulse 60 01/12/25 10:53 BP 110/68 01/12/25 10:53 BMI result Body Mass Index 25.1 Const General: cooperative, healthy appearing, comfortable and no acute distress Orientation/consciousness: patient oriented x3 HEENT Head: Yes normal to inspection Neck Neck: Yes normal visual inspection, Yes trachea midline and Yes supple Chest Chest palpation & inspection: normal inspection of the chest Resp Effort & Inspection: normal respiratory effort Auscultation: clear to auscultation bilaterally, no crackles, no rales, no rhonchi, no wheezes and diminished lung sounds on the right in the lower lung monahan Cardio Jugular venous distension: no JVD Palpation: normal PMI Rate: regular rate Rhythm: abnormal rhythm irregularly irregular Heart sounds: S1 normal heart sound present, S2 normal heart sound present, no click, no gallops, no murmurs and no rubs Peripheral pulses: Peripheral pulses 2+ throughout GI Inspection: Yes normal to inspection Palpation (GI): Soft to palpation Auscultation: normal bowel sounds Skin General skin exam: no rashes or lesions noted Neuro General: patient oriented x3 Extrem General: Yes normal to inspection, No calf tenderness and Yes edema (2+ to the RLE, trace to LLE) Psych Appearance: grossly normal Mental Status: mental status grossly normal Speech and movement: Normal speech and movement present Assessment & Plan Assessment & Plan (1) (HFpEF) heart failure with preserved ejection fraction: Code(s): I50.30 - Unspecified diastolic (congestive) heart failure Category: Medical Plan: Heart failure preserved ejection fraction secondary to diastolic dysfunction atrial fibrillation, currently on low-dose diuretic therapy. As worsening RV systolic pressure which usually portends a poor prognosis. His high likelihood of developing recurrent heart failure syndrome. This was discussed with him. Management of heart failure syndrome was discussed. Clinically currently appears to be euvolemic and well compensated without any worsening symptoms. Advised to continue furosemide therapy at this point time. Daily weight monitoring avoidance salt loading was discussed additional diuretics as need be. Continue aggressive blood pressure control. He is encouraged to maintain activity level as tolerated. (2) Chronic atrial fibrillation: Code(s): I48.20 - Chronic atrial fibrillation, unspecified Category: Medical Plan: Chronic rate control atrial fibrillation. Currently rate controlled on current therapy with carvedilol. Continue the same. Continue full oral anticoagulation, currently on Eliquis 5 mg b.i.d.. Quarterly renal function test should be pursued. Will follow up in the clinic every 3 months. Thank you for allowing me to partake in his care Coding Level of Care Code Est Pt Level 4 (97623) Complex EM visit Add On G2211 Diagnoses (HFpEF) heart failure with preserved ejection fraction I50.30 Chronic atrial fibrillation I48.20
[2025-01-12 10:53] VITALS: BP 110/68; PULSE 60; BMI 25.1
--- OUTSIDE RECORDS SUMMARY | 2025-01-12 12:05 | XMS_ITS | Patient Health Record ---
Author Organization [facility] Address [address] [place] [address] Care Team Providers Care Sales Planning Coordinator Name Role Phone Yonis Pierre Primary Care Provider Jennifer Thurman Unavailable [phone] Allergies Allergen (clinical drug ingredient) Drug/Non Drug [...] Problem Acquired hammer toe of left foot (9702662485577925) Other hammer toe(s) (acquired), left foot (M20.42) Active confirmed Problem Acquired hammer toe of right foot (5414512076721070) Other hammer toe(s) (acquired), right foot (M20.41) Active confirmed Problem Gout (15023420) Gout (M10.9) Active confirmed Problem Chronic tophaceous gout of right foot (4094973813404316) 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 Problem Localized, primary osteoarthritis of the ankle and/or foot (677562278) Arthritis of joint of lesser toe, left (M19.072) Active confirmed Vital Signs Heart Rate 65 /min 09/04/2024 Blood pressure diastolic 80 mm Hg 12/08/2024 Height 5 ft 9 in in 12/08/2024 Blood pressure systolic 120 mm Hg 12/08/2024 Weight 165 lbs 12/08/2024 BMI 24.36 kg/m2 12/08/2024 Procedures Procedure Date Ordered Date Performed Result Body Sit e 33542-KZLCRNB NAIL, 6 OR MORE 01/31/2024 N/A 43021-TIGWRQF NAIL, 6 OR MORE 05/19/2024 N/A 80777-NUIQLQE NAIL, 6 OR MORE 09/04/2024 N/A 87457-Sceuervb Plate 09/04/2024 N/A 09417-RLOIBOZ NAIL, 6 OR MORE 12/08/2024 N/A 78629- Debride <25 sq cm 12/08/2024 N/A Encounters Encounter Location Date Provider Diagnosis [facility] [place] [address] [place] [address] 01/31/2024 Jennifer Black Tinea unguium B35.1 ; Pain in right toe(s) M79.674 and Pain in left toe(s) M79.[address] [address] 05/19/2024 Jennifer Black Pain in left toe(s) M79.675 ; Other hammer toe(s) (acquired), left foot M20.42 ; Tinea unguium B35.1 ; Pain in right toe(s) M79.674 ; Pain in left toe(s) M79.675 and Arthritis of joint of lesser toe, left M19.[address] [address] 09/04/2024 Jennifer Black Tinea unguium B35.1 ; Ingrown nail L60.0 ; Pain in right toe(s) M79.674 and Pain in left toe(s) M79.[address] [address] 12/08/2024 Jennifer Black Tinea unguium B35.1 ; Skin ulcer of toe of left foot, limited to breakdown of skin L97.521 ; Pain in right toe(s) M79.674 and Pain in left toe(s) M79.[address] [address] 05/19/2024 Jennifer Black Assessments Encounter Date Diagnosis [...] Treatment Pending Test Test Name Order Date 83900-VGOLKNQ NAIL, 6 OR MORE 09/13/2011 72819-XZLXSBS NAIL, 6 OR MORE 01/01/2012 25348-EDSDAGX NAIL, 6 OR MORE 04/03/2012 53653-ICRUBDP NAIL, 6 OR MORE 07/11/2012 87775-ENAKIXX NAIL, 6 OR MORE 10/21/2012 30609-DDYQHBX NAIL, 6 OR MORE 03/27/2013 34594-JNHDZZC NAIL, 6 OR MORE 09/22/2013 78485-RYHZGGA NAIL, 6 OR MORE 07/08/2014 97539-ROKSWBS NAIL, 6 OR MORE 01/13/2015 00302-XMRPZHY NAIL, 6 OR MORE 01/26/2016 60466-QZKACGH NAIL, 6 OR MORE 07/20/2016 55822-WFFMOYM NAIL, 6 OR MORE 01/18/2017 81091-CEAFWDD NAIL, 6 OR MORE 09/03/2017 28904-WILHPQT NAIL, 6 OR MORE 12/13/2017 95741-CFXEGZY NAIL, 6 OR MORE 03/14/2018 25852-GZIGVZT NAIL, 6 OR MORE 05/23/2018 71411-MFGJRXZ NAIL, 6 OR MORE 09/19/2018 26389-EUMYXSH NAIL, 6 OR MORE 01/16/2019 69478-SSDUNSS NAIL, 6 OR MORE 04/24/2019 47918-JVDGXMB NAIL, 6 OR MORE 07/24/2019 49775-KQSEUAJ NAIL, 6 OR MORE 10/23/2019 14220-QZMQVWU NAIL, 6 OR MORE 03/04/2020 07343-KMYSDVG NAIL, 6 OR MORE 06/10/2020 31051-KHGPMJA NAIL, 6 OR MORE 09/16/2020 95151-TULFLSU NAIL, 6 OR MORE 01/13/2021 46580-WXSOYEB NAIL, 6 OR MORE 04/28/2021 56494-OJBVLRX NAIL, 6 OR MORE 08/11/2021 32625-TTFNFNG NAIL, 6 OR MORE 11/21/2021 88525-EEGTAXA NAIL, 6 OR MORE 02/23/2022 60466-DAMCSRV NAIL, 6 OR MORE 06/01/2022 16645-MUHAJNZ NAIL, 6 OR MORE 09/11/2022 49453-HDDWENP NAIL, 6 OR MORE 12/11/2022 84947-IKRGIRX NAIL, 6 OR MORE 04/12/2023 22494-SLJRWLY NAIL, 6 OR MORE 07/16/2023 62259-SNKAOEZ NAIL, 6 OR MORE 11/01/2023 53963-QTMNDRA NAIL, 6 OR MORE 01/31/2024 56516-KOEMEFW NAIL, 6 OR MORE 05/19/2024 21823-LCZUJDX NAIL, 6 OR MORE 09/04/2024 61935-YYGLBZN NAIL, 6 OR MORE 12/08/2024 23686-CJOJOFR NAIL, 1-5 07/21/2015 91081-Oaactwnw Plate 09/20/2021 86385-Lqvoozze Plate 08/11/2021 16777-Vfgajmdp Plate 03/04/2020 59429-Erfvtcru Plate 02/01/2018 43357-Ebbauffc Plate 01/13/2015 13788-Xngbcgkq Plate 09/04/2024 37165- Debride <25 sq cm 12/08/2024 17088- Debride <25 sq cm 06/19/2019 16457- Debride <25 sq cm 09/20/2021 42712- Debride <25 sq cm 02/23/2022 03943- Debride <25 sq cm 09/11/2022 44263- Debride <25 sq cm 06/01/2022 Next Appt Details Provider Name:Jennifer Marks , 03/23/2025 02:30:00 PM, [address] [place], [address], Insurance Providers Payer Name Payer Address Payer Phone Subscriber Number Group Number Insured Name Patient Relationship to Insured Coverage Start Date Coverage End Date Medicare [facility] [address] [place] [address] [id number] Junior Marin Self - patient is the insured [employer] [address] [place] [address] [phone] [id number] Junior Marin Self - patient is the insured Medical (General) History Medical History History ICD Code measles hypertension asthma Surgical History Surgery Date(Month/Year) 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
--- OUTSIDE RECORDS SUMMARY | 2025-01-12 12:05 | XMS_ITS ---
Author Organization [facility] [place] Address [address] [place] [address] Care Team Providers Care Meteorology Instructor Name Role Phone Yonis Pierre Primary Care Provider UnavailBhanu Falkmie Unavailable [phone] Allergies Allergen (clinical drug ingredient) Drug/Non Drug [...] Ordered Date Performed Result Body Sit e 76789-PNOXKGI NAIL, 6 OR MORE 12/08/2024 N/A 12020- Debride <25 sq cm 12/08/2024 N/A Encounters Encounter Location Date Provider Diagnosis [facility] [address] [address] 12/08/2024 Jennifer Marks Tinea unguium B35.1 ; [...] Treatment Pending Test Test Name Order Date 23167-UTMCZMY NAIL, 6 OR MORE 12/08/2024 39826- Debride <25 sq cm 12/08/2024 Next Appt Details Follow Up: 3 Months, Reason: Provider Name:Jennifer Marks , 03/23/2025 02:30:00 PM, [address] [place] [address], [address], Procedure Notes * Category Sub-Category Detail Notes [...] use of a nail nipper and/or dremel-type refractory grinder operator, to a more viable healthy nail plate [...] to maintain effectiveness in symptomatic relief - 07358 Debride skin< 25 sq cm Open wound [...] of the wound post debridement is stable (72634), The patient is to apply Antibiotic Oint. to the wound and cover with a DSD, The patient is to cont the local wound care as directed till condition is completely healed Progress Notes * Junior MARIN RDOB:[birth year] (83 yo M)Acc No.[id number]:12/08/2024 Progress Note Patient:?Junior MARIN Provider:?Jennifer Marks DPM :1940???Age:83 Y???Sex:Male Jonathan e:12/08/2024 Address: [address] [facility], [place] Pcp:Yonis Pierre Subjective: * Chief Complaints: * [...] - M79.675??? Plan: * Treatment: 2.?Tinea unguium?Procedure: 52541-IOPHPPP NAIL, 6 OR MORE * Procedures:?Debride Nail [...] use of a nail nipper and/or dremel-type refractory grinder operator, to a more viable healthy nail plate [...] to maintain effectiveness in symptomatic relief - 87322.?Debride skin< 25 sq cm:?Open wound?Physician of record [...] of the wound post debridement is stable (20972), The patient is to apply Antibiotic Oint. to the wound and cover with a DSD, The patient is to cont the local wound care as directed till condition is completely healed.? * Procedure Codes:?08114 DEBRI DE NAIL, 6 OR MORE, Modifiers: XS 99420 ACTIVE WOUND CARE/20 CM OR <, Modifiers: T4 * Preventive Medicine:? ??Screening/Special Tests:?Fall Risk?Screening:?No falls in the past year ?FALLS: Screening for Future Fall Risk?Have you had any falls with injury in the past year??No * Follow Up:?3 Months * Images: * Sign off status: Completed true * Provider:?Jennifer Marks DPM Date:?2024 Generated for Viraj stone/Arthur/Jeannine on:?01/12/2025 12:05 PM EDT History and Physical Notes * [...]
--- OUTSIDE RECORDS SUMMARY | 2025-01-12 12:05 | XMS_ITS | Continuity of Care Document ---
Author Organization [facility] Azael lt Address [address] [place] [address]- Care Team Providers Care Consulting Software Engineer Name Role Phone Ignacio LOZOYA, Yonis Crews Primary Care Physician [place] [facility] [place] - 01/08/25 [facility] [address] [place] [address]- Attending Physician: Yonis Pierre MD Encounter Type: [...] vaccine, inactivated 5 07/18/11 Gi patrick SARS-CoV-2(COVID-19)mRNA-LNP vac(ymx797) 07/07/24 Recorded SARS-CoV-2(COVID-19)mRNA-LNP vac(gkz375) 07/12/23 Recorded pneumococcal 20-valent conjugate vaccine 12/13/23 Given DQMS-CkQ-1eSSV 12y+ bivalent booster vax 07/11/22 Recorded tetanus/diphtheria/pertussis, acel(Tdap) 02/16/22 Given SARS-CoV-2 mRNA (ixhrrer-whgp-brqrz) vax 01/12/22 Recorded SARS-CoV-2 (COVID-19) mRNA BNT-162b2 [...] Inactive (IM) (oldterm) 08/16/07 Given 1Location History: [facility] 2Result Comment: [08/09/2017] [facility] JULISA 3Result Comment: [07/24/2016] RECEIVED AT [facility] HIGH DOSE 4Admin Note: given at [facility] on 08/17/13 5Admin Note: [facility] 6Admin Note: per pt rcvd eklsewhere 7Location History: [facility] 8Admin Note: PER CHART HISTORICAL 9Admin Note: per pt rcvd elsewhere Medications Aerochamber See Instructions, # 1 units, Maintenance, use w/ albuterol MDI, 12/13/15 5:06:18 PM EST, Compound Start Date: 12/13/15 Status: Ordered Quantity: 1.0 Unit: Units Repeat number: 1 amLODIPine 10 mg oral tablet 1 tablet, By Mouth, Daily, # 90 tablet, 1 Refills, Maintenance, 09/28/24 8:58:00 AM EST, [facility], 172.1, cm, 09/08/24 14:54:00 EST, Height Start Date: 09/28/24 Status: Ordered Quantity: 90.0 Unit: tablet Repeat number: 1 Breo Ellipta 100 mcg-25 mcg/inh inhalation powder 1 puffs, Inhalation, Daily, # 1 each, 11 Refills, Maintenance, 11/06/23 1:34:00 PM EST, [facility]/pharmacy#[id number], Partial fill upon patient request if the prescription is for a schedule II opioid drug., 1 puffs Inhalation Daily, 172.1, cm, 10/11/23 9:07:00 EST, Height Start Date: 11/06/23 Status: Ordered Quantity: 1.0 Unit: each Repeat number: 12 carvedilol 6.25 mg oral tablet 1, tablet, By Mouth, 2 times a day, # 180 tablet, Refills 1, Maintenance, 12/29/24 3:35:00 PM EDT, Route to Pharmacy Electronically, [facility], 172.1, cm, 11/25/24 10:53:00 EST, Height Start Date: 12/29/24 Status: Ordered Quantity: 180.0 Unit: tablet Repeat number: 1 Eliquis 5 mg oral tablet 1 tablet, By Mouth, 2 times a day, # 180 tablet, 3 Refills, Maintenance, 10/01/24 5:05:00 PM EST, [facility], 172.1, cm, 09/08/24 14:54:00 EST, Height Start [...] Daily, # 90 tablet, 3 Refills, Maintenance, 01/05/25 12:24:00 PM EDT, [facility]/pharmacy #[id number], 172.1, cm, 01/01/25 11:43:00 EDT, Height Start Date: 01/05/25 Status: Ordered Quantity: 90.0 Unit: tablet Repeat number: 4 Metamucil 3.4 gm/5.2 gm oral powder for [...] Status: Ordered Repeat number: 1 Vitamin D 03479 iu oral capsule 50,000 International_Units, By Mouth, Daily, Refills 0, Maintenance, 12/28/23 9:16:00 AM EST, Partial fill upon patient request if the prescription is for a schedule II opioid drug. Start Date: 10/11/23 Status: Ordered Repeat number: 1 Problem List Condition Confirmation Course Effective Dates [...] dry Confirmed Active AF (paroxysmal atrial fibrillation) Fnoms0aylm 3 Confirmed 07/05/20 Active Peripheral sensory neuropathy 5 Confirmed Active SCC (squamous cell carcinoma) Confirmed Active 1tubularv adenoma 01-20-1915 2multilevel DJD 3advised pre diabetic 4refer 5normal B12, A1c spep Vital Signs Most recent to oldest [Reference Range]: 1 2 3 Height 172.1 cm (01/01/25 11:43 AM) 172.1 cm (01/01/25 11:11 AM) 172.1 cm (01/01/25 11:05 AM) Weight 77.2 kg (01/01/25 11:05 AM) Oxygen Saturation [94-100 %] 98 % (01/01/25 11:05 AM) Pulse Rate [55-90 bpm] 79 bpm (01/01/25 11:05 AM) Body Mass Index [18.5-24.99 kg/m2] 26.06 kg/m2 *H* (01/01/25 11:05 AM) Blood Pressure [90-138/55-84 mm Hg] 142/69mm Hg *H* (01/01/25 11:43 AM) 152/61mm Hg *H* (01/01/25 11:11 AM) 149/55mm Hg *H* (01/01/25 11:05 AM) Blood pressure sites Arm, right (3/20/25 11:43 AM) Arm, right (01/01/25 11:05 AM) Weight Obtained Via Standing scale (01/01/25 11:05 AM) Social History Social History Type Response Smoking Status Former smoker; Type: Cigarettes; Number of years: 51; Total pack years: 51; Started at age: 12; Stopped at age: 63; entered on: 02/11/14 Sex Sex Representation Male (finding) Note * Becky Fernández: PERFORM Event Display: Patient Education/Instruction Authored Date: [id number] Ambulatory Adult Visit Summary [facility] [address] [place] [address] Name: SHERLY NIEVES : 1940?? Visit: 01/01/2025 11:01?? Ambulatory Visit Instructions ?? Your Care Team Primary Care Provider Yonis Pierre MD? This Visit Provider Yonis Pierre MD Your Diagnosis (HFpEF) heart failure with preserved ejection fraction Atrial fibrillation Hyperlipidemia Anemia Rectal bleeding Vitals Signs Pulse Rate: 79 bpm Height: 172.1 cm Systolic Blood Pressure:??142 mm Hg??High Weight: 77.2 kg Diastolic Blood Pressure: 69 mm Hg Body Mass Index:??26.06 kg/m2??High Oxygen Saturation: 98 % Body surface area: 1.92 What to do next Future Orders CBC - Once, *Est. 04/11/24 +/- 28 days, Single or Recurring Future Order?? Iron + Iron Binding Capacity - Once, *Est. 04/11/24 +/- 28 days, Single or Recurring Future Order?? Ferritin - Once, *Est. 04/11/24 +/- 28 days, Single or Recurring Future Order?? Vitamin B12 Level (B12 Vitamin Level) - Once, *Est. 04/11/24 +/- 28 days, Single or Recurring Future Order?? Folate Level - Once, *Est. 04/11/24 +/- 28 days, Single or Recurring Future Order?? Medications The list below reflects the information in our records and provided by you today along with any changes made during this visit. Please continue your medications until treatment is completed or stopped by your provider. If this is different from the information you have or there are other questions,please contact the prescribing provider. What How Much When Instructions Unchanged Amlodipine (amLODIPine 10 mg oral tablet) 1 tab(s) Oral Daily Unchanged apixaban (Eliquis 5 mg oral tablet) 1 tab(s) Oral Twice a day Unchanged bifidobacterium-lactobacillus (Probiotic Formula) Oral Daily Unchanged Carvedilol (carvedilol 6.25 mg oral tablet) 1 tab(s) Oral Twice a day Unchanged Durable Medical Equipment (Aerochamber) See instructions use w/ ??albuterol MDI ?? Unchanged Ergocalciferol (Vitamin D 43155 iu oral capsule) 50,000 International Unit Oral Daily Unchanged Finasteride (finasteride 5 mg oral tablet) 1 tab(s) Oral Daily Unchanged fluticasone-vilanterol (Breo Ellipta 100 mcg-25 mcg/ inh inhalation powder) 1 puff(s) Inhalation Daily Unchanged Latanoprost Ophthalmic (latanoprost 0.005% ophthalmic solution) 1 Drops Both eyes Daily at Bedtime Unchanged Losartan (losartan 100 mg oral tablet) 1 tab(s) Oral Daily Unchanged Multivitamin With Minerals (PreserVision AREDS 2) Twice a day Unchanged Psyllium (Metamucil 3.4 gm/ 5.2 gm oral powder for reconstitution) 3.4 gram Oral Daily Unchanged Timolol Ophthalmic (Timolol 0.5% Ophth) Twice a day ?? What How Much When Comments Stop Taking Fluticasone-Salmeterol (Wixela Inhub 100 mcg-50 mcg inhalation powder) 1 inhalation Inhalation Twice a day rinse mouth and throat after use ?? Medications and Immunizations Administered Medications Given During Visit No medications given during this visit.?? Allergies (NKA means No Known Allergies) Adhesive Bandage Latex Ragweed angiotensin converting enzyme inhibitors??(cough) tamsulosin Common Emergency Awareness Tips IS IT A STROKE? Act FAST and Check for these signs: FACE Does the face look uneven? ARM Does one arm drift down? SPEECH Does their speech sound strange? TIME Call at any sign of stroke ?? Heart Attack Signs Chest discomfort: Most heart attacks involve discomfort in the center of the chest and lasts more than a few minutes, or goes away and comes back. It can feel like uncomfortable pressure, squeezing, fullness or pain. Discomfort in upper body: Symptoms can include pain or discomfort in one or both arms, back, neck, jaw or stomach. Shortness of breath: With or without discomfort. Other signs: Breaking out in a cold sweat, nausea, or lightheaded. Remember, MINUTES DO MATTER. If you experience any of these heart attack warning signs, call to get immediate medical attention! ?? Smoking can increase your chances of developing chronic health problems and can cause harmful effects to other family members in your house. If you smoke, you are strongly encouraged to quit. Please call [facility] Link at [phone] or [phone]-CrowdCompass ([phone]) or log in to [email or web address] for referrals to smoking cessation programs. ?? The National Suicide Prevention Hotline is available 07/05 if you or someone you know needs to find a reason to keep living. By calling 7-086-470-scroll kit (8054) you'll be connected to a skilled, trained counselor at a crisis center in your area. [facility] You can view and manage your care through the patient portal or by using a health care daniel of your choosing. [employer] is a website that allows you to securely view your medical information including your hospital discharge summary, office visit summaries, medications and follow-up visits. You can also request appointments, renew medications, and request access to your medical information using a health care daniel of your choosing, or just ask a question. You can enroll at [email or web address] or register during your next office visit. [facility], in keeping with [facility] guidance, no longer requires face masks for staff, patientsor visitors in most situations. Similiar to time spent indoors at other locations, there is the chance that you were exposed to repiratory viruses during your time with us (such as flu or COVID-19). If you develop symptoms concerning for a viral respiratory infection, please seek testing (and treatment if indicated) from your medical provider or home test kit. ?? Disclaimer: The information provided is of a general nature and is intended to be used in conjunction with the recommendations and advice of your health care practitioner. Every effort has been made to ensure that the information provided is accurate and complete at the time it is provided to you however, as your needs change, or, as new information becomes available, different or additional instructions may be required. ?? If you have questions, please consult with your primary care provider or pharmacist, as appropriate. This information is not intended to serve as substitution for assessment and evaluation by a qualified health care provider. If you do not have a primary care provider, you may find a [facility] provider by calling [facility] at [phone]. Patient Care team information Care Team Personnel Name: Saud JOHN, Mary Vázquez Position: [facility] PCO Associate Professional Member Role: Lifetime Consulting Provider Address: [address] [place] [id number] Telecom: Name: Yonis Pierre MD Position: [facility] Physician - Primary Care Member Role: PCP Address: [address] [place] [id number] Telecom: Care Team Related Persons Name: LANEY NIEVES Name: ARMIN NIEVES Insurance Providers Guarantor name: SHERLY NIEVES Health Plan Information #: 2 Payer: MEDEX Member Number: [id number] Policy Number: NA Group Number: NA Health Plan Information #: 1 Payer: MEDICARE PART B OUTPT Member Number: [id number] Policy Number: NA Group Number: NA
--- OUTSIDE RECORDS SUMMARY | 2025-01-12 12:05 | XMS_ITS ---
Author Organization 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 Vital Signs Height 5 ft 9 in in 05/19/2024 Weight 162 lbs 05/19/2024 BMI 23.92 kg/m2 05/19/2024 Blood pressure systolic 135 mm Hg 05/19/20 24 Blood pressure diastolic 77 mm Hg 024 Heart Rate 85 /min 05/19/2024 Procedures Procedure Date Ordered Date Performed Result Body Sit e 61250-FMJIHVH NAIL, 6 OR MORE 05/19/2024 N/A Encounters Encounter Location Date Provider Diagnosis [facility] [place] [address] [place] [address] 05/19/2024 Jennifer Black Pain in left toe(s) [...] Treatment Pending Test Test Name Order Date 10973-UDTOSSG NAIL, 6 OR MORE 05/19/2024 Next Appt Details Follow Up: prn, Reason: Provider Name:Jennifer Marks , 03/23/2025 02:30:00 PM, [address] [facility], [place], [address], Procedure Notes * Category Sub-Category Detail Notes [...] as necessary. Patient chooses, no pharmaceutical tx (09804) Progress Notes * Junior MARIN RDOB:[birth year] (83 yo M)Acc No.[id number]:05/19/2024 Progress Note Patient:?Junior Marin Provider:?Jennifer Marks DPM :1940???Age:83 Y???Sex:Male Jonathan e:05/19/2024 Address: [address] [place], [place] Pcp:Yonis Pierre Subjective: * Chief Complaints: [...] as necessary. Patient chooses, no pharmaceutical tx (72617).? * Procedure Codes:?42850 DEBRI DE NAIL, 6 OR MORE * [...] Marks DPM Date:?2023 Generated for Viraj stone/Arthur/Jeannine on:?01/12/2025 12:05 PM [...] , T4 , Lateral , T3 Orthopedic FOOTWEAR EVALUATION: shoe gear p roperties exacerbate patients foot/toe deformity DIGITAL DEFORMITIES: Digital [...]
--- OUTSIDE RECORDS SUMMARY | 2025-01-12 12:06 | XMS_ITS ---
Author Organization [facility] lenny [place] Address [address] [place] [address] Care Team Providers Care Patient Partner Name Role Phone Yonis Pierre Primary Care Provider UnavailJennifer Falk Unavailable [phone] Allergies Allergen (clinical drug ingredient) Drug/Non Drug [...] Ordered Date Performed Result Body Sit e 97297-WHEKDWP NAIL, 6 OR MORE 09/04/2024 N/A 41107-Qgqfwavr Plate 09/04/2024 N/A Encounters Encounter Location Date Provider Diagnosis [facility] [address] [address] 09/04/2024 Jennifer Marks Tinea unguium B35.1 ; [...] Treatment Pending Test Test Name Order Date 47311-GKXYCPD NAIL, 6 OR MORE 09/04/2024 05224-Nabqddxx Plate 09/04/2024 Next Appt Details Follow Up: 2 Weeks, Reason: Provider Name:Jennifer Villeda Kendrick , 03/23/2025 02:30:00 PM, [address] [place] [address], [phone], Procedure Notes * Category Sub-Category Detail Notes [...] Motrin was recommended for pain or discomfort (75344), Pt DEFERS matricectomy Anesthesia , was accomplished [...] use of a nail nipper and/or dremel-type organ grinder, to a more viable healthy nail plate or bed tissue 6-10. Silver nitrate used for any petechial bleeding as necessary. Definitive antifungal treatment options have been reviewed and discussed with the patient. The patient chooses, no pharmaceutical tx - 32359 Progress Notes * Junior MARIN RDOB:[birth year] (83 yo M)Acc No.[id number]:09/04/2024 Progress Note Patient:?Junior MARIN Angela Provider:?Jennifer Marks DPM :1940???Age:83 Y???Sex:Male Jonathan e:09/04/2024 Address:[address] [id number] Pcp:Yonis Pierre Subjective: * Chief Complaints: * [...] - M79.675??? Plan: * Treatment: 2.?Tinea unguium?Procedure: 26959-BQYSGEP NAIL, 6 OR MORE * Procedures:?Debride Nail [...] use of a nail nipper and/or dremel-type organ grinder, to a more viable healthy nail plate or bed tissue 6-10. Silver nitrate used for any petechial bleeding as necessary. Definitive antifungal treatment options have been reviewed and discussed with the patient. The patient chooses, no pharmaceutical tx - 89102.?Nail Avulsion:?Location?, Lateral nail border, TA.?Anesthesia?, was accomplished [...] Motrin was recommended for pain or discomfort (71431), Pt DEFERS matricectomy.? * Procedure Codes:?89694 DEBRI DE NAIL, 6 OR MORE, Modifiers: XS 87914 Avulsion Plate, Modifiers: TA * Follow Up:?2 Weeks * Images: * Sign off status: Completed true * Provider:Laura Marks DPM Date:?2023 Generated for Viraj stone/Arthur/Jeannine on:?01/12/2025 12:06 PM EDT History and Physical Notes * [...]
--- OUTSIDE RECORDS SUMMARY | 2025-01-12 12:06 | XMS_ITS ---
Author Organization [facility] Address [address] [place] [address] Care Team Providers Care Public Affairs Specialist Name Role Phone Ignacio LOZOYA, Yonis Primary Care Provider Chris French Unavailable [phone] Allergies No Known Allergies REASON FOR VISIT [...] Active Brimonidine Tartrate 0.2 % INSTILL 1 JEIN P INTO BOTH EYES TWICE A DAY [...] 04/29/2024 Encounters Encounter Location Date Provider Diagnosis [facility] [address] [place] [address] 04/29/2024 Chris Tomlin Change in bowel habits [...] Appt Details Follow Up: prn, Reason: Provider Name:Chris Tomlin , 04/28/2025 01:40:00 PM, [address], [address], [place], [address], Progress Notes * SHERLY MARIN RDOB:[birth year] (83 yo M)Acc No.[id number]:04/29/2024 Progress Notes Patient:?SHERLY MARIN Provider:?Chris Tomlin MD :1940???Age:83 Y???Sex:Male Jonathan e:04/29/2024 Address:[id number] Pcp:Yonis Pierre MD Subjective: * Chief Complaints: [...] bowel habits - R19.4 (Primary)? Overall, Sherly appears wel l. He is currently doing well on his [...] * Treatment: * Procedure Codes:?1036F TOBAC CO NON-NDHEZ3659 BP SCR NOT PRFRM REC REASON NOS * Follow Up:?prn * * Sign off status: Completed true * Provider:?Chris Tomlin MD Date:? 024 Generated for Viraj stone/Arthur/Jeffreysmitting on:?01/12/2025 12:05 PM EDT History and Physical [...]
--- OUTSIDE RECORDS SUMMARY | 2025-01-12 12:06 | XMS_ITS ---
Author Organization [facility] Address [address] [place] [address] Care Team Providers Care Ice Cream Dipper Name Role Phone Yonis Pierre MD Primary Care Provider UnavailChris Coffman [phone] REASON FOR VISIT change in bowels Encounters Encounter Location Date Provider Diagnosis [facility] [address] [place] [address] 03/17/2024 Chris Tomlin Change in bowel habits R19.4 Assessments Encounter Date Diagnosis (ICD Code) Assessment Notes Treatment Notes Treatment Clinical Notes Section Notes 03/17/2024 Change in bowel habits (ICD-10 - R19.4) Plan Of Treatment Pending Test Test Name Order Date Hemoccult Cards (Non-Screening) 03/17/20 24 CBC w DIFF 03/17/2024 Next Appt Details Provider Name:Chris Tomlin , 04/28/2025 01:40:00 PM, [address], [address], [place], [address], Progress Notes * SHERLY MARIN RDOB:[birth year] (83 yo M)Acc No.[id number]:03/17/2024 Patient:?SHERLY MARIN :1940???Age:83 Y???Sex:Male Address: [place] [address] Subjective: * Chief Complaints: * ???Change in bowels * Medical History:? * Surgical History:? * Hospitalization/Major Diagno stic Procedure:? * Medications:? Objective: Assessment: * Assessment: 1.?Change in bowel habits - R19.4 (Primary)? Plan: * Treatment: ?LAB: CBC w DIFF * Procedure Codes:? * true * Date:? Generated for Viraj stone/Arthur/Jeannine on:?01/12/2025 12:06 PM EDT
--- OUTSIDE RECORDS SUMMARY | 2025-01-12 12:06 | XMS_ITS | Patient Health Record ---
Author Organization [facility] Address [address] [place] [address] Care Team Providers Care Window Treatment Installer Name Role Phone Yonis Pierre MD Primary Care Provider UnavailChris Coffman Unavailable [phone] Allergies No Known Allergies Results Component Value Reference Range Notes Complete Blood Count Auto Di ff Reviewed date:03/24/2024 11:38:35 PM Interpretation: Performing Lab:[facility], [address] [place] [phone] Notes/Report: White Blood Count 6.5 4.8-10.8 X10*3/uL [...] yet reviewed by nacho urban) Interpretation: Performing Lab:[facility], [address] [place] [phone] Notes/Report: OBS1 NEGATIVE NEGATIVE OBS Date 1 [...] Problem Status W/U Status Risk Notes Problem 739086037 History of adenomatous polyp of colon (Z86.010) Active confirmed Problem 906859994 Change in bowel habits (R19.4) Active confirmed Problem Rectal discharge (497554133) Rectal discharge (R19.8) Active confirmed Vital Signs Blood pressure diastolic 00 mm Hg 04/29/2024 Height 68 in 04/29/2024 Blood pressure systolic 00 mm Hg 04/29/2024 Weight 168 lbs 04/29/2024 BMI 25.54 kg/m2 04/29/2024 Encounters Encounter Location Date Provider Diagnosis [facility] [address] [place] [address] 04/29/2024 Chris Tomlin Change in bowel habits R19.4 [facility] [address] [place] [address] 03/17/2024 Chris Tomlin Change in bowel habits [...] Test Test Name Order Date COLONOSCOPY 11/19/2014 Next Appt Details Provider Name:Chris Tomlin , 04/28/2025 01:40:00 PM, [address], [address], [place], [address], Insurance Providers Payer Name Payer Address Payer Phone Subscriber Number Group Number Insured Name Patient Relationship to Insured Coverage Start Date Coverage End Date MEDICARE OF [place] [address] [place] [address] [id number] SHERLY MARIN Self - patient is the insured [employer] CLAIM[employer] [address] [place] [phone] [id number] SHERLY MARIN Self - patient is the insured Medical (General) History Medical History History ICD Code Screening Colonoscopy 04-30-2009--1 small tubular adenoma removed Reports neg. CT and MRI of abdomen in Hypertension Denies MA,DM,CVA,renal disease Peripheral neuropathy in feet Atrial fibrillation Asthma Colonoscopy in 01/2015-2 small tubular ad enomas removed 11/2023 and 12/2023 with hospitalizations for CHF--Dr. Reveles Some emphysema/asthma-Dr. Hrenández Surgical History Surgery Date(Month/Year) Eye lid surgery Cataract-lens implants-left
== END 2025-01-12 11:24 | disposition home or self-care (01) ==
PROVIDERS: PCP Internal Medicine; Visit Provider Internal Medicine Cardiovascular Disease
DX: I50.30 Unspecified diastolic (congestive) heart failure (principal); I48.20 Chronic atrial fibrillation, unspecified
CPT/HCPCS: 99214; G2211

== ENCOUNTER → 2025-01-12 10:43 | Outpatient (BNVA) | payer MEDICARE, SELFPAY | PROVIDERS: PCP Internal Medicine; Visit Provider Internal Medicine Cardiovascular Disease | DX: I50.30 Unspecified diastolic (congestive) heart failure (principal); I48.20 Chronic atrial fibrillation, unspecified | CPT/HCPCS: 99212 ==

== ENCOUNTER 2025-03-16 13:03 | Outpatient (AMB) | payer MEDICARE, SELFPAY ==
--- NOTE | 2025-03-16 13:09 | MHC.OFFVIS ---
Vital Signs 03/16/25 13:10 Height 5 ft 9 in Weight 166 lb BMI 24.5 BP 127/72 Blood Pressure Location Lt brachial Position Sitting Pulse 73 Pulse Source Pulse Oximeter Pulse Oximetry (%) 98 Oxygen Delivery Method Room Air Intake Visit Reasons: Asthma Allergies latex Allergy (Verified 03/16/25 13:19) Unknown maple Allergy (Mild, Uncoded 11/12/24 13:47) Unknown HPI HPI Asthma: Details: 84-year-old gentleman, former 40 pack-year smoker, quit over 20 years prior with underlying AFib on anticoagulation and rate control followed for moderate asthma/COPD overlap syndrome. Patient has been using Breo and albuterol MDI with reasonable control of his symptoms. He continues to complain of a cough productive of greenish sputum. [facility] Medical History Chronic atrial fibrillation Acute respiratory failure with hypoxia CHF exacerbation Atrial fibrillation with RVR (HFpEF) heart failure with preserved ejection fraction Asthma Mitral valve insufficiency Macular degeneration Former smoker HTN (hypertension) Social History Household Members: Spouse Housing: House Do you presently have visiting nurse or other home services: Yes Alcohol intake: current Alcohol intake frequency: holidays/special occasions only Patient Tobacco Use Status: Former Tobacco user Advance Directives Date on File: 12/05/23 service: No Review of Systems Const Denies daytime sleepiness, Denies excessive sweating, Denies fatigue, Denies fever(s), Denies lethargy, Denies malaise, Denies night sweats, Denies snoring and Denies weight loss Eyes Denies blurry vision and Denies itchy eyes ENT Denies nasal congestion, Denies post nasal drip, Denies sinus pain, Denies sinus pressure and Denies other ( Thrush) Card Denies chest pain, Denies pedal edema, Denies dyspnea, Denies orthopnea and Denies paroxysmal nocturnal dyspnea Resp Reports cough, Denies hemoptysis, Reports excessive phlegm production, Denies dyspnea, Denies snoring and Denies wheezing GI Denies abdominal pain and Denies heartburn Musc Denies myalgias, Denies arthralgias and Denies joint swelling Skin/Breast Denies rash Neuro Denies memory loss and Denies seizure-like activity Psych Denies abnormal sleep pattern, Denies anxiety and Denies memory loss Endo Denies excessive sweating, Denies fatigue and Denies heat intolerance Salvatore/Lymph Denies easy bruising Aller/Immun Denies itchy eyes, Denies seasonal rhinorrhea and Denies wheezing Physical Exam Vital Signs: Last Vital Signs Pulse 73 03/16/25 13:10 BP 127/72 03/16/25 13:10 Pulse Ox 98 03/16/25 13:10 Oxygen Delivery Method Room Air 03/16/25 13:10 BMI result Body Mass Index 24.5 Const General: no acute distress and alert Nutritional Appearance: not obese Orientation/consciousness: Other orientation findings ( oriented) HEENT Head: Yes atraumatic Eyes General: appearance normal, both eyes and all related structures Sclerae: sclerae normal EOM: EOMs intact bilaterally Neck Neck: Yes supple Lymphatic: no lymphadenopathy noted Resp Effort & Inspection: normal respiratory effort and no use of accessory muscles Auscultation: clear to auscultation bilaterally Cardio Rate: regular rate Rhythm: regular rhythm Heart sounds: no gallops, no murmurs and no rubs Skin General skin exam: other ( warm) Extrem General: No clubbing, No cyanosis and No edema Assessment & Plan Assessment & Plan (1) Asthma-COPD overlap syndrome: Code(s): J44.89 - Other specified chronic obstructive pulmonary disease Category: Medical Plan: Well controlled on Breo and albuterol MDI. Continue current regimen. (2) Cough: Code(s): R05.9 - Cough, unspecified Category: Medical Plan: Chronic slowly worsening cough previously with poor response to Levaquin. Will treat with Augmentin and obtain sputum culture if not improving. Orders: Orders Sputum Cult + Gram stain Today R05.9 - Cough, unspecified Medications: New amoxicillin-pot clavulanate 875-125 mg 1 tab PO BID 20 tabs 0RF Coding Level of Care Code Est Pt Level 4 (36939) Diagnoses Asthma-COPD overlap syndrome J44.89 Cough R05.9
[2025-03-16 13:10] VITALS: BP 127/72; PULSE 73; O2SAT 98; BMI 24.5
--- OUTSIDE RECORDS SUMMARY | 2025-03-16 14:04 | XMS_ITS | Patient Health Record ---
Author Organization [facility] Address [address] [place] [address] Care Team Providers Care Consumer Marketing Specialist Name Role Phone Yonis Pierre Primary Care Provider Jennifer Thurman Unavailable [phone] Allergies Allergen (clinical drug ingredient) Drug/Non Drug [...] Problem Acquired hammer toe of left foot (8004394576722793) Other hammer toe(s) (acquired), left foot (M20.42) Active confirmed Problem Acquired hammer toe of right foot (8770334426588557) Other hammer toe(s) (acquired), right foot (M20.41) Active confirmed Problem Gout (73019994) Gout (M10.9) Active confirmed Problem Chronic tophaceous gout of right foot (9242333275156647) 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 Problem Localized, primary osteoarthritis of the ankle and/or foot (642820550) Arthritis of joint of lesser toe, left (M19.072) Active confirmed Vital Signs Heart Rate 65 /min 09/04/2024 Blood pressure diastolic 80 mm Hg 12/08/2024 Height 5 ft 9 in in 12/08/2024 Blood pressure systolic 120 mm Hg 12/08/2024 Weight 165 lbs 12/08/2024 BMI 24.36 kg/m2 12/08/2024 Procedures Procedure Date Ordered Date Performed Result Body Sit e 70261-RGQGZVU NAIL, 6 OR MORE 05/19/2024 N/A 51478-STLMJWZ NAIL, 6 OR MORE 09/04/2024 N/A 87348-Bflyaady Plate 09/04/2024 N/A 90029-TTXGKNR NAIL, 6 OR MORE 12/08/2024 N/A 11737- Debride <25 sq cm 12/08/2024 N/A Encounters Encounter Location Date Provider Diagnosis [facility] [place] [address] [place] [address] 05/19/2024 Jennifer Black Pain in left toe(s) M79.675 ; Other hammer toe(s) (acquired), left foot M20.42 ; Tinea unguium B35.1 ; Pain in right toe(s) M79.674 ; Pain in left toe(s) M79.675 and Arthritis of joint of lesser toe, left M19.[address] [address] 09/04/2024 Jennifer Black Tinea unguium B35.1 ; Ingrown nail L60.0 ; Pain in right toe(s) M79.674 and Pain in left toe(s) M79.[address] [address] 12/08/2024 Jennifer Black Tinea unguium B35.1 ; Skin ulcer of toe of left foot, limited to breakdown of skin L97.521 ; Pain in right toe(s) M79.674 and Pain in left toe(s) M79.[address] [address] 05/19/2024 Jennifer Black Assessments Encounter Date Diagnosis [...] in right toe(s) (ICD-10 - M79.674) 05/19/2024 Tinea unguium (ICD-10 - B35.1) 05/19/2024 Pain in right toe(s) (ICD-10 - M79.674) 09/04/2024 Pain in left toe(s) (ICD-10 - M79.675) 12/08/2024 Pain in left toe(s) (ICD-10 - M79.675) 05/19/2024 Pain in left toe(s) (ICD-10 - M79.675) 05/19/2024 Arthritis of joint of lesser toe, left (ICD-10 - M19.072) Plan Of Treatment Pending Test Test Name Order Date 52327-GYIOBGT NAIL, 6 OR MORE 09/13/2011 42661-SUMSXGD NAIL, 6 OR MORE 01/01/2012 37298-ZNXTDVE NAIL, 6 OR MORE 04/03/2012 37163-MCSRQBS NAIL, 6 OR MORE 07/11/2012 95508-GKBUVID NAIL, 6 OR MORE 10/21/2012 23384-WTLKOXU NAIL, 6 OR MORE 03/27/2013 28315-QMJFAQY NAIL, 6 OR MORE 09/22/2013 48358-VJWJRTM NAIL, 6 OR MORE 07/08/2014 23599-AXSSXHV NAIL, 6 OR MORE 01/13/2015 73505-PGCPBCX NAIL, 6 OR MORE 01/26/2016 32869-VNPNXJX NAIL, 6 OR MORE 07/20/2016 12619-JXNXRLE NAIL, 6 OR MORE 01/18/2017 02255-GCFRJMO NAIL, 6 OR MORE 09/03/2017 74120-CWSYJAO NAIL, 6 OR MORE 12/13/2017 46871-FMDKYUY NAIL, 6 OR MORE 03/14/2018 11409-UYWXEID NAIL, 6 OR MORE 05/23/2018 81162-RLKVTVU NAIL, 6 OR MORE 09/19/2018 16709-YWIJZPL NAIL, 6 OR MORE 01/16/2019 96373-EIDHDIZ NAIL, 6 OR MORE 04/24/2019 52240-AFIQJBD NAIL, 6 OR MORE 07/24/2019 45441-CSKMKGZ NAIL, 6 OR MORE 10/23/2019 00855-QRYTCIZ NAIL, 6 OR MORE 03/04/2020 83350-XHMZJNF NAIL, 6 OR MORE 06/10/2020 55459-SUZSHYB NAIL, 6 OR MORE 09/16/2020 68130-WDBECRN NAIL, 6 OR MORE 01/13/2021 22899-PMYLTVI NAIL, 6 OR MORE 04/28/2021 21403-VLNFYHN NAIL, 6 OR MORE 08/11/2021 95544-JCQLKVD NAIL, 6 OR MORE 11/21/2021 73726-HLBUFBP NAIL, 6 OR MORE 02/23/2022 65301-DQLCICY NAIL, 6 OR MORE 06/01/2022 68485-JBGORCC NAIL, 6 OR MORE 09/11/2022 11467-ZHAVULL NAIL, 6 OR MORE 12/11/2022 65693-CDXTOWO NAIL, 6 OR MORE 04/12/2023 18607-GKNWOUB NAIL, 6 OR MORE 07/16/2023 28179-EBJHACJ NAIL, 6 OR MORE 11/01/2023 04906-LSYICXQ NAIL, 6 OR MORE 01/31/2024 29199-ZSKNOPD NAIL, 6 OR MORE 05/19/2024 92657-QCLTSNI NAIL, 6 OR MORE 09/04/2024 28910-RYYGFGL NAIL, 6 OR MORE 12/08/2024 99626-GAQXAAP NAIL, 1-5 07/21/2015 58982-Zfmlvsej Plate 09/20/2021 85018-Fgdkhzks Plate 08/11/2021 15789-Lwbkhmdf Plate 03/04/2020 12409-Npsusnls Plate 02/01/2018 44342-Mscticzu Plate 01/13/2015 04486-Gvsdmcvv Plate 09/04/2024 02397- Debride <25 sq cm 12/08/2024 31940- Debride <25 sq cm 06/19/2019 68067- Debride <25 sq cm 09/20/2021 81018- Debride <25 sq cm 02/23/2022 12460- Debride <25 sq cm 09/11/2022 97259- Debride <25 sq cm 06/01/2022 Next Appt Details Provider Name:Jennifer Marks , 03/23/2025 02:30:00 PM, [address] [facility], [place], [address], Insurance Providers Payer Name Payer Address Payer Phone Subscriber Number Group Number Insured Name Patient Relationship to Insured Coverage Start Date Coverage End Date [employer] [address] [place] [address] [id number] Junior Marin Self - patient is the insured [facility] [address] [place] [address] [id number] Tania Junior Self - patient is the insured Medical (General) History Medical History History ICD Code measles hypertension asthma Surgical History Surgery Date(Month/Year) 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
== END 2025-03-16 13:37 | disposition home or self-care (01) ==
LOC: HO.HPS 13:04
PROVIDERS: PCP Internal Medicine; Visit Provider Internal Medicine Pulmonary Disease
DX: J44.89 Other specified chronic obstructive pulmonary disease (principal); R05.9 Cough, unspecified
CPT/HCPCS: 99214

== ENCOUNTER → 2025-03-16 13:03 | Outpatient (BNVA) | payer MEDICARE, SELFPAY | PROVIDERS: PCP Internal Medicine; Visit Provider Internal Medicine Pulmonary Disease | DX: J44.89 Other specified chronic obstructive pulmonary disease (principal) | CPT/HCPCS: 99212 ==

== ENCOUNTER 2025-03-18 12:40 | Outpatient (AMB) | payer MEDICARE, SELFPAY ==
--- NOTE | 2025-03-18 12:55 | A.OFFVIS_ITS ---
Intake Visit Reasons: BPH Intake Note: Pt presents to the office today for BPH. Urology meds: Finasteride Blood thinners:None PVR:0ml Allergies latex Allergy (Verified 03/18/25 13:44) Unknown maple Allergy (Mild, Uncoded 03/18/25 13:44) Unknown Medication List - Last Reconciled 03/18/25 by CHRISSY Hernadez-BC albuterol sulfate 90 mcg/actuation 2 puffs inhalation Q4-6H PRN amlodipine 10 mg PO DAILY amoxicillin-pot clavulanate 875-125 mg 1 tab PO BID apixaban (Eliquis) 5 mg PO BID carvedilol 6.25 mg PO BID finasteride 5 mg PO DAILY fluticasone furoate-vilanterol 100-25 mcg/dose (Breo Ellipta) 1 ea inhalation DAILY furosemide (Lasix) 20 mg PO DAILY lifitegrast 5% (Xiidra) 1 drp ophthalmic (eye) BID losartan 100 mg PO DAILY timolol maleate 0.5% 1 drp ophthalmic (eye) BID vit C,W-Ho-ccsvq-lutein-zeaxan 250-90-40-1 mg (PreserVision AREDS-2) 1 tab PO BID walker (Ultra-Light Rollator misc) As directed HPI Comments Details: Junior is a pleasant 84-year-old male patient of Dr. Pierre who was accompanied by his at today's office visit. He has a past medical history of chronic AFib, CHF, heart failure with preserved ejection fracture, asthma, mitral valve insufficiency, macular degeneration, former smoker, and hypertens ion. He presents to the office today as a new patient for ongoing lower urinary tract symptoms he has been experiencing. In discussion with the patient today he discusses previously following up with [facility] for many years and has been on finasteride. He reports most recently he has started Lasix as he has been diagnosed with heart failure and feels his lower urinary tract symptoms have been exacerbated by his diuretic. He also reports noting urinary dribbling. He denies incontinence, hematuria, dysuria, foul smelling urine, changes to urinary stream, flank pain, fever, and or chills. In office urinalysis results reviewed with the patient today. PVR 0 mL. We did discussed potential causes of lower urinary tract symptoms patient is experiencing as well as urinary dribbling. We discussed pelvic floor exercises to assist with urinary dribbling. We discussed obtaining retroperitoneal ultrasound for further assessment evaluation as well as PSA. He reports having had STEPHY with PCP as well as previous urologist Dr. Harkins and patient was noted to have an enlarged prostate. We also discussed bladder triggers/irritants. All questions were answered. He otherwise offers no other issues or concerns at this time. [facility] Medical History Chronic atrial fibrillation Acute respiratory failure with hypoxia CHF exacerbation Atrial fibrillation with RVR (HFpEF) heart failure with preserved ejection fraction Asthma Mitral valve insufficiency Macular degeneration Former smoker HTN (hypertension) Social History Household Members: Spouse Housing: House Do you presently have visiting nurse or other home services: Yes Alcohol intake: current Alcohol intake frequency: holidays/special occasions only Patient Tobacco Use Status: Former Tobacco user Advance Directives Date on File: 12/05/23 service: No Review of Systems Eyes Reports as per HPI ENT Reports as per HPI Card Reports as per HPI Resp Reports as per HPI GI Reports as per HPI Reports as per HPI Musc Reports as per HPI Neuro Reports no additional complaints Psych Reports no additional complaints Endo Reports no additional complaints Salvatore/Lymph Reports no additional complaints Aller/Immun Reports no additional complaints Physical Exam Const General: cooperative, healthy appearing, comfortable, no acute distress, well developed, alert and awake Orientation/consciousness: patient oriented x3 Limitations: no limitations HEENT Head: Yes normal to inspection, Yes normocephalic and Yes atraumatic Ears: hearing grossly normal bilaterally Eyes General: appearance normal, both eyes and all related structures Neck Neck: Yes normal visual inspection and Yes trachea midline Chest Chest palpation & inspection: normal inspection of the chest Resp Effort & Inspection: normal respiratory effort and able to speak in complete sentences Cardio Rate: regular rate GI Inspection: Yes normal to inspection General: Yes no CVA tenderness Back/Spine/Pelvis Back: no CVA tenderness Skin General skin exam: no rashes or lesions noted Neuro General: patient oriented x3 Extrem General: Yes normal to inspection Psych Appearance: grossly normal and well kempt Mental Status: mental status grossly normal Speech and movement: Normal speech and movement present and Clear speech present Affect: normal affect Attitude: cooperative Thought process: Normal thought process present Thought content: Normal thought content present Insight: Fair insight present (Psych) Judgement: Fair judgement present (Psych) Office Procedures Post Void Residual Post Residual Void Post Void Residual (PVR): 0 95917-Gpmn Void Residual by ultrasound Results AMB Urinalysis, Automated UA Leukoctes 0 Sheyla/uL Last Edit by Mignon Osorio CMA on 03/18/25 13:14 UA Nitrite Negative Last Edit by Mignon Osorio CMA on 03/18/25 13:14 UA Urobilinogen 0.2 mg/dL Last Edit by Mignon Osorio CMA on 03/18/25 13:14 UA Protein 15 mg/dL Last Edit by Mignon Osorio CMA on 03/18/25 13:14 UA pH 6.0 Last Edit by Mignon Osorio CMA on 03/18/25 13:14 UA Blood 0 James/uL Last Edit by Mignon Osorio CMA on 03/18/25 13:14 UA Specific [place] 1.010 Last Edit by Mignon Osorio CMA on 03/18/25 13:14 UA Ketone Negative Last Edit by Mignon Osorio CMA on 03/18/25 13:14 UA Bilirubin 0 mg/dL Last Edit by Mignon Osorio CMA on 03/18/25 13:14 UA Glucose 0 mg/dL Last Edit by Mignon Osorio CMA on 03/18/25 13:14 Results Reviewed Results Reviewed: Laboratory Last Values Urine pH (Auto) 6.0 03/18/25 13:13 Specific [place] (Auto) 1.010 03/18/25 13:13 Urine Protein (Auto) 15 mg/dL 03/18/25 13:13 Glucose (UA)(Auto) 0 mg/dL 03/18/25 13:13 Urine Ketones (Auto) Negative 03/18/25 13:13 Urine Blood (Auto) 0 James/uL 03/18/25 13:13 Urine Nitrite (Auto) Negative 03/18/25 13:13 Urine Bilirubin (Auto) 0 mg/dL 03/18/25 13:13 Urine Urobilinogen (Auto) 0.2 mg/dL 03/18/25 13:13 Leukocyte Esterase (Auto) 0 Sheyla/uL 03/18/25 13:13 Assessment & Plan Assessment & Plan (1) Enlarged prostate: Code(s): N40.0 - Benign prostatic hyperplasia without lower urinary tract symptoms Category: Medical (2) Urinary dribbling: Code(s): N39.43 - Post-void dribbling Category: Medical (3) Urinary frequency: Code(s): R35.0 - Frequency of micturition Category: Medical (4) Urinary urgency: Code(s): R39.15 - Urgency of urination Category: Medical Plan In office urinalysis results reviewed with the patient today; as noted above. PVR 0 mL. Continue finasteride as discussed and prescribed. We discussed potential causes of lower urinary tract symptoms patient is experiencing as well as further treatment options and risks and benefits of these treatment options We discussed correlation of lower urinary tract symptoms with consumption of diuretic. We discussed bladder triggers/irritants. Information provided regarding pelvic floor exercises to assist with urinary dribbling. Will obtain retroperitoneal ultrasound for further assessment evaluation. Will obtain PSA for further assessment evaluation. Follow-up in 1-3 months with imaging, labs, and PVR; or sooner with any issues, concerns, and or questions. Orders: Orders AMB Post Void Residual by ultrasound Today N40.0 - Benign prostatic hyperplasia without lower urinary tract symptoms US retroperitoneal comp Today N40.0 - Benign prostatic hyperplasia without lower urinary tract symptoms PSA,Total (Free>4and<10) Today N40.0 - Benign prostatic hyperplasia without lower urinary tract symptoms AMB Urinalysis Automated Today Z13.9 - Encounter for screening, unspecified Patient Instructions: The patient had an opportunity to ask questions regarding the treatment plan. All questions were answered. Physical exam, labs, and imaging were discussed and reviewed in detail. As well as risks, benefits, and discussion of treatment choices. No major barriers to understanding were identified. The patient expressed understanding and agreement with the above treatment plan. The patient was made aware they should contact our office by phone for worsening of their current condition, the appearance of new symptoms, or with any questions or concerns. Compliance is encouraged with any medications and follow up testing that is ordered. It is a privilege to be allowed the opportunity to participate in? your urological care.? Again, if you have any questions or concerns If you have any questions or concerns please do not hesitate to contact me. The office is [phone]. This note is constructed using voice recognition software. While every effort has been made to ensure accuracy software installation engineer errors may have been included. Yours sincerely, Anna Hale, PIPE MANUFACTURE SUPERVISOR-BC Coding Level of Care Code New Pt Level 4 (16281) Diagnoses Enlarged prostate N40.0 Urinary dribbling N39.43 Urinary frequency R35.0 Urinary urgency R39.15 CPT Codes Post Residual Void - PVR CPT Code: 18746-Lqqq Void Residual by ultrasound ([id number]) Time Spent (min) 35
--- OUTSIDE RECORDS SUMMARY | 2025-03-18 13:10 | XMS_ITS | Patient Health Record ---
[facility] Address [address] [place] [address] Care Team Providers Care Facilities Maintenance Engineer Name Role Phone Yonis Pierre Primary Care Provider Jennifer Thurman Unavailable [phone] Allergies Allergen (clinical drug ingredient) Drug/Non Drug [...] Problem Acquired hammer toe of left foot (0551208631046400) Other hammer toe(s) (acquired), left foot (M20.42) Active confirmed Problem Acquired hammer toe of right foot (0402638896471054) Other hammer toe(s) (acquired), right foot (M20.41) Active confirmed Problem Gout (75203715) Gout (M10.9) Active confirmed Problem Chronic tophaceous gout of right foot (9151445558665985) 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 Problem Localized, primary osteoarthritis of the ankle and/or foot (427482419) Arthritis of joint of lesser toe, left (M19.072) Active confirmed Vital Signs Heart Rate 65 /min 09/04/2024 Blood pressure diastolic 80 mm Hg 12/08/2024 Height 5 ft 9 in in 12/08/2024 Blood pressure systolic 120 mm Hg 12/08/2024 Weight 165 lbs 12/08/2024 BMI 24.36 kg/m2 12/08/2024 Procedures Procedure Date Ordered Date Performed Result Body Sit e 49277-TAMWQXP NAIL, 6 OR MORE 05/19/2024 N/A 43413-VVKVKMG NAIL, 6 OR MORE 09/04/2024 N/A 61598-Wtizadkj Plate 09/04/2024 N/A 99713-DDKVZVS NAIL, 6 OR MORE 12/08/2024 N/A 26682- Debride <25 sq cm 12/08/2024 N/A Encounters Encounter Location Date Provider Diagnosis [facility] [address] [place] [address] 05/19/2024 Jennifer Black Pain in left toe(s) M79.675 ; Other hammer toe(s) (acquired), left foot M20.42 ; Tinea unguium B35.1 ; Pain in right toe(s) M79.674 ; Pain in left toe(s) M79.675 and Arthritis of joint of lesser toe, left M19.[address] [address] 09/04/2024 Jennifer Black Tinea unguium B35.1 ; Ingrown nail L60.0 ; Pain in right toe(s) M79.674 and Pain in left toe(s) M79.[address] [address] 12/08/2024 Jennifer Black Tinea unguium B35.1 ; Skin ulcer of toe of left foot, limited to breakdown of skin L97.521 ; Pain in right toe(s) M79.674 and Pain in left toe(s) M79.[address] [address] 05/19/2024 Jennifer Black Assessments Encounter Date Diagnosis [...] Treatment Pending Test Test Name Order Date 53669-RZAXLBD NAIL, 6 OR MORE 09/13/2011 03958-XJYMEXG NAIL, 6 OR MORE 01/01/2012 37428-BDMDNLU NAIL, 6 OR MORE 04/03/2012 02029-SHAEVYV NAIL, 6 OR MORE 07/11/2012 54751-YLVZBZZ NAIL, 6 OR MORE 10/21/2012 64346-RGCXWKB NAIL, 6 OR MORE 03/27/2013 81563-LHREZNQ NAIL, 6 OR MORE 09/22/2013 63593-PNKDERZ NAIL, 6 OR MORE 07/08/2014 55632-NHOEGWS NAIL, 6 OR MORE 01/13/2015 97674-GIBVHYB NAIL, 6 OR MORE 01/26/2016 88485-WPQMTBF NAIL, 6 OR MORE 07/20/2016 92898-BDHVKYT NAIL, 6 OR MORE 01/18/2017 37071-NCYBCCX NAIL, 6 OR MORE 09/03/2017 75143-QTABWOO NAIL, 6 OR MORE 12/13/2017 58828-UMVIKIS NAIL, 6 OR MORE 03/14/2018 54088-VWYFGYK NAIL, 6 OR MORE 05/23/2018 44600-EDLLRFJ NAIL, 6 OR MORE 09/19/2018 43603-NYOCRQV NAIL, 6 OR MORE 01/16/2019 51257-TGNQJOH NAIL, 6 OR MORE 04/24/2019 28727-ZSFEGIJ NAIL, 6 OR MORE 07/24/2019 63135-AIRXSFR NAIL, 6 OR MORE 10/23/2019 10982-DARKGGL NAIL, 6 OR MORE 03/04/2020 06765-XFDTXOE NAIL, 6 OR MORE 06/10/2020 19827-ZMVJTKV NAIL, 6 OR MORE 09/16/2020 79536-YVCBVQV NAIL, 6 OR MORE 01/13/2021 24367-XIMCNEE NAIL, 6 OR MORE 04/28/2021 64626-TAUCDHY NAIL, 6 OR MORE 08/11/2021 47951-CEIOQXD NAIL, 6 OR MORE 11/21/2021 76882-EKDBKAS NAIL, 6 OR MORE 02/23/2022 19839-KMTEYIM NAIL, 6 OR MORE 06/01/2022 66818-JPFSJZA NAIL, 6 OR MORE 09/11/2022 51102-QDRBWSL NAIL, 6 OR MORE 12/11/2022 16359-PDTBXBI NAIL, 6 OR MORE 04/12/2023 72126-MRHCNGT NAIL, 6 OR MORE 07/16/2023 10050-UNZJWHV NAIL, 6 OR MORE 11/01/2023 02751-FBXYAON NAIL, 6 OR MORE 01/31/2024 08779-RQUQIQU NAIL, 6 OR MORE 05/19/2024 16835-BVUGYNZ NAIL, 6 OR MORE 09/04/2024 99438-JVYOAAP NAIL, 6 OR MORE 12/08/2024 15129-KZNYGHH NAIL, 1-5 07/21/2015 66059-Uquyuwjk Plate 09/20/2021 22828-Fxmrvbdi Plate 08/11/2021 15241-Fysnxerz Plate 03/04/2020 86738-Ausfvpqz Plate 02/01/2018 52452-Iuqpruno Plate 01/13/2015 42174-Wzwsmnai Plate 09/04/2024 57415- Debride <25 sq cm 12/08/2024 06093- Debride <25 sq cm 06/19/2019 79644- Debride <25 sq cm 09/20/2021 94237- Debride <25 sq cm 02/23/2022 74597- Debride <25 sq cm 09/11/2022 03000- Debride <25 sq cm 06/01/2022 Next Appt Details Provider Name:Jennifer Marks , 03/23/2025 02:30:00 PM, [address] [facility], [place], [address], Insurance Providers Payer Name Payer Address Payer Phone Subscriber Number Group Number Insured Name Patient Relationship to Insured Coverage Start Date Coverage End Date Medicare National [employer] [address] [facility] [address] [id number] Junior Marin Self - patient is the insured [facility] [address] [place] [address] [id number] Tania Junior Self - patient is the insured Medical (General) History Medical History History ICD Code measles hypertension asthma Surgical History Surgery Date(Month/Year) 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
== END 2025-03-18 13:52 | disposition home or self-care (01) ==
LOC: HO.HUSH 12:40
PROVIDERS: PCP Internal Medicine; Visit Provider Nurse Practitioner Family
DX: N40.0 Benign prostatic hyperplasia without lower urinary tract symptoms (principal); N39.43 Post-void dribbling; R35.0 Frequency of micturition; R39.15 Urgency of urination; Z13.9 Encounter for screening, unspecified
CPT/HCPCS: 99204

== ENCOUNTER → 2025-03-18 12:40 | Outpatient (BNVA) | payer MEDICARE, SELFPAY | PROVIDERS: PCP Internal Medicine; Visit Provider Nurse Practitioner Family | DX: N40.1 Benign prostatic hyperplasia with lower urinary tract symptoms (principal); N39.43 Post-void dribbling; R35.0 Frequency of micturition; R39.15 Urgency of urination | CPT/HCPCS: 51798; 81003; 99202 ==

== ENCOUNTER 2025-03-31 12:04 | Outpatient (REF) | payer MEDICARE, SELFPAY ==
--- OUTSIDE RECORDS SUMMARY | 2025-03-31 13:44 | XMS_ITS | Patient Health Record ---
Author Organization [facility] Address [address] [place] [address] Care Team Providers Care Clinical Psychologist Private Practice Name Role Phone Yonis Pierre Primary Care Provider Jennifer Thurman Unavailable [phone] Allergies Allergen (clinical drug ingredient) Drug/Non Drug Allergy documented on EMR Reaction Allergy Type Onset Date Status Latex Latex Unknown Allergy Active Reason For Referral No Information Medications Medication SIG (Take, Route, Frequency, Duration) Notes Start Date End Date Status Finasteride Active Ciclopirox Olamine 0.77% external Apply to effected areas twice a day for 30 days 07/20/2016 Not-Taking amLODIPine Besylate Active Ciclopirox Olamine 0.77 % 1 application to affected area Externally Twice a day for 30 days 09/03/2017 Not-Taki ng Carvedilol Active cloNIDine HCl Active Timolol Hemihydrate 0.25 % 1 drop into affected eye Ophthalmic Once a day Active Ciclopirox Olamine 0.77 % 1 application to affected area Externally Twice a day for 30 days 01/01/2012 Not-Taki ng Vigraplex as directed Orally N ot-Taking Ciclopirox Olamine 0.77% external apply to feet twice a day for 30 days 07/08/2014 Not-Taki ng Ciclopirox Olamine 0.77 % 1 application Externally Twice a day for 30 days 03/23/2025 Active Losartan Potassium A ctive Eliquis 5 MG as directed Orally T wice a day Active Loprox Active Immunizations Vaccine Route Administration Date Status Comme nts Influenza Unknown 10/18/2015 Administered Influenza Unknown 11/02/2015 Administered Influenza Unknown 07/22/2021 Administered Influenza Unknown 09/14/2024 Administered Pneumococcal Unknown 10/18/2015 Administered Social History Tobacco Use: Social History Observation Description Date Details (start date - stop date) Never Smoker NA - NA Tobacco use other than smoking: Question Answer Notes Are you an other tobacco user? No Tobacco Control (Standard) Question Answer Notes Tobacco use: Nonsmoker Additional Findings: Tobacco non-user Ex-cigaret te smoker AUDIT-C (Standard) Question Answer Notes Did you have a drink containing alcohol in the p ast year? No Points 0 Interpretation Negative Vital Signs Heart Rate 65 /min 09/04/2024 Blood pressure diastolic 80 mm Hg 03/23/2025 Height 5 ft 9 in in 03/23/2025 Blood pressure systolic 120 mm Hg 03/23/2025 Weight 163 lbs 03/23/2025 BMI 24.07 kg/m2 03/23/2025 Procedures Procedure Date Ordered Date Performed Result Body Sit e 98605-EYOXDLO NAIL, 6 OR MORE 05/19/2024 N/A 02674-NNYVEBP NAIL, 6 OR MORE 09/04/2024 N/A 13054-Ylenemmw Plate 09/04/2024 N/A 41914-VSRYPGB NAIL, 6 OR MORE 12/08/2024 N/A 27768- Debride <25 sq cm 12/08/2024 N/A 05757-NYVBWXV NAIL, 6 OR MORE 03/23/2025 N/A Encounters Encounter Location Date Provider Diagnosis [address] [address] 05/19/2024 Jennifer Black Pain in left toe(s) M79.675 ; Other hammer toe(s) (acquired), left foot M20.42 ; Tinea unguium B35.1 ; Pain in right toe(s) M79.674 ; Pain in left toe(s) M79.675 and Arthritis of joint of lesser toe, left M19.[address] [address] 09/04/2024 Jennifer Black Tinea unguium B35.1 ; Ingrown nail L60.0 ; Pain in right toe(s) M79.674 and Pain in left toe(s) M79.[address] [place] [address] 12/08/2024 Jennifer Black Tinea unguium B35.1 ; Skin ulcer of toe of left foot, limited to breakdown of skin L97.521 ; Pain in right toe(s) M79.674 and Pain in left toe(s) M79.[address] [address] 03/23/2025 Jennifer Black Tinea unguium B35.1 ; Tinea pedis of both feet B35.3 ; Pain in right toe(s) M79.674 and Pain in left toe(s) M79.[address] [facility] [address] 05/19/2024 Jennifer Black Assessments Encounter Date Diagnosis [...] to breakdown of skin (ICD-10 - L97.521) 03/23/2025 Tinea unguium (ICD-10 - B35.1) 03/23/2025 Tinea pedis of both feet (ICD-10 - B35.3) 03/23/2025 Pain in right toe(s) (ICD-10 - M79.674) 12/08/2024 Pain in right toe(s) (ICD-10 - M79.674) 09/04/2024 Pain in right toe(s) (ICD-10 - M79.674) 05/19/2024 Tinea unguium (ICD-10 - B35.1) 05/19/2024 Pain in right toe(s) (ICD-10 - M79.674) 09/04/2024 Pain in left toe(s) (ICD-10 - M79.675) 12/08/2024 Pain in left toe(s) (ICD-10 - M79.675) 03/23/2025 Pain in left toe(s) (ICD-10 - M79.675) 05/19/2024 Pain in left toe(s) (ICD-10 - M79.675) 05/19/2024 Arthritis of joint of lesser toe, left (ICD-10 - M19.072) Plan Of Treatment Pending Test Test Name Order Date 29479-NPGNFYG NAIL, 6 OR MORE 09/13/2011 50893-BJVGOCF NAIL, 6 OR MORE 01/01/2012 33415-JCAMPOO NAIL, 6 OR MORE 04/03/2012 79270-KKYDTMY NAIL, 6 OR MORE 07/11/2012 41906-KEGVKSI NAIL, 6 OR MORE 10/21/2012 36233-QODKOKM NAIL, 6 OR MORE 03/27/2013 24315-JLBSDCS NAIL, 6 OR MORE 09/22/2013 35111-WMANTAX NAIL, 6 OR MORE 07/08/2014 05261-VMOIELH NAIL, 6 OR MORE 01/13/2015 83767-KZMWMFD NAIL, 6 OR MORE 01/26/2016 61144-PQJIXIU NAIL, 6 OR MORE 07/20/2016 27162-BHFDQVP NAIL, 6 OR MORE 01/18/2017 33533-TMCSAYG NAIL, 6 OR MORE 09/03/2017 56840-FACJBTX NAIL, 6 OR MORE 12/13/2017 18941-UUDVFRQ NAIL, 6 OR MORE 03/14/2018 04045-IQLPSFZ NAIL, 6 OR MORE 05/23/2018 51489-VZPUFYU NAIL, 6 OR MORE 09/19/2018 67288-JFNAYIV NAIL, 6 OR MORE 01/16/2019 73178-JBLEEJP NAIL, 6 OR MORE 04/24/2019 14589-ZEQWIIS NAIL, 6 OR MORE 07/24/2019 95899-YURMLQK NAIL, 6 OR MORE 10/23/2019 53015-PBSTEPD NAIL, 6 OR MORE 03/04/2020 71409-ACJWCYH NAIL, 6 OR MORE 06/10/2020 02570-JYARQON NAIL, 6 OR MORE 09/16/2020 92199-OGXMWTZ NAIL, 6 OR MORE 01/13/2021 63898-TDOHFPG NAIL, 6 OR MORE 04/28/2021 30070-OTUOMIK NAIL, 6 OR MORE 08/11/2021 96424-OSPPGNY NAIL, 6 OR MORE 11/21/2021 85317-SFXLBZS NAIL, 6 OR MORE 02/23/2022 52597-VUROQGV NAIL, 6 OR MORE 06/01/2022 25402-JBIFRON NAIL, 6 OR MORE 09/11/2022 71294-GAIDJQJ NAIL, 6 OR MORE 12/11/2022 32566-ZNAPVEJ NAIL, 6 OR MORE 04/12/2023 51338-LNIFPCG NAIL, 6 OR MORE 07/16/2023 14723-SQHBTWP NAIL, 6 OR MORE 11/01/2023 21202-ZTRESRL NAIL, 6 OR MORE 01/31/2024 62048-INUKGMK NAIL, 6 OR MORE 05/19/2024 39452-XUSWXMJ NAIL, 6 OR MORE 09/04/2024 86726-FQAYUSL NAIL, 6 OR MORE 12/08/2024 94642-INJGNII NAIL, 6 OR MORE 03/23/2025 69277-BMWZJOA NAIL, 1-5 07/21/2015 76166-Ddtdjflo Plate 09/20/2021 80277-Spxblqzn Plate 08/11/2021 07855-Lgbvikgp Plate 03/04/2020 22601-Ezzqddku Plate 02/01/2018 12732-Auzqoxob Plate 01/13/2015 32647-Fdjdtiwc Plate 09/04/2024 76191- Debride <25 sq cm 12/08/2024 33065- Debride <25 sq cm 06/19/2019 83721- Debride <25 sq cm 09/20/2021 97882- Debride <25 sq cm 02/23/2022 45624- Debride <25 sq cm 09/11/2022 44497- Debride <25 sq cm 06/01/2022 Next Appt Details Provider Name:Jennifer Marks , 06/29/2025 11:30:00 AM, [address] [place] [address], [address], Insurance Providers Payer Name Payer Address Payer Phone Subscriber Number Group Number Insured Name Patient Relationship to Insured Coverage Start Date Coverage End Date Medicare National [facility] [employer] [address] [place] [address] [id number] Junior Marin Self - patient is the insured [employer] [address] [place] [address] [phone] [id number] Junior Marin Self - patient is the insured Medical (General) History Medical History History ICD Code measles hypertension asthma A fib Gout M10.9 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
== END 2025-03-31 12:05 | disposition home or self-care (01) ==
LOC: HO.LNP 12:04
PROVIDERS: Visit Provider Internal Medicine Pulmonary Disease
DX: R05.9 Cough, unspecified (principal)
CPT/HCPCS: 87070; 87077; 87186; 87205

== ENCOUNTER 2025-04-03 09:53 | Outpatient (REF) | payer MEDICARE, SELFPAY ==
--- OUTSIDE RECORDS SUMMARY | 2025-04-03 10:11 | XMS_ITS | Patient Health Record ---
Author Organization [facility] Address [address] [place] [address] Care Team Providers Care Lead Inspector Name Role Phone Yonis Pierre Primary Care Provider Jennifer Thurman Unavailable [phone] Allergies Allergen (clinical drug ingredient) Drug/Non Drug [...] Ordered Date Performed Result Body Sit e 35299-QNRKAYV NAIL, 6 OR MORE 05/19/2024 N/A 91254-HBLTSNL NAIL, 6 OR MORE 09/04/2024 N/A 55292-Erbjtiek Plate 09/04/2024 N/A 68449-WMNKVNL NAIL, 6 OR MORE 12/08/2024 N/A 04011- Debride <25 sq cm 12/08/2024 N/A 35542-EJFVEVC NAIL, 6 OR MORE 03/23/2025 N/A Encounters Encounter Location Date Provider Diagnosis [address] [address] 05/19/2024 Jennifer Black Pain in left toe(s) M79.675 ; Other hammer toe(s) (acquired), left foot M20.42 ; Tinea unguium B35.1 ; Pain in right toe(s) M79.674 ; Pain in left toe(s) M79.675 and Arthritis of joint of lesser toe, left M19.[address] [address] 09/04/2024 Jennifer Black Tinea unguium B35.1 ; Ingrown nail L60.0 ; Pain in right toe(s) M79.674 and Pain in left toe(s) M79.[address] [place] [address] 12/08/2024 Jennifer Black Tinea unguium B35.1 ; Skin ulcer of toe of left foot, limited to breakdown of skin L97.521 ; Pain in right toe(s) M79.674 and Pain in left toe(s) M79.[address] [address] 03/23/2025 Jennifer Black Tinea unguium B35.1 ; Tinea pedis of both feet B35.3 ; Pain in right toe(s) M79.674 and Pain in left toe(s) M79.675 [facility] [address] 05/19/2024 Jennifer Black Assessments Encounter Date Diagnosis [...] Treatment Pending Test Test Name Order Date 40162-YOJUAMD NAIL, 6 OR MORE 09/13/2011 82987-XNNRCDL NAIL, 6 OR MORE 01/01/2012 33525-CXTFYEE NAIL, 6 OR MORE 04/03/2012 33248-LJMWYZL NAIL, 6 OR MORE 07/11/2012 55787-RDRKSFT NAIL, 6 OR MORE 10/21/2012 14054-LLZHQDF NAIL, 6 OR MORE 03/27/2013 26342-TODXTJH NAIL, 6 OR MORE 09/22/2013 58124-GMETLHU NAIL, 6 OR MORE 07/08/2014 55135-XVXZHUJ NAIL, 6 OR MORE 01/13/2015 85257-SBKZDFA NAIL, 6 OR MORE 01/26/2016 61945-YENXWUS NAIL, 6 OR MORE 07/20/2016 36410-PGPLYKW NAIL, 6 OR MORE 01/18/2017 14503-NORHONL NAIL, 6 OR MORE 09/03/2017 15491-NHJEVIX NAIL, 6 OR MORE 12/13/2017 06985-WKWMPFO NAIL, 6 OR MORE 03/14/2018 17627-FOPJWRP NAIL, 6 OR MORE 05/23/2018 61913-XZRULLO NAIL, 6 OR MORE 09/19/2018 29973-INNTIGF NAIL, 6 OR MORE 01/16/2019 90575-XVRELDZ NAIL, 6 OR MORE 04/24/2019 22565-WQSBTVO NAIL, 6 OR MORE 07/24/2019 04715-ZUQJFWL NAIL, 6 OR MORE 10/23/2019 90357-DVIAMMH NAIL, 6 OR MORE 03/04/2020 76810-AMAIHJU NAIL, 6 OR MORE 06/10/2020 47863-POPGYGK NAIL, 6 OR MORE 09/16/2020 30886-XVQWEOB NAIL, 6 OR MORE 01/13/2021 29148-XFEPWPE NAIL, 6 OR MORE 04/28/2021 72102-VWSCUMW NAIL, 6 OR MORE 08/11/2021 75759-GTLUGCQ NAIL, 6 OR MORE 11/21/2021 65803-PLDKBUJ NAIL, 6 OR MORE 02/23/2022 82433-EHGNIXR NAIL, 6 OR MORE 06/01/2022 67671-ZIOXEQU NAIL, 6 OR MORE 09/11/2022 61289-XPXZIAA NAIL, 6 OR MORE 12/11/2022 73614-NDADQMF NAIL, 6 OR MORE 04/12/2023 60210-QWGZTWT NAIL, 6 OR MORE 07/16/2023 14949-WHAPXUO NAIL, 6 OR MORE 11/01/2023 79095-GOKYEVB NAIL, 6 OR MORE 01/31/2024 13890-UAOWCAZ NAIL, 6 OR MORE 05/19/2024 66357-RRBGJYG NAIL, 6 OR MORE 09/04/2024 88992-BEBBJSE NAIL, 6 OR MORE 12/08/2024 67616-BYYOFPE NAIL, 6 OR MORE 03/23/2025 86361-NUJCYUR NAIL, 1-5 07/21/2015 81088-Ehxbwikg Plate 09/20/2021 42054-Ujibbsse Plate 08/11/2021 69851-Iazsovha Plate 03/04/2020 44894-Muhowfwo Plate 02/01/2018 52400-Mcowujyr Plate 01/13/2015 68588-Oxmqimcf Plate 09/04/2024 35060- Debride <25 sq cm 12/08/2024 82150- Debride <25 sq cm 06/19/2019 77487- Debride <25 sq cm 09/20/2021 40502- Debride <25 sq cm 02/23/2022 03536- Debride <25 sq cm 09/11/2022 04417- Debride <25 sq cm 06/01/2022 Next Appt Details Provider Name:Jennifer Marks , 06/29/2025 11:30:00 AM, [address] [place] [address], [phone], Insurance Providers Payer Name Payer Address Payer Phone Subscriber Number Group Number Insured Name Patient Relationship to Insured Coverage Start Date Coverage End Date Medicare National [facility] [employer] [address] [place] [address] [id number] Junior Marin Self - patient is the insured [employer] [address] [place] [address] [phone] [id number] Junior Marin Self - patient is the [...]
[2025-04-03 11:04] LABS: Anion Gap 10 (12-20); Blood Urea Nitrogen 31 mg/dL (9-16); Calcium 9.3 mg/dL (8.4-10.2); Carbon Dioxide 28 mmol/L (22-29); Chloride 110 mmol/L (96-108); Estimated Glomerular Filt Rate 56; Glucose Random 90 mg/dL (60-115); Potassium 5.2 mmol/L (3.3-5.1); Sodium 143 mmol/L (135-145)
[2025-04-03 11:07] LABS: PSA,Total (Free>4and<10) 0.74 ng/mL (0.00-4.00)
== END 2025-04-03 09:54 | disposition home or self-care (01) ==
LOC: HO.LAB 09:53
PROVIDERS: Nurse Practitioner Family; PCP Internal Medicine
DX: N40.0 Benign prostatic hyperplasia without lower urinary tract symptoms (principal); I50.30 Unspecified diastolic (congestive) heart failure; Z12.5 Encounter for screening for malignant neoplasm of prostate
CPT/HCPCS: 36415; 80048; 84153

== ENCOUNTER 2025-04-08 12:31 | Outpatient (AMB) | payer MEDICARE, SELFPAY ==
[2025-04-08 12:47] VITALS: BP 110/60; PULSE 68; BMI 24.1
--- NOTE | 2025-04-08 12:47 | MHC.OFFVIS ---
Vital Signs 04/08/25 12:47 Height 5 ft 9 in Weight 163 lb 2.273 oz BMI 24.1 BP 110/60 Blood Pressure Location Lt brachial Position Sitting Pulse 68 Pulse Source Pulse Oximeter Intake Visit Reasons: 3 mth f/up NS Allergies latex Allergy (Verified 03/18/25 13:44) Unknown maple Allergy (Mild, Uncoded 03/18/25 13:44) Unknown Medication List - Last Reconciled 04/08/25 by Uziel Matute NP albuterol sulfate 90 mcg/actuation 2 puffs inhalation Q4-6H PRN amlodipine 10 mg PO DAILY apixaban (Eliquis) 5 mg PO BID carvedilol 6.25 mg PO BID finasteride 5 mg PO DAILY fluticasone furoate-vilanterol 100-25 mcg/dose (Breo Ellipta) 1 ea inhalation DAILY furosemide (Lasix) 20 mg PO DAILY lifitegrast 5% (Xiidra) 1 drp ophthalmic (eye) BID losartan 100 mg PO DAILY sulfamethoxazole-trimethoprim 800-160 mg (Bactrim DS) 1 tab PO BID timolol maleate 0.5% 1 drp ophthalmic (eye) BID vit C,R-Yn-ngpug-lutein-zeaxan 250-90-40-1 mg (PreserVision AREDS-2) 1 tab PO BID walker (Ultra-Light Rollator misc) As directed HPI Comments Details: This is an 84-year-old male patient coming in for a follow-up visit, accompanied by . Patient with a history of chronic AFib, heart failure with preserved ejection fraction, hypertension, and mitral valve insufficiency. Previously due to his elevated BNP and gradual weight gain with shortness of breath, patient was started on Lasix therapy. Today, patient reports feeling well overall and denies any exertional chest pain, shortness of breath, palpitations, dizziness, orthopnea, PND, leg edema, presyncope, or syncope. Patient states that since his leg edema has significantly improved with a stable weight, patient is taking Lasix daily however at times he only takes half the dose. Patient states that he has still been having the productive cough with green sputum for which he has been followed by pulmonology and has been tried on different antibiotics with no significant improve and therefore he is recently trying a Bactrim. During his ER visit in November, patient's potassium was elevated at 5.3 and therefore we rechecked his potassium recently. Patient is otherwise reporting compliance with all his medications [facility] Medical History Chronic atrial fibrillation Acute respiratory failure with hypoxia CHF exacerbation Atrial fibrillation with RVR (HFpEF) heart failure with preserved ejection fraction Asthma Mitral valve insufficiency Macular degeneration Former smoker HTN (hypertension) Social History Household Members: Spouse Housing: House Do you presently have visiting nurse or other home services: Yes Alcohol intake: current Alcohol intake frequency: holidays/special occasions only Patient Tobacco Use Status: Former Tobacco user Advance Directives Date on File: 12/05/23 service: No Review of Systems Const Denies weakness ENT Denies dizziness Card Denies chest pain, Denies chest pain with activity, Denies syncope, Denies rapid heart rate, Denies pedal edema, Denies edema, Denies leg edema, Denies lightheadedness, Denies palpitations, Denies dyspnea, Denies dyspnea on exertion and Denies orthopnea Resp Denies cough, Denies dyspnea and Denies dyspnea on exertion GI Denies hematochezia and Denies change in stool character Musc Denies abnormal gait, Denies muscle cramps, Denies muscle weakness, Denies numbness, Denies radiating pain into limb and Denies tingling Neuro Denies abnormal gait, Denies dizziness, Denies syncope, Denies numbness, Denies tingling and Denies weakness Endo Denies palpitations Physical Exam Vital Signs: Last Vital Signs Pulse 68 04/08/25 12:47 BP 110/60 04/08/25 12:47 BMI result Body Mass Index 24.1 Const General: cooperative, healthy appearing, comfortable and no acute distress Orientation/consciousness: patient oriented x3 HEENT Head: Yes normal to inspection Neck Neck: Yes normal visual inspection, Yes trachea midline and Yes supple Chest Chest palpation & inspection: normal inspection of the chest Resp Effort & Inspection: normal respiratory effort Auscultation: clear to auscultation bilaterally, no crackles, no rales, no rhonchi and no wheezes Cardio Jugular venous distension: no JVD Palpation: normal PMI Rate: regular rate Rhythm: regular rhythm Heart sounds: S1 normal heart sound present, S2 normal heart sound present, no click, no gallops, no murmurs and no rubs Peripheral pulses: Peripheral pulses 2+ throughout GI Inspection: Yes normal to inspection Palpation (GI): Soft to palpation Auscultation: normal bowel sounds Skin General skin exam: no rashes or lesions noted Neuro General: patient oriented x3 Extrem General: Yes normal to inspection, No no pedal edema and No calf tenderness Psych Appearance: grossly normal Mental Status: mental status grossly normal Speech and movement: Normal speech and movement present Assessment & Plan Assessment & Plan (1) (HFpEF) heart failure with preserved ejection fraction: Code(s): I50.30 - Unspecified diastolic (congestive) heart failure Category: Medical Plan: 12/24/2024-echo study showed a normal LV systolic function with an ejection fraction is 62%, severe biatrial enlargement, moderate tricuspid valve regurgitation, severe pulmonary hypertension with right ventricular systolic pressure at 77 mmHg, and a small pericardial effusion. Clinically euvolemic and stable. Continue the low-dose Lasix therapy. Discussed in detail signs and symptoms to look for with heart failure. Advised to continue with low-salt diet, daily weight monitoring, and fluid restriction at 1.5-2 L daily. Emphasized on using compression socks and to elevate legs at rest. (2) Chronic atrial fibrillation: Code(s): I48.20 - Chronic atrial fibrillation, unspecified Category: Medical Plan: History of chronic atrial fibrillation. Continue with Eliquis for full anticoagulation therapy and carvedilol. Rate control approach. (3) Hyperkalemia: Code(s): E87.5 - Hyperkalemia Category: Medical Plan: Back in November of 2024, patient's potassium was elevated at 5.3 upon recheck recently, patient's potassium slightly improved to 5.2. We will hold his losartan for the next 4 days and recheck his potassium. Patient in the high dose of losartan which could be the cause. We will have him resume at half the dose while monitoring his blood pressures closely. Advised on dietary intake of less potassium rich foods and to avoid foods such as bananas, oranges, potatoes, etc.. Patient understanding of this plan. We will recheck his potassium in a week. (4) HTN (hypertension): Code(s): I10 - Essential (primary) hypertension Category: Medical Plan: Blood pressure is well-controlled. Advised monitoring blood pressures at home with a reduced to stop the losartan. In case of high blood pressures, we will have to adjust his other medications. Ideally goal for blood pressure less than 130/80. Advised heart healthy diet, regular exercise, med compliance, and management of vascular risk factors. Patient will follow up with Dr. Reveles in 3 months. In the interim, patient will call us with any concerns or change in symptoms. This note was generated using voice recognition software. While every effort has been made to ensure accuracy and proper telecommunications manager, there may be occasional errors that could affect the content or meaning of the described symptoms. Medications: Changed From losartan 100 mg PO DAILY To losartan 50 mg PO DAILY Coding Level of Care Code Est Pt Level 4 (97245) Complex EM visit Add On G2211 Diagnoses (HFpEF) heart failure with preserved ejection fraction I50.30 Chronic atrial fibrillation I48.20 Hyperkalemia E87.5 HTN (hypertension) I10 Time Spent (min) 32 Comment Time spent in reviewing the chart, test results, assessment, counseling and documentation.
--- OUTSIDE RECORDS SUMMARY | 2025-04-08 14:35 | XMS_ITS | Patient Health Record ---
Author Organization [facility] Address [address] [place] [address] Care Team Providers Care Investigation Officer Name Role Phone Yonis Pierre Primary Care Provider Jennifer Thurman Unavailable [phone] Allergies Allergen (clinical drug ingredient) Drug/Non Drug [...] Ordered Date Performed Result Body Sit e 14018-BMMQYDR NAIL, 6 OR MORE 05/19/2024 N/A 79814-RHHLGOO NAIL, 6 OR MORE 09/04/2024 N/A 33367-Mwivpvrs Plate 09/04/2024 N/A 92317-HZEZWAT NAIL, 6 OR MORE 12/08/2024 N/A 48095- Debride <25 sq cm 12/08/2024 N/A 23825-GNPFMPE NAIL, 6 OR MORE 03/23/2025 N/A Encounters Encounter Location Date Provider Diagnosis [address] [address] 05/19/2024 Jennifer Black Pain in left toe(s) M79.675 ; Other hammer toe(s) (acquired), left foot M20.42 ; Tinea unguium B35.1 ; Pain in right toe(s) M79.674 ; Pain in left toe(s) M79.675 and Arthritis of joint of lesser toe, left M19.[address] [address] 09/04/2024 Jennifer Black Tinea unguium B35.1 ; Ingrown nail L60.0 ; Pain in right toe(s) M79.674 and Pain in left toe(s) M79.[address] [place] [address] 12/08/2024 Jennifer Black Tinea unguium B35.1 ; Skin ulcer of toe of left foot, limited to breakdown of skin L97.521 ; Pain in right toe(s) M79.674 and Pain in left toe(s) M79.[address] [address] 03/23/2025 Jennifer Black Tinea unguium B35.1 ; Tinea pedis of both feet B35.3 ; Pain in right toe(s) M79.674 and Pain in left toe(s) M79.675 [facility] [address] 05/19/[facility]24 Jennifer Black Assessments Encounter Date Diagnosis [...] Treatment Pending Test Test Name Order Date 60771-XYCUXZB NAIL, 6 OR MORE 09/13/2011 09012-WOMESEC NAIL, 6 OR MORE 01/01/2012 26019-NTSWZIL NAIL, 6 OR MORE 04/03/2012 79972-NJCKBOV NAIL, 6 OR MORE 07/11/2012 63189-OBXSIDI NAIL, 6 OR MORE 10/21/2012 53810-UMDAWIE NAIL, 6 OR MORE 03/27/2013 32582-DGTGAQD NAIL, 6 OR MORE 09/22/2013 50340-HKNPNQG NAIL, 6 OR MORE 01/13/2015 16876-GEQETBF NAIL, 6 OR MORE 01/26/2016 00776-WZTMZBB NAIL, 6 OR MORE 07/20/2016 87702-YSNDRJI NAIL, 6 OR MORE 12/13/2017 49242-QNZYQXH NAIL, 6 OR MORE 05/23/2018 97802-OOMZSKX NAIL, 6 OR MORE 09/19/2018 21318-EXKYDTN NAIL, 6 OR MORE 01/16/2019 53697-SODDRWR NAIL, 6 OR MORE 04/24/2019 02371-TDXPAZB NAIL, 6 OR MORE 07/24/2019 23330-OZQPTPM NAIL, 6 OR MORE 10/23/2019 17952-QECWOLC NAIL, 6 OR MORE 03/04/2020 46538-RUPXXGL NAIL, 6 OR MORE 06/10/2020 09836-TTDTQZS NAIL, 6 OR MORE 09/16/2020 62210-ALMIYWY NAIL, 6 OR MORE 01/13/2021 90249-IYWBSPX NAIL, 6 OR MORE 04/28/2021 22473-QIZSGHY NAIL, 6 OR MORE 08/11/2021 11533-IJQPGQP NAIL, 6 OR MORE 11/21/2021 54991-QWFHWKB NAIL, 6 OR MORE 02/23/2022 38464-LYVSZUP NAIL, 6 OR MORE 06/01/2022 10179-MOGRWXH NAIL, 6 OR MORE 09/11/2022 47100-OSXMGGT NAIL, 6 OR MORE 12/11/2022 40967-TYXDTUB NAIL, 6 OR MORE 04/12/2023 19464-XMNCNLM NAIL, 6 OR MORE 07/16/2023 63132-OAIVRWT NAIL, 6 OR MORE 11/01/2023 92419-NABVRWK NAIL, 6 OR MORE 01/31/2024 79194-FVZNQJQ NAIL, 6 OR MORE 05/19/2024 99015-CFOOEOT NAIL, 6 OR MORE 01/18/2017 37526-FBRQYEV NAIL, 6 OR MORE 07/08/2014 91715-SWRXZVK NAIL, 6 OR MORE 03/14/2018 20132-NFVEMCC NAIL, 6 OR MORE 09/03/2017 88301-SNERLLT NAIL, 6 OR MORE 03/23/2025 74248-SROEQOI NAIL, 6 OR MORE 09/04/2024 09028-ULXXZEH NAIL, 6 OR MORE 12/08/2024 02771-SAMWCJO NAIL, 1-5 07/21/2015 24824-Rdejbjzn Plate 09/20/2021 07376-Izpqbtat Plate 08/11/2021 67803-Cbmwqbmr Plate 03/04/2020 12129-Aevhkqjv Plate 02/01/2018 79656-Jsodblak Plate 01/13/2015 29410-Znhbvrmu Plate 09/04/2024 50584- Debride <25 sq cm 12/08/2024 60439- Debride <25 sq cm 06/19/2019 65406- Debride <25 sq cm 09/20/2021 73551- Debride <25 sq cm 02/23/2022 06183- Debride <25 sq cm 09/11/2022 66089- Debride <25 sq cm 06/01/2022 Next Appt Details Provider Name:Jennifer Villeda Kendrick , 06/29/2025 11:30:00 AM, [address] [place] [address], [phone], Insurance Providers Payer Name Payer Address Payer Phone Subscriber Number Group Number Insured Name Patient Relationship to Insured Coverage Start Date Coverage End Date Medicare [employer] [address] [place] [address] [id number] Junior Marin Self - patient is the insured [employer] [address] [place] [address] [phone] [id number] Junior Marin Self - patient is the [...]
== END 2025-04-08 13:22 | disposition home or self-care (01) ==
LOC: HO.HCS 12:31
PROVIDERS: PCP Internal Medicine
DX: I50.30 Unspecified diastolic (congestive) heart failure (principal); I48.20 Chronic atrial fibrillation, unspecified; E87.5 Hyperkalemia; I10 Essential (primary) hypertension
CPT/HCPCS: 99214; G2211

== ENCOUNTER → 2025-04-08 12:31 | Outpatient (BNVA) | payer MEDICARE, SELFPAY | PROVIDERS: PCP Internal Medicine | DX: I11.0 Hypertensive heart disease with heart failure (principal); I50.30 Unspecified diastolic (congestive) heart failure; I48.20 Chronic atrial fibrillation, unspecified; E78.5 Hyperlipidemia, unspecified | CPT/HCPCS: 99212 ==

== ENCOUNTER 2025-04-15 10:34 | Outpatient (REF) | payer MEDICARE, SELFPAY ==
--- OUTSIDE RECORDS SUMMARY | 2025-04-09 23:59 | XMS_ITS | Continuity of Care Document ---
Author Organization [facility] Address [address] [place] [address]- Care Team Providers Care Receiving Team Member Name Role Phone Ignacio LOZOYA, Yonis Crews Primary Care Physician [phone] Encounter [facility] Date(s): 03/10/25 - 04/09/[address] [address] Attending Physician: AdmLuca blanchard Admitting Physician: AdmtrLuca Referring Physician: Admtr, [id number] Encounter Type: Triage Allergies, Adverse Reactions, Alerts [...] vaccine, inactivated 5 07/18/11 Gi patrick SARS-CoV-2(COVID-19)mRNA-LNP vac(ybg777) 9/23/24 Recorded SARS-CoV-2(COVID-19)mRNA-LNP vac(cly985) 07/12/23 Recorded pneumococcal 20-valent conjugate vaccine 12/13/23 Given IAPI-TvU-9fANJ 12y+ bivalent booster vax 07/11/22 Recorded tetanus/diphtheria/pertussis, acel(Tdap) 02/16/22 Given SARS-CoV-2 mRNA (qzfnrgl-eexc-dfsnw) vax 01/12/22 Recorded SARS-CoV-2 (COVID-19) mRNA BNT-162b2 [...] Inactive (IM) (oldterm) 08/16/07 Given 1Location History: [facility] 2Resjon Comment: [08/09/2017] [facility] 3Result Comment: [07/24/2016] RECEIVED AT [facility] DOSE 4Admin Note: given at [facility] on 08/17/13 [facility] 6Admin Note: per pt rcvd eklsewhere 7Location History: [facility] 8Admin Note: PER CHART HISTORICAL 9Admin Note: per pt rcvd elsewhere Medications Aerochamber See Instructions, # 1 units, Maintenance, use w/ albuterol MDI, 12/13/15 5:06:18 PM EST, Compound Start Date: 12/13/15 Status: Ordered Quantity: 1.0 Unit: Units Repeat number: 1 amLODIPine 10 mg oral tablet 1 tablet, By Mouth, Daily, # 90 tablet, 1 Refills, Maintenance, 03/30/25 12:27:00 PM EDT, [facility], 172.1, cm, 01/01/25 11:43:00 EDT, Height Start Date: 03/30/25 Status: Ordered Quantity: 90.0 Unit: tablet Repeat number: 1 Breo Ellipta 100 mcg-25 mcg/inh inhalation powder 1 puffs, Inhalation, Daily, # 1 each, 11 Refills, Maintenance, 11/06/23 1:34:00 PM EST, [facility]/pharmacy#[id number], Partial fill upon patient request if [...] 3:35:00 PM EDT, Route to Pharmacy Electronically, [facility], 172.1, cm, 11/25/24 10:53:00 EST, Height Start Date: 12/29/24 Status: Ordered Quantity: 180.0 Unit: tablet Repeat number: 1 Eliquis 5 mg oral tablet 1 tablet, By Mouth, 2 times a day, # 180 tablet, 3 Refills, Maintenance, 10/01/24 5:05:00 PM EST, [facility], 172.1, cm, 09/08/24 14:54:00 EST, Height Start [...] 3 Refills, Maintenance, 01/05/25 12:24:00 PM EDT, [facility]/pharmacy #[id number], 172.1, cm, 01/01/25 11:43:00 EDT, [...] Status: Ordered Repeat number: 1 Vitamin D 23209 iu oral capsule 50,000 International_Units, By Mouth, [...] dry Confirmed Active AF (paroxysmal atrial fibrillation) [id number] 3 Confirmed 07/05/20 Active Peripheral sensory neuropathy [...] Team Personnel Name: Mary Villavicencio NP Position: [facility] PCO Associate Professional Member Role: [employer] Provider Address: [address] [place] [address]- Telecom: Name: Yonis Pierre MD Position: [facility] Physician - Primary Care Member Role: PCP Address: [address] [place] [address]- Telecom: Care Team Related Persons Name: LANEY NIEVES Name: ARMIN NIEVES Insurance Providers Guarantor name: SHERLY NIEVES [facility] Plan Information #: 1 Payer: MEDICARE B Payer Identifier: NA Member Number: [id number] Group Number: [id number] Subscriber Identifier: [id number] Relationship to Subscriber: self Coverage Type: NA Coverage Verification Date: MIGUEL Telecom: NA Address: Health Plan Information #: 2 Payer: MEDEX SECONDARY ONLY Payer Identifier: MIGUEL Member Number: [id number] Group Number: [id number] Subscriber Identifier: [id number] Relationship to Subscriber: self Coverage Type: Medicare Other Coverage Verification Date: MIGUEL Telecom: NA Address:
--- OUTSIDE RECORDS SUMMARY | 2025-04-15 11:16 | XMS_ITS | Patient Health Record ---
Author Organization [facility] Address [address] [place] [address] Care Team Providers Care Shipping Clerk Name Role Phone Yonis Pierre Primary Care Provider Jennifer Thurman Unavailable [phone] Allergies Allergen (clinical drug ingredient) Drug/Non Drug Allergy documented on EMR Reaction Allergy Type Onset Date Status Latex Latex Unknown Allergy Active Reason For Referral No Information Medications Medication SIG (Take, Route, Frequency, Duration) Notes Start Date End Date Status Finasteride Active Ciclopirox Olamine 0.77% external Apply to effected areas twice a day; Duration: 30 days 07/20/2016 Not-Takin g amLODIPine Besylate Active Ciclopirox Olamine 0.77 % 1 application to affected area Externally Twice a day; Duration: 30 days 09/03/2017 Not-Taking Carvedilol Active cloNIDine HCl Active Timolol Hemihydrate 0.25 % 1 drop into affected eye Ophthalmic Once a day Active Ciclopirox Olamine 0.77 % 1 application to affected area Externally Twice a day; Duration: 30 days 01/01/2012 Not-Taking Vigraplex as directed Orally N ot-Taking Ciclopirox Olamine 0.77% external apply to feet twice a day; Duration: 30 days 07/08/2014 Not-Taking Ciclopirox Olamine 0.77 % 1 application Externally Twice a day; Duration: 30 days 03/23/2025 Active Losartan Potassium A [...] Ordered Date Performed Result Body Sit e 09539-SFPGQIL NAIL, 6 OR MORE 05/19/2024 N/A 20596-LWIUWKD NAIL, 6 OR MORE 09/04/2024 N/A 18610-Hjtyrypy Plate 09/04/2024 N/A 13344-PLREAVK NAIL, 6 OR MORE 12/08/2024 N/A 50370- Debride <25 sq cm 12/08/2024 N/A 53106-CETKCUX NAIL, 6 OR MORE 03/23/2025 N/A Encounters Encounter Location Date Provider Diagnosis [address] [address] 05/19/2024 Jennifer Black Pain in left toe(s) M79.675 ; Other hammer toe(s) (acquired), left foot M20.42 ; Tinea unguium B35.1 ; Pain in right toe(s) M79.674 ; Pain in left toe(s) M79.675 and Arthritis of joint of lesser toe, left M19.[address] [address] 09/04/2024 Jennifer Black Tinea unguium B35.1 ; Ingrown nail L60.0 ; Pain in right toe(s) M79.674 and Pain in left toe(s) M79.675 [facility] [address] [address] 12/08/2024 Jennifer Black Tinea unguium B35.1 ; Skin ulcer of toe of left foot, limited to breakdown of skin L97.521 ; Pain in right toe(s) M79.674 and Pain in left toe(s) M79.[address] [address] 03/23/2025 Jennifer Black Tinea unguium B35.1 ; Tinea pedis of both feet B35.3 ; Pain in right toe(s) M79.674 and Pain in left toe(s) M79.[address] [address] 05/19/2024 Jennifer Black Assessments Encounter Date Diagnosis [...] Treatment Pending Test Test Name Order Date 54088-REQKTKU NAIL, 6 OR MORE 09/13/2011 71326-HOZBFLK NAIL, 6 OR MORE 01/01/2012 33738-MMAZEEX NAIL, 6 OR MORE 04/03/2012 07150-RFGKIQG NAIL, 6 OR MORE 07/11/2012 01541-PYJYJGR NAIL, 6 OR MORE 10/21/2012 72735-AFOTMFU NAIL, 6 OR MORE 03/27/2013 58851-BGYQSTW NAIL, 6 OR MORE 09/22/2013 69631-INDWFKE NAIL, 6 OR MORE 07/08/2014 95164-RHFUQGT NAIL, 6 OR MORE 01/13/2015 79313-XSWKFYZ NAIL, 6 OR MORE 01/26/2016 31806-AIMFOLE NAIL, 6 OR MORE 07/20/2016 18495-VCDWZFO NAIL, 6 OR MORE 01/18/2017 87068-HGNCTHW NAIL, 6 OR MORE 09/03/2017 61164-ISJQPPK NAIL, 6 OR MORE 12/13/2017 16648-YFGJZEV NAIL, 6 OR MORE 03/14/2018 18090-HGGAECN NAIL, 6 OR MORE 05/23/2018 77038-TPOSGRO NAIL, 6 OR MORE 09/19/2018 44024-SXXDLVJ NAIL, 6 OR MORE 01/16/2019 45846-EYVOGBV NAIL, 6 OR MORE 04/24/2019 29874-OPYDXUQ NAIL, 6 OR MORE 07/24/2019 93439-VLCDMFQ NAIL, 6 OR MORE 10/23/2019 31436-CCNKMNP NAIL, 6 OR MORE 03/04/2020 45557-JEZHYSC NAIL, 6 OR MORE 06/10/2020 92863-SCVBRJJ NAIL, 6 OR MORE 09/16/2020 19015-FAIEUII NAIL, 6 OR MORE 01/13/2021 18331-LZSJMYJ NAIL, 6 OR MORE 04/28/2021 80070-KJYIQMX NAIL, 6 OR MORE 08/11/2021 68418-NRZMZLT NAIL, 6 OR MORE 11/21/2021 75679-BIDVUUW NAIL, 6 OR MORE 02/23/2022 42711-LLYLKQE NAIL, 6 OR MORE 06/01/2022 74057-NVRDPAR NAIL, 6 OR MORE 09/11/2022 87272-RGXGHLO NAIL, 6 OR MORE 12/11/2022 77796-AXRWDES NAIL, 6 OR MORE 04/12/2023 26546-OTJIJPR NAIL, 6 OR MORE 07/16/2023 39580-YVFEUFX NAIL, 6 OR MORE 11/01/2023 45660-BSRLYIK NAIL, 6 OR MORE 01/31/2024 15947-RHELJBE NAIL, 6 OR MORE 05/19/2024 52769-NAZKZIZ NAIL, 6 OR MORE 09/04/2024 56331-GPLRAJK NAIL, 6 OR MORE 12/08/2024 13616-QQEQVGY NAIL, 6 OR MORE 03/23/2025 27323-BBNLYKE NAIL, 1-5 07/21/2015 47840-Kzqbpeof Plate 09/20/2021 17617-Oqtzzkrb Plate 08/11/2021 51347-Erzuhstc Plate 03/04/2020 16988-Vmfysbgm Plate 02/01/2018 05111-Kbrksecs Plate 01/13/2015 23908-Jqlsgukc Plate 09/04/2024 05516- Debride <25 sq cm 12/08/2024 14108- Debride <25 sq cm 06/19/2019 00897- Debride <25 sq cm 09/20/2021 86598- Debride <25 sq cm 02/23/2022 72349- Debride <25 sq cm 09/11/2022 37209- Debride <25 sq cm 06/01/2022 Next Appt Details Provider Name:Jennifer Villeda Kendrick , 06/29/2025 11:30:00 AM, [address] [place] [address], [address], Insurance Providers Payer Name Payer Address Payer Phone Subscriber Number Group Number Insured Name Patient Relationship to Insured Coverage Start Date Coverage End Date Medicare National Govt Svcs Inc [address] [place] [address] [id number] Junior Marin Self - patient is the insured Med[employer] Blue Shield [address] [place] [address] [id number] Junior Marin Self - patient is the [...]
--- OUTSIDE RECORDS SUMMARY | 2025-04-15 11:16 | XMS_ITS | Patient Health Record ---
Author Organization [facility] Address [address] [place] [address] Care Team Providers Care Water/Wastewater Project Manager Name Role Phone Yonis Pierre MD Primary Care Provider Unavailab Chris Paris Unavailable [phone] Allergies No Known Allergies Reason For Referral No Information Medications Medication [...] Problem Status W/U Status Risk Notes Problem 947644240 History of adenomatous polyp of colon (Z86.010) Active confirmed Problem 605010318 Change in bowel habits (R19.4) Active confirmed Problem Rectal discharge (616693201) Rectal discharge (R19.8) Active confirmed Vital Signs Blood pressure diastolic 00 mm Hg 04/29/2024 Height 68 in 04/29/2024 Blood pressure systolic 00 mm Hg 04/29/2024 Weight 168 lbs 04/29/2024 BMI 25.54 kg/m2 04/29/2024 Encounters Encounter Location Date Provider Diagnosis [facility] [address] [place] [address] 04/29/2024 Chris Tomlin Change in bowel habits [...] advised of his progress. Plan Of Treatment Pending Test Test Name Order Date Hemoccult Cards (Non-Screening) 03/17/20 24 Hemoccult Cards (Non-Screening) 02/16/20 21 CBC w DIFF 03/17/2024 STOOL WBC 08/11/2022 C DIFFICILE RFLX PCR 08/11/2022 OBSX3 03/23/2024 Future Test Test Name Order Date COLONOSCOPY 11/19/2014 Next Appt Details Provider Name:Chris Tomlin , 04/28/2025 01:40:00 PM, [address], [address], [place], [address], Insurance Providers Payer Name Payer Address Payer Phone Subscriber Number Group Number Insured Name Patient Relationship to Insured Coverage Start Date Coverage End Date MEDICARE OF [place] [address] [place] [address] [id number] SHERLY MARIN Self - patient is the insured MEDEX ATTN CLAIMS [address] [place] [address] [id number] LIZBETH SHERLY Self - patient is the insured Medical (General) History Medical History History ICD Code Screening Colonoscopy 04-30-2009--1 small tubular adenoma removed Reports neg. CT and MRI of abdomen in Hypertension Denies ME,DM,CVA,renal disease Peripheral neuropathy in feet Atrial fibrillation Asthma Colonoscopy in 01/2015-2 small tubular ad enomas removed 11/2023 and 12/2023 with hospitalizations for CHF--Dr. Reveles Some emphysema/asthma-Dr. Hernández Surgical History Surgery Date(Month/Year) Eye lid surgery Cataract-lens implants-left
[2025-04-15 12:34] LABS: Potassium 5.1 mmol/L (3.3-5.1)
== END 2025-04-15 10:35 | disposition home or self-care (01) ==
LOC: HO.LAB 10:34
PROVIDERS: PCP Internal Medicine
DX: I48.20 Chronic atrial fibrillation, unspecified (principal)
CPT/HCPCS: 36415; 84132

== ENCOUNTER 2025-05-20 10:02 | Outpatient (REF) | payer MEDICARE, SELFPAY ==
--- OUTSIDE RECORDS SUMMARY | 2025-05-18 23:59 | XMS_ITS | Continuity of Care Document ---
Author Organization [facility] Address [address] [place] [address]- Care Team Providers Care Assembly Adjuster Name Role Phone Ignacio LOZOYA, Yonis Crwes Primary Care Physician Encounter [facility] Date(s): 05/11/25 - 05/18/25 [facility] Adult [address] [place] [address]- Attending Physician: Yazan Campbell MD Encounter Type: Office Visit Allergies, Adverse [...] vaccine, inactivated 5 07/18/11 Gi patrick SARS-CoV-2(COVID-19)mRNA-LNP vac(rby162) 07/07/24 Recorded SARS-CoV-2(COVID-19)mRNA-LNP vac(bcz678) 07/12/23 Recorded pneumococcal 20-valent conjugate vaccine 12/13/23 Given LUCD-HjS-3dWNK 12y+ bivalent booster vax 07/11/22 Recorded tetanus/diphtheria/pertussis, acel(Tdap) 02/16/22 Given SARS-CoV-2 mRNA (cephqov-zceo-ymrwf) vax 01/12/22 Recorded SARS-CoV-2 (COVID-19) mRNA BNT-162b2 [...] History: [facility] 2Result Comment: [08/09/2017] [facility] JULISA 3Result Comment: [07/24/2016] RECEIVED AT [facility] HIGH DOSE 4Admin Note: given at [facility] on 08/17/13 5Admin Note: [facility] 6Admin Note: per pt rcvd eklsewhere 7Location History: [facility] 8Admin Note: PER CHART HISTORICAL 9Admin Note: per pt rcvd elsewhere Medications Aerochamber See Instructions, # 1 units, Maintenance, use w/ albuterol MDI, 12/13/15 5:06:18 PM EST, Compound Start Date: 12/13/15 Status: Ordered Quantity: 1.0 Unit: Units Repeat number: 1 amLODIPine 10 mg oral tablet 1 tablet, By Mouth, Daily, # 90 tablet, 1 Refills, Maintenance, 03/30/25 12:27:00 PM EDT, [email or web address], 172.1, cm, 01/01/25 11:43:00 EDT, Height Start Date: 03/30/25 Status: Ordered Quantity: 90.0 Unit: tablet Repeat number: 1 Breo Ellipta 100 mcg-25 mcg/inh inhalation powder 1 puffs, Inhalation, Daily, # 1 each, 11 Refills, Maintenance, 11/06/23 1:34:00 PM EST, [facility]/pharmacy#[id number], Partial fill upon patient request if the [...] 3:35:00 PM EDT, Route to Pharmacy Electronically, [email or web address], 172.1, cm, 11/25/24 10:53:00 EST, Height Start Date: 12/29/24 Status: Ordered Quantity: 180.0 Unit: tablet Repeat number: 1 Eliquis 5 mg oral tablet 1 tablet, By Mouth, 2 times a day, # 180 tablet, 3 Refills, Maintenance, 10/01/24 5:05:00 PM EST, [email or web address], 172.1, cm, 09/08/24 14:54:00 EST, Height Start [...] 3 Refills, Maintenance, 01/05/25 12:24:00 PM EDT, [facility]/pharmacy #[id number], 172.1, cm, 01/01/25 11:43:00 EDT, Height [...] Status: Ordered Repeat number: 1 Vitamin D 79613 iu oral capsule 50,000 International_Units, By Mouth, [...] dry Confirmed Active AF (paroxysmal atrial fibrillation) [id number] 3 Confirmed 07/05/20 Active Peripheral sensory neuropathy [...] Sex Sex Representation Male (finding) Note * Taina Chase: PERFORM Event Display: Patient Education/Instruction Authored Date: [id number] Ambulatory Adult Visit Summary [facility] [address], [place] [id number] Name: SHERLY NIEVES : 1940?? Visit: 05/11/2025 08:11?? Ambulatory Visit Instructions ?? Your Care Team Primary Care Provider Ignacio LOZOYA, Yonis Crews? This Visit Provider Yazan Campbell MD Your Diagnosis Pain of left sacroiliac joint Vitals Signs Pulse Rate:??52 bpm??Low Height: 172.1 cm Systolic Blood Pressure: 121 mm Hg Weight: 76.2 kg Diastolic Blood Pressure:??48 mm Hg??Low Body Mass Index:??25.73 kg/m2??High Oxygen Saturation: 100 % Body surface area: 1.91 What to do next Instructions From Your Provider Continue your current medications. Avoid Ibuprofen, Advil, Motrin and Aleve medications. OK to take Tylenol 1000 mg up to 3 times a day as needed. Keep up the daily rehabilitation exercises you learned from physical therapy. Medications The list below reflects the information [...] ??albuterol MDI ?? Unchanged Ergocalciferol (Vitamin D 65278 iu oral capsule) 50,000 International Unit Oral [...] Ophthalmic (Timolol 0.5% Ophth) Twice a day Medications and Immunizations Administered Medications Given During [...] are strongly encouraged to quit. Please call [facility] at [phone] or [phone] ([phone]) or log in to [email or web address] for referrals to smoking cessation programs. ?? The National Suicide Prevention Hotline is available 07/05 if you or someone you know needs to find a reason to keep living. By calling 8-692-092-Tiange (3225) you'll be connected to a skilled, trained counselor at a crisis center in your area. [facility] Everyday.me Portal You can view and manage your care through the patient portal or by using a health care daniel of your choosing. [employer] is a website that allows you to securely view your medical information including your hospital discharge summary, office visit summaries, medications and follow-up visits. You can also request appointments, renew medications, and request access to your medical information using a health care daniel of your choosing, or just ask a question. You can enroll at [email or web address] or register during your next office visit. [facility], in keeping with [facility] guidance, no longer requires face masks for [...] primary care provider, you may find a [facility] provider by calling [facility] Everyday.me [facility] at [phone]. Patient Care team information Care Team Personnel Name: Mary Villavicencio NP Position: [facility] PCO Associate Professional Member Role: [employer] Provider Address: [address] [place] [id number] Telecom: Name: Yonis Pierre MD Position: [facility] Physician - Primary Care Member Role: PCP Address: [address] [place] [id number] Telecom: Care Team Related Persons Name: LANEY NIEVES Name: ARMIN NIEVES Insurance Providers Guarantor name: SHERLY NIEVES Health Plan Information #: 1 Payer: MEDICARE B Payer Identifier: Member Number: [id number] Group Number: Subscriber Identifier: [id number] Relationship to Subscriber: self Coverage Type: NA Coverage Verification Date: NA Telecom: NA Address: Health Plan Information #: 2 Payer: MEDEX SECONDARY ONLY Payer Identifier: Member Number: [id number] Group Number: Subscriber Identifier: [id number] Relationship to Subscriber: self Coverage Type: Medicare Other Coverage Verification Date: NA Telecom: Address:
--- OUTSIDE RECORDS SUMMARY | 2025-05-20 10:35 | XMS_ITS | Patient Health Record ---
Author Organization [facility] Address [address] [place] [address] Care Team Providers Care Mathematics Professor Name Role Phone Yonis Pierre Primary Care Provider Jennifer Thurman Unavailable [phone] Allergies Allergen (clinical drug ingredient) Drug/Non Drug [...] Ordered Date Performed Result Body Sit e 21473-HTZYBDN NAIL, 6 OR MORE 09/04/2024 N/A 79718-Amgwazzq Plate 09/04/2024 N/A 97823-XDBKEWV NAIL, 6 OR MORE 12/08/2024 N/A 54182- Debride <25 sq cm 12/08/2024 N/A 51442-NNCLKZK NAIL, 6 OR MORE 03/23/2025 N/A Encounters Encounter Location Date Provider Diagnosis [address] [address] 09/04/2024 Jennifer Black Tinea unguium B35.1 ; Ingrown nail L60.0 ; Pain in right toe(s) M79.674 and Pain in left toe(s) M79.[address] [address] 12/08/2024 Jennifer Black Tinea unguium B35.1 ; Skin ulcer of toe of left foot, limited to breakdown of skin L97.521 ; Pain in right toe(s) M79.674 and Pain in left toe(s) M79.[address] [address] 03/23/2025 Jennifer Black Tinea unguium B35.1 ; [...] Treatment Pending Test Test Name Order Date 33256-TGXHCYX NAIL, 6 OR MORE 09/13/2011 37839-CFMQXYE NAIL, 6 OR MORE 01/01/2012 68583-VZWCTIU NAIL, 6 OR MORE 04/03/2012 27851-LJCKDHK NAIL, 6 OR MORE 07/11/2012 39029-BTWBVWC NAIL, 6 OR MORE 10/21/2012 86827-UXSLTSV NAIL, 6 OR MORE 03/27/2013 49944-PHHIDIG NAIL, 6 OR MORE 09/22/2013 96850-HTAYPLR NAIL, 6 OR MORE 07/08/2014 63176-CTDNSRM NAIL, 6 OR MORE 01/13/2015 14668-DVYOLLC NAIL, 6 OR MORE 01/26/2016 55246-CWFNZPL NAIL, 6 OR MORE 07/20/2016 02324-PRJWOGY NAIL, 6 OR MORE 01/18/2017 11113-SGTSPGT NAIL, 6 OR MORE 09/03/2017 56502-KUZDGQQ NAIL, 6 OR MORE 12/13/2017 45668-MXREHMN NAIL, 6 OR MORE 03/14/2018 52650-WHJUPZI NAIL, 6 OR MORE 05/23/2018 50814-IJGZXNW NAIL, 6 OR MORE 09/19/2018 94352-ASPOESU NAIL, 6 OR MORE 01/16/2019 19501-TDNASJY NAIL, 6 OR MORE 04/24/2019 18384-XFWWSOA NAIL, 6 OR MORE 07/24/2019 17887-WNVKQMS NAIL, 6 OR MORE 10/23/2019 67282-TZIIJVT NAIL, 6 OR MORE 03/04/2020 54821-EUCEEKW NAIL, 6 OR MORE 06/10/2020 26794-KQEANPU NAIL, 6 OR MORE 09/16/2020 48287-MPUZAQW NAIL, 6 OR MORE 01/13/2021 29834-TCZAAVJ NAIL, 6 OR MORE 04/28/2021 21727-WMKIKYM NAIL, 6 OR MORE 08/11/2021 29655-DQHVGOL NAIL, 6 OR MORE 11/21/2021 29748-KKIDEHO NAIL, 6 OR MORE 02/23/2022 42611-BRCZFRT NAIL, 6 OR MORE 06/01/2022 88181-KQIGJXE NAIL, 6 OR MORE 09/11/2022 14470-KWERRWZ NAIL, 6 OR MORE 12/11/2022 24071-ZAVAHHH NAIL, 6 OR MORE 04/12/2023 87018-OJBEBES NAIL, 6 OR MORE 07/16/2023 39233-IZZSDBD NAIL, 6 OR MORE 11/01/2023 25986-VFLUASB NAIL, 6 OR MORE 01/31/2024 62876-LMKJVWN NAIL, 6 OR MORE 05/19/2024 60948-CGXSHGD NAIL, 6 OR MORE 09/04/2024 76477-YLETPBG NAIL, 6 OR MORE 12/08/2024 44025-OYDEMPU NAIL, 6 OR MORE 03/23/2025 75240-TBFBIRG NAIL, 1-5 07/21/2015 08920-Ljfjjlrp Plate 09/20/2021 46298-Vgruomto Plate 08/11/2021 56641-Ujwwagoo Plate 03/04/2020 77231-Ajylbpzs Plate 02/01/2018 06440-[place] Plate 01/13/2015 59305-Frszsjir Plate 09/04/2024 56982- Debride <25 sq cm 12/08/2024 19860- Debride <25 sq cm 06/19/2019 94078- Debride <25 sq cm 09/20/2021 48087- Debride <25 sq cm 02/23/2022 32263- Debride <25 sq cm 09/11/2022 76153- Debride <25 sq cm 06/01/2022 Next Appt Details Provider Name:Jennifer Marks , 06/29/2025 11:30:00 AM, [address] [facility], [place], [address], Insurance Providers Payer Name Payer Address Payer Phone Subscriber Number Group Number Insured Name Patient Relationship to Insured Coverage Start Date Coverage End Date Medicare National Govt Svcs Inc [address] [place] [address] [id number] Junior Marin Self - patient is the insured Medex Blue Shield [address] [place] [address] [id number] Junior Marin Self - patient is the insured Medical (General) History Medical History History ICD Code measles hypertension asthma A fib Gout M10.9 Idiopathic chronic gout of right foot wi [facility] M1A.0711 Other hammer toe(s) (acquired), right fo ot M20.41 Other hammer toe(s) (acquired), left christian t M20.42 Arthritis of joint of lesser toe, left M 19.072 Surgical History Surgery Date(Month/Year) eye surgery 2010 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
--- OUTSIDE RECORDS SUMMARY | 2025-05-20 10:35 | XMS_ITS | Patient Health Record ---
Author Organization [facility] Address [address] [place] [address] Care Team Providers Care Oil Mixer Name Role Phone Yonis Pierre MD Primary Care Provider UnavailChris Coffman Unavailable [phone] Allergies No Known Allergies Reason For Referral No Information Medications Medication SIG (Take, Route, Frequency, Duration) Notes Start Date End Date Status Carvedilol 6.25 MG TAKE 1 TABLET BY FERNANDO TH TWICE A DAY Orally Active Losartan Potassium 100 MG TAKE 1 TABLET EVERY DAY Oral for 90 Active Brimonidine Tartrate 0.2 % INSTILL 1 JENI P INTO BOTH EYES TWICE A DAY Ophthalmic for 25 Active amLODIPine Besylate 10 MG TAKE 1 TABLET BY MOUTH EVERY DAY Oral for 90 Active Finasteride 5 MG TAKE 1 TABLET BY FERNANDO TH EVERY DAY Oral for 90 Active Fiber Choice 1.5 GM as directed Orally t wice a day Active Breo Ellipta 100-25 MCG/ACT Inhalation for 30 Active Multi Vitamin - 1 tablet Orally Once a day Active Eliquis 5 MG TAKE 1 TABLET BY FERNANDO TH TWICE A DAY Oral for 90 Active Furosemide 20 MG 1 tablet Orally Once a day Active Tylenol PRN Active Timolol Maleate Ocudose 0.5 % 1 drop into affected eye Ophthalmic Once a day Active Albuterol Sulfate HFA 108 (90 Base) MCG/ACT Inhalation Active Vitamin D 50 MCG (1999 UT) 1 tablet Oral ly Once a day Active MiraLax 17 GM Orally PRN Active Wixela Inhub 100-50 MCG/ACT 1 puff Inhal ation Twice a day Active Budesonide-Formoterol Fumarate 160-4.5 MCG/ACT Inhalation Act eric Apixaban 5 MG Orally Active Probiotic Active Xiidra 5 % Ophthalmic for 90 A ctive Immunizations Vaccine Route Administration Date Status Comme nts Influenza Unknown 08/04/2020 Administered Influenza Unknown 08/05/2024 Administered Problems Problem Type SNOMED Code ICD Code Onset Dates Problem Status W/U Status Risk Notes Problem 028855339 History of adenomatous polyp of colon (Z86.010) Active confirmed Problem Constipation (K59.00) Active confirmed Problem 028099085 Change in bowel habits (R19.4) Active confirmed Problem Rectal discharge (047360719) Rectal discharge (R19.8) Active confirmed Vital Signs Temperature 97.8 degrees Fahrenheit 04/28/2025 Blood pressure diastolic 01 mm Hg 04/28/2025 Height 68 in 04/28/2025 Blood pressure systolic 001 mm Hg 04/28/2025 Weight 164.2 lbs 04/28/2025 BMI 24.96 kg/m2 04/28/2025 Encounters Encounter Location Date Provider Diagnosis [facility] [address] [place] [address] 04/28/2025 Chris Tomlin Constipation K59.00 Assessments Encounter Date Diagnosis (ICD Code) Assessment Notes Treatment Notes Treatment Clinical Notes Section Notes 04/28/2025 Constipation (ICD-10 - K59.00) Continue the daily Metamucil and Probiotic. Use the Senna and Miralax as needed for any constipation Overall, Sherly appears quite well and his bowel movements continue to remain quite stable without any worrisome changes in my opinion. His negative Hemoccult cards over the years, his normal iron studies, and his good clinical appearance are all quite reassuring. I advised him that at this point I would not recommend a colonoscopy given his age, comorbidities, and no definitive indication for the procedure. We did review his current regimen of the daily Metamucil and probiotic seems to be working very well for him. I advised him that he could certainly continue to use the senna and MiraLAX as needed. Based on his overall history I advised him that I do not think I would be able to make any improvement in his current bowel regimen and would simply continue his current routine. At this point if Sherly continues to do well he can see me as needed. I did advise him to certainly call if he has any problems or questions I can be of assistance with. Sherly was very comfortable with this plan. Thank you again for allowing me to have participated in Sherly's care. I shall continue to keep you advised of his progress as needed. Please do not hesitate to contact me if I can be of any further assistance in the future. Plan Of Treatment Pending Test Test Name [...] [place] [address] [place] [address] [phone] [id number] SHERLY NIEVES Self - patient is the insured [employer] ATTN CLAIMS [address] [place] [address] [id number] SHERLY NIEVES Self - patient is the insured Medical (General) History Medical History History ICD Code Screening Colonoscopy 04-30-2009--1 small tubular adenoma removed Reports neg. CT and MRI of abdomen in Hypertension Denies RI,DM,CVA,renal disease Peripheral neuropathy in feet Atrial fibrillation Asthma Colonoscopy in 01/2015-2 small tubular ad enomas removed 11/2023 and 12/2023 with hospitalizations for CHF--Dr. Reveles Some emphysema/asthma-Dr. Hernández Macular degeneration Surgical History Surgery Date(Month/Year) Cataract-lens implants-left Eye lid surgery
[2025-05-20 11:18] LABS: Potassium 5.0 mmol/L (3.3-5.1)
== END 2025-05-20 10:03 | disposition home or self-care (01) ==
LOC: HO.LAB 10:02
PROVIDERS: PCP Internal Medicine
DX: I10 Essential (primary) hypertension (principal)
CPT/HCPCS: 36415; 84132

== ENCOUNTER 2025-05-27 10:43 | Outpatient (REF) | payer MEDICARE, SELFPAY ==
--- OUTSIDE RECORDS SUMMARY | 2025-05-27 11:33 | XMS_ITS | Patient Health Record ---
Author Organization [facility] Address [address] [place] [address] Care Team Providers Care Agronomy Advisor Name Role Phone Yonis Pierre MD Primary Care Provider UnavailChris Coffman Unavailable [phone] Allergies No Known Allergies Reason For Referral [...] Problem Status W/U Status Risk Notes Problem 679875385 History of adenomatous polyp of colon (Z86.010) Active confirmed Problem Constipation (97400498) Constipation (K59.00) Active confirmed Problem 306108003 Change in bowel habits (R19.4) Active confirmed Problem Rectal discharge (779090497) Rectal discharge (R19.8) Active confirmed Vital Signs Temperature 97.8 degrees Fahrenheit 04/28/2025 Blood pressure diastolic 01 mm Hg 04/28/2025 Height 68 in 04/28/2025 Blood pressure systolic 001 mm Hg 04/28/2025 Weight 164.2 lbs 04/28/2025 BMI 24.96 kg/m2 04/28/2025 Encounters Encounter Location Date Provider Diagnosis [facility] [address] [place] [address] 04/28/2025 Chris Tomlin Constipation K59.00 Assessments Encounter [...] Date MEDICARE OF [place] [address] [place] [address] [id number] SHERLY NIEVES Self - patient is the insured MEDEX ATTN CLAIMS [address] [place] [address] [id number] SHERLY NIEVES Self - patient is the insured Medical (General) History Medical History History ICD Code Screening Colonoscopy 04-30-2009--1 small tubular adenoma removed Reports neg. CT and MRI of abdomen in Hypertension Denies [place],DM,CVA,renal disease Peripheral neuropathy in feet Atrial fibrillation Asthma Colonoscopy in 01/2015-2 small tubular ad enomas removed 11/2023 and 12/2023 with hospitalizations for CHF--Dr. Reveles Some emphysema/asthma-Dr. Hernández Macular degeneration Surgical History Surgery Date(Month/Year) Cataract-lens implants-left Eye lid surgery
--- OUTSIDE RECORDS SUMMARY | 2025-05-27 11:33 | XMS_ITS | Patient Health Record ---
Author Organization [facility] Address [address] [place] [address] Care Team Providers Care Dock Loader Name Role Phone Yonis Pierre Primary Care Provider Jennifer Thurman Unavailable [phone] Allergies Allergen (clinical drug ingredient) Drug/Non Drug [...] Ordered Date Performed Result Body Sit e 19917-BGOCRRH NAIL, 6 OR MORE 09/04/2024 N/A 78744-Olvzueti Plate 09/04/2024 N/A 86288-YBWODJD NAIL, 6 OR MORE 12/08/2024 N/A 85068- Debride <25 sq cm 12/08/2024 N/A 70143-FCZIVJF NAIL, 6 OR MORE 03/23/2025 N/A Encounters Encounter Location Date Provider Diagnosis [address] [address] 09/04/2024 Jennifer Black Tinea unguium B35.1 ; Ingrown nail L60.0 ; Pain in right toe(s) M79.674 and Pain in left toe(s) M79.[address] [address] 12/08/2024 Jennifer Black Tinea unguium B35.1 ; Skin ulcer of toe of left foot, limited to breakdown of skin L97.521 ; Pain in right toe(s) M79.674 and Pain in left toe(s) M79.[address] [address] 03/23/2025 Jennifer Black Tinea unguium B35.1 ; [...] Treatment Pending Test Test Name Order Date 81919-SHPYWOJ NAIL, 6 OR MORE 09/13/2011 20973-ZWRAUOY NAIL, 6 OR MORE 01/01/2012 28338-XJFGXIL NAIL, 6 OR MORE 04/03/2012 79455-BWQJAHR NAIL, 6 OR MORE 07/11/2012 58745-XCCRIGV NAIL, 6 OR MORE 10/21/2012 43085-KQFREYW NAIL, 6 OR MORE 03/27/2013 73556-UTBNCIV NAIL, 6 OR MORE 09/22/2013 65608-YYBSNLM NAIL, 6 OR MORE 07/08/2014 57953-RGKTDVV NAIL, 6 OR MORE 01/13/2015 64642-ZSFGJSC NAIL, 6 OR MORE 01/26/2016 75922-BNPNQVR NAIL, 6 OR MORE 07/20/2016 33160-BSNVEXO NAIL, 6 OR MORE 01/18/2017 96847-XOMHCSM NAIL, 6 OR MORE 09/03/2017 91715-HHVPQQS NAIL, 6 OR MORE 12/13/2017 91617-MCJKSIU NAIL, 6 OR MORE 03/14/2018 06124-VBLDFAL NAIL, 6 OR MORE 05/23/2018 57157-UWIIUWN NAIL, 6 OR MORE 09/19/2018 33929-MABEWBW NAIL, 6 OR MORE 01/16/2019 68458-GVBRHPI NAIL, 6 OR MORE 04/24/2019 44679-OUMDAFT NAIL, 6 OR MORE 07/24/2019 76104-GFTCJNB NAIL, 6 OR MORE 10/23/2019 46947-MHOMXBB NAIL, 6 OR MORE 03/04/2020 30398-DDDMJXZ NAIL, 6 OR MORE 06/10/2020 15906-ZDWDQNM NAIL, 6 OR MORE 09/16/2020 78915-CDRLBRN NAIL, 6 OR MORE 01/13/2021 48854-GAIHKOJ NAIL, 6 OR MORE 04/28/2021 35863-AJICDPR NAIL, 6 OR MORE 08/11/2021 12400-MSEPBYF NAIL, 6 OR MORE 11/21/2021 35274-MCNLKHX NAIL, 6 OR MORE 02/23/2022 31565-CXIAIRX NAIL, 6 OR MORE 06/01/2022 07157-SLJFUDK NAIL, 6 OR MORE 09/11/2022 78555-OFVJEWQ NAIL, 6 OR MORE 12/11/2022 93363-JTFRZNB NAIL, 6 OR MORE 04/12/2023 41866-SGFUHOY NAIL, 6 OR MORE 07/16/2023 79757-ZPVJIAL NAIL, 6 OR MORE 11/01/2023 33992-EGQXFDV NAIL, 6 OR MORE 01/31/2024 94240-YAFOTLY NAIL, 6 OR MORE 05/19/2024 15793-VYRKPES NAIL, 6 OR MORE 09/04/2024 46347-VCGQVKD NAIL, 6 OR MORE 12/08/2024 78145-UMMDPNM NAIL, 6 OR MORE 03/23/2025 63172-JTAPXPQ NAIL, 1-5 07/21/2015 96027-Ntsxmflv Plate 09/20/2021 65488-Ovqdrkwn Plate 08/11/2021 42293-Asvbupql Plate 03/04/2020 92038-Ozttaikq Plate 02/01/2018 68283-Kvgqiygh Plate 01/13/2015 11955-Bwgdzxsb Plate 09/04/2024 27561- Debride <25 sq cm 12/08/2024 94333- Debride <25 sq cm 06/19/2019 58062- Debride <25 sq cm 09/20/2021 54827- Debride <25 sq cm 02/23/2022 57909- Debride <25 sq cm 09/11/2022 78057- Debride <25 sq cm 06/01/2022 Next Appt Details Provider Name:Jennifer Marks , 06/29/2025 11:30:00 AM, [address] [facility], [place], [address], Insurance Providers Payer Name Payer Address Payer Phone Subscriber Number Group Number Insured Name Patient Relationship to Insured Coverage Start Date Coverage End Date Medicare National Govt Svcs Inc [address] [facility] [place] [address] [id number] Junior Marin Self - patient is the insured Med[employer] Blue Shield [address] [place] [address] [id number] Junior Marin Self - patient is the insured Medical (General) History Medical History History ICD Code measles hypertension asthma A fib Gout M10.9 Idiopathic chronic gout of right foot wi [facility] M1A.0711 Other hammer toe(s) (acquired), right fo ot M20.41 Other hammer toe(s) (acquired), left christian t M20.42 Arthritis of joint of lesser toe, left M 19.072 Surgical History Surgery Date(Month/Year) eye surgery 2010 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
== END 2025-05-27 10:44 | disposition home or self-care (01) ==
LOC: HO.LNP 10:43
PROVIDERS: Visit Provider Internal Medicine Pulmonary Disease
DX: R05.9 Cough, unspecified (principal)
CPT/HCPCS: 87070; 87205

== ENCOUNTER 2025-06-08 10:38 | Outpatient (REF) | payer MEDICARE, SELFPAY ==
--- OUTSIDE RECORDS SUMMARY | 2025-06-06 23:59 | XMS_ITS | Continuity of Care Document ---
Author Organization [facility]za[facility] lt Address [address] [place] [address]- Care Team Providers Care Benefits Administrator Name Role Phone Ignacio LOZOYA, Yonis Crews Primary Care Physician Encounter [facility] Date(s): 05/07/25 - 06/06/25 [facility] Adult [address] [place] [address]- Encounter Type: Triage Allergies, Adverse Reactions, Alerts [...] vaccine, inactivated 5 07/18/11 Gi patrick SARS-CoV-2(COVID-19)mRNA-LNP vac(qhu465) 07/07/24 Recorded SARS-CoV-2(COVID-19)mRNA-LNP vac(ekr089) 07/12/23 Recorded pneumococcal 20-valent conjugate vaccine 12/13/23 Given SIKO-AnT-0zAHZ 12y+ bivalent booster vax 07/11/22 Recorded tetanus/diphtheria/pertussis, acel(Tdap) 02/16/22 Given SARS-CoV-2 mRNA (pnbognz-aokv-uyjdd) vax 01/12/22 Recorded SARS-CoV-2 (COVID-19) mRNA BNT-162b2 [...] Inactive (IM) (oldterm) 08/16/07 Given 1Location History: [facility] 2Result Comment: [08/09/2017] [facility] 3Result Comment: [07/24/2016] RECEIVED AT [facility] HIGH DOSE 4Admin Note: given at [facility] on 08/17/13 5Admin Note: [facility] 6Admin Note: per pt rcvd eklsewhere 7Location History: [facility] 8Admin Note: PER CHART HISTORICAL 9Admin Note: per pt rcvd elsewhere Medications Aerochamber See Instructions, # 1 units, Maintenance, use w/ albuterol MDI, 12/13/15 5:06:18 PM EST, Compound Start Date: 12/13/15 Status: Ordered Quantity: 1.0 Unit: Units Repeat number: 1 amLODIPine 10 mg oral tablet 1 tablet, By Mouth, Daily, # 90 tablet, 1 Refills, Maintenance, 03/30/25 12:27:00 PM EDT, [facility], 172.1, cm, 01/01/25 11:43:00 EDT, Height Start Date: 03/30/25 Status: Ordered Quantity: 90.0 Unit: tablet Repeat number: 1 Breo Ellipta 100 mcg-25 mcg/inh inhalation powder 1 puffs, Inhalation, Daily, # 1 each, 11 Refills, Maintenance, 11/06/23 1:34:00 PM EST, [facility]/pharmacy#[id number], Partial fill upon patient request [...] 3:35:00 PM EDT, Route to Pharmacy Electronically, [facility], 172.1, cm, 11/25/24 10:53:00 EST, Height Start Date: 12/29/24 Status: Ordered Quantity: 180.0 Unit: tablet Repeat number: 1 Eliquis 5 mg oral tablet 1 tablet, By Mouth, 2 times a day, # 180 tablet, 3 Refills, Maintenance, 10/01/24 5:05:00 PM EST, [facility], 172.1, cm, 09/08/24 14:54:00 EST, Height Start [...] 3 Refills, Maintenance, 01/05/25 12:24:00 PM EDT, [facility]/pharmacy #[id number], 172.1, cm, 01/01/25 11:43:00 [...] Status: Ordered Repeat number: 1 Vitamin D 41143 iu oral capsule 50,000 International_Units, By Mouth, [...] dry Confirmed Active AF (paroxysmal atrial fibrillation) [id number] 3 Confirmed 07/05/20 Active Peripheral sensory neuropathy [...] Team Personnel Name: Mary Villavicencio NP Position: [facility] PCO Associate Professional Member Role: Lifetime Consulting Provider Address: [address] [place] [address]- Telecom: Name: Yonis Pierre MD Position: [facility] Physician - Primary Care Member Role: PCP Address: [address] [place] [address]- ZB Telecom: Care Team Related Persons Name: LANEY NIEVES Name: ARMIN NIEVES Insurance Providers Guarantor name: SHERLY NIEVES Health Plan Information #: 1 Payer: MEDICARE B Payer Identifier: NA Member Number: [id number] Group Number: NA Subscriber Identifier: [id number] Relationship to Subscriber: self Coverage Type: NA Coverage Verification Date: NA Telecom: NA Address: Health Plan Information #: 2 Payer: MEDEX SECONDARY ONLY Payer Identifier: MIGUEL Member Number: [id number] Group Number: [id number] Subscriber Identifier: [id number] Relationship to Subscriber: self Coverage Type: Medicare Other Coverage Verification Date: NA Telecom: NA Address:
--- OUTSIDE RECORDS SUMMARY | 2025-06-10 11:31 | XMS_ITS | Patient Health Record ---
Author Organization [facility] Address [address] [place] [address] Care Team Providers Care Electrician Supervisor Name Role Phone Yonis Pierre Primary Care Provider Jennifer Thurman Unavailable [phone] Allergies Allergen (clinical drug ingredient) Drug/Non Drug [...] Ordered Date Performed Result Body Sit e 63307-NKIJYMV NAIL, 6 OR MORE 09/04/2024 N/A 79607-Ahkrhiit Plate 09/04/2024 N/A 64160-WJTQTEB NAIL, 6 OR MORE 12/08/2024 N/A 19596- Debride <25 sq cm 12/08/2024 N/A 72539-MDLSNLD NAIL, 6 OR MORE 03/23/2025 N/A Encounters Encounter Location Date Provider Diagnosis [address] [address] 09/04/2024 Jennifer Black Tinea unguium B35.1 ; Ingrown nail L60.0 ; Pain in right toe(s) M79.674 and Pain in left toe(s) M79.[address] [address] 12/08/2024 Jennifer Black Tinea unguium B35.1 ; Skin ulcer of toe of left foot, limited to breakdown of skin L97.521 ; Pain in right toe(s) M79.674 and Pain in left toe(s) M79.[address] [address] 03/23/2025 Jennifer Black Tinea unguium B35.1 ; [...] Treatment Pending Test Test Name Order Date 95057-IKMCANP NAIL, 6 OR MORE 09/13/2011 49169-YJUOYOV NAIL, 6 OR MORE 01/01/2012 61878-HQBUEGX NAIL, 6 OR MORE 04/03/2012 52760-PMKRIRP NAIL, 6 OR MORE 07/11/2012 77199-DJBVMLP NAIL, 6 OR MORE 10/21/2012 14490-BQAGDHB NAIL, 6 OR MORE 03/27/2013 39181-AKDXCFF NAIL, 6 OR MORE 09/22/2013 46901-TZCWOLN NAIL, 6 OR MORE 07/08/2014 11073-BZLSDFF NAIL, 6 OR MORE 01/13/2015 56859-OPCSWPO NAIL, 6 OR MORE 01/26/2016 79704-IEHTWQJ NAIL, 6 OR MORE 07/20/2016 48719-ITZCNMG NAIL, 6 OR MORE 01/18/2017 06796-CIWHKJU NAIL, 6 OR MORE 09/03/2017 96357-NFCTYQB NAIL, 6 OR MORE 12/13/2017 13084-CFJGEES NAIL, 6 OR MORE 03/14/2018 05865-PUISVTB NAIL, 6 OR MORE 05/23/2018 80548-ILJMMWJ NAIL, 6 OR MORE 09/19/2018 36602-PZCEKIR NAIL, 6 OR MORE 01/16/2019 20489-UDCBCLI NAIL, 6 OR MORE 04/24/2019 14044-AQJFFFF NAIL, 6 OR MORE 07/24/2019 35289-DWFPQTF NAIL, 6 OR MORE 10/23/2019 76104-YLENGGA NAIL, 6 OR MORE 03/04/2020 41041-EANINVO NAIL, 6 OR MORE 06/10/2020 40268-CGUFMUT NAIL, 6 OR MORE 09/16/2020 23125-GBSUVLE NAIL, 6 OR MORE 01/13/2021 07848-ESWBUXL NAIL, 6 OR MORE 04/28/2021 40459-TUCFQFB NAIL, 6 OR MORE 08/11/2021 78700-PSFCCYL NAIL, 6 OR MORE 11/21/2021 27377-IPTSMGI NAIL, 6 OR MORE 02/23/2022 06608-SDETBCO NAIL, 6 OR MORE 06/01/2022 90317-VSUKTKN NAIL, 6 OR MORE 09/11/2022 37973-KCSNASK NAIL, 6 OR MORE 12/11/2022 17485-WFLVAGX NAIL, 6 OR MORE 04/12/2023 01141-TGLQXIN NAIL, 6 OR MORE 07/16/2023 97772-YPLULKB NAIL, 6 OR MORE 11/01/2023 38469-IRDCEXE NAIL, 6 OR MORE 01/31/2024 39207-DTRMNGE NAIL, 6 OR MORE 05/19/2024 93664-FMLGKVK NAIL, 6 OR MORE 09/04/2024 51011-AQZDYYF NAIL, 6 OR MORE 12/08/2024 07230-NQMWBWK NAIL, 6 OR MORE 03/23/2025 98300-UPINDGH NAIL, 1-5 07/21/2015 98485-Mvkirymz Plate 09/20/2021 05755-Qwqawewb Plate 08/11/2021 33553-Zfqxegly Plate 03/04/2020 53247-Msfpkmtf Plate 02/01/2018 49821-Ygooltfo Plate 01/13/2015 31832-Gnaytplw Plate 09/04/2024 28032- Debride <25 sq cm 12/08/2024 94695- Debride <25 sq cm 06/19/2019 39841- Debride <25 sq cm 09/20/2021 20160- Debride <25 sq cm 02/23/2022 82601- Debride <25 sq cm 09/11/2022 18563- Debride <25 sq cm 06/01/2022 Next Appt Details Provider Name:Jennifer Marks , 06/29/2025 11:30:00 AM, [address] [facility], [place], [address], Insurance Providers Payer Name Payer Address Payer Phone Subscriber Number Group Number Insured Name Patient Relationship to Insured Coverage Start Date Coverage End Date Medicare National Govt Svcs Inc [address] [facility] [place] [address] [id number] Junior Marin Self - patient is the insured Med[employer] Blue Shield [address] [place] [address] [id number] Junior Marin Self - patient is the insured Medical (General) History Medical History History ICD Code measles hypertension asthma A fib Gout M10.9 Idiopathic chronic gout of right foot wi [facility] M1A.0711 Other hammer toe(s) (acquired), right fo ot M20.41 Other hammer toe(s) (acquired), left christian t M20.42 Arthritis of joint of lesser toe, left M 19.072 Surgical History Surgery Date(Month/Year) eye surgery 2010 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
--- OUTSIDE RECORDS SUMMARY | 2025-06-10 11:32 | XMS_ITS | Patient Health Record ---
Author Organization [facility] Address [address] [place] [address] Care Team Providers Care Balloon Design Printer Name Role Phone Yonis Pierre MD Primary Care Provider UnavailChris Coffman Unavailable [phone] Allergies No Known Allergies Reason For Referral [...] Problem Status W/U Status Risk Notes Problem 082705211 History of adenomatous polyp of colon (Z86.010) Active confirmed Problem Constipation (K59.00) Active confirmed Problem 549385349 Change in bowel habits (R19.4) Active confirmed Problem Rectal discharge (504964833) Rectal discharge (R19.8) Active confirmed Vital Signs Temperature 97.8 degrees Fahrenheit 04/28/2025 Blood pressure diastolic 01 mm Hg 04/28/2025 Height 68 in 04/28/2025 Blood pressure systolic 001 mm Hg 04/28/2025 Weight 164.2 lbs 04/28/2025 BMI 24.96 kg/m2 04/28/2025 Encounters Encounter Location Date Provider Diagnosis [facility] [address] [place] [address] 04/28/2025 Chris Tomlin Constipation K59.00 Assessments Encounter [...] [place] [address] [place] [address] [id number] SHERLY NIEVES Self - patient is the insured MED[employer] ATTN CLAIMS [address] [place] [address] [id number] SHERLY NIEVES Self - patient is the insured Medical (General) History Medical History History ICD Code Screening Colonoscopy 04-30-2009--1 small tubular adenoma removed Reports neg. CT and MRI of abdomen in Hypertension Denies [place],DM,CVA,renal disease Peripheral neuropathy in feet Atrial fibrillation Asthma Colonoscopy in 01/2015-2 small tubular ad enomas removed 11/2023 and 12/2023 with hospitalizations for CHF--Dr. Reveles Some emphysema/asthma-Dr. Hernández Macular degeneration Surgical History Surgery Date(Month/Year) Cataract-lens implants-left Eye lid surgery
== END 2025-06-08 10:39 | disposition home or self-care (01) ==
LOC: HO.LNP 10:38
PROVIDERS: Visit Provider Internal Medicine Pulmonary Disease
DX: R05.9 Cough, unspecified (principal)
CPT/HCPCS: 87070; 87205

== ENCOUNTER 2025-06-17 10:37 | Outpatient (REF) | payer MEDICARE, SELFPAY ==
--- OUTSIDE RECORDS SUMMARY | 2025-06-12 23:59 | XMS_ITS | Continuity of Care Document ---
Author Organization [facility] Azael lt Address [address] [place] [address]- Care Team Providers Care Procurement Accountant Name Role Phone Yonis Pierre MD Primary Care Physician Encounter [facility] [place] Date(s): 05/04/25 - 06/12/25 [facility] Adult [address] [place] [address]- Encounter Diagnosis Left flank pain(Discharge Diagnosis) - 05/07/25 Attending Physician: Yonis Pierre MD Encounter Type: Pre Office Visit Allergies, Adverse Reactions, Alerts Substance [...] vaccine, inactivated 5 07/18/11 Gi patrick SARS-CoV-2(COVID-19)mRNA-LNP vac(xnd486) 07/07/24 Recorded SARS-CoV-2(COVID-19)mRNA-LNP vac(sbl959) 07/12/23 Recorded pneumococcal 20-valent conjugate vaccine 12/13/23 Given VMYJ-[id number] 12y+ bivalent booster vax 07/11/22 Recorded tetanus/diphtheria/pertussis, acel(Tdap) 02/16/22 Given SARS-CoV-2 mRNA (ffnflfc-nbjv-ygmqi) vax 01/12/22 Recorded SARS-CoV-2 (COVID-19) mRNA BNT-162b2 [...] Inactive (IM) (oldterm) 08/16/07 Given 1Location History: Yoni 2Result Comment: [08/09/2017] YONI EGAN 3Result Comment: [07/24/2016] RECEIVED AT [facility] HIGH DOSE 4Admin Note: given at [facility] 08/17[facility]13 5Admin Note: yoni 6Admin Note: per pt rcvd eklsewhere 7Location History: YONI 8Admin Note: PER CHART HISTORICAL 9Admin Note: per pt rcvd elsewhere Medications Aerochamber See Instructions, # 1 units, Maintenance, use w/ albuterol MDI, 12/13/15 5:06:18 PM EST, Compound Start Date: 12/13/15 Status: Ordered Medication Dispense Status: Completed Quantity: 1.0 Unit: Units Total Allowed Fills: 1 Fills Dispensed: 0 amLODIPine 10 mg oral tablet 1 tablet, By Mouth, Daily, # 90 tablet, 1 Refills, Maintenance, 03/30/25 12:27:00 PM EDT, [facility], 172.1, cm, 01/01/25 11:43:00 EDT, Height Start Date: 03/30/25 Status: Ordered Medication Dispense Status: Completed Quantity: 90.0 Unit: tablet Total Allowed Fills: 1 Fills Dispensed: 0 Breo Ellipta 100 mcg-25 mcg/inh inhalation powder 1 puffs, Inhalation, Daily, # 1 each, 11 Refills, Maintenance, 11/06/23 1:34:00 PM EST, [facility]/pharmacy#[id number], Partial fill upon patient request if the prescription is for a schedule II opioid drug., 1 puffs Inhalation Daily, 172.1, cm, 10/11/23 9:07:00 EST, Height Start Date: 11/06/23 Status: Ordered Medication Dispense Status: Completed Quantity: 1.0 Unit: each Total Allowed Fills: 12 Fills Dispensed: 0 carvedilol 6.25 mg oral tablet 1, tablet, By Mouth, 2 times a day, # 180 tablet, Refills 1, Maintenance, 12/29/24 3:35:00 PM EDT, Route to Pharmacy Electronically, [facility], 172.1, cm, 11/25/24 10:53:00 EST, Height Start Date: 12/29/24 Status: Ordered Medication Dispense Status: Completed Quantity: 180.0 Unit: tablet Total Allowed Fills: 1 Fills Dispensed: 0 Eliquis 5 mg oral tablet 1 tablet, By Mouth, 2 times a day, # 180 tablet, 3 Refills, Maintenance, 10/01/24 5:05:00 PM EST, [facility], 172.1, cm, 09/08/24 14:54:00 EST, Height Start Date: 10/01/24 Status: Ordered Medication Dispense Status: Completed Quantity: 180.0 Unit: tablet Total Allowed Fills: 1 Fills Dispensed: 0 finasteride 5 mg oral tablet 1 tablet = 5 mg, By Mouth, Daily, # 30 tablet, 0 Refills, Maintenance, 10/11/23 9:15:00 AM EST, Tablet, Partial fill upon patient request if the prescription is for a schedule II opioid drug. Start Date: 10/11/23 Status: Ordered Medication Dispense Status: Completed Quantity: 30.0 Unit: tablet Total Allowed Fills: 1 Fills Dispensed: 0 latanoprost 0.005% ophthalmic solution 1 drops, Eyes, Both, Daily at bedtime, # 3 mL, 0 Refills, Maintenance, 10/11/23 9:15:00 AM EST, Ophth Solution, Partial fill upon patient request if the prescription is for a schedule II opioid drug. Start Date: 10/11/23 Status: Ordered Medication Dispense Status: Completed Quantity: 3.0 Unit: mL Total Allowed Fills: 1 Fills Dispensed: 0 losartan 100 mg oral tablet 1 tablet, By Mouth, Daily, # 90 tablet, 3 Refills, Maintenance, 01/05/25 12:24:00 PM EDT, [facility]/pharmacy #[id number], 172.1, cm, 01/01/25 11:43:00 EDT, Height Start Date: 01/05/25 Status: Ordered Medication Dispense Status: Completed Quantity: 90.0 Unit: tablet Total Allowed Fills: 4 Fills Dispensed: 0 Metamucil 3.4 gm/5.2 gm oral powder for reconstitution = 3.4 Gm, By Mouth, Daily, 0 Refills, Maintenance, 04/06/23 11:05:00 AM EDT, Partial fill upon patient request if the prescription is for a schedule II opioid drug. Start Date: 04/06/23 Status: Ordered Medication Dispense Status: Completed Total Allowed Fills: 1 Fills Dispensed: 0 PreserVision AREDS 2 2 times a day, 0 Refills, Maintenance, 04/06/23 11:06:00 AM EDT, Partial fill upon patient request if the prescription is for a schedule II opioid drug. Start Date: 04/06/23 Status: Ordered Medication Dispense Status: Completed Total Allowed Fills: 1 Fills Dispensed: 0 Probiotic Formula By Mouth, Daily, 0 Refills, Maintenance, 10/11/23 9:16:00 AM EST, Partial fill upon patient requestif the prescription is for a schedule II opioid drug. Start Date: 10/11/23 Status: Ordered Medication Dispense Status: Completed Total Allowed Fills: 1 Fills Dispensed: 0 Timolol 0.5% Ophth 2 times a day, Refills 0, Maintenance, 10/11/23 9:15:00 AM EST, Partial fill upon patient request if the prescription is for a schedule II opioid drug. Start Date: 10/11/23 Status: Ordered Medication Dispense Status: Completed Total Allowed Fills: 1 Fills Dispensed: 0 Vitamin D 88810 iu oral capsule 50,000 International_Units, By Mouth, Daily, Refills 0, Maintenance, 10/11/23 9:16:00 AM EST, Partial fill upon patient request if the prescription is for a schedule II opioid drug. Start Date: 10/11/23 Status: Ordered Medication Dispense Status: Completed Total Allowed Fills: 1 Fills Dispensed: 0 Problem List Condition Confirmation Course Effective Dates [...] dry Confirmed Active AF (paroxysmal atrial fibrillation) [id number] 3 Confirmed 07/05/20 Active Peripheral sensory neuropathy 5 Confirmed Active SCC (squamous cell carcinoma) Confirmed Active 1tubularv adenoma 01-20-1915 2multilevel DJD 3advised pre diabetic 4refer 5normal B12, A1c spep Diagnosis Diagnosis Type Effective Dates Health Status Cl inical Service Informant Left flank pain Discharge Diagnosis 05/07/25 Social History Social History Type Response Smoking Status Former smoker; Type: Cigarettes; Number of years: 51; Total pack years: 51; Started at age: 12; Stopped at age: 63; entered on: 02/11/14 Sex Sex Representation Male (finding) Patient Care team information Care Team Personnel Name: Mary Villavicencio NP Position: [facility] PCO Associate Professional Member Role: Lifetime Consulting Provider Address: [address] [place] [id number] Telecom: Name: Yonis Pierre MD Position: [facility] Physician - Primary Care Member Role: PCP Address: [address] [place] [id number] Telecom: Care Team Related Persons Name: LANEY NIEVES Name: ARMIN NIEVES Insurance Providers Guarantor name: SHERLY NIEVES Health Plan Information #: 1 Payer: MEDICARE B Payer Identifier: Member Number: [id number] Group Number: NA Subscriber Identifier: [id number] Relationship to Subscriber: self Coverage Type: NA Coverage Verification Date: NA Telecom: NA Address: Health Plan Information #: 2 Payer: MEDEX SECONDARY ONLY Payer Identifier: Member Number: [id number] Group Number: Subscriber Identifier: [id number] Relationship to Subscriber: self Coverage Type: Medicare Other Coverage Verification Date: NA Telecom: Address:
--- OUTSIDE RECORDS SUMMARY | 2025-06-12 23:59 | XMS_ITS | Continuity of Care Document ---
Author Organization [facility] Azael lt Address [address] [place] [address]- Care Team Providers Care Video Control Engineer Name Role Phone Ignacio LOZOYA, Yonis Crews Primary Care Physician Encounter [facility] [place] Date(s): 05/13/25 - 06/12/25 [facility] Adult [address] [place] [address]- Attending Physician: Admtr, ArWilfred Encounter Type: Triage Allergies, Adverse Reactions, Alerts [...] vaccine, inactivated 5 07/18/11 Gi patrick SARS-CoV-2(COVID-19)mRNA-LNP vac(zgl782) 07/07/24 Recorded SARS-CoV-2(COVID-19)mRNA-LNP vac(ysw895) 07/12/23 Recorded pneumococcal 20-valent conjugate vaccine 12/13/23 Given PTHB-IbH-8wVQH 12y+ bivalent booster vax 07/11/22 Recorded tetanus/diphtheria/pertussis, acel(Tdap) 02/16/22 Given SARS-CoV-2 mRNA (ftsylpb-osdk-legom) vax 01/12/22 Recorded SARS-CoV-2 (COVID-19) mRNA BNT-162b2 [...] Inactive (IM) (oldterm) 08/16/07 Given 1Location History: [facility] 2Result Comment: [08/09/2017] [facility] JULISA 3Result Comment: [07/24/2016] RECEIVED AT [facility] HIGH DOSE [facility] 6Admin Note: per pt rcvd eklsewhere 7Location [...] Maintenance, 03/30/25 12:27:00 PM EDT, [facility], 172.1, cm, 01/01/25 11:43:00 EDT, Height Start Date: 03/30/25 Status: Ordered Medication Dispense Status: Completed Quantity: 90.0 Unit: tablet Total Allowed Fills: 1 Fills Dispensed: 0 Breo Ellipta 100 mcg-25 mcg/inh inhalation powder 1 puffs, Inhalation, Daily, # 1 each, 11 Refills, Maintenance, 11/06/23 1:34:00 PM EST, [facility]/pharmacy#[id number], Partial fill upon patient request [...] 3:35:00 PM EDT, Route to Pharmacy Electronically, [facility], 172.1, cm, 11/25/24 10:53:00 EST, Height Start Date: 12/29/24 Status: Ordered Medication Dispense Status: Completed Quantity: 180.0 Unit: tablet Total Allowed Fills: 1 Fills Dispensed: 0 Eliquis 5 mg oral tablet 1 tablet, By Mouth, 2 times a day, # 180 tablet, 3 Refills, Maintenance, 10/01/24 5:05:00 PM EST, [facility], 172.1, cm, 09/08/24 14:54:00 EST, Height Start [...] 3 Refills, Maintenance, 01/05/25 12:24:00 PM EDT, [facility]/pharmacy #[id number], 172.1, cm, 01/01/25 11:43:00 EDT, Height [...] Fills: 1 Fills Dispensed: 0 Vitamin D 79198 iu oral capsule 50,000 International_Units, By Mouth, [...] dry Confirmed Active AF (paroxysmal atrial fibrillation) [id number] 3 Confirmed 07/05/20 Active Peripheral sensory neuropathy 5 Confirmed Active SCC (squamous cell carcinoma) Confirmed Active 1tubularv adenoma 01-20-1915 2multilevel DJD 3advised pre diabetic 4refer 5normal B12, A1c spep Procedures Procedure Date Related Diagnosis Body Site Status Electrocardiogram, routine E CG with at least 12 leads; with interpretation and report 1 05/20/12 Completed Radiologic examination, spin e, lumbosacral; complete, including bending views 2 07/19/11 Completed colonoscopy 3, 4 04/30/[address] of thorax 5 11/07/07 Completed 1sinus 57 normal OK,QRs QTC 2multilevel DJD 3tubular adenoma;recheck 5 yrs 4polyps,bx pending,diverticulosis 5stable nodules compqred prior scans 2006 Social History Social History Type Response Smoking Status Former smoker; Type: Cigarettes; Number of years: 51; Total pack years: 51; Started at age: 12; Stopped at age: 63; entered on: 02/11/14 Sex Sex Representation Male (finding) Procedure * Event Display: Cardiology Office Note, Non-BH Authored Date: * Event Display: Cardiology Office Note, Non- Authored Date: * Event Display: Non BH Cardiovascular Results Authored Date: * Ghazala Sarabia: PERFORM Event Display: Cardiovascular Results Scanned Authored Date: EKG study * Event Display: EKG Authored Date: Laboratory * Event Display: Laboratory Result Scanned Authored Date: * Event Display: Laboratory Result Scanned Authored Date: * Event Display: Non BH Lab Results Authored Date: Cardiology Consult note * Event Display: Consult Note Cardiology Authored Date: Imaging * Event Display: CT Scan Chest, Non- BH Authored Date: * Event Display: CT Scan Chest, Non- BH Authored Date: * Event Display: CT Scan Chest, Non- BH Authored Date: * Event Display: Ultrasound Renal, Non BH Authored Date: * Sarah Dhaliwal: PERFORM Event Display: Radiology Results Scanned Authored Date: * Kalyani Frank.: PERFORM Event Display: Radiology Results Scanned Authored Date: Patient Care team information Care Team Personnel Name: Mary Villavicencio NP Position: S PCO Associate Professional Member Role: Lifetime Consulting Provider Address: [address] [place] [address]- [place] Telecom: Name: Ignacio LOZOYA, Yonis Crews Position: S Physician - Primary Care Member Role: PCP Address: [address] [place] [address]- [place] Telecom: Care Team Related Persons Name: LANEY NIEVES Name: ARMIN NIEVES Insurance Providers Guarantor name: SHERLY NIEVES Health Plan Information #: 1 Payer: MEDICARE B Payer Identifier: NA Member Number: [id number] Group Number: NA Subscriber Identifier: NA Relationship to Subscriber: self Coverage Type: NA Coverage Verification Date: NA Telecom: NA Address: [facility] Information #: 2 Payer: MEDEX SECONDARY ONLY Payer Identifier: NA Member Number: [id number] Group Number: NA Subscriber Identifier: NA Relationship to Subscriber: self Coverage Type: Medicare Other Coverage Verification Date: NA Telecom: Address:
--- NOTE | ~2025-06-17 | US_ITS ---
CLINICAL HISTORY: N40.0 - Benign prostatic hyperplasia without lower urinary tract symptoms US retroperitoneum Comparison: None provided Findings: Right kidney normal size and echotexture, 10.7 cm length. Multiple simple cysts, dominant 3 cysts are 3.7 cm in the lower pole, 3.2 cm in the midpole and 2.3 cm in the upper pole. No hydronephrosis, calculus or abnormal vascular flow. Left kidney normal size and echotexture, 10.7 cm in length. Upper pole simple cyst 2.8 cm. No hydronephrosis or calculus. No abnormal vascular flow. Urinary bladder is unremarkable. Prevoid volume 280.6 mL. Postvoid volume 19 mL. Ureteral jets are visualized bilaterally Prostate is enlarged, 4.5 cm in transverse dimension, 4.3 cm in AP dimension, CC dimension can not be reliably measured as inferior prostate is obscured by gas shadowing. Impression: Bilateral renal cysts. Prostatomegaly. This document has been electronically signed by: Geneva Mix MD on 06/17/2025 14:01:58
== END 2025-06-17 10:38 | disposition home or self-care (01) ==
LOC: HO.US 10:37
PROVIDERS: PCP Internal Medicine; Visit Provider Nurse Practitioner Family
DX: N40.0 Benign prostatic hyperplasia without lower urinary tract symptoms (principal)
CPT/HCPCS: 76770

== ENCOUNTER → 2025-06-17 10:40 | Outpatient (BNV) | payer MEDICARE, SELFPAY | PROVIDERS: PCP Internal Medicine; Visit Provider Radiology Diagnostic Radiology | DX: N40.0 Benign prostatic hyperplasia without lower urinary tract symptoms (principal) | CPT/HCPCS: 76770 ==

== ENCOUNTER 2025-06-22 09:27 | Outpatient (REF) | payer MEDICARE, SELFPAY ==
--- OUTSIDE RECORDS SUMMARY | 2025-06-22 10:44 | XMS_ITS | Patient Health Record ---
Author Organization [facility] Address [address] [place] [address] Care Team Providers Care Preventative Maintenance Technician Name Role Phone Yonis Pierre MD Primary Care Provider UnavailChris Coffman Unavailable [phone] Allergies No Known Allergies Reason For Referral [...] Problem Status W/U Status Risk Notes Problem 980064923 History of adenomatous polyp of colon (Z86.010) Active confirmed Problem Constipation (95270908) Constipation (K59.00) Active confirmed Problem 389767986 Change in bowel habits (R19.4) Active confirmed Problem Rectal discharge (504850782) Rectal discharge (R19.8) Active confirmed Vital Signs Temperature 97.8 degrees Fahrenheit 04/28/2025 Blood pressure diastolic 01 mm Hg 04/28/2025 Height 68 in 04/28/2025 Blood pressure systolic 001 mm Hg 04/28/2025 Weight 164.2 lbs 04/28/2025 BMI 24.96 kg/m2 04/28/2025 Encounters Encounter Location Date Provider Diagnosis [facility] [address] [place] [address] 04/28/2025 Chris Tomlin Constipation K59.00 Assessments Encounter [...] Date MEDICARE OF [place] [address] [place] [address] [id number] SHERLY NIEVES Self - patient is the insured MED[employer] ATTN CLAIMS [address] [place] [address] [id number] SHERLY NIEVES Self - patient is the insured Medical (General) History Medical History History ICD Code Screening Colonoscopy 04-30-2009--1 small tubular adenoma removed Reports neg. CT and MRI of abdomen in Hypertension Denies SD,DM,CVA,renal disease Peripheral neuropathy in feet Atrial fibrillation Asthma Colonoscopy in 01/2015-2 small tubular ad enomas removed 11/2023 and 12/2023 with hospitalizations for CHF--Dr. Reveles Some emphysema/asthma-Dr. Hernández Macular degeneration Surgical History Surgery Date(Month/Year) Cataract-lens implants-left Eye lid surgery
--- OUTSIDE RECORDS SUMMARY | 2025-06-22 10:44 | XMS_ITS | Patient Health Record ---
Author Organization [facility] Address [address] [place] [address] Care Team Providers Care Foster Winder Name Role Phone Yonis Pierre Primary Care Provider Jennifer Thurman Unavailable [phone] Allergies Allergen (clinical drug ingredient) Drug/Non Drug [...] Ordered Date Performed Result Body Sit e 59366-AFRYZJP NAIL, 6 OR MORE 09/04/2024 N/A 53952-Qwvvqgux Plate 09/04/2024 N/A 23434-FGXSERO NAIL, 6 OR MORE 12/08/2024 N/A 79967- Debride <25 sq cm 12/08/2024 N/A 13560-ZSEQYMN NAIL, 6 OR MORE 03/23/2025 N/A Encounters Encounter Location Date Provider Diagnosis [address] [address] 09/04/2024 Jennifer Black Tinea unguium B35.1 ; Ingrown nail L60.0 ; Pain in right toe(s) M79.674 and Pain in left toe(s) M79.[address] [address] 12/08/2024 Jennifer Black Tinea unguium B35.1 ; Skin ulcer of toe of left foot, limited to breakdown of skin L97.521 ; Pain in right toe(s) M79.674 and Pain in left toe(s) M79.[address] [address] 03/23/2025 Jennifer Black Tinea unguium B35.1 ; [...] Treatment Pending Test Test Name Order Date [id number] NAIL, 6 OR MORE 09/13/2011 52093-JZSOIIN NAIL, 6 OR MORE 01/01/2012 15354-XSONVXX NAIL, 6 OR MORE 04/03/2012 06286-BBAEARD NAIL, 6 OR MORE 07/11/2012 43389-OIZSJXZ NAIL, 6 OR MORE 10/21/2012 91399-XXYTTAK NAIL, 6 OR MORE 03/27/2013 20816-SKKMALM NAIL, 6 OR MORE 09/22/2013 90672-OMHSJKG NAIL, 6 OR MORE 07/08/2014 70517-XACXUAT NAIL, 6 OR MORE 01/13/2015 63582-IHZPWCS NAIL, 6 OR MORE 01/26/2016 08516-PUQQHWQ NAIL, 6 OR MORE 07/20/2016 68297-DHIFPEJ NAIL, 6 OR MORE 01/18/2017 02788-HFMVABY NAIL, 6 OR MORE 09/03/2017 75883-LBICTLC NAIL, 6 OR MORE 12/13/2017 23751-BVSRADG NAIL, 6 OR MORE 03/14/2018 46955-HHYFYEN NAIL, 6 OR MORE 05/23/2018 61386-XLMNUCQ NAIL, 6 OR MORE 09/19/2018 42482-GSKZIGD NAIL, 6 OR MORE 01/16/2019 49496-VSYIWUG NAIL, 6 OR MORE 04/24/2019 88779-IZWILOZ NAIL, 6 OR MORE 07/24/2019 54806-LOPHSUB NAIL, 6 OR MORE 10/23/2019 55829-COUHRCC NAIL, 6 OR MORE 03/04/2020 25882-VDQXCQH NAIL, 6 OR MORE 06/10/2020 11603-NGANBVQ NAIL, 6 OR MORE 09/16/2020 64829-XWHINFT NAIL, 6 OR MORE 01/13/2021 97906-PUFXYEE NAIL, 6 OR MORE 04/28/2021 59613-EAPIUYW NAIL, 6 OR MORE 08/11/2021 32137-GLGUSCF NAIL, 6 OR MORE 11/21/2021 56834-JFAYYRI NAIL, 6 OR MORE 02/23/2022 15031-NTMFMHT NAIL, 6 OR MORE 06/01/2022 82079-OMQQHLE NAIL, 6 OR MORE 09/11/2022 99882-WLJYCNR NAIL, 6 OR MORE 12/11/2022 54211-FEYUQLT NAIL, 6 OR MORE 04/12/2023 65213-ADWMMGI NAIL, 6 OR MORE 07/16/2023 74047-LMLIZJY NAIL, 6 OR MORE 11/01/2023 63304-ENDEVYY NAIL, 6 OR MORE 01/31/2024 05820-QUKOWOY NAIL, 6 OR MORE 05/19/2024 23631-WZDUZSW NAIL, 6 OR MORE 09/04/2024 75484-ELZWACT NAIL, 6 OR MORE 12/08/2024 39892-AAVMELO NAIL, 6 OR MORE 03/23/2025 09478-LSIYHCY NAIL, 1-5 07/21/2015 60421-Thpgofli Plate 09/20/2021 67006-Dejbaqbk Plate 08/11/2021 38545-Iipxwwjt Plate 03/04/2020 77913-Emmfeiww Plate 02/01/2018 51368-Soqbjhle Plate 01/13/2015 03226-Bsnphwcc Plate 09/04/2024 43664- Debride <25 sq cm 12/08/2024 30400- Debride <25 sq cm 06/19/2019 44950- Debride <25 sq cm 09/20/2021 53593- Debride <25 sq cm 02/23/2022 01388- Debride <25 sq cm 09/11/2022 94442- Debride <25 sq cm 06/01/2022 Next Appt Details Provider Name:Jennifer Marks , 06/29/2025 11:30:00 AM, [address] [facility], [place], [address], Insurance Providers Payer Name Payer Address Payer Phone Subscriber Number Group Number Insured Name Patient Relationship to Insured Coverage Start Date Coverage End Date Medicare National Govt Svcs Inc [address] [facility] [place] [address] [id number] Junior Marin Self - patient is the insured [employer] Blue Shield [address] [place] [address] [phone] [id number] Junior Marin Self - patient is the insured Medical (General) History Medical History History ICD Code measles hypertension asthma A fib Gout M10.9 Idiopathic chronic gout of right foot wi [facility] M1A.0711 Other hammer toe(s) (acquired), right fo ot M20.41 Other hammer toe(s) (acquired), left christian t M20.42 Arthritis of joint of lesser toe, left M 19.072 Surgical History Surgery Date(Month/Year) eye surgery 2010 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
[2025-06-22 10:52] LABS: PSA,Total (Free>4and<10) 1.04 ng/mL (0.00-4.00)
== END 2025-06-22 09:28 | disposition home or self-care (01) ==
LOC: HO.LAB 09:27
PROVIDERS: Visit Provider Nurse Practitioner Family
DX: N40.0 Benign prostatic hyperplasia without lower urinary tract symptoms (principal); Z12.5 Encounter for screening for malignant neoplasm of prostate
CPT/HCPCS: 36415; 84153

== ENCOUNTER 2025-06-24 12:26 | Outpatient (AMB) | payer MEDICARE, SELFPAY ==
--- NOTE | 2025-06-24 12:33 | A.OFFVIS_ITS ---
Intake Visit Reasons: 3m/PSA/US Intake Note: Patient is present for 3M/PSA/US Urology Medication:FINATERIDE Antibiotic Allergy:NONE Blood Thinner:NONE Cardiothoracic Icu Rn Required: No Allergies latex Allergy (Verified 06/24/25 13:12) Unknown maple Allergy (Mild, Uncoded 06/24/25 13:12) Unknown Medication List - Last Reconciled 06/24/25 by CHRISSY Hernadez-ARAM albuterol sulfate 90 mcg/actuation 2 puffs inhalation Q4-6H PRN alfuzosin ER 10 mg PO BEDTIME 30 days amlodipine 10 mg PO DAILY apixaban (Eliquis) 5 mg PO BID carvedilol 6.25 mg PO BID finasteride 5 mg PO DAILY fluticasone furoate-vilanterol 100-25 mcg/dose (Breo Ellipta) 1 ea inhalation DAILY furosemide (Lasix) 20 mg PO DAILY lifitegrast 5% (Xiidra) 1 drp ophthalmic (eye) BID losartan 50 mg PO DAILY timolol maleate 0.5% 1 drp ophthalmic (eye) BID vit C,J-Ma-opagj-lutein-zeaxan 250-90-40-1 mg (PreserVision AREDS-2) 1 tab PO BID HPI Comments Details: Junior is a pleasant 84-year-old male patient of Dr. Pierre who was accompanied by his at today's office visit. He has a past medical history of chronic AFib, CHF, heart failure with preserved ejection fracture, asthma, mitral valve insufficiency, macular degeneration, former smoker, and hypertension. He presents to the office today for follow-up. Of note, patient was seen approximately 3 months ago as a new patient for ongoing lower urinary tract symptoms he had been experiencing at which time a retroperitoneal ultrasound and PSA were ordered for further assessment evaluation. These results were reviewed with the patient and his today. 07/09 bilateral renal cysts. No hydronephrosis or renal calculi noted bilaterally. The urinary bladder is unremarkable. Postvoid bladder volume 20 mL. Prostate is enlarged measuring 50 mL. He had previously followed up with [facility] for many years and has been on finasteride. He does continue to experience episodes of urinary urgency, urinary frequency, nocturia, and urge incontinence. He reports lower urinary tract symptoms are exacerbated when taking his diuretic. We did discussed correlation of diuretic with lower urinary tract symptoms. He also reports noting urinary dribbling. He otherwise denies incontinence, hematuria, dysuria, foul smelling urine, changes to urinary stream, flank pain, fever, and or chills. In office urinalysis results reviewed with the patient today. PVR 0 mL. We did discussed potential causes of lower urinary tract symptoms patient is experiencing as well as urinary dribbling. We discussed pelvic floor exercises to assist with urinary dribbling. We also discussed bladder triggers/irritants. All questions were answered. He otherwise offers no other issues or concerns at this time. PSA 07/09 1.0 [facility] Medical History Chronic atrial fibrillation Acute respiratory failure with hypoxia CHF exacerbation Atrial fibrillation with RVR (HFpEF) heart failure with preserved ejection fraction Asthma Mitral valve insufficiency Macular degeneration Former smoker HTN (hypertension) Social History Household Members: Spouse Housing: House Do you presently have visiting nurse or other home services: Yes Alcohol intake: current Alcohol intake frequency: holidays/special occasions only Patient Tobacco Use Status: Former Tobacco user Advance Directives Date on File: 12/05/23 service: No Review of Systems Eyes Reports as per HPI ENT Reports as per HPI Card Reports as per HPI Resp Reports as per HPI GI Reports as per HPI Reports as per HPI Musc Reports as per HPI Neuro Reports no additional complaints Psych Reports no additional complaints Endo Reports no additional complaints Salvatore/Lymph Reports no additional complaints Aller/Immun Reports no additional complaints Physical Exam Const General: cooperative, healthy appearing, comfortable, no acute distress, well developed, alert and awake Orientation/consciousness: patient oriented x3 Limitations: no limitations HEENT Head: Yes normal to inspection, Yes normocephalic and Yes atraumatic Ears: hearing grossly normal bilaterally Eyes General: appearance normal, both eyes and all related structures Neck Neck: Yes normal visual inspection and Yes trachea midline Chest Chest palpation & inspection: normal inspection of the chest Resp Effort & Inspection: normal respiratory effort and able to speak in complete sentences Cardio Rate: regular rate GI Inspection: Yes normal to inspection General: Yes no CVA tenderness Back/Spine/Pelvis Back: no CVA tenderness Skin General skin exam: no rashes or lesions noted Neuro General: patient oriented x3 Extrem General: Yes normal to inspection Psych Appearance: grossly normal and well kempt Mental Status: mental status grossly normal Speech and movement: Normal speech and movement present and Clear speech present Affect: normal affect Attitude: cooperative Thought process: Normal thought process present Thought content: Normal thought content present Insight: Fair insight present (Psych) Judgement: Fair judgement present (Psych) Results Reviewed Results Reviewed: Date of Service: 06/17/25 Procedure(s): US retroperitoneal comp Findings: Right kidney normal size and echotexture, 10.7 cm length. Multiple simple cysts, dominant 3 cysts are 3.7 cm in the lower pole, 3.2 cm in the midpole and 2.3 cm in the upper pole. No hydronephrosis, calculus or abnormal vascular flow. Left kidney normal size and echotexture, 10.7 cm in length. Upper pole simple cyst 2.8 cm. No hydronephrosis or calculus. No abnormal vascular flow. Urinary bladder is unremarkable. Prevoid volume 280.6 mL. Postvoid volume 19 mL. Ureteral jets are visualized bilaterally Prostate is enlarged, 4.5 cm in transverse dimension, 4.3 cm in AP dimension, CC dimension can not be reliably measured as inferior prostate is obscured by gas shadowing. Impression: Bilateral renal cysts. Prostatomegaly. Assessment & Plan Assessment & Plan (1) Enlarged prostate: Code(s): N40.0 - Benign prostatic hyperplasia without lower urinary tract symptoms Category: Medical (2) Urinary frequency: Code(s): R35.0 - Frequency of micturition Category: Medical (3) Urinary dribbling: Code(s): N39.43 - Post-void dribbling Category: Medical (4) Urinary urgency: Code(s): R39.15 - Urgency of urination Category: Medical (5) Nocturia: Code(s): R35.1 - Nocturia Category: Medical Plan In office urinalysis results reviewed with the patient today; as noted above. Recent retroperitoneal ultrasound results with the patient today; as noted above. Recent PSA results reviewed with the patient today; as noted above. We did discussed at length potential causes of lower urinary tract symptoms patient is experiencing as well as further treatment options and risks and benefits of these treatment options. We discussed the importance of limiting fluids 2-3 hours prior to bed to decrease episodes of nocturia. All questions were answered. We discussed bladder triggers and irritants. Start alfuzosin as discussed and prescribed. Follow-up in 1-3 months with PVR; or sooner with any issues, concerns, and or questions. Orders: Orders PSA,Total (Free>4and<10) 06/22/25 N40.0 - Benign prostatic hyperplasia without lower urinary tract symptoms AMB Urinalysis Automated Today Z13.9 - Encounter for screening, unspecified Medications: New alfuzosin ER Take before bedtime 10 mg PO BEDTIME 30 tabs 3RF 30 days N40.1 - Benign prostatic hyperplasia with lower urinary tract symptoms, R33.9 - Retention of urine, unspecified, R35.1 - Nocturia, R39.12 - Poor urinary stream Patient Instructions: The patient had an opportunity to ask questions regarding the treatment plan. All questions were answered. Physical exam, labs, and imaging were discussed and reviewed in detail. As well as risks, benefits, and discussion of treatment choices. No major barriers to understanding were identified. The patient expressed understanding and agreement with the above treatment plan. The patient was made aware they should contact our office by phone for worsening of their current condition, the appearance of new symptoms, or with any questions or concerns. Compliance is encouraged with any medications and follow up testing that is ordered. It is a privilege to be allowed the opportunity to participate in? your urological care.? Again, if you have any questions or concerns If you have any questions or concerns please do not hesitate to contact me. The office is [phone]. This note is constructed using voice recognition software. While every effort has been made to ensure accuracy photographer assistant errors may have been included. Yours sincerely, ANGELINA Hernadez Coding Level of Care Code Est Pt Level 4 (13028) Complex EM visit Add On G2211 Diagnoses Enlarged prostate N40.0 Urinary frequency R35.0 Urinary dribbling N39.43 Urinary urgency R39.15 Nocturia R35.1
--- OUTSIDE RECORDS SUMMARY | 2025-06-24 15:27 | XMS_ITS ---
Author Name Parker Jaimes Address Unknown Organization [facility] Care Team Providers Care Financial Controller Name Role Phone Unavailable Primary Care Physician Unavailab le History Of Present Illness This is an 84 year old male who is an established patient who is being seen for an evaluation of skin lesions.Location: body throughoutSeverity: mildDuration: yearsHistory of Previous Treatments: hasbeen treatedPertinent History: squamous cell skin cancer (see interval history)Pertinent Negatives:no family history of melanoma and no family history of non-melanoma skin cancerAdditional Visit Reas ons: education and counseling about sun exposure, evaluation for suspicious growths, evaluation of current nevi, and surveillance against skin cancer recurrencesAdditional History: Patient presents for CSE. Patient has some areas of concerns around his neck and believes he has spots on his scalp aswell. Medications Medication Generic Name RxNorm Strength Strength Unit Route Dose Dose Form Frequency Date Started Date Ended Status Indication Sig brimonidine 0.2 % Ophtha lmic (eye) 1 drops QD suspend ed timolol maleate 0.5 % Ophtha lmic (eye) 1 drops QD active Xiidra 5 % Ophtha lmic (eye) 1 Dropp erett e QD active Breo Ellipta 100-25 mcg/dose Inhala tion 1 Blist er, With Inhal ation Devic e QD active amlodipine 10 mg Oral 1 table t QD active carvedilol 6.25 mg Oral 1 table t BID active Eliquis apixaban 5 mg Oral 1 table t bid active finasteride finaster demarco 1 mg Oral 1 table t QD active losartan 100 mg Oral 1 table t QD active Latanoprost NULL 04/24/20 17 suspend ed Restasis NULL 04/29/20 15 suspend ed Problems Problem Code Type Status Date of Diagnosis Date of Resolution Actinic keratosis (disorder) 273638587(S NOMED) Diagnosis active 06/22/2025 Seborrheic keratosis (disorder) 519672081(S NOMED) Diagnosis active 06/22/2025 Disorder of pigmentation (disorder) 282780690(S NOMED) Diagnosis active 06/22/2025 Non-thrombocytopenic purpura (disorder) 208858141(S NOMED) Diagnosis active 06/22/2025 Onychomycosis caused by dermatophyte (disorder) 116077950(S NOMED) Diagnosis active 06/22/2025 Scar conditions and fibrosis of skin (disorder) (S NOMED) Diagnosis active 06/22/2025 Patient encounter status (finding) 634386295(S NOMED) Diagnosis active 06/22/2025 Actinic keratosis (disorder) (S NOMED) Diagnosis active 01/02/2025 Inflamed seborrheic keratosis (disorder) 197576146(S NOMED) Diagnosis active 01/02/2025 Seborrheic keratosis (disorder) 436453008(S NOMED) Diagnosis active 01/02/2025 Seborrheic keratosis (disorder) 260643545(S NOMED) Diagnosis active 08/22/2024 Non-thrombocytopenic purpura (disorder) 893964889(S NOMED) Diagnosis active 08/22/2024 History of skin and/or subcutaneous tissue disease (situation) 70357923087 9105(SNOMED ) Diagnosis active 08/22/2024 Actinic keratosis (disorder) (S NOMED) Diagnosis active 05/21/2024 Seborrheic keratosis (disorder) 887953130(S NOMED) Diagnosis active 05/21/2024 Disorder of capillaries (disorder) 95146159(SN OMED) Diagnosis active 05/21/2024 Scar conditions and fibrosis of skin (disorder) 214108497(S NOMED) Diagnosis active 05/21/2024 Disorder of pigmentation (disorder) 957896816(S NOMED) Diagnosis active 05/21/2024 Non-thrombocytopenic purpura (disorder) 067961861(S NOMED) Diagnosis active 05/21/2024 Asteatosis cutis (disorder) 97674238(SN OMED) Diagnosis active 05/21/2024 Patient encounter status (finding) 624480303(S NOMED) Diagnosis active 05/21/2024 Actinic keratosis (disorder) (S NOMED) Diagnosis active 11/09/2023 Inflamed seborrheic keratosis (disorder) 463385541(S NOMED) Diagnosis active 11/09/2023 Seborrheic keratosis (disorder) 729925259(S NOMED) Diagnosis active 11/09/2023 Disorder of pigmentation (disorder) 958259708(S NOMED) Diagnosis active 11/09/2023 Disorder of capillaries (disorder) 54312296(SN OMED) Diagnosis active 11/09/2023 Scar conditions and fibrosis of skin (disorder) (S NOMED) Diagnosis active 11/09/2023 Patient encounter status (finding) 968832857(S NOMED) Diagnosis active 11/09/2023 Actinic keratosis (disorder) (S NOMED) Diagnosis active 05/02/2023 Scar conditions and fibrosis of skin (disorder) (S NOMED) Diagnosis active 05/02/2023 Disorder of capillaries (disorder) 48833103(SN OMED) Diagnosis active 05/02/2023 Seborrheic keratosis (disorder) 431334330(S NOMED) Diagnosis active 05/02/2023 Disorder of pigmentation (disorder) 077141680(S NOMED) Diagnosis active 05/02/2023 Non-thrombocytopenic purpura (disorder) 941763280(S NOMED) Diagnosis active 05/02/2023 Asteatosis cutis (disorder) 11605211(SN OMED) Diagnosis active 05/02/2023 Patient encounter status (finding) 953979256(S NOMED) Diagnosis active 05/02/2023 Surgical follow-up (finding) 800567797(S NOMED) Diagnosis active 03/08/2023 Surgical follow-up (finding) 443774786(S NOMED) Diagnosis active 02/20/2023 Surgical follow-up (finding) 103264554(S NOMED) Diagnosis active 02/06/2023 Surgical follow-up (finding) 446947120(S NOMED) Diagnosis active 01/31/2023 Basal cell carcinoma of nose (disorder) 676544038(S NOMED) Diagnosis active 01/29/2023 History of malignant neoplasm of skin (situation) 816878954(S NOMED) Diagnosis active 11/03/2022 Neoplasm of uncertain behavior of skin (disorder) 92266958(SN OMED) Diagnosis active 11/03/2022 Actinic keratosis (disorder) (S NOMED) Diagnosis active 11/03/2022 Disorder of capillaries (disorder) 59596288(SN OMED) Diagnosis active 11/03/2022 Scar conditions and fibrosis of skin (disorder) 750519179(S NOMED) Diagnosis active 11/03/2022 Seborrheic keratosis (disorder) 897782767(S NOMED) Diagnosis active 11/03/2022 Non-thrombocytopenic purpura (disorder) 826771124(S NOMED) Diagnosis active 11/03/2022 Disorder of pigmentation (disorder) 792290014(S NOMED) Diagnosis active 11/03/2022 Asteatosis cutis (disorder) 32195974(SN OMED) Diagnosis active 11/03/2022 Patient encounter status (finding) 723027136(S NOMED) Diagnosis active 11/03/2022 History of malignant neoplasm of skin (situation) 478019498(S NOMED) Diagnosis active 11/02/2021 Actinic keratosis (disorder) (S NOMED) Diagnosis active 11/02/2021 Disorder of capillaries (disorder) 74329788(SN OMED) Diagnosis active 11/02/2021 Seborrheic keratosis (disorder) 225049058(S NOMED) Diagnosis active 11/02/2021 Scar conditions and fibrosis of skin (disorder) 459155744(S NOMED) Diagnosis active 11/02/2021 Non-thrombocytopenic purpura (disorder) 240259286(S NOMED) Diagnosis active 11/02/2021 Disorder of pigmentation (disorder) 486815969(S NOMED) Diagnosis active 11/02/2021 Asteatosis cutis (disorder) 67638201(SN OMED) Diagnosis active 11/02/2021 Onychomycosis caused by dermatophyte (disorder) 664013328(S NOMED) Diagnosis active 11/02/2021 Callosity (disorder) 333224663(S NOMED) Diagnosis active 11/02/2021 Patient encounter status (finding) 116926232(S NOMED) Diagnosis active 11/02/2021 Actinic keratosis (disorder) 249413955(S NOMED) Diagnosis active 05/23/2021 Seborrheic keratosis (disorder) 413721002(S NOMED) Diagnosis active 05/23/2021 Non-thrombocytopenic purpura (disorder) 743900125(S NOMED) Diagnosis active 05/23/2021 Personal history of other malignant neoplasm of skin Z85.828(ICD -10) Diagnosis active 11/17/2020 Actinic keratosis L57.0(ICD-1 0) Diagnosis active 11/17/2020 Other diseases of capillaries I78.8(ICD-1 0) Diagnosis active 11/17/2020 Other seborrheic keratosis L82.1(ICD-1 0) Diagnosis active 11/17/2020 Other skin changes due to chronic exposure to nonionizing radiation L57.8(ICD-1 0) Diagnosis active 11/17/2020 Abrasion of left upper arm, initial encounter S40.812A(IC D-10) Diagnosis active 11/17/2020 Other nonthrombocytopenic purpura D69.2(ICD-1 0) Diagnosis active 11/17/2020 Scar conditions and fibrosis of skin L90.5(ICD-1 0) Diagnosis active 11/17/2020 Xerosis cutis L85.3(ICD-1 0) Diagnosis active 11/17/2020 Other melanin hyperpigmentation L81.4(ICD-1 0) Diagnosis active 11/17/2020 Tinea unguium B35.1(ICD-1 0) Diagnosis active 11/17/2020 Other specified counseling Z71.89(ICD- 10) Diagnosis active 11/17/2020 Personal history of other malignant neoplasm of skin Z85.828(ICD -10) Diagnosis active 06/25/2020 Actinic keratosis L57.0(ICD-1 0) Diagnosis active 06/25/2020 Xerosis cutis L85.3(ICD-1 0) Diagnosis active 06/25/2020 Other diseases of capillaries I78.8(ICD-1 0) Diagnosis active 06/25/2020 Other seborrheic keratosis L82.1(ICD-1 0) Diagnosis active 06/25/2020 Other nonthrombocytopenic purpura D69.2(ICD-1 0) Diagnosis active 06/25/2020 Other melanin hyperpigmentation L81.4(ICD-1 0) Diagnosis active 06/25/2020 Tinea unguium B35.1(ICD-1 0) Diagnosis active 06/25/2020 Other specified counseling Z71.89(ICD- 10) Diagnosis active 06/25/2020 Personal history of other malignant neoplasm of skin Z85.828(ICD -10) Diagnosis active 12/15/2019 Actinic keratosis L57.0(ICD-1 0) Diagnosis active 12/15/2019 Other melanin hyperpigmentation L81.4(ICD-1 0) Diagnosis active 12/15/2019 Encounter for surgical aftercare following surgery on the skin and subcutaneous tissue Z48.817(ICD -10) Diagnosis active 11/12/2019 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 D04.4(ICD-1 0) Diagnosis active 10/17/2019 Neoplasm of unspecified behavior of bone, soft tissue, and skin D49.2(ICD-1 0) Diagnosis active 08/12/2019 Clinical finding (finding) 785020514(S NOMED) Diagnosis active 04/22/2019 Senile hyperkeratosis (disorder) 318250401(S NOMED) Diagnosis active 04/22/2019 Scar conditions and fibrosis of skin (disorder) 972393178(S NOMED) Diagnosis active 09/03/2018 Senile hyperkeratosis (disorder) 398159759(S NOMED) Diagnosis active 05/14/2018 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) 894162422(S NOMED) Diagnosis active 04/02/2018 Senile hyperkeratosis (disorder) 948727223(S NOMED) Diagnosis active 03/26/2018 Other specified health status Z78.9(ICD-1 0) Diagnosis active 10/30/2017 Clinical finding (finding) 777079315(S NOMED) Diagnosis active 10/30/2017 Verruca vulgaris (disorder) 91136099(SN OMED) Diagnosis active 10/30/2017 Surgical follow-up (finding) 212682982(S NOMED) Diagnosis active 08/15/2017 Clinical finding (finding) 296360448(S NOMED) Diagnosis active 08/02/2017 Clinical finding (finding) 934697347(S NOMED) Diagnosis active 08/02/2017 Squamous cell carcinoma of skin (disorder) 071057162(S NOMED) Diagnosis active 08/02/2017 Squamous cell carcinoma of skin (disorder) 299152208(S NOMED) Diagnosis active 07/05/2017 Neoplasm of uncertain behavior of skin (disorder) 11657915(SN OMED) Diagnosis active 06/12/2017 Senile hyperkeratosis (disorder) 538784398(S NOMED) Diagnosis active 04/24/2017 Senile hyperkeratosis (disorder) 809509104(S NOMED) Diagnosis active 02/27/2017 Epidermoid cyst of skin (disorder) 244824975(S NOMED) Diagnosis active 02/01/2016 Inflamed seborrheic keratosis (disorder) 104338427(S NOMED) Diagnosis active 01/25/2016 Personal history of other drug therapy Z92.29(ICD- 10) Diagnosis active 08/03/2015 Other specified health status Z78.9(ICD-1 0) Diagnosis active 08/03/2015 Epidermoid cyst of skin (disorder) 282813572(S NOMED) Diagnosis active 08/03/2015 Non-neoplastic nevus (disorder) 191224361(S NOMED) Diagnosis active 01/14/2015 Increased blood pressure (finding) 70111682(SN OMED) Problem active Actinic keratosis (disorder) 992467129(S NOMED) Problem active Arthritis (disorder) 3640893(SNO MED) Problem active Increased blood pressure (finding) 65042915(SN OMED) Problem active Atrial fibrillation (disorder) 00178994(SN OMED) Problem active Squamous cell carcinoma (disorder) 607195305(S NOMED) Problem active Glaucoma (disorder) 51471960(SN OMED) Problem active Results No data Encounters Service provided at [facility], [address] [place] [address], [facility], [place], [place] [id number]. Office phonenumber is [phone]. Office fax number is [phone]. Encounter Diagnosis Location Date / Time Type Actinic Keratoses (L57.0)Nasir orrheic Keratoses (L82.1)Lentigines (L81.4)Solar Purpura (D69.2)Onychomycosis (B35.1)Scar (L90.5)Scar (L90.5)Skin Education (Z71.89) [facility] 06/22/2025 18:45: 00 [facility] [address] Reason For Referral No data Procedures Procedure Date Documentation of current medications (pr ocedure) 06/22/2025 12:00 am UTC Destruction of premalignant skin lesion (procedure) 06/22/2025 12:00 am UTC Documentation of current medications (pr ocedure) 01/02/2025 12:00 am UTC Cryotherapy of skin lesion with liquid n itrogen (procedure) 01/02/2025 12:00 am UTC Destruction of premalignant skin lesion (procedure) 01/02/2025 12:00 am UTC Destruction of premalignant skin lesion (procedure) 05/21/2024 12:00 am UTC Destruction of premalignant skin lesion (procedure) 11/09/2023 12:00 am UTC Cryotherapy of skin lesion with liquid n itrogen (procedure) 05/02/2023 12:00 am UTC Mohs surgery (procedure) 01/29/2023 12:0 0 am UTC Shave biopsy (procedure) 11/03/2022 12:0 0 am UTC Cryotherapy of skin lesion with liquid n itrogen (procedure) 11/03/2022 12:00 am UTC Cryotherapy of skin lesion with liquid n itrogen (procedure) 11/02/2021 12:00 am UTC Cryotherapy of skin lesion with liquid n itrogen (procedure) 05/23/2021 12:00 am UTC Cryotherapy of skin lesion with liquid n itrogen (procedure) 11/17/2020 12:00 am UTC Cryotherapy of skin lesion with liquid n itrogen (procedure) 06/25/2020 12:00 am UTC Documentation of past medical history (p rocedure) Documentation of past medical history (p rocedure) Documentation of past medical history (p rocedure) Documentation of past medical history (p rocedure) Documentation of past medical history (p rocedure) Documentation of past medical history (p rocedure) Review Of Systems Provider reviewed on Jun 22, 2025.A focused review of systems was performed including Integumentary.No Problems With Healing And No Problems With Scarring (hypertrophic Or Keloid). Assessment 1.Actinic Keratoses, Status: Inadequately ControlledCounselingLiquid Nitrogen: right scalp; left scalp; scalp; posterior scalp; left ear; left ear; left anterior neck; right cheek; Duration of freezethaw-cycle (seconds) - 10; Number of freeze-thaw Cycles - 1 freeze-thaw cycle; Application Tool - Cry- AC.2.Seborrheic KeratosesCounseling3.LentiginesCounseling4.Solar PurpuraCounseling5.OnychomycosisCounseling6.ScarCounseling7.ScarCounseling8.Skin EducationCounseling Plan of Care Future visit for 12/07/2025 - Follow up in 6 months for: Focused Visit - 15 minutes. Other Instructions: For Sun-exposed skin - AKs f/u (Head and Neck). Other Instructions: For Sun-exposed skin - AKsf/u (Head and Neck). Future visit for 06/22/2026 - Follow up in 1 year for: Skin Check - 15 minutes. Other Instructions:Annual CSE. Other Instructions: Annual CSE. Code Detail Instructions [id number] doxycycline hyclate 100 mg capsu le Take one pill twice daily with food and water x 5 days 949084 mupirocin 2 % topical ointment A pply to surgical site twice a day till you come see Dr. Del Valle Instructions * I counseled the patient regarding the following:Skin Care: Sun protective clothing and broad spectrum sunscreen can prevent the formation of Actinic Keratoses. AKs can resolve with cryotherapy, PDT or topical chemotherapy.Expectations: Actinic Keratoses are precancerous proliferations that occur within sun damaged skin. If untreated, a small subset of AKs can develop into Squamous Cell Carcinoma. * I counseled the patient regarding the following:Skin Care: Seborrheic keratoses are benign. No treatment is necessary.Expectations: Seborrheic keratoses are benign warty growths. Patients get more ofthem as they age. * I counseled the patient regarding the following:Skin Care: Lentigines can resolve with broad spectrum sunscreen, sun avoidance, bleaching creams, retinoids, chemical peels and laser.Expectations: Lentigines are benign pigmented lesions that occur on sun-exposed and sun-damaged skin. They are benign.I recommended the following: Broad Spectrum Sunscreen SPF 30+ * I counseled the patient regarding the following:Skin care: Bruised skin usually resolves within 3-4weeks. No treatment is necessary.Expectations: Ecchymoses are bruises that form within the skin from trauma. Patients with many ecchymoses may have skin fragility from sun damage, be on blood thinners or prednisone, or recently had surgery.Contact office if: Ecchymoses worsen with no cause that canbe identified; or if patient develops bleeding problems.Use broad spectrum SPF 30 or higher sunscreen on sun-exposed skin daily. In addition, wear sun-protective clothing, seek shade when available, a nd avoid the midday sun when possible. * I counseled the patient regarding the following:Skin care: Onychomycosis rarely responds to prolonged use of topical anti-fungal agents. Oral antifungal agents offer a higher cure rate, but relapses occur in 50% of patients.Expectations: Onychomycosis is a fungal infection of the nail plate. Oral therapy is more effective than topical therapy, but serious side effects such as liver toxicity, bonemarrow depression and severe rashes may ensue with systemic treatment.Contact office if: Patient develops a side effect from treatment.I recommended the following: Topical AntifungalsVicks VapoRubVinegar Soaks * I counseled the patient regarding the following:Skin Care: Patients with a history of non-melanoma skin cancer should monitor their skin every 2-3 months. Use broad spectrum SPF 30 or higher sunscreen on sun-exposed skin daily. In addition, wear sun-protective clothing, including hats and sunglasses, seek shade when available, and avoid the midday sun when possible.Expectations: Scars from excisional sites of non-melanoma skin cancers should be monitored for any recurrences.Contact Office if: If the patient notices discoloration or a bump arising from a previously stable scar or any new lesions that are not healing.I recommended the following: Sunscreen * I counseled the patient regarding the following:Skin Care: Scars become less noticeable over time.Expectations: Scars are permanent pickard on the body commonly seen after trauma or surgical procedures. Scars from excisional sites should be monitored for any recurrences.Contact Office if: If you notice discoloration or a bump arising from a previously stable scar.I recommended the following: Broad Spectrum Sunscreen SPF 30+ * I counseled the patient regarding the following:Sun screen (SPF 30 or greater) should be applied during peak UV exposure (between 10am and 2pm) and reapplied after exercise or swimming.The importanceof monthly self-examination was emphasized.Hats, sunglasses, protective clothing, shade and avoidance of mid- day sun encouraged.I recommended the following: Broad Spectrum Sunscreen SPF 30+Self-Skin Exams Social History Code Activity Start Date End Date 6859851 (SNOMED) Former smoker Sex male Sexual orientation Unspecified Gender identity Unspecified Vital Signs No data
--- OUTSIDE RECORDS SUMMARY | 2025-06-24 15:28 | XMS_ITS | Patient Health Record ---
Author Organization [facility] Address [address] [place] [address] Care Team Providers Care Suspender Cutter Name Role Phone Yonis Pirere MD Primary Care Provider UnavailChris Coffman Unavailable [phone] Allergies No Known Allergies Reason For Referral [...] Problem Status W/U Status Risk Notes Problem 866072786 History of adenomatous polyp of colon (Z86.010) Active confirmed Problem Constipation (80284895) Constipation (K59.00) Active confirmed Problem 121080683 Change in bowel habits (R19.4) Active confirmed Problem Rectal discharge (247359608) Rectal discharge (R19.8) Active confirmed Vital Signs Temperature 97.8 degrees Fahrenheit 04/28/2025 Blood pressure diastolic 01 mm Hg 04/28/2025 Height 68 in 04/28/2025 Blood pressure systolic 001 mm Hg 04/28/2025 Weight 164.2 lbs 04/28/2025 BMI 24.96 kg/m2 04/28/2025 Encounters Encounter Location Date Provider Diagnosis [facility] [address] [place] [address] 04/28/2025 Chris Tomlin Constipation K59.00 Assessments Encounter [...] Date MEDICARE OF [place] [address] [place] [address] [id number] SHERLY NIEVES Self - patient is the insured [employer] ATT[employer] CLAIMS [address] [place] [address] [id number] SHERLY NIEVES Self - patient is the insured Medical (General) History Medical History History ICD Code Screening Colonoscopy 04-30-2009--1 small tubular adenoma removed Reports neg. CT and MRI of abdomen in Hypertension Denies VA,DM,CVA,renal disease Peripheral neuropathy in feet Atrial fibrillation Asthma Colonoscopy in 01/2015-2 small tubular ad enomas removed 11/2023 and 12/2023 with hospitalizations for CHF--Dr. Reveles Some emphysema/asthma-Dr. Hernández Macular degeneration Surgical History Surgery Date(Month/Year) Cataract-lens implants-left Eye lid surgery
--- OUTSIDE RECORDS SUMMARY | 2025-06-24 15:28 | XMS_ITS | Patient Health Record ---
Author Organization [facility] Address [address] [place] [address] Care Team Providers Care Dental Patient Coordinator Name Role Phone Yonis Pierre Primary Care Provider Jennifer Thurman Unavailable [phone] Allergies Allergen (clinical drug ingredient) Drug/Non Drug [...] Ordered Date Performed Result Body Sit e 40126-XAOHLED NAIL, 6 OR MORE 09/04/2024 N/A 50469-Tzbnytmu Plate 09/04/2024 N/A 73498-FXYFLQT NAIL, 6 OR MORE 12/08/2024 N/A 68940- Debride <25 sq cm 12/08/2024 N/A 17381-CKSKGYG NAIL, 6 OR MORE 03/23/2025 N/A Encounters Encounter Location Date Provider Diagnosis [address] [address] 09/04/2024 Jennifer Black Tinea unguium B35.1 ; Ingrown nail L60.0 ; Pain in right toe(s) M79.674 and Pain in left toe(s) M79.[address] [address] 12/08/2024 Jennifer Black Tinea unguium B35.1 ; Skin ulcer of toe of left foot, limited to breakdown of skin L97.521 ; Pain in right toe(s) M79.674 and Pain in left toe(s) M79.[address] [address] 03/23/2025 Jennifer Black Tinea unguium B35.1 ; [...] Treatment Pending Test Test Name Order Date 58721-ZLPHXDI NAIL, 6 OR MORE 09/13/2011 31342-ZOLVAOV NAIL, 6 OR MORE 01/01/2012 82217-EIABJQT NAIL, 6 OR MORE 04/03/2012 98800-QVKOOTJ NAIL, 6 OR MORE 07/11/2012 22821-VBRYWHI NAIL, 6 OR MORE 10/21/2012 11320-HLETLQX NAIL, 6 OR MORE 03/27/2013 90124-LCOACSI NAIL, 6 OR MORE 09/22/2013 36364-OGLUZWC NAIL, 6 OR MORE 07/08/2014 80321-KNOKADA NAIL, 6 OR MORE 01/13/2015 57130-UEHCGAH NAIL, 6 OR MORE 01/26/2016 58359-TWLFONG NAIL, 6 OR MORE 07/20/2016 33026-FYTNBRG NAIL, 6 OR MORE 01/18/2017 61262-IKDNOLX NAIL, 6 OR MORE 09/03/2017 85779-SYBETRE NAIL, 6 OR MORE 12/13/2017 53892-AENMPDX NAIL, 6 OR MORE 03/14/2018 60541-EYMVTXG NAIL, 6 OR MORE 05/23/2018 79419-NTZQNWY NAIL, 6 OR MORE 09/19/2018 92402-KYDJWJZ NAIL, 6 OR MORE 01/16/2019 39751-EKLFCTC NAIL, 6 OR MORE 04/24/2019 74407-JXFTPPY NAIL, 6 OR MORE 07/24/2019 01686-ITPQKZA NAIL, 6 OR MORE 10/23/2019 95094-GZPZMCV NAIL, 6 OR MORE 03/04/2020 49825-MPFKRDV NAIL, 6 OR MORE 06/10/2020 40892-YPEBDFF NAIL, 6 OR MORE 09/16/2020 20548-LFZRWQG NAIL, 6 OR MORE 01/13/2021 03638-VKULJZL NAIL, 6 OR MORE 04/28/2021 43340-KNCECYW NAIL, 6 OR MORE 08/11/2021 94677-AWVJLNZ NAIL, 6 OR MORE 11/21/2021 23169-CQOTLAY NAIL, 6 OR MORE 02/23/2022 89685-SMIYKIC NAIL, 6 OR MORE 06/01/2022 32855-LMUNLLM NAIL, 6 OR MORE 09/11/2022 31361-CZSCBOE NAIL, 6 OR MORE 12/11/2022 16902-UNPSZOD NAIL, 6 OR MORE 04/12/2023 05633-DPCOUUQ NAIL, 6 OR MORE 07/16/2023 46830-LPATRYC NAIL, 6 OR MORE 11/01/2023 92034-KQMONIP NAIL, 6 OR MORE 01/31/2024 37968-XMCCGDP NAIL, 6 OR MORE 05/19/2024 93323-DOHZSIW NAIL, 6 OR MORE 09/04/2024 58591-MZYONIC NAIL, 6 OR MORE 12/08/2024 75354-HLPTFOA NAIL, 6 OR MORE 03/23/2025 43683-XHDXAUV NAIL, 1-5 07/21/2015 47970-Cuhtxqlf Plate 09/20/2021 48584-Nqmyzbrq Plate 08/11/2021 78739-Agxwbomy Plate 03/04/2020 47246-Yycyysyl Plate 02/01/2018 07350-Ggefzxia Plate 01/13/2015 25294-Ybsnjunq Plate 09/04/2024 11466- Debride <25 sq cm 12/08/2024 87241- Debride <25 sq cm 06/19/2019 12790- Debride <25 sq cm 09/20/2021 01955- Debride <25 sq cm 02/23/2022 27469- Debride <25 sq cm 09/11/2022 47355- Debride <25 sq cm 06/01/2022 Next Appt Details Provider Name:Jennifer Marks , 06/29/2025 11:30:00 AM, [address] [facility], [place], [address], Insurance Providers Payer Name Payer Address Payer Phone Subscriber Number Group Number Insured Name Patient Relationship to Insured Coverage Start Date Coverage End Date Medicare National [employer] [address] [place] [address] [id number] Junior Marin Self - patient is the insured [employer] [address] [place] [address] [id number] Junior Marin Self - patient is the insured Medical (General) History Medical History History ICD Code measles hypertension asthma A fib Gout M10.9 Idiopathic chronic gout of right foot wi [facility] M1A.0711 Other hammer toe(s) (acquired), right fo ot M20.41 Other hammer toe(s) (acquired), left christian t M20.42 Arthritis of joint of lesser toe, left M 19.072 Surgical History Surgery Date(Month/Year) eye surgery 2010 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
== END 2025-06-24 13:27 | disposition home or self-care (01) ==
LOC: HO.HUSH 12:27
PROVIDERS: PCP Internal Medicine; Visit Provider Nurse Practitioner Family
DX: N40.0 Benign prostatic hyperplasia without lower urinary tract symptoms (principal); R35.0 Frequency of micturition; N39.43 Post-void dribbling; R39.15 Urgency of urination; R35.1 Nocturia; Z13.9 Encounter for screening, unspecified
CPT/HCPCS: 99214; G2211

== ENCOUNTER → 2025-06-24 12:26 | Outpatient (BNVA) | payer MEDICARE, SELFPAY | PROVIDERS: PCP Internal Medicine; Visit Provider Nurse Practitioner Family | DX: N40.1 Benign prostatic hyperplasia with lower urinary tract symptoms (principal); R35.0 Frequency of micturition; N39.43 Post-void dribbling; R39.15 Urgency of urination; R35.1 Nocturia | CPT/HCPCS: 81003; 99212 ==

== ENCOUNTER 2025-07-07 12:29 | Outpatient (AMB) | payer MEDICARE, SELFPAY ==
--- NOTE | 2025-07-07 12:50 | MHC.OFFVIS ---
Vital Signs 07/07/25 12:51 Height 5 ft 9 in Weight 167 lb 8.821 oz BMI 24.7 BP 124/76 Blood Pressure Location Lt brachial Position Sitting Pulse 57 Intake Visit Reasons: 3 mth f/up flakito Intake Note: 3 month follow-up dx chf feeling good Intern Brand Required: No Allergies latex Allergy (Verified 06/24/25 13:12) Unknown maple Allergy (Mild, Uncoded 06/24/25 13:12) Unknown Medication List - Last Reconciled 07/07/25 by Blas Reveles MD albuterol sulfate 90 mcg/actuation 2 puffs inhalation Q4-6H PRN alfuzosin ER 10 mg PO BEDTIME 30 days amlodipine 10 mg PO DAILY apixaban (Eliquis) 5 mg PO BID carvedilol 6.25 mg PO BID finasteride 5 mg PO DAILY fluticasone furoate-vilanterol 100-25 mcg/dose (Breo Ellipta) 1 ea inhalation DAILY furosemide (Lasix) 20 mg PO DAILY lifitegrast 5% (Xiidra) 1 drp ophthalmic (eye) BID losartan 50 mg PO DAILY timolol maleate 0.5% 1 drp ophthalmic (eye) BID vit C,R-Th-ggltd-lutein-zeaxan 250-90-40-1 mg (PreserVision AREDS-2) 1 tab PO BID HPI Comments Details: Junior comes for follow-up. Overall he has been doing well from cardiac perspective. His main issue currently is his eyesight. He said he does not take his diuretic on a daily basis as he has to go to the bathroom frequently. He took his diuretic yesterday and has not taken it today. He has had no worsening shortness of breath, orthopnea, PND. Does notice increased wheezing for which she takes PRN albuterol therapy. Has not noticed any weight gain. Denies any prolonged palpitation irregular heartbeat. No lightheadedness, syncope. No bleeding issues or neurologic events. [facility] Medical History Chronic atrial fibrillation Acute respiratory failure with hypoxia CHF exacerbation Atrial fibrillation with RVR (HFpEF) heart failure with preserved ejection fraction Asthma Mitral valve insufficiency Macular degeneration Former smoker HTN (hypertension) Social History Household Members: Spouse Housing: House Do you presently have visiting nurse or other home services: Yes Alcohol intake: current Alcohol intake frequency: holidays/special occasions only Patient Tobacco Use Status: Former Tobacco user Advance Directives Date on File: 12/05/23 service: No Review of Systems Const Denies chills, Denies fatigue, Denies fever(s), Denies frequent falls, Denies weakness, Denies weight gain and Denies weight loss ENT Denies dizziness Card Denies chest pain, Denies leg edema, Denies lightheadedness, Denies palpitations, Denies dyspnea, Denies dyspnea on exertion, Denies orthopnea and Denies other (loss of consciousness) Resp Denies cough, Denies dyspnea and Denies dyspnea on exertion GI Denies hematochezia and Denies change in stool character Musc Denies abnormal gait, Denies muscle weakness, Denies numbness, Denies radiating pain into limb and Denies tingling Neuro Denies abnormal gait, Denies dizziness, Denies frequent falls, Denies numbness, Denies tingling and Denies weakness Endo Denies fatigue and Denies palpitations Physical Exam Vital Signs: Last Vital Signs Pulse 57 07/07/25 12:51 BP 124/76 07/07/25 12:51 BMI result Body Mass Index 24.7 Const General: cooperative, healthy appearing, comfortable and no acute distress Orientation/consciousness: patient oriented x3 HEENT Head: Yes normal to inspection Neck Neck: Yes normal visual inspection, Yes trachea midline and Yes supple Chest Chest palpation & inspection: normal inspection of the chest Resp Effort & Inspection: normal respiratory effort Auscultation: clear to auscultation bilaterally, no crackles, no rales, no rhonchi, no wheezes and diminished lung sounds on the right in the lower lung monahan Cardio Jugular venous distension: no JVD Palpation: normal PMI Rate: regular rate Rhythm: abnormal rhythm irregularly irregular Heart sounds: S1 normal heart sound present, S2 normal heart sound present, no click, no gallops, no murmurs and no rubs Peripheral pulses: Peripheral pulses 2+ throughout GI Inspection: Yes normal to inspection Palpation (GI): Soft to palpation Auscultation: normal bowel sounds Skin General skin exam: no rashes or lesions noted Neuro General: patient oriented x3 Extrem General: Yes normal to inspection, No calf tenderness and Yes edema (2+ to the RLE, trace to LLE) Psych Appearance: grossly normal Mental Status: mental status grossly normal Speech and movement: Normal speech and movement present Assessment & Plan Assessment & Plan (1) Chronic atrial fibrillation: Code(s): I48.20 - Chronic atrial fibrillation, unspecified Category: Medical Plan: Chronic atrial fibrillation with severe biatrial enlargement with adequate rate control. Since currently doing well from that perspective and given his chronicity as well as severe biatrial enlargement unlikely to pursue rhythm control approach. Continue rate control approach with carvedilol. Continue full oral anticoagulation, currently on Eliquis 5 mg b.i.d.. Quarterly renal function test should be pursued. (2) (HFpEF) heart failure with preserved ejection fraction: Code(s): I50.30 - Unspecified diastolic (congestive) heart failure Category: Medical Plan: Heart failure preserved ejection fraction with multiple comorbidities including advanced age, chronic atrial fibrillation with severe biatrial enlargement, severe pulmonary hypertension. Clinically euvolemic and well compensated on less than daily dose of furosemide. Discussed management of heart failure. He can switch his furosemide to every other day basis. Management of heart failure was discussed again. Daily weight monitoring avoidance salt loading was discussed. Additional diuretics as need be. Continue aggressive blood pressure control which is currently well optimized. Follow-up echocardiogram 6 months time. Will follow up in the clinic in 6 months time, sooner PRN. Thank you for allowing me to partake in his care Orders: Orders CA echo transthoracic complete 6 Months I50.30 - Unspecified diastolic (congestive) heart failure Coding Level of Care Code Est Pt Level 4 (36260) Complex EM visit Add On G2211 Diagnoses Chronic atrial fibrillation I48.20 (HFpEF) heart failure with preserved ejection fraction I50.30
[2025-07-07 12:51] VITALS: BP 124/76; PULSE 57; BMI 24.7
--- OUTSIDE RECORDS SUMMARY | 2025-07-07 15:20 | XMS_ITS | Patient Health Record ---
Author Organization [facility] Address [address] [place] [address] Care Team Providers Care Portable Irrigation Operator Name Role Phone Yonis Pierre Primary Care Provider Jennifer Thurman Unavailable [phone] Allergies Allergen (clinical drug ingredient) Drug/Non Drug Allergy documented on EMR Reaction Allergy Type Onset Date Status Latex Latex Unknown Allergy Active Reason For Referral No Information Medications Medication SIG (Take, Route, Frequency, Duration) Notes Start Date End Date Status Finasteride Active Vigraplex as directed Orally N ot-Taking Ciclopirox Olamine 0.77 % 1 application to affected area Externally Twice a day; Duration: 30 days 01/01/2012 Not-Taking Carvedilol Active Ciclopirox Olamine 0.77% external Apply to effected areas twice a day; Duration: 30 days 07/20/2016 Not-Takin g amLODIPine Besylate Active Ciclopirox Olamine 0.77% external apply to feet twice a day; Duration: 30 days 07/08/2014 Not-Taking cloNIDine HCl Active Ciclopirox Olamine 0.77 % 1 application to affected area Externally Twice a day; Duration: 30 days 09/03/2017 Not-Taking Loprox Active Eliquis 5 MG as directed Orally T wice a day Active Timolol Hemihydrate 0.25 % 1 drop into affected eye Ophthalmic Once a day Active Losartan Potassium A ctive Alfuzosin HCl ER 10 MG Oral; Duration: 90 Days Active Ciclopirox Olamine 0.77 % 1 application Externally Twice a day; Duration: 30 days 03/23/2025 Active Immunizations Vaccine Route Administration Date Status [...] Tobacco use: Nonsmoker Additional Findings: Tobacco non-user Current no nsmoker AUDIT-C (Standard) Question Answer Notes Did you have a drink containing alcohol in the p ast year? No Points 0 Interpretation Negative Vital Signs Heart Rate 65 /min 09/04/2024 Blood pressure diastolic 70 mm Hg 06/29/2025 Height 5 ft 9 in in 06/29/2025 Blood pressure systolic 113 mm Hg 06/29/2025 Weight 162 lbs 06/29/2025 BMI 23.92 kg/m2 06/29/2025 Procedures Procedure Date Ordered Date Performed Result Body Sit e 78285-OPWLZHT NAIL, 6 OR MORE 09/04/2024 N/A 42626-Hnmjgzdw Plate 09/04/2024 N/A 47131-HXUZWOV NAIL, 6 OR MORE 12/08/2024 N/A 62737- Debride <25 sq cm 12/08/2024 N/A 29650-YQDTWYB NAIL, 6 OR MORE 03/23/2025 N/A 31151-JLEETUH NAIL, 6 OR MORE 06/29/2025 N/A 05745-Mauutclu Plate 06/29/2025 N/A 74459-Ysxwsxos Plate Each Additional 06/29/2025 N/A Encounters Encounter Location Date Provider Diagnosis [facility] [address] [address] 09/04/2024 Jennifer Black Tinea unguium B35.1 ; Ingrown nail L60.0 ; Pain in right toe(s) M79.674 and Pain in left toe(s) M79.675 [facility] [address] 12/08/2024 Jennifer Black Tinea unguium B35.1 ; Skin ulcer of toe of left foot, limited to breakdown of skin L97.521 ; Pain in right toe(s) M79.674 and Pain in left toe(s) M79.[address] [address] 03/23/2025 Jennifer Black Tinea unguium B35.1 ; Tinea pedis of both feet B35.3 ; Pain in right toe(s) M79.674 and Pain in left toe(s) M79.[address] [address] 06/29/2025 Jennifer Black Tinea unguium B35.1 ; Tinea pedis of both feet B35.3 ; Pain in right toe(s) M79.674 ; Pain in left toe(s) M79.675 and Ingrown nail L60.[address] [address] 06/29/2025 Jennifer Black Assessments Encounter Date Diagnosis (ICD [...] pedis of both feet (ICD-10 - B35.3) 06/29/2025 Tinea unguium (ICD-10 - B35.1) 06/29/2025 Tinea pedis of both feet (ICD-10 - B35.3) 06/29/2025 Pain in right toe(s) (ICD-10 - M79.674) 03/23/2025 Pain in right toe(s) (ICD-10 - M79.674) 12/08/2024 Pain in right toe(s) (ICD-10 - M79.674) 09/04/2024 Pain in right toe(s) (ICD-10 - M79.674) 09/04/2024 Pain in left toe(s) (ICD-10 - M79.675) 12/08/2024 Pain in left toe(s) (ICD-10 - M79.675) 03/23/2025 Pain in left toe(s) (ICD-10 - M79.675) 06/29/2025 Pain in left toe(s) (ICD-10 - M79.675) 06/29/2025 Ingrown nail (ICD-10 - L60.0) Plan Of Treatment Pending Test Test Name Order Date 21419-FKYTNVA NAIL, 6 OR MORE 09/13/2011 20254-QONNPRO NAIL, 6 OR MORE 01/01/2012 95225-XWWETAY NAIL, 6 OR MORE 04/03/2012 91309-VITRNCN NAIL, 6 OR MORE 07/11/2012 17789-YHWIVNJ NAIL, 6 OR MORE 10/21/2012 51396-VYKIJYK NAIL, 6 OR MORE 03/27/2013 26114-QTKVVQX NAIL, 6 OR MORE 09/22/2013 16948-PZYDYTV NAIL, 6 OR MORE 07/08/2014 31518-CFAJISM NAIL, 6 OR MORE 01/13/2015 99136-RIBYLXI NAIL, 6 OR MORE 01/26/2016 56632-LFHBIQA NAIL, 6 OR MORE 07/20/2016 97133-QGQKKBJ NAIL, 6 OR MORE 01/18/2017 02889-HMPFCBC NAIL, 6 OR MORE 09/03/2017 31434-XZIZPFL NAIL, 6 OR MORE 12/13/2017 53792-FQHYHER NAIL, 6 OR MORE 03/14/2018 85913-SWZGQRM NAIL, 6 OR MORE 05/23/2018 10717-VPLKTBV NAIL, 6 OR MORE 09/19/2018 22158-UTFEXLY NAIL, 6 OR MORE 01/16/2019 79559-GPWKCQW NAIL, 6 OR MORE 04/24/2019 55096-QLCDNWT NAIL, 6 OR MORE 07/24/2019 71515-GRWNESO NAIL, 6 OR MORE 10/23/2019 35121-PAXMJWQ NAIL, 6 OR MORE 03/04/2020 72333-XUYCRVK NAIL, 6 OR MORE 06/10/2020 39791-HNUXPAS NAIL, 6 OR MORE 09/16/2020 89435-SLAQUMU NAIL, 6 OR MORE 01/13/2021 21850-KUJDFGF NAIL, 6 OR MORE 04/28/2021 31953-IICGJTU NAIL, 6 OR MORE 08/11/2021 93624-TZCMKNF NAIL, 6 OR MORE 11/21/2021 03478-CVRYWJY NAIL, 6 OR MORE 02/23/2022 71437-ULBUHJN NAIL, 6 OR MORE 06/01/2022 18748-HPGNFLV NAIL, 6 OR MORE 09/11/2022 20999-ZGTNYYQ NAIL, 6 OR MORE 12/11/2022 26589-LKGSFWW NAIL, 6 OR MORE 04/12/2023 93684-WVOSXZL NAIL, 6 OR MORE 07/16/2023 71531-PHPGKRE NAIL, 6 OR MORE 11/01/2023 06501-DAMDMRM NAIL, 6 OR MORE 01/31/2024 07236-UCWSESI NAIL, 6 OR MORE 05/19/2024 03178-YIECXZY NAIL, 6 OR MORE 09/04/2024 05962-NOCNAJO NAIL, 6 OR MORE 12/08/2024 34050-SFQAXWR NAIL, 6 OR MORE 03/23/2025 79667-OGZUYAT NAIL, 6 OR MORE 06/29/2025 84314-DODMNVL NAIL, 1-5 07/21/2015 26574-Qvlopqwa Plate 09/20/2021 54544-Xsaxqjgc Plate 08/11/2021 73008-Xfititjx Plate 03/04/2020 14052-Elxmjngx Plate 02/01/2018 74838-Cwhqhdpz Plate 01/13/2015 43815-Bcstnhiv Plate 06/29/2025 95615-Pgmzqgct Plate 09/04/2024 19738-Cgnkciat Plate Each Additional 99575- Debride <25 sq cm 12/08/2024 78574- Debride <25 sq cm 06/19/2019 43265- Debride <25 sq cm 09/20/2021 80443- Debride <25 sq cm 02/23/2022 14651- Debride <25 sq cm 09/11/2022 77256- Debride <25 sq cm 06/01/2022 Next Appt Details Provider Name:Jennifer Villeda Kendrick , 11/05/2025 01:30:00 PM, [address] [place], [address], Insurance Providers Payer Name Payer Address Payer Phone Subscriber Number Group Number Insured Name Patient Relationship to Insured Coverage Start Date Coverage End Date Medicare [facility] [employer] [address] [place] [address] [id number] Junior Marin Self - patient is the insured [employer] [address] [place] [address] [id number] Junoir Marin Self - patient is the insured [...]
--- OUTSIDE RECORDS SUMMARY | 2025-07-07 15:20 | XMS_ITS | Patient Health Record ---
Author Organization [facility] Address [address] [place] [address] Care Team Providers Care Peanut Salter Name Role Phone Yonis Pierre MD Primary Care Provider UnavailChris Coffman Unavailable [phone] Allergies No Known Allergies Reason For Referral [...] Problem Status W/U Status Risk Notes Problem 159520293 History of adenomatous polyp of colon (Z86.010) Active confirmed Problem Constipation (02874131) Constipation (K59.00) Active confirmed Problem 163294409 Change in bowel habits (R19.4) Active confirmed Problem Rectal discharge (626625295) Rectal discharge (R19.8) Active confirmed Vital Signs Temperature 97.8 degrees Fahrenheit 04/28/2025 Blood pressure diastolic 01 mm Hg 04/28/2025 Height 68 in 04/28/2025 Blood pressure systolic 001 mm Hg 04/28/2025 Weight 164.2 lbs 04/28/2025 BMI 24.96 kg/m2 04/28/2025 Encounters Encounter Location Date Provider Diagnosis [facility] [address] [place] [address] 04/28/2025 Chris Tomlin Constipation K59.00 Assessments Encounter [...] Date MEDICARE OF [place] [address] [facility] [place] [address] [id number] SHERLY NIEVES Self - patient is the insured [employer] CLAIMS [address] [place] [address] [id number] SHERLY NIEVES Self - patient is the insured Medical (General) History Medical History History ICD Code Screening Colonoscopy 04-30-2009--1 small tubular adenoma removed Reports neg. CT and MRI of abdomen in Hypertension Denies MO,DM,CVA,renal disease Peripheral neuropathy in feet Atrial fibrillation Asthma Colonoscopy in 01/2015-2 small tubular ad enomas removed 11/2023 and 12/2023 with hospitalizations for CHF--Dr. Reveles Some emphysema/asthma-Dr. Hernández Macular degeneration Surgical History Surgery Date(Month/Year) Cataract-lens implants-left Eye lid surgery
== END 2025-07-07 13:15 | disposition home or self-care (01) ==
LOC: HO.HCS 12:29
PROVIDERS: PCP Internal Medicine; Visit Provider Internal Medicine Cardiovascular Disease
DX: I48.20 Chronic atrial fibrillation, unspecified (principal); I50.30 Unspecified diastolic (congestive) heart failure
CPT/HCPCS: 99214; G2211

== ENCOUNTER → 2025-07-07 12:29 | Outpatient (BNVA) | payer MEDICARE, SELFPAY | PROVIDERS: PCP Internal Medicine; Visit Provider Internal Medicine Cardiovascular Disease | DX: I48.20 Chronic atrial fibrillation, unspecified (principal); I50.30 Unspecified diastolic (congestive) heart failure | CPT/HCPCS: 99212 ==

== ENCOUNTER 2025-08-26 17:32 | Emergency (ER) | payer MEDICARE, SELFPAY ==
--- NOTE | ~2025-08-26 | CT_ITS ---
CLINICAL HISTORY: fall posterior head strike CT head without contrast Comparison: None provided Findings: No intra-axial mass, midline shift, hydrocephalus, or acute hemorrhage. Moderate cerebral atrophy and compensatory ventriculomegaly. Low attenuation in the periventricular white matter consistent with chronic small-vessel ischemic gliosis. There is no sinus or mastoid fluid. The orbits are within normal limits. No skull fracture. IMPRESSION: 1. No acute intracranial findings. This document has been electronically signed by: Enoch Smith MD on 08/26/2025 19:17:10
--- NOTE | ~2025-08-26 | CT_ITS ---
CLINICAL HISTORY: posterior head strike CT cervical spine without contrast Comparison: None provided Findings: Vertebral alignment is within normal limits. Multilevel degenerative change of the cervical spine. Large bridging anterior osteophytes present. No acute fractures or dislocations. No acute findings on limited view of the intracranial contents. Soft tissues of the neck are normal. Right-sided pleural effusion. No apical pneumothorax. IMPRESSION: No acute findings. This document has been electronically signed by: Enoch Smith MD on 08/26/2025 19:13:41
--- NOTE | ~2025-08-26 | XR_ITS ---
CLINICAL HISTORY: fall, right hip buttock bruising pain 3 view, pelvis and right hip Comparison: None provided Findings: No acute fracture or dislocation. Bilateral joint space narrowing of the hips and small marginal osteophytes. Arterial vascular calcifications present. No disruption of the pelvic ring. IMPRESSION: No acute findings. This document has been electronically signed by: Enoch Smith MD on 08/26/2025 19:08:35
[2025-08-26 17:47] VITALS: BP 146/67; PULSE 80; RESP 18; TEMP 36.2; O2SAT 98; BMI 25.3
--- NOTE | 2025-08-26 17:48 | ED.GENADULT ---
HPI - General Adult General Chief complaint: Fall Stated complaint: head injury, lower extremity injury (fell 08/25) Time Seen by Provider: 08/26/25 19:08 Source: patient, family (), RN notes reviewed and old records reviewed Mode of arrival: ambulatory Limitations: no limitations History of Present Illness ED Provider: Pranay HPI narrative: 84-year-old male with a history of hypertension, atrial fibrillation on Eliquis, asthma not dependent oxygen, enlarged prostate presents for evaluation after a fall. Per the patient's , the patient tripped at [facility] yesterday. His foot got caught while missing a step up onto the curb. He fell and struck the back of his head on the ground. The states it seemed like he fell slow motion. There was no loss of consciousness pain The patient complains of right-sided hip pain. His pain is currently a 1/10. He is encouraged to come to the emergency room for evaluation due to his atrial fibrillation pain Denies any visual changes, lightheadedness, dizziness pain Denies any neck pain he reports that he may have seen bright red blood on the toilet paper after a bowel movement this morning. he has a history of hemorrhoids for many years ago. He denies any abdominal pain, rectal pain Related Data Home Medications ?Medication ?Instructions ?Recorded ?Confirmed amlodipine 10 mg tablet 10 mg PO DAILY 12/02/23 07/07/25 apixaban 5 mg tablet (Eliquis) 5 mg PO BID 12/02/23 07/07/25 carvedilol 6.25 mg tablet 6.25 mg PO BID 12/02/23 07/07/25 finasteride 5 mg tablet 5 mg PO DAILY 12/02/23 07/07/25 lifitegrast 5 % eye drops in a 1 drp ophthalmic (eye) BID 12/02/23 07/07/25 dropperette (Xiidra) timolol maleate 0.5 % eye drops 1 drp ophthalmic (eye) BID 12/02/23 07/07/25 vit C 250 mg-vit E 90 mg-zinc 40 1 tab PO BID 12/02/23 07/07/25 mg-copper 1 [id number] capsule (PreserVision AREDS-2) losartan 100 mg tablet 50 mg PO DAILY 06/25/25 09/23/25 Previous Rx's ?Medication ?Instructions ?Recorded furosemide 20 mg tablet (Lasix) 20 mg PO DAILY #90 tabs 11/28/24 fluticasone furoate 100 1 ea inhalation DAILY #60 ea 06/08/25 mcg-vilanterol 25 mcg/dose inhalation powder (Breo Ellipta) albuterol sulfate 90 mcg/actuation 2 puff inhalation Q4-6H PRN for 06/22/25 aerosol inhaler wheezing #18 ea tadalafil 5 mg tablet (Cialis) 5 mg PO DAILY 30 days #30 tabs 07/13/25 Allergies Allergy/AdvReac Type Severity Reaction Status Date / Time latex Allergy Unknown Verified 08/26/25 17:48 maple Allergy Mild Unknown Uncoded 08/26/25 17:48 Review of Systems Constitutional: Constitutional: Denies body ache(s), Denies chills, Denies fever(s) and Denies headache(s) ENT: Denies headache(s) Neurologic: Denies headache(s) PMFSH Past Medical History Medical History Chronic atrial fibrillation Acute respiratory failure with hypoxia CHF exacerbation Atrial fibrillation with RVR (HFpEF) heart failure with preserved ejection fraction Asthma Mitral valve insufficiency Macular degeneration Former smoker HTN (hypertension) Social History Social History Household Members: Spouse Housing: House Do you presently have visiting nurse or other home services: Yes Alcohol intake: current Alcohol intake frequency: holidays/special occasions only Patient Tobacco Use Status: Former Tobacco user Advance Directives: Yes Advance Directives on File: Yes Advance Directives Date on File: 12/05/23 service: No Physical Exam ED Vital Signs: Vital Signs - 24 hr 08/26/25 17:47 08/26/25 20:51 Temperature 97.2 F 97.6 F Pulse Rate 80 82 Respiratory Rate 18 16 Blood Pressure 146/67 H 146/71 H Pulse Oximetry 98 100 Oxygen Delivery Method Room Air Room Air BMI result Body Mass Index 25.3 Const General: healthy appearing, comfortable, no acute distress, alert and awake Nutritional Appearance: well nourished Orientation/consciousness: patient oriented x3 HENMT Head: Yes normocephalic and Yes atraumatic Throat: Yes posterior oropharynx normal Eyes Eyelids: Yes eyelids normal Conjunctivae: conjunctivae normal Sclerae: sclerae normal Corneas: corneas normal Pupils: Equal, round and reactive pupils present EOM: EOMs intact bilaterally Neck Neck: Yes full ROM Resp Effort & Inspection: normal respiratory effort, able to speak in complete sentences and no audible wheezes Cardio Rate: regular rate Rhythm: regular rhythm GI Inspection: No distended Palpation (GI): Soft to palpation, not firm, nontender, no guarding and not rigid Skin General skin exam: elasticity normal Neuro General: patient oriented x3 Cranial nerves: Yes CN's II-XII intact bilaterally, Yes Equal, round and reactive pupils present and Yes Bilaterally intact EOM present Cognition (Neuro): normal cognition Extrem Other: Moving all extremities well without any obvious deformities Course Course Course Narrative: This is a Rapid Medical Examination (RME) performed by Matthew Whitlock PA-C in triage. Full HPI, ROS, assessment and treatment plan per primary provider in the Main ED. Hx: 84 yo M here w/ his for eval s/p mechanical fall yesterday. he reports stepping onto a curb in the parking lot at [facility], lost his balance and fell backwards with head strike on concrete. no LOC. he was assisted up, able to stand. witnessed fall. endorses pain to left hip/ buttock with associated bruise. he is anticoagulated on eliquis. called PCP today, advised he come to the ED for imaging. denies any headache. Plan: imaging Reevaluation(s) Reevaluation #1: We will treat the patient's potassium with insulin and D5 normal saline, Lokelma and calcium gluconate. Plan to recheck the potassium after treatment Time: 20:42 Reevaluation #2: repeat potassium is down to 4.4 after treatment, the patient be discharged in stable condition at this time Time: 22:59 Medications Administered Generic Name Dose Route Start Last Admin Trade Name Freq PRN Reason Stop Dose Admin Dextrose/Sodium Chloride 1,000 mls @ 500 mls/hr 08/26/25 20:45 08/26/25 22:47 D5ns IVCONT Infused .Q2H REX Infusion Discontinued Medications Generic Name Dose Route Start Last Admin Trade Name Freq PRN Reason Stop Dose Admin Calcium Gluconate 1 gm in 50 mls @ 200 mls/hr 08/26/25 20:31 08/26/25 21:15 Calcium Gluconate IV 08/26/25 20:45 Infused ONCE ONE Infusion Insulin Human Regular 5 unit 08/26/25 20:12 08/26/25 20:35 Insulin Regular, Human 100 Unit/Ml 10 Ml Vial IVPUSH 08/26/25 20:13 5 unit ONCE ONE Administration Sodium Zirconium Cyclosilicate 10 gm 08/26/25 20:11 08/26/25 20:39 Sodium Zirconium Cyclosilicate 10 Gm Powd.Pack PO 08/26/25 20:12 10 gm ONCE ONE Administration Medical Decision Making Medical Decision Making [facility] Narrative: 84-year-old male presents for evaluation of a fall that happened yesterday. He was with his in his was a witnessed fall. She reports that he tripped while stepping up onto the sidewalk off of a curb. He did strike his head but there was no loss of consciousness, he is anticoagulant Eliquis and it was recommended he presents to the ER for a CT scan of the brain and further evaluation. He had a CT scan of the brain, cervical spine x-ray of the right hip and pelvis that did not show any significant traumatic injuries. The patient has mild discomfort. From a trauma standpoint he is cleared. However the patient noted some possible bright red blood when he wiped after a bowel movement this morning. I therefore ordered basic labs, he has a mild anemia that is quite consistent with his baseline. His potassium was incidentally noted to be elevated to 5.9. Has a history of hyperkalemia. He is on furosemide but no potassium-sparing diuretics. His BUN is elevated to 38 with a creatinine of 1.3 which is slightly above his baseline. The patient admits to drinking orange juice stool last week because his was sick and he thought it would help prevent him from getting sick. He denies any other source of potassium. he was instructed not to eat bananas when he had high potassium last summer Differential Diagnosis Differential Diagnoses: The differential diagnosis associated with the presentation includes intracranial hemorrhage Cervical fracture Contusion hip fracture Pelvic fracture Dehydration Anemia GI bleed less likely Hyperkalemia Admission/Observation Consideration of admission/observation: Escalation of care including admission/observation considered Lab Data [facility] Lab Attestation statement: I reviewed the patient's lab results. no significant leukocytosis. The patient has a mild anemia consistent with his baseline. Potassium is elevated to 5.9 which she has had in the past. Chloride is slightly elevated indicating some possible degree of dehydration. BUN of 38 with a normal creatinine of 1.32. 08/26/25 19:42 08/26/25 22:35 Labs: Lab Results 08/26/25 08/26/25 08/26/25 Range/Units 19:42 21:30 22:35 WBC 8.4 (4.8-10.8) X10*3/uL RBC 3.93 L (4.60-5.80) X10*6/uL Hgb 12.4 L (14.0-18.0) g/dl Hct 37.8 L (42.0-52.0) % MCV 96.2 (80.0-98.0) fL MCH 31.6 (27.0-33.0) pg MCHC 32.8 (31.0-36.0) g/dl RDW 14.7 (11.0-16.0) % Plt Count 300 (160-400) X10*3/uL MPV 9.5 (9.4-12.4) fL Immature Gran % (Auto) 0.5 H (0.0-0.4) % Neut % (Auto) 76.4 H (45-73) % Lymph % (Auto) 9.6 L (20-40) % [place] % (Auto) 10.6 (2-11) % Eos % (Auto) 1.9 (0-4) % Baso % (Auto) 1.0 (0-2) % Lymph # (Auto) 0.8 L (1.2-4.9) X10*3/uL [place] # (Auto) 0.9 (0.1-1.2) X10*3/uL Eos # (Auto) 0.2 (0.0-0.4) X10*3/uL Baso # (Auto) 0.1 (0.0-0.2) X10*3/uL Abs Immat Gran (auto) 0.04 H (0.00-0.03) X10*3/uL Absolute Neuts (auto) 6.4 (2.0-8.3) x10*3/uL Absolute Nucleated RBC 0.000 (0.0-0.012) X10*3/uL Nucleated RBC % (auto) 0.0 (0.0-0.2) /100WBC PT 14.9 H (11.2-13.5) SEC INR 1.2 H (0.9-1.1) Sodium 143 141 (135-145) mmol/L Potassium 5.9 H 4.4 D (3.3-5.1) mmol/L Chloride 111 H 114 H (96-108) mmol/L Carbon Dioxide 25 22 (22-29) mmol/L Anion Gap 13 9 L (12-20) BUN 38 H 34 H (9-16) mg/dL Creatinine 1.32 1.14 (0.5-1.4) mg/dL Estim Creat Clear Calc 40.9 47.3 Estimated GFR 52 > 60 POC Glucose 138 H (60-115) mg/dL Random Glucose 104 204 H (60-115) mg/dL Calcium 9.5 8.8 D (8.4-10.2) mg/dL Magnesium 2.4 (1.6-2.6) mg/dL Total Bilirubin 0.4 (0.0-1.0) mg/dL AST 28 (5-37) U/L ALT 26 (0-40) U/L Alkaline Phosphatase 111 (39-117) U/L Total Protein 7.7 (6.5-8.0) g/dL Albumin 4.6 (3.5-5.0) g/dL Discharge Plan Discharge Clinical Impression: Acute hyperkalemia Patient Disposition: Home, Self-Care Instructions: Potassium Content of Foods List (ED), Hyperkalemia (ED) Additional Instructions: Your CT scans and x-rays did not show any evidence of traumatic injury. Your routine blood work showed a high potassium of 5.9. This was brought down to 4.4 which is within normal limits. I recommend avoiding foods that are high in potassium content. I also recommend following up with your primary doctor next week for repeat labs to check your potassium return for new or worsening symptoms Prescriptions: No Action fluticasone furoate-vilanterol [Breo Ellipta] 100-25 mcg/dose blister with device 1 ea INHALATION DAILY Qty: 60 6RF albuterol sulfate 90 mcg/actuation HFA aerosol inhaler 2 puff inhalation Q4-6H PRN (Reason: for wheezing) Qty: 18 0RF tadalafil [Cialis] 5 mg tablet 5 mg PO DAILY 30 Days Qty: 30 2RF Rx Instructions: USE COUPON ATTACHED NOT INSURANCE [id number] [facility] GroupGDRX Member [id number] carvedilol 6.25 mg tablet 6.25 mg PO BID amlodipine 10 mg tablet 10 mg PO DAILY timolol maleate 0.5 % drops 1 drp ophthalmic (eye) BID Rx Instructions: both eyes finasteride 5 mg tablet 5 mg PO DAILY Eliquis 5 mg tablet 5 mg PO BID PreserVision AREDS-2 250-90-40-1 mg Capsule 1 tab PO BID Xiidra 5 % dropperette 1 drp ophthalmic (eye) BID Rx Instructions: both eyes furosemide [Lasix] 20 mg tablet 20 mg PO DAILY Qty: 90 2RF losartan 100 mg tablet 50 mg PO DAILY Print Language: Ugandan
--- OUTSIDE RECORDS SUMMARY | 2025-08-26 19:14 | XMS_ITS | Patient Health Record ---
Author Organization [facility] Address [address] [place] [address] Care Team Providers Care Voltage Inspector Name Role Phone Yonis Pierre Primary Care Provider Jennifer Thurman Unavailable [phone] Allergies Allergen (clinical drug ingredient) Drug/Non Drug [...] Ordered Date Performed Result Body Sit e 49894-[id number] NAIL, 6 OR MORE 09/04/2024 N/A 74464-Qosiimzg Plate 09/04/2024 N/A 04562-IKSIUAA NAIL, 6 OR MORE 12/08/2024 N/A 48300- Debride <25 sq cm 12/08/2024 N/A 63566-ICYCIWS NAIL, 6 OR MORE 03/23/2025 N/A 98799-GFOZMYX NAIL, 6 OR MORE 06/29/2025 N/A 86551-Abjmyxev Plate 06/29/2025 N/A 99042-Xsgqdrol Plate Each Additional 06/29/2025 N/A Encounters Encounter Location Date Provider Diagnosis [facility] [address] [address] 09/04/2024 Jennifer Black Tinea unguium B35.1 ; Ingrown nail L60.0 ; Pain in right toe(s) M79.674 and [facility] in left toe(s) M79.675 [facility] [address] 12/08/2024 Jennifer Black Tinea unguium B35.1 ; Skin ulcer of toe of left foot, limited to breakdown of skin L97.521 ; Pain in right toe(s) M79.674 and Pain in left toe(s) M79.[address] [address] 03/23/2025 Jenniefr Black Tinea unguium B35.1 ; Tinea pedis of both feet B35.3 ; Pain in right toe(s) M79.674 and Pain in left toe(s) M79.[address] [address] 06/29/2025 Jennifer Black Tinea unguium B35.1 ; Tinea pedis of both feet B35.3 ; Pain in right toe(s) M79.674 ; Pain in left toe(s) M79.675 and Ingrown nail L60.[address] [address] 06/29/2025 Jennifer Black Assessments Encounter Date Diagnosis [...] Treatment Pending Test Test Name Order Date 81400-GLIOERZ NAIL, 6 OR MORE 09/13/2011 42435-EMDGIOB NAIL, 6 OR MORE 01/01/2012 85676-YKNMCIU NAIL, 6 OR MORE 04/03/2012 08151-KUDMOLF NAIL, 6 OR MORE 07/11/2012 68819-RHOTQNP NAIL, 6 OR MORE 10/21/2012 48704-BCJRGUA NAIL, 6 OR MORE 03/27/2013 35680-CWDONTE NAIL, 6 OR MORE 09/22/2013 29011-BLPHVFJ NAIL, 6 OR MORE 07/08/2014 97332-UNKSZNV NAIL, 6 OR MORE 01/13/2015 45005-TCXSLWT NAIL, 6 OR MORE 01/26/2016 41023-MGEJIJP NAIL, 6 OR MORE 07/20/2016 41575-TUJITIG NAIL, 6 OR MORE 01/18/2017 40888-UCWNUQP NAIL, 6 OR MORE 09/03/2017 13088-JNJEBXU NAIL, 6 OR MORE 12/13/2017 99781-MZSPORS NAIL, 6 OR MORE 03/14/2018 21590-NXALXCX NAIL, 6 OR MORE 05/23/2018 02836-NGMASUE NAIL, 6 OR MORE 09/19/2018 97270-FNZMNTQ NAIL, 6 OR MORE 01/16/2019 45092-KCJXMSR NAIL, 6 OR MORE 04/24/2019 18943-DRPBXIR NAIL, 6 OR MORE 07/24/2019 06468-UXHZCSC NAIL, 6 OR MORE 10/23/2019 41253-HOKTEPS NAIL, 6 OR MORE 03/04/2020 03091-HUPYQZS NAIL, 6 OR MORE 06/10/2020 85620-DBDOJJB NAIL, 6 OR MORE 09/16/2020 99718-ODLCJZW NAIL, 6 OR MORE 01/13/2021 75863-YMMACUW NAIL, 6 OR MORE 04/28/2021 18304-MIHWCES NAIL, 6 OR MORE 08/11/2021 17148-KJXBVWV NAIL, 6 OR MORE 11/21/2021 91102-LNFJAPX NAIL, 6 OR MORE 02/23/2022 77343-KRQIULK NAIL, 6 OR MORE 06/01/2022 74119-EYPCGKC NAIL, 6 OR MORE 09/11/2022 21406-YTVCUKL NAIL, 6 OR MORE 12/11/2022 66382-JAQFVLH NAIL, 6 OR MORE 04/12/2023 52237-TBUODRI NAIL, 6 OR MORE 07/16/2023 93614-AUQNDAT NAIL, 6 OR MORE 11/01/2023 90944-HCPACMQ NAIL, 6 OR MORE 01/31/2024 85976-QZNJBUZ NAIL, 6 OR MORE 05/19/2024 33020-LDSLKSE NAIL, 6 OR MORE 09/04/2024 94526-FTVFYKQ NAIL, 6 OR MORE 12/08/2024 29018-JVDXZKA NAIL, 6 OR MORE 03/23/2025 53931-NLVSFBN NAIL, 6 OR MORE 06/29/2025 31000-BZXEUWA NAIL, 1-5 07/21/2015 58652-Ufmeemog Plate 09/20/2021 37565-Cezmurhs Plate 08/11/2021 30015-Veqbdrfa Plate 03/04/2020 17076-Avsqkxnt Plate 02/01/2018 21863-Mwcmcwse Plate 01/13/2015 25803-Dpzscssp Plate 06/29/2025 00644-Fhuuyxpt Plate 09/04/2024 58161-Sbzpoido Plate Each Additional 39934- Debride <25 sq cm 12/08/2024 08142- Debride <25 sq cm 06/19/2019 38657- Debride <25 sq cm 09/20/2021 48553- Debride <25 sq cm 02/23/2022 99426- Debride <25 sq cm 09/11/2022 82871- Debride <25 sq cm 06/01/2022 Next Appt Details Provider Name:Jennifer Villeda Kendrick , 11/05/2025 01:30:00 PM, [address] [place], [address], Insurance Providers Payer Name Payer Address Payer Phone Subscriber Number Group Number Insured Name Patient Relationship to Insured Coverage Start Date Coverage End Date Medicare [facility] [employer] [address] [place] [address] [id number] Junior Marin Self - patient is the insured [employer] [address] [place] [address] [id number] Junior Marin Self - patient is the [...]
--- OUTSIDE RECORDS SUMMARY | 2025-08-26 19:14 | XMS_ITS | Patient Health Record ---
Author Organization [facility] Address [address] [place] [address] Care Team Providers Care Structural Manager Name Role Phone Yonis Pierre MD Primary Care Provider UnavailChris Coffman Unavailable [phone] Allergies No Known Allergies Reason For Referral No Information Medications Medication SIG (Take, Route, Frequency, Duration) Notes Start Date End Date Status Carvedilol 6.25 MG TAKE 1 TABLET BY FERNANDO TH TWICE A DAY Orally Active Losartan Potassium 100 MG TAKE 1 TABLET EVERY DAY Oral; Duration: 90 Active Brimonidine Tartrate 0.2 % INSTILL 1 JENI P INTO BOTH EYES TWICE A DAY Ophthalmic; Duration: 25 Active amLODIPine Besylate 10 MG TAKE 1 TABLET BY MOUTH EVERY DAY Oral; Duration: 90 Active Finasteride 5 MG TAKE 1 TABLET BY FERNANDO TH EVERY DAY Oral; Duration: 90 Active Fiber Choice 1.5 GM as directed Orally t wice a day Active Breo Ellipta 100-25 MCG/ACT Inhalation; Duration: 30 Active Multi Vitamin - 1 tablet Orally Once a day Active Eliquis 5 MG TAKE 1 TABLET BY FERNANDO TH TWICE A DAY Oral; Duration: 90 Active Furosemide 20 MG 1 tablet Orally Once a day Active Tylenol PRN Active Timolol Maleate Ocudose 0.5 % 1 drop into affected eye Ophthalmic Once a day Active Albuterol Sulfate HFA 108 (90 Base) MCG/ACT Inhalation Active Vitamin D 50 MCG (2000 UT) 1 tablet Oral ly Once a day Active MiraLax 17 GM Orally PRN Active Wixela Inhub 100-50 MCG/ACT 1 puff Inhal ation Twice a day Active Budesonide-Formoterol Fumarate 160-4.5 MCG/ACT Inhalation Act eric Apixaban 5 MG Orally Active Probiotic Active Xiidra 5 % Ophthalmic; Duration: 90 Active Immunizations Vaccine Route Administration Date Status Comme nts Influenza Unknown 08/04/2020 Administered Influenza Unknown 08/05/2024 Administered Problems Problem Type SNOMED Code ICD Code Onset Dates Problem Status W/U Status Risk Notes Problem History of adenomatous polyp of colon (186899960) History of adenomatous polyp of colon (Z86.010) Active confirmed Problem Constipation (58229359) Constipation (K59.00) Active confirmed Problem Change in bowel habit (06195726) Change in bowel habits (R19.4) Active confirmed Problem Rectal discharge (192566505) Rectal discharge (R19.8) Active confirmed Vital Signs Temperature 97.8 degrees Fahrenheit 04/28/2025 Blood pressure diastolic 01 mm Hg 04/28/2025 Height 68 in 04/28/2025 Blood pressure systolic 001 mm Hg 04/28/2025 Weight 164.2 lbs 04/28/2025 BMI 24.96 kg/m2 04/28/2025 Encounters Encounter Location Date Provider Diagnosis [facility] [address] [place] [address] 04/28/2025 Chris Tomlin Constipation K59.00 Assessments Encounter [...] [place] [address] [place] [address] [id number] TANIASHERLY MEDEIROS Self - patient is the insured [employer] CLAIMS [address] [place] [address] [id number] SHERLY NIEVES Self - patient is the insured Medical (General) History Medical History History ICD Code Screening Colonoscopy 04-30-2009--1 small tubular adenoma removed Reports neg. CT and MRI of abdomen in Hypertension Denies AK,DM,CVA,renal disease Peripheral neuropathy in feet Atrial fibrillation Asthma Colonoscopy in 01/2015-2 small tubular ad enomas removed 11/2023 and 12/2023 with hospitalizations for CHF--Dr. Reveles Some emphysema/asthma-Dr. Hernández Macular degeneration Surgical History Surgery Date(Month/Year) Cataract-lens implants-left Eye lid surgery
[2025-08-26 19:46] LABS: MANUAL DIFF FLAG NO
[2025-08-26 19:50] LABS: Hematocrit 37.8 % (42.0-52.0); Hemoglobin 12.4 g/dl (14.0-18.0); Imm Gran Abs Auto 0.04 X10*3/uL (0.00-0.03); Imm Gran Pct Auto 0.5 % (0.0-0.4); Lymphocytes Absolute Auto 0.8 X10*3/uL (1.2-4.9); Mean Corpuscular HGB Conc 32.8 g/dl (31.0-36.0); Mean Corpuscular Hemoglobin 31.6 pg (27.0-33.0); Mean Corpuscular Volume 96.2 fL (80.0-98.0); NRBC Abs Auto 0.000 X10*3/uL (0.0-0.012); NRBC Pct Auto 0.0 /100WBC (0.0-0.2); Platelet Count 300 X10*3/uL (160-400); Red Blood Count 3.93 X10*6/uL (4.60-5.80); White Blood Count 8.4 X10*3/uL (4.8-10.8)
[2025-08-26 20:01] LABS: INTERNATIONAL NORM RATIO 1.2 (0.9-1.1); Prothrombin Time 14.9 SEC (11.2-13.5)
[2025-08-26 20:07] LABS: Alanine Aminotransferase 26 U/L (0-40); Albumin Level 4.6 g/dL (3.5-5.0); Alkaline Phosphatase 111 U/L (39-117); Anion Gap 13 (12-20); Aspartate Amino Transferase 28 U/L (5-37); Blood Urea Nitrogen 38 mg/dL (9-16); Calcium 9.5 mg/dL (8.4-10.2); Carbon Dioxide 25 mmol/L (22-29); Chloride 111 mmol/L (96-108); Creatinine Clr Calc Pharmacy 40.9; Estimated Glomerular Filt Rate 52; Potassium 5.9 mmol/L (3.3-5.1); Sodium 143 mmol/L (135-145); Total Protein 7.7 g/dL (6.5-8.0)
[2025-08-26 20:28] LABS: Magnesium 2.4 mg/dL (1.6-2.6)
[2025-08-26] MEDS: Calcium Gluconate/NaCl,Iso-Osm 1 GM/50 ML PLAST..BAG IV (20:50)
[2025-08-26 20:51] VITALS: BP 146/71; PULSE 82; RESP 16; TEMP 36.4; O2SAT 100
[2025-08-26 21:34] LABS: Glucose, Whole Blood 138 mg/dL (60-115)
[2025-08-26 22:55] LABS: Anion Gap 9 (12-20); Blood Urea Nitrogen 34 mg/dL (9-16); Calcium 8.8 mg/dL (8.4-10.2); Carbon Dioxide 22 mmol/L (22-29); Chloride 114 mmol/L (96-108); Creatinine Clr Calc Pharmacy 47.3; Estimated Glomerular Filt Rate > 60; Potassium 4.4 mmol/L (3.3-5.1); Sodium 141 mmol/L (135-145)
[2025-08-26 23:08] VITALS: BP 140/58; PULSE 82; RESP 16; TEMP 36.4; O2SAT 100
== END 2025-08-26 23:12 | disposition home or self-care (01) ==
PROVIDERS: Physician Assistant; Emergency Provider Emergency Medicine; PCP Internal Medicine
DX: E87.5 Hyperkalemia (principal); M25.551 Pain in right hip; I10 Essential (primary) hypertension; I48.20 Chronic atrial fibrillation, unspecified; Z79.01 Long term (current) use of anticoagulants; Z91.81 History of falling
CPT/HCPCS: 36415; 70450; 72125; 73502; 80048; 80053; 82947; 83735; 85025; 85610; 96361; 96374; 96375; 99285; J0613

== ENCOUNTER → 2025-08-26 17:50 | Outpatient (BNV) | payer MEDICARE, SELFPAY | PROVIDERS: PCP Internal Medicine; Visit Provider Radiology Diagnostic Radiology | DX: S09.90XA Unspecified injury of head, initial encounter (principal); S30.0XXA Contusion of lower back and pelvis, initial encounter; Z04.3 Encounter for examination and observation following other accident | CPT/HCPCS: 70450; 72125; 73502 ==

== ENCOUNTER 2025-09-02 08:40 | Outpatient (AMB) | payer MEDICARE, SELFPAY ==
--- NOTE | 2025-09-02 08:51 | MHC.OFFVIS ---
Vital Signs 09/02/25 08:52 Height 5 ft 9 in Weight 169 lb BMI 25.0 BP 127/60 Blood Pressure Location Rt brachial Position Sitting Pulse 75 Pulse Source Pulse Oximeter Pulse Oximetry (%) 99 Oxygen Delivery Method Room Air Intake Visit Reasons: asthma Allergies latex Allergy (Verified 09/02/25 08:55) Unknown maple Allergy (Mild, Uncoded 08/26/25 17:48) Unknown HPI HPI asthma: Details: 84-year-old gentleman, former 40 pack-year smoker, quit over 20 years prior with underlying AFib on anticoagulation and rate control followed for moderate asthma/COPD overlap syndrome. Patient has been using Breo and albuterol MDI with reasonable control of his symptoms. He continues to complain of a cough productive of greenish sputum. His sputum cultures growing Acinetobacter with poor response to several first-line agents. [facility] Medical History Chronic atrial fibrillation Acute respiratory failure with hypoxia CHF exacerbation Atrial fibrillation with RVR (HFpEF) heart failure with preserved ejection fraction Asthma Mitral valve insufficiency Macular degeneration Former smoker HTN (hypertension) Social History Household Members: Spouse Housing: House Do you presently have visiting nurse or other home services: Yes Alcohol intake: current Alcohol intake frequency: holidays/special occasions only Patient Tobacco Use Status: Former Tobacco user Advance Directives Date on File: 12/05/23 service: No Review of Systems Const Denies daytime sleepiness, Denies excessive sweating, Denies fatigue, Denies fever(s), Denies lethargy, Denies malaise, Denies night sweats, Denies snoring and Denies weight loss Eyes Denies blurry vision and Denies itchy eyes ENT Denies nasal congestion, Denies post nasal drip, Denies sinus pain, Denies sinus pressure and Denies other ( Thrush) Card Denies chest pain, Denies pedal edema, Denies dyspnea, Denies orthopnea and Denies paroxysmal nocturnal dyspnea Resp Reports cough, Denies hemoptysis, Reports excessive phlegm production, Denies dyspnea, Denies snoring and Denies wheezing GI Denies abdominal pain and Denies heartburn Musc Denies myalgias, Denies arthralgias and Denies joint swelling Skin/Breast Denies rash Neuro Denies memory loss and Denies seizure-like activity Psych Denies abnormal sleep pattern, Denies anxiety and Denies memory loss Endo Denies excessive sweating, Denies fatigue and Denies heat intolerance Salvatore/Lymph Denies easy bruising Aller/Immun Denies itchy eyes, Denies seasonal rhinorrhea and Denies wheezing Physical Exam Vital Signs: Last Vital Signs Pulse 75 09/02/25 08:52 BP 127/60 09/02/25 08:52 Pulse Ox 99 09/02/25 08:52 Oxygen Delivery Method Room Air 09/02/25 08:52 BMI result Body Mass Index 25.0 Const General: no acute distress and alert Nutritional Appearance: not obese Orientation/consciousness: Other orientation findings ( oriented) HEENT Head: Yes atraumatic Eyes General: appearance normal, both eyes and all related structures Sclerae: sclerae normal EOM: EOMs intact bilaterally Neck Neck: Yes supple Lymphatic: no lymphadenopathy noted Resp Effort & Inspection: normal respiratory effort and no use of accessory muscles Auscultation: clear to auscultation bilaterally Cardio Rate: regular rate Rhythm: regular rhythm Heart sounds: no gallops, no murmurs and no rubs Skin General skin exam: other ( warm) Extrem General: No clubbing, No cyanosis and No edema Assessment & Plan Assessment & Plan (1) Asthma-COPD overlap syndrome: Code(s): J44.89 - Other specified chronic obstructive pulmonary disease Category: Medical Plan: Well controlled on Breo and albuterol MDI. Continue current regimen. (2) Cough: Code(s): R05.9 - Cough, unspecified Category: Medical Plan: Sputum culture with Acinetobacter with poor response to several first-line agents, will treat with doxycycline. Medications: New doxycycline monohydrate 100 mg PO BID 30 tabs 0RF Coding Level of Care Code Est Pt Level 4 (10206) Diagnoses Asthma-COPD overlap syndrome J44.89 Cough R05.9
[2025-09-02 08:52] VITALS: BP 127/60; PULSE 75; O2SAT 99; BMI 25.0
== END 2025-09-02 09:14 | disposition home or self-care (01) ==
LOC: HO.HPS 08:41
PROVIDERS: PCP Internal Medicine; Visit Provider Internal Medicine Pulmonary Disease
DX: J44.89 Other specified chronic obstructive pulmonary disease (principal); R05.9 Cough, unspecified
CPT/HCPCS: 99214

== ENCOUNTER → 2025-09-02 08:40 | Outpatient (BNVA) | payer MEDICARE, SELFPAY | PROVIDERS: PCP Internal Medicine; Visit Provider Internal Medicine Pulmonary Disease | DX: J44.89 Other specified chronic obstructive pulmonary disease (principal); R05.9 Cough, unspecified; I48.19 Other persistent atrial fibrillation; Z79.01 Long term (current) use of anticoagulants; Z87.891 Personal history of nicotine dependence | CPT/HCPCS: 99212 ==

== ENCOUNTER 2025-09-08 08:00 | Outpatient (REF) | payer MEDICARE, SELFPAY ==
[2025-09-08 09:39] LABS: PSA,Total (Free>4and<10) 0.61 ng/mL (0.00-4.00)
== END 2025-09-08 08:01 | disposition home or self-care (01) ==
LOC: HO.LAB 08:00
PROVIDERS: PCP Internal Medicine; Visit Provider Nurse Practitioner Family
DX: Z12.5 Encounter for screening for malignant neoplasm of prostate (principal)
CPT/HCPCS: 36415; 84153

== ENCOUNTER 2025-09-23 13:22 | Outpatient (AMB) | payer MEDICARE, SELFPAY ==
--- NOTE | 2025-09-23 13:24 | MHC.OFFVIS ---
Intake Visit Reasons: 3m/PVR/UA Intake Note: Patient is present for 3M/PVR/UA PSA:0.61 Urology Medication:TADALAFIL,FINSTERIDE Antibiotic Allergy:NONE Blood Thinner:APIXABAN TODAY'S PVR:0ML'S [employer] Assistant Required: No Allergies latex Allergy (Verified 09/23/25 15:07) Unknown maple Allergy (Mild, Uncoded 09/23/25 15:07) Unknown Medication List - Last Reconciled 09/23/25 by CHRISSY Hernadez- albuterol sulfate 90 mcg/actuation 2 puffs inhalation Q4-6H PRN amlodipine 10 mg PO DAILY apixaban (Eliquis) 5 mg PO BID carvedilol 6.25 mg PO BID finasteride 5 mg PO DAILY fluticasone furoate-vilanterol 100-25 mcg/dose (Breo Ellipta) 1 ea inhalation DAILY furosemide (Lasix) 20 mg PO DAILY lifitegrast 5% (Xiidra) 1 drp ophthalmic (eye) BID losartan 50 mg PO DAILY tadalafil (Cialis) 5 mg PO DAILY 30 days timolol maleate 0.5% 1 drp ophthalmic (eye) BID vit C,P-Op-ttgxc-lutein-zeaxan 250-90-40-1 mg (PreserVision AREDS-2) 1 tab PO BID HPI Comments Details: Junior is a pleasant 84-year-old male patient of Dr. Pierre who was accompanied by his at today's office visit. He has a past medical history of chronic AFib, CHF, heart failure with preserved ejection fracture, asthma, mitral valve insufficiency, macular degeneration, former smoker, and hypertension. He presents to the office today for follow-up of his lower urinary tract symptoms. In discussion with the patient today he reports feeling lower urinary tract symptoms have been somewhat well controlled with low-dose Cialis and finasteride daily. He had previously trialed tamsulosin however felt this made him dizzy. He does however describes having had a couple episodes of urge incontinence. He describes these episodes as infrequent. In office urinalysis results reviewed with the patient today. PVR 0 mL. Previous workup has included a retroperitoneal ultrasound 07/09 notig bilateral renal cysts. No hydronephrosis or renal calculi noted bilaterally. The urinary bladder is unremarkable. Postvoid bladder volume 20 mL. Prostate is enlarged measuring 50 mL. He had previously followed up with [facility] for many years and has been on finasteride. He does report feeling episodes of urinary urgency and frequency have somewhat improved since his last office visit here. He does continue to report exacerbated lower urinary tract symptoms when taking his diuretic. We did discuss correlation of diuretic with lower urinary tract symptoms. He also reports noting urinary dribbling. He otherwise denies hematuria, dysuria, foul smelling urine, changes to urinary stream, flank pain, fever, and or chills. We did discussed potential causes of lower urinary tract symptoms patient is experiencing as well as urinary dribbling. We discussed pelvic floor exercises to assist with urinary dribbling. We also discussed bladder triggers/irritants. All questions were answered. He otherwise offers no other issues or concerns at this time. PSAs are as follows: PSA 07/09 1.0, 09/08 0.6 PFSH Medical History Chronic atrial fibrillation Acute respiratory failure with hypoxia CHF exacerbation Atrial fibrillation with RVR (HFpEF) heart failure with preserved ejection fraction Asthma Mitral valve insufficiency Macular degeneration Former smoker HTN (hypertension) Social History Household Members: Spouse Housing: House Do you presently have visiting nurse or other home services: Yes Alcohol intake: current Alcohol intake frequency: holidays/special occasions only Patient Tobacco Use Status: Former Tobacco user Advance Directives Date on File: 12/05/23 service: No Review of Systems Eyes Reports as per HPI ENT Reports as per HPI Card Reports as per HPI Resp Reports as per HPI GI Reports as per HPI Reports as per HPI Musc Reports as per HPI Neuro Reports no additional complaints Psych Reports no additional complaints Endo Reports no additional complaints Salvatore/Lymph Reports no additional complaints Aller/Immun Reports no additional complaints Physical Exam Const General: cooperative, healthy appearing, comfortable, no acute distress, well developed, alert and awake Orientation/consciousness: patient oriented x3 Limitations: no limitations HEENT Head: Yes normal to inspection, Yes normocephalic and Yes atraumatic Ears: hearing grossly normal bilaterally Eyes General: appearance normal, both eyes and all related structures Neck Neck: Yes normal visual inspection and Yes trachea midline Chest Chest palpation & inspection: normal inspection of the chest Resp Effort & Inspection: normal respiratory effort and able to speak in complete sentences Cardio Rate: regular rate GI Inspection: Yes normal to inspection General: Yes no CVA tenderness Back/Spine/Pelvis Back: no CVA tenderness Skin General skin exam: no rashes or lesions noted Neuro General: patient oriented x3 Extrem General: Yes normal to inspection Psych Appearance: grossly normal and well kempt Mental Status: mental status grossly normal Speech and movement: Normal speech and movement present and Clear speech present Affect: normal affect Attitude: cooperative Thought process: Normal thought process present Thought content: Normal thought content present Insight: Fair insight present (Psych) Judgement: Fair judgement present (Psych) Office Procedures Post Void Residual Post Residual Void Post Void Residual (PVR): 0 [id number] Void Residual by ultrasound Results AMB Urinalysis, Automated UA Leukoctes 0 Sheyla/uL Last Edit by ALENA Dickerson on 09/23/25 13:44 UA Nitrite Negative Last Edit by ALENA Dickerson on 09/23/25 13:44 UA Urobilinogen 0.2 mg/dL Last Edit by Beulah Russell CCM on 09/23/25 13:44 UA Protein 30 mg/dL Last Edit by ALENA Dickerson on 09/23/25 13:44 UA pH 6.0 Last Edit by ALENA Dickerson on 09/23/25 13:44 UA Blood 0 James/uL Last Edit by Beulah Russell CCM on 09/23/25 13:44 UA Specific [place] 1.015 Last Edit by ALENA Dickerson on 09/23/25 13:44 UA Ketone Negative Last Edit by ALENA Dickerson on 09/23/25 13:44 UA Bilirubin 0 mg/dL Last Edit by ALENA Dickerson on 09/23/25 13:44 UA Glucose 0 mg/dL Last Edit by Beulah Russell CCM on 09/23/25 13:44 Results Reviewed Results Reviewed: Laboratory Last Values Urine pH (Auto) 6.0 09/23/25 13:43 Specific [place] (Auto) 1.015 09/23/25 13:43 Urine Protein (Auto) 30 mg/dL 09/23/25 13:43 Glucose (UA)(Auto) 0 mg/dL 09/23/25 13:43 Urine Ketones (Auto) Negative 09/23/25 13:43 Urine Blood (Auto) 0 James/uL 09/23/25 13:43 Urine Nitrite (Auto) Negative 09/23/25 13:43 Urine Bilirubin (Auto) 0 mg/dL 09/23/25 13:43 Urine Urobilinogen (Auto) 0.2 mg/dL 09/23/25 13:43 Leukocyte Esterase (Auto) 0 Sheyla/uL 09/23/25 13:43 Assessment & Plan Assessment & Plan (1) Enlarged prostate: Code(s): N40.0 - Benign prostatic hyperplasia without lower urinary tract symptoms Category: Medical (2) Urinary frequency: Code(s): R35.0 - Frequency of micturition Category: Medical (3) Urinary dribbling: Code(s): N39.43 - Post-void dribbling Category: Medical (4) Urinary urgency: Code(s): R39.15 - Urgency of urination Category: Medical (5) Nocturia: Code(s): R35.1 - Nocturia Category: Medical Plan In office urinalysis results reviewed with the patient today; as noted above. PVR 0 mL. Most recent PSA results reviewed with the patient today; as noted above. Will continue low-dose Cialis and finasteride as prescribed. We did discussed at length potential causes of lower urinary tract symptoms patient is experiencing as well as further treatment options and risks and benefits of these treatment options. We did discussed the importance of healthy bathroom behaviors as well as timed/scheduled voiding. Information provided regarding pelvic floor exercises to assist with urinary dribbling. We discussed the importance of limiting fluids 2-3 hours prior to bed to decrease episodes of nocturia. All questions were answered. We discussed bladder triggers and irritants. Follow-up in 3-6 months months with PVR; or sooner with any issues, concerns, and or questions. Orders: Orders PSA,Total (Free>4and<10) 09/08/25 Z12.5 - Encounter for screening for malignant neoplasm of prostate AMB Urinalysis Automated Today Z13.9 - Encounter for screening, unspecified Medications: Changed From tadalafil (Cialis) USE COUPON ATTACHED NOT INSURANCE [id number] [facility] [employer] Member [id number] 5 mg PO DAILY 30 days 30 tabs 2RF To tadalafil (Cialis) USE COUPON ATTACHED NOT INSURANCE [id number] [facility] [employer] Member [id number] 5 mg PO DAILY 90 tabs 2RF 90 days From finasteride 5 mg PO DAILY To finasteride 5 mg PO DAILY 90 tabs 3RF 90 days Patient Instructions: The patient had an opportunity to ask questions regarding the treatment plan. All questions were answered. Physical exam, labs, and imaging were discussed and reviewed in detail. As well as risks, benefits, and discussion of treatment choices. No major barriers to understanding were identified. The patient expressed understanding and agreement with the above treatment plan. The patient was made aware they should contact our office by phone for worsening of their current condition, the appearance of new symptoms, or with any questions or concerns. Compliance is encouraged with any medications and follow up testing that is ordered. It is a privilege to be allowed the opportunity to participate in? your urological care.? Again, if you have any questions or concerns If you have any questions or concerns please do not hesitate to contact me. The office is [phone]. This note is constructed using voice recognition software. While every effort has been made to ensure accuracy tooling engineering tech errors may have been included. Yours sincerely, ANGELINA Hernadez Coding Level of Care Code Est Pt Level 3 (52935) Add On Problem Visit Only Diagnoses Enlarged prostate N40.0 Urinary frequency R35.0 Urinary dribbling N39.43 Urinary urgency R39.15 Nocturia R35.1 CPT Codes Post Residual Void - PVR CPT Code: 34421-Uoew Void Residual by ultrasound ([id number])
== END 2025-09-23 14:03 | disposition home or self-care (01) ==
LOC: HO.HUSH 13:23
PROVIDERS: PCP Internal Medicine; Visit Provider Nurse Practitioner Family
DX: N40.0 Benign prostatic hyperplasia without lower urinary tract symptoms (principal); R35.0 Frequency of micturition; N39.43 Post-void dribbling; R39.15 Urgency of urination; R35.1 Nocturia; Z13.9 Encounter for screening, unspecified
CPT/HCPCS: 99213; G2211

== ENCOUNTER → 2025-09-23 13:22 | Outpatient (BNVA) | payer MEDICARE, SELFPAY | PROVIDERS: PCP Internal Medicine; Visit Provider Nurse Practitioner Family | DX: N40.0 Benign prostatic hyperplasia without lower urinary tract symptoms (principal); R35.0 Frequency of micturition; N39.43 Post-void dribbling; R39.15 Urgency of urination; R35.1 Nocturia | CPT/HCPCS: 51798; 81003; 99212 ==